=== PATIENT | female | born 1950 | race Caucasian/White ===

== ENCOUNTER 2020-09-13 07:52 | Outpatient (REF) | payer MEDICARE, SELFPAY | END 2020-09-13 07:53 | disposition home or self-care (01) | LOC: HO.LNP 07:52 | PROVIDERS: PCP Internal Medicine; Referring Provider Internal Medicine; Visit Provider Obstetrics & Gynecology | DX: N90.4 Leukoplakia of vulva (principal) | CPT/HCPCS: 56606; 88305; 88312 ==

== ENCOUNTER 2020-09-26 13:27 | Outpatient (REF) | payer MEDICARE, SELFPAY ==
--- NOTE | 2020-09-26 | US_ITS ---
EXAMINATION: NONINVASIVE ASSESSMENT OF THE ARTERIES OF BOTH LOWER EXTREMITIES WITH PVR EXAM AND BILATERAL LOWER EXTREMITY DUPLEX CLINICAL INFORMATION: Claudication bilateral lower leg pain TECHNIQUE: Ankle pulse volume recordings, ankle pressure measurements and ankle brachial indices were obtained of the lower extremity arterial system bilaterally in addition to duplex Doppler techniques with wave form analysis and measurement of velocities in the common femoral, profunda femoral, superficial femoral, popliteal and tibial arteries. The study was performed only at rest. COMPARISON: None FINDINGS: a) AT REST: RIGHT LE. The right ankle-brachial index is: 0.9 2. Right ankle pressure: normal. 3. Right ankle PVR waveform: Dampened. 4. Right direct duplex Doppler findings: There is diffuse atherosclerotic disease with vessel wall calcification. There is a large calcified plaque in the right common femoral artery. There is diffuse wall thickening and mild luminal narrowing of the mid and distal right SFA. * Common femoral artery: 245 cm/s, Diastolic flow reversal: No * Superficial femoral artery (proximal, mid, distal): 158, 114 and 127 cm/s, Diastolic flow reversal: No * Popliteal artery: 84 cm/s, Diastolic flow reversal: No * Posterior tibial artery: 73 cm/s, Diastolic flow reversal: No LEFT LE. The left ankle-brachial index is: 0.9 2. Left ankle pressure: normal. 3. Left ankle PVR waveform: normal. 4. Left direct duplex Doppler findings: There is diffuse atherosclerotic disease with vessel wall calcification. There is a calcified plaque seen in the left common femoral artery. There is a diffuse wall thickening and mild luminal narrowing of the mid and distal SFA and popliteal artery. * Common femoral artery: 227 cm/s, Diastolic flow reversal: No * Superficial femoral artery (proximal, mid, distal): 113, 141 and 92 cm/s, Diastolic flow reversal: Yes * Popliteal artery: 86 cm/s, Diastolic flow reversal: No * Posterior tibial artery: 54 cm/s, Diastolic flow reversal: No. Monophasic waveform. LUIS FERNANDO Reference: * >0.97-1.25 = normal - no significant arterial disease * 0.75-0.96 = mild peripheral arterial disease * 0.5-0.74 = moderate peripheral arterial disease * <0.50 = severe peripheral arterial disease US/US LUIS FERNANDO complete IMPRESSION: Right: The right LUIS FERNANDO is 0.9 suggestive of mild peripheral atherosclerotic disease. Significant calcified plaque and elevated peak velocity in the right common femoral artery. Diffuse wall thickening and luminal narrowing of the right mid and distal SFA. Biphasic waveforms throughout. Left: The left LUIS FERNANDO is 0.9 suggestive of mild peripheral atherosclerotic disease. Significant calcified plaque and elevated peak systolic velocity in the left common femoral artery. Is wall thickening and luminal narrowing of the right mid and distal SFA and popliteal arteries. Biphasic waveforms throughout with the exception monophasic waveform in the left posterior tibial artery.
== END 2020-09-26 13:28 | disposition home or self-care (01) ==
LOC: HO.US 13:27
PROVIDERS: PCP Internal Medicine; Visit Provider Internal Medicine
DX: M79.661 Pain in right lower leg (principal); M79.662 Pain in left lower leg; I73.9 Peripheral vascular disease, unspecified
CPT/HCPCS: 93923; 93925

== ENCOUNTER → 2020-09-27 12:08 | Outpatient (BNVA) | payer MEDICARE, SELFPAY | PROVIDERS: PCP Internal Medicine; Visit Provider Obstetrics & Gynecology | DX: N90.4 Leukoplakia of vulva (principal); Z98.890 Other specified postprocedural states | CPT/HCPCS: 99212; Q3014 ==

== ENCOUNTER 2020-10-18 09:01 | Outpatient (REF) | payer MEDICARE, SELFPAY | END 2020-10-18 09:02 | disposition home or self-care (01) | LOC: HO.LAB 09:01 | PROVIDERS: PCP Internal Medicine; Visit Provider Obstetrics & Gynecology | DX: N76.4 Abscess of vulva (principal) | CPT/HCPCS: 10060; 56405; 87071; 87147; 87205; 99212 ==

== ENCOUNTER 2020-10-23 22:56 | Emergency (ER) | payer MEDICARE, SELFPAY ==
[2020-10-23 23:02] VITALS: BP 167/80; BP 170/80; PULSE 80; RESP 18; TEMP 36.9; O2SAT 98; BMI 25.0
--- NOTE | 2020-10-23 23:04 | ECG_ITS ---
Test Reason : CHEST PAIN Blood Pressure : / mmHG Vent. Rate : 068 BPM Atrial Rate : 068 BPM P-R Int : 142 ms QRS Dur : 078 ms QT Int : 444 ms P-R-T Axes : 056 020 069 degrees QTc Int : 472 ms Normal sinus rhythm Nonspecific T wave abnormality Prolonged QT Abnormal ECG When compared with ECG of 14-APR-2020 10:53, Nonspecific T wave abnormality no longer evident in Inferior leads T wave inversion no longer evident in Anterolateral leads Referred By: Nayely Cox Electronically Signed By:STEPHEN LENNON MD
--- NOTE | 2020-10-23 23:04 | XR_ITS ---
EXAMINATION: XR CHEST CLINICAL INFORMATION: Chest pain COMPARISON: 04/15/2020, chest radiograph and chest CT TECHNIQUE: Frontal view of the chest was obtained. FINDINGS: Heart size normal. Again seen are coarse reticulonodular opacities in both lungs. Similar correlates were seen on the prior chest CT that showed reticular nodular markings with tree-in-bud opacities. No new areas of consolidation seen. No evidence of CHF. No lung masses. No pleural effusions. XR/XR chest 1V IMPRESSION: No acute intrathoracic disease
--- NOTE | 2020-10-23 23:06 | ED.CHESTPAIN ---
HPI - Chest Pain General Chief Complaint: Chest Pain Stated Complaint: CP X3 DAYS Time Seen by Provider: 10/23/20 23:05 Source: patient and EMS Mode of arrival: EMS Limitations: no limitations History of Present Illness HPI narrative: given nitro and ASA with EMS no significant relief also noted her BP was high 170s systolic, takes her lisinopril 20mg daily without any issue complaint: chest pain Onset (ago): hour(s) (3) Timing of current episode: constant Prior episodes: Yes Onset: during rest Pain location: left chest Pain radiation: left arm Severity: moderate Quality: tightness and aching Relieving factors: nothing Exacerbating factors: movement Treatment prior to arrival: aspirin and nitroglycerin Related Data Home Medications Medication Instructions Recorded Confirmed gabapentin 300 mg capsule 300 mg PO DAILY 09/13/20 09/27/20 lisinopril 20 mg tablet 20 mg PO BID 09/13/20 09/27/20 methenamine-sodium salicylate 162 tab PO 09/13/20 09/27/20 mg-162.5 mg tablet simvastatin 20 mg tablet 20 mg PO DAILY 09/13/20 09/27/20 Previous Rx's Medication Instructions Recorded sulfamethoxazole 800 1 tab PO BID 5 Days #2 tab 10/18/20 mg-trimethoprim 160 mg tablet cyclobenzaprine 10 mg PO TID PRN #14 tab 10/24/20 Allergies Allergy/AdvReac Type Severity Reaction Status Date / Time levofloxacin [LEVOFLOXACIN] Allergy Intermediate HIVES Verified 10/18/20 09:14 ceftriaxone [From ROCEPHIN] Allergy Mild SWELLING Verified 10/18/20 09:14 cephalexin [From KEFLEX] Allergy Mild ITCHING Verified 10/18/20 09:14 Review of Systems Review of Systems: Constitutional : No Weight loss, No Fever, No Chills ENT/Mouth : No sore throat, No Rhinorrhea Eyes: No Eye Pain, No Swelling Cardiovascular : pos Chest Pain, no SOB, no Dyspnea on Exertion, No Orthopnea, No Edema, No Palpitations Respiratory : No Cough, No Sputum Gastrointestinal : pos Nausea, No Vomiting, No Diarrhea, No abdominal Pain, No Hematochezia, No Melena Genitourinary : No Dysuria, No Urinary Frequency Musculoskeletal : pos joint pain, No Myalgias, No Joint Swelling Skin : No Skin Lesions, No rash Neuro : No Weakness, No Numbness, No Dizziness, No Headache Psych : No Anxiety/Panic, No Depression All other systems reviewed and are negative REPLACED BY [facility] Past Medical History Attestation statement: The following information was validated with the patient. Medical History Abscess of right genital labia HTN (hypertension) Hyperlipidemia Surgical History History of bilateral tubal ligation History of brain surgery History of carpal tunnel surgery Family History Family History Family/Other Breast cancer Social History Social History Alcohol intake: current Alcohol intake frequency: holidays/special occasions only Smoking Status: Current every day smoker Advance Directives: No Advance Directives Information Provided: No Sexual orientation: Straight/Heterosexual Gender identity: female Physical Exam Vital Signs: Vital Signs: Last Vital Signs Temp 98.4 F 10/23/20 23:20 Pulse 69 10/24/20 00:59 Resp 16 10/24/20 00:59 BP 113/65 10/24/20 00:59 Pulse Ox 98 10/24/20 00:59 Body Mass Index 25.0 Appearance: Alert. Oriented X3. No acute distress. Eyes: Pupils equal, round and reactive to light. ENT: Pharynx normal. Neck: Normal inspection. Neck supple. CVS: Normal heart rate and rhythm. Pulses normal. Chest: ttp along L chest that reproduces her pain Respiratory: No respiratory distress. Breath sounds normal. Abdomen: Soft and nontender. Skin: Skin warm and dry. Normal skin color. Normal skin turgor. Extremities: No lower extremity edema. No calf ttp Neuro: Oriented X 3. No motor deficit. No sensory deficit. Course Course Course Narrative: negative workup, has no pain, BP improved, stable for DC MDM - Chest Pain MDM Narrative Medical decision making narrative: 70 yo female wiht hx of HTN/HPL here with chest pain x 3 hours that is reproduceable in nature, already given nitro and ASA without relief, hurts if she lays on it, has no signs of DVT, not pleuritic, no hypoxia doubt PE, seems most likely MSK in nature but will obtain labs, treat pain, troponin x 1, CXR, dispo per results and findings. Lab Data Result diagrams: 10/23/20 23:04 10/23/20 23:25 Labs: Lab Results 10/23/20 10/23/20 10/23/20 Range/Units 23:04 23:25 23:25 WBC 8.7 (4.8-10.8) X10*3/uL RBC 4.17 L (4.20-5.50) X10*6/uL Hgb 10.8 L (12.0-16.0) g/dl Hct 33.7 L (37-47) % MCV 80.8 (80-98) fL MCH 25.9 L (27.0-33.0) pg MCHC 32.0 (31.0-35.0) g/dl RDW 16.9 H (11.0-16.0) % Plt Count 231 (160-400) X10*3/uL MPV 10.5 (9.4-12.3) fL Immature Gran % (Auto) 0.2 (0.0-0.4) % Neut % (Auto) 39.4 L (45-73) % Lymph % (Auto) 41.2 H (20-40) % [place] % (Auto) 10.3 (2-11) % Eos % (Auto) 7.3 H (0-4) % Baso % (Auto) 1.6 (0-2) % Lymph # (Auto) 3.6 (1.2-4.9) X10*3/uL [place] # (Auto) 0.9 (0.1-1.2) X10*3/uL Eos # (Auto) 0.6 H (0.0-0.4) X10*3/uL Baso # (Auto) 0.1 (0.0-0.2) X10*3/uL Abs Immat Gran (auto) 0.02 (0.00-0.03) X10*3/uL Absolute Neuts (auto) 3.4 (2.0-8.3) X10*3/uL Absolute Nucleated RBC 0.000 (0.0-0.012) X10*3/uL Nucleated RBC % (auto) 0.0 (0.0-0.2) /100WBC Hold Blue Top SEE NOTE Sodium 136 (135-145) mmol/L Potassium 4.5 (3.3-5.1) mmol/l Chloride 107 (96-108) mmol/L Carbon Dioxide 20 L (22-29) mmol/L Anion Gap 14 (12-20) BUN 9 (9-16) mg/dL Creatinine 0.90 (0.5-1.4) mg/dL Estim Creat Clear Calc 46.3 Estimated GFR > 60 Random Glucose 91 (60-115) mg/dL Calcium 9.0 (8.4-10.2) mg/dL Troponin I High Sens (<3.5-17.0) ng/L 10/23/20 Range/Units 23:25 WBC (4.8-10.8) X10*3/uL RBC (4.20-5.50) X10*6/uL Hgb (12.0-16.0) g/dl Hct (37-47) % MCV (80-98) fL MCH (27.0-33.0) pg MCHC (31.0-35.0) g/dl RDW (11.0-16.0) % Plt Count (160-400) X10*3/uL MPV (9.4-12.3) fL Immature Gran % (Auto) (0.0-0.4) % Neut % (Auto) (45-73) % Lymph % (Auto) (20-40) % [place] % (Auto) (2-11) % Eos % (Auto) (0-4) % Baso % (Auto) (0-2) % Lymph # (Auto) (1.2-4.9) X10*3/uL [place] # (Auto) (0.1-1.2) X10*3/uL Eos # (Auto) (0.0-0.4) X10*3/uL Baso # (Auto) (0.0-0.2) X10*3/uL Abs Immat Gran (auto) (0.00-0.03) X10*3/uL Absolute Neuts (auto) (2.0-8.3) X10*3/uL Absolute Nucleated RBC (0.0-0.012) X10*3/uL Nucleated RBC % (auto) (0.0-0.2) /100WBC Hold Blue Top Sodium (135-145) mmol/L Potassium (3.3-5.1) mmol/l Chloride (96-108) mmol/L Carbon Dioxide (22-29) mmol/L Anion Gap (12-20) BUN (9-16) mg/dL Creatinine (0.5-1.4) mg/dL Estim Creat Clear Calc Estimated GFR Random Glucose (60-115) mg/dL Calcium (8.4-10.2) mg/dL Troponin I High Sens < 3.5 (<3.5-17.0) ng/L ECG Data ECG #1: Attestation: I personally reviewed and interpreted this ECG as follows: ECG interpretation date: 10/24/20 ECG interpretation time: 00:52 Interpretation: Rate: 68 Rhythm: NSR [place]: normal Normal P waves. Normal MELISSA. Normal QRS complex. ST T wave : nonspecific, inverted aVL, V1 qTC: prolonged prior studies: no acute ischemia, unchanged march 2020 The study has been interpreted contemporaneously by me. . Discharge Plan Discharge Clinical Impression: HTN (hypertension), Chest pain Patient Disposition: Home, Self-Care Instructions: Chest Pain (ED), Hypertension (ED) Additional Instructions: return to ED for any worsening symptoms or concerns Prescriptions: New cyclobenzaprine 10 mg tablet 10 mg PO TID PRN (Reason: muscle spasm) Qty: 14 RF: 0 No Action lisinopril 20 mg tablet 20 mg PO BID RF: 0 gabapentin 300 mg capsule 300 mg PO DAILY RF: 0 simvastatin 20 mg tablet 20 mg PO DAILY RF: 0 methenamine-sodium salicylate 162-162.5 mg tablet PO RF: 0 sulfamethoxazole-trimethoprim [Bactrim DS] 800-160 mg tablet 1 tab PO BID 5 Days Qty: 2 RF: 0 Referrals: Physician,Unknown [Primary Care Provider] - 2 days (if not better, talk to your primary care doctor about stress test)
[2020-10-23 23:09] VITALS: BP 145/69; PULSE 72; RESP 18; O2SAT 97
[2020-10-23 23:20] VITALS: BP 155/73; PULSE 71; RESP 19; TEMP 36.9; O2SAT 98
[2020-10-23 23:47] LABS: Basophils Absolute Auto 0.1 X10*3/uL (0.0-0.2); Basophils Percent Auto 1.6 % (0-2); Eosinophils Absolute Auto 0.6 X10*3/uL (0.0-0.4); Eosinophils Percent Auto 7.3 % (0-4); Hematocrit 33.7 % (37-47); Hemoglobin 10.8 g/dl (12.0-16.0); Imm Gran Abs Auto 0.02 X10*3/uL (0.00-0.03); Imm Gran Pct Auto 0.2 % (0.0-0.4); Lymphocytes Absolute Auto 3.6 X10*3/uL (1.2-4.9); Lymphocytes Percent Auto 41.2 % (20-40); MANUAL DIFF FLAG NO; Mean Corpuscular Hemoglobin 25.9 pg (27.0-33.0); Mean Corpuscular Volume 80.8 fL (80-98); Mean Platelet Volume 10.5 fL (9.4-12.3); Monocytes Absolute Auto 0.9 X10*3/uL (0.1-1.2); Monocytes Percent Auto 10.3 % (2-11); Neutrophils Absolute Auto 3.4 X10*3/uL (2.0-8.3); Neutrophils Percent Auto 39.4 % (45-73); Platelet Count 231 X10*3/uL (160-400); Red Blood Count 4.17 X10*6/uL (4.20-5.50); Red Cell Distribution Width 16.9 % (11.0-16.0); White Blood Count 8.7 X10*3/uL (4.8-10.8)
[2020-10-24 00:05] LABS: Anion Gap 14 (12-20); Blood Urea Nitrogen 9 mg/dL (9-16); Carbon Dioxide 20 mmol/L (22-29); Chloride 107 mmol/L (96-108); Creatinine Clr Calc Pharmacy 46.3; Estimated Glomerular Filt Rate > 60; Glucose Random 91 mg/dL (60-115); Potassium 4.5 mmol/l (3.3-5.1); Sodium 136 mmol/L (135-145)
[2020-10-24] MEDS: Cyclobenzaprine HCl 10 MG TABLET PO (00:20)
--- NOTE | 2020-10-24 00:21 | PC.NURSE ---
pt was only given one of the two medications due to pyxis is down in the ed.
[2020-10-24] MEDS: HYDROcodone Bit/Acetam 5/325 TABLET 1 TAB PO (00:57)
[2020-10-24 00:59] VITALS: BP 113/65; PULSE 69; RESP 16; O2SAT 98
[2020-10-24 01:24] LABS: Troponin-I High Sensitivity < 3.5 ng/L (<3.5-17.0)
[2020-10-24 02:00] VITALS: BP 125/63; PULSE 61; RESP 14; O2SAT 96
== END 2020-10-24 02:29 | disposition home or self-care (01) ==
PROVIDERS: Emergency Provider Emergency Medicine
DX: R07.9 Chest pain, unspecified (principal); M79.602 Pain in left arm; I10 Essential (primary) hypertension; F17.200 Nicotine dependence, unspecified, uncomplicated; Z71.6 Tobacco abuse counseling; Z79.899 Other long term (current) drug therapy
CPT/HCPCS: 36415; 71045; 80048; 84484; 85025; 93005; 99284

== ENCOUNTER 2020-10-29 09:22 | Outpatient (REF) | payer MEDICARE, SELFPAY ==
[2020-10-29 10:19] LABS: Anion Gap 12 (12-20); Blood Urea Nitrogen 8 mg/dL (9-16); Calcium 9.2 mg/dL (8.4-10.2); Carbon Dioxide 25 mmol/L (22-29); Chloride 105 mmol/L (96-108); Estimated Glomerular Filt Rate > 60; Glucose Random 83 mg/dL (60-115); Potassium 4.1 mmol/l (3.3-5.1); Sodium 138 mmol/L (135-145)
--- NOTE | 2020-10-29 11:16 | MR_ITS ---
EXAMINATION: MR BRAIN WITHOUT AND WITH CONTRAST CLINICAL INFORMATION: History of brain tumor. Symptoms consistent with TIA. COMPARISON: Brain MRI 03/15/2020. TECHNIQUE: Multiplanar, multisequence imaging of the brain was performed before and after the intravenous administration of 5.5 mL of Gadavist. FINDINGS: There is redemonstration of postoperative findings related to left frontal craniotomy. A mild amount of dural thickening and pachymeningeal enhancement is seen subjacent to the craniotomy which appears similar compared with prior. Evaluation of the sellar region redemonstrates the 9 mm focus of peripheral enhancement centered in the suprasellar region abutting the pituitary stalk without change from 03/15/2020. No gross abnormal soft tissue is seen within the sellar region. There is no acute infarction, hemorrhage, mass, or extra-axial fluid collection. The ventricles are normal in size and configuration without evidence of hydrocephalus. Encephalomalacic and gliotic changes are again demonstrated within the left temporal lobe no abnormal parenchymal enhancement is seen. Degenerative spondylotic changes are noted including at C4-C5 and C5-C6 without significant narrowing of the spinal canal. The major arterial flow voids appear preserved. There is left-sided mastoid fluid. Bilateral lens replacements are noted. MR/MR head/brain wo/w con IMPRESSION: Stable exam compared with 03/15/2020. No acute infarction or new intracranial finding. Stable focus of peripheral enhancement within the suprasellar region measuring 9 mm. Continued pituitary protocol MRI surveillance is recommended.
== END 2020-10-29 09:23 | disposition home or self-care (01) ==
LOC: HO.MRI 09:22
PROVIDERS: Visit Provider Nurse Practitioner Primary Care
DX: R20.0 Anesthesia of skin (principal); Z87.898 Personal history of other specified conditions
CPT/HCPCS: 70553; 80048; A9585

== ENCOUNTER → 2020-11-14 09:33 | Outpatient (BNVA) | payer MEDICARE, SELFPAY | PROVIDERS: Visit Provider Obstetrics & Gynecology | DX: Z76.89 Persons encountering health services in other specified circumstances (principal) ==

== ENCOUNTER 2020-11-18 19:12 | Emergency (ER) | payer MEDICARE, SELFPAY ==
--- NOTE | 2020-11-18 | ECG_ITS ---
Test Reason : [id number] Blood Pressure : / mmHG Vent. Rate : 070 BPM Atrial Rate : 070 BPM P-R Int : 116 ms QRS Dur : 082 ms QT Int : 434 ms P-R-T Axes : 051 023 067 degrees QTc Int : 468 ms Normal sinus rhythm Normal ECG When compared with ECG of 23-OCT-2020 23:17, No significant change was found Referred By: Yudelka Gonzalez Electronically Signed By:BI INFANTE MD
[2020-11-18 19:15] VITALS: BP 174/76; PULSE 70; RESP 20; TEMP 36.7; O2SAT 97; O2SAT 98; BMI 25.0
--- NOTE | 2020-11-18 19:32 | XR_ITS ---
EXAMINATION: PORTABLE CHEST 1 VIEW CLINICAL INFORMATION: cough . COMPARISON: 10/23/2020. TECHNIQUE: Portable frontal view of the chest was obtained. FINDINGS: The lungs are well expanded. There are chronic appearing coarsened reticular markings again seen bilaterally with a distribution similar to the prior study. No superimposed focal infiltrate, effusion, edema, or pneumothorax. Cardiac and mediastinal silhouettes are within normal limits for technique. No acute bony abnormality seen. XR/XR chest 1V IMPRESSION: Chronic appearing changes but no superimposed acute process when compared to the 10/23/2020 study
[2020-11-18 19:38] VITALS: BP 144/79; PULSE 72; RESP 15; TEMP 37.1; O2SAT 97
[2020-11-18] MEDS: 0.9 % Sodium Chloride 1,000 ML 999 ML IVCONT ×2 (19:42→21:33)
--- NOTE | 2020-11-18 19:51 | ED.GENADULT ---
HPI - General Adult General Chief complaint: Dyspnea Stated complaint: Left Chest pain ? Pneumonia Time Seen by Provider: 11/18/20 19:16 Source: patient and EMS Mode of arrival: EMS Limitations: no limitations History of Present Illness HPI narrative: Patient comes emergency room complaining of cough for 1 week. Patient states on Thursday she went to see her primary care physician, she was given prednisone and a mucolytic, however patient was only able to afford the prednisone. Patient states her cough has gradually been getting worse and this morning she woke up with hoarseness. Patient denies throat pain, no dyspnea. Patient states she has been spitting up copious amounts of mucus. Patient denies fever or chills. Patient states at home she has been giving herself multiple nebulization treatments with no relief. MD complaint: Cough Related Data Home Medications Medication Instructions Recorded Confirmed gabapentin 300 mg capsule 300 mg PO DAILY 09/13/20 09/27/20 lisinopril 20 mg tablet 20 mg PO BID 09/13/20 09/27/20 methenamine-sodium salicylate 162 tab PO 09/13/20 09/27/20 mg-162.5 mg tablet simvastatin 20 mg tablet 20 mg PO DAILY 09/13/20 09/27/20 Previous Rx's Medication Instructions Recorded sulfamethoxazole 800 1 tab PO BID 5 Days #2 tab 10/18/20 mg-trimethoprim 160 mg tablet cyclobenzaprine 10 mg PO TID PRN #14 tab 10/24/20 albuterol sulfate 5 mg INHALATION Q4H #30 ea 11/18/20 azithromycin 250 mg PO DAILY 5 Days #4 tab 11/18/20 prednisone 50 mg PO DAILY #4 tab 11/18/20 Allergies Allergy/AdvReac Type Severity Reaction Status Date / Time levofloxacin [LEVOFLOXACIN] Allergy Intermediate HIVES Verified 10/18/20 09:14 ceftriaxone [From ROCEPHIN] Allergy Mild SWELLING Verified 10/18/20 09:14 cephalexin [From KEFLEX] Allergy Mild ITCHING Verified 10/18/20 09:14 Review of Systems Review of Systems: Constitutional : No Weight loss, No Fever, No Chills, No Night Sweats, No Fatigue, No Malaise ENT/Mouth : No Hearing loss, No Ear Pain, No Nasal Congestion, No Sinus Pain, No Hoarseness, No sore throat, No Rhinorrhea, No Swallowing Difficulty Eyes: No Eye Pain, No Swelling, No Redness, No Foreign Body, No Discharge, No Vision Changes Cardiovascular : Chest pain only while coughing, No SOB, No Dyspnea on Exertion, No Orthopnea, No Edema, No Palpitations Respiratory : Complaining of cough with increased sputum, No Wheezing, No Smoke Exposure, No Dyspnea Gastrointestinal : No Nausea, No Vomiting, No Diarrhea, No Constipation, No abdominal Pain, No Hematochezia, No Melena Genitourinary : no irregular bleeding, No Dysuria, No Urinary Frequency, No Hematuria, No Urinary Incontinence, No Urgency, No Flank Pain, No Urinary Flow Changes, No Hesitancy Musculoskeletal : No joint pain, No Myalgias, No Joint Swelling Skin : No Skin Lesions, No rash Neuro : No Weakness, No Numbness, No Paresthesias, No Loss of Consciousness, No Dizziness, No Headache Psych : No Anxiety/Panic, No Depression, No SI/HI/AH/VH, No Social Issues, Heme/Lymph: No Bruising, No Bleeding,No Lymphadenopathy Endocrine : No Polyuria, No Polydipsia, No Temperature Intolerance [facility] Past Medical History Medical History (Updated 11/18/20 @ 21:21 by Yudelka Gonzalez MD) Abscess of right genital labia COPD (chronic obstructive pulmonary disease) HTN (hypertension) Hyperlipidemia Surgical History History of bilateral tubal ligation History of brain surgery History of carpal tunnel surgery Family History Family History Family/Other Breast cancer Social History Social History Alcohol intake: current Alcohol intake frequency: a few times a month Alcohol type: beer Smoking Status: Current some day smoker Use of substances other than those prescribed or required for medical reasons: No Advance Directives: No Advance Directives Information Provided: No Sexual orientation: Straight/Heterosexual Gender identity: female Physical Exam Vital Signs: Vital Signs: Last Vital Signs Temp 98.8 F 11/18/20 19:38 Pulse 72 11/18/20 19:38 Resp 15 11/18/20 19:38 BP 144/79 H 11/18/20 19:38 Pulse Ox 97 11/18/20 19:38 Body Mass Index 25.0 Appearance: Alert. Oriented X3. No acute distress. Eyes: Pupils equal, round and reactive to light. ENT: Pharynx erythematous, no exudates, hoarseness Neck: Normal inspection. Neck supple. No lymph nodes noted. No crepitus CVS: Normal heart rate and rhythm. Pulses normal. Normal S1 and S2 Respiratory: No respiratory distress. Breath sounds normal. No Wheezing. No rales, actively coughing Abdomen: Soft and nontender. No rigidity. No distention. good BS x4 Skin: Skin warm and dry. Normal skin color. Normal skin turgor. Extremities: No lower extremity edema. No lower extremity edema. No Lacerations. No Rash Neuro: Oriented X 3. No motor deficit. No sensory deficit. Moving all extermities. No slurred speech. Course Course Course Narrative: At this time, bronchitis versus COPD exacerbation is suspected, labs pending. Patient will be empirically be treated with antibiotics, however patient states that she has anaphylactic reaction to cephalosporins, unknown if she is allergic to penicillin but believes she is allergic, known to be allergic to fluoroquinolones as well. Patient's white blood cell count is elevated likely due to several days of prednisone use. Patient does not have a fever, not tachycardic, lactic acid within normal limits, at this time sepsis is not suspected. Patient initially stated that she was positive for COVID, then she states that she is completely sure that she tested negative. At this time, we are going to go ahead and test her again. Patient received 1 dose of azithromycin IV. On physical exam prior to discharge, patient is stable, oxygen saturation 97% on room air, good bilateral breath sounds, no wheezing, good air movement Medical Decision Making Lab Data Result diagrams: 11/18/20 19:50 11/18/20 19:49 Labs: Lab Results 11/18/20 11/18/20 11/18/20 Range/Units 19:49 19:49 19:50 WBC 21.0 H (4.8-10.8) X10*3/uL RBC 4.16 L (4.20-5.50) X10*6/uL Hgb 10.7 L (12.0-16.0) g/dl Hct 33.5 L (37-47) % MCV 80.5 (80-98) fL MCH 25.7 L (27.0-33.0) pg MCHC 31.9 (31.0-35.0) g/dl RDW 15.8 (11.0-16.0) % Plt Count 353 D (160-400) X10*3/uL MPV 9.9 (9.4-12.3) fL Immature Gran % (Auto) Cancelled Neut % (Auto) Cancelled Lymph % (Auto) Cancelled [place] % (Auto) Cancelled Eos % (Auto) Cancelled Baso % (Auto) Cancelled Lymph # (Auto) Cancelled [place] # (Auto) Cancelled Eos # (Auto) Cancelled Baso # (Auto) Cancelled Abs Immat Gran (auto) Cancelled Absolute Neuts (auto) Cancelled Absolute Nucleated RBC 0.000 (0.0-0.012) X10*3/uL Nucleated RBC % (auto) 0.0 (0.0-0.2) /100WBC Neutrophils % (Manual) 48 (45-73) % Band Neutrophils % 2 L (3-5) % Lymphocytes % (Manual) 31 (20-40) % Atypical Lymphs % (Man) 9 H (0-6) % Monocytes % (Manual) 6 (2-11) % Eosinophils % (Manual) 3 (0-4) % Basophils % (Manual) 1 (0-1) % Abs Neuts (Manual) 10.5 H (2.2-7.9) X10*3/uL Lymphocytes # (Manual) 6.5 H (0.6-4.8) X10*3/uL Atyp Lymphs # (Manual) 1.9 x10*3/uL Monocytes # (Manual) 1.3 H (0.0-1.2) X10*3/uL Eosinophils # (Manual) 0.6 (0.0-0.8) X10*3/UL Basophils # (Manual) 0.2 (0.0-0.3) X10*3/uL Platelet Estimate NORMAL (NORMAL) Plt Morphology Comment NORMAL RBC Morphology NOTED Target Cells 1+ Rouleaux PRESENT Sodium 139 (135-145) mmol/L Potassium 3.8 (3.3-5.1) mmol/l Chloride 103 (96-108) mmol/L Carbon Dioxide 28 (22-29) mmol/L Anion Gap 12 (12-20) BUN 15 D (9-16) mg/dL Creatinine 0.81 (0.5-1.4) mg/dL Estim Creat Clear Calc 51.5 Estimated GFR > 60 Random Glucose 87 (60-115) mg/dL Lactic Acid 1.0 (0.5-2.0) mmol/L Calcium 8.5 D (8.4-10.2) mg/dL Total Bilirubin 0.3 (0.0-1.0) mg/dL Direct Bilirubin < 0.2 (0.0-0.5) mg/dL AST 25 (5-31) U/L ALT 23 (0-31) U/L Alkaline Phosphatase 100 (39-117) U/L Total Protein 7.1 (6.5-8.0) g/dL Albumin 3.9 (3.5-5.0) g/dL Imaging Data Chest x-ray: Radiologist's impression: The lungs are well expanded. There are chronic appearing coarsened reticular markings again seen bilaterally with a distribution similar to the prior study. No superimposed focal infiltrate, effusion, edema, or pneumothorax. Cardiac and mediastinal silhouettes are within normal limits for technique. No acute bony abnormality seen. XR/XR chest 1V IMPRESSION: Chronic appearing changes but no superimposed acute process when compared to the 10/23/2020 study ECG Data Attestation: I personally reviewed and interpreted this ECG as follows: (Sinus rhythm, heart rate 70, no ST segment depressions or elevations, no T-wave inversions) Discharge Plan Discharge Clinical Impression: COPD (chronic obstructive pulmonary disease) with acute bronchitis Patient Disposition: Home, Self-Care Instructions: Acute Bronchitis (ED), COPD (Chronic Obstructive Pulmonary Disease) (ED) Additional Instructions: Please follow-up with your primary care physician tomorrow. If you have any worsening or new symptoms, please return to the emergency room or call 911 Prescriptions: New azithromycin 250 mg tablet 250 mg PO DAILY 5 Days Qty: 4 RF: 0 prednisone 50 mg tablet 50 mg PO DAILY Qty: 4 RF: 0 albuterol sulfate 2.5 mg/0.5 mL solution for nebulization 5 mg inhalation Q4H Qty: 30 RF: 0 No Action cyclobenzaprine 10 mg tablet 10 mg PO TID PRN (Reason: muscle spasm) Qty: 14 RF: 0 lisinopril 20 mg tablet 20 mg PO BID RF: 0 gabapentin 300 mg capsule 300 mg PO DAILY RF: 0 simvastatin 20 mg tablet 20 mg PO DAILY RF: 0 methenamine-sodium salicylate 162-162.5 mg tablet PO RF: 0 sulfamethoxazole-trimethoprim [Bactrim DS] 800-160 mg tablet 1 tab PO BID 5 Days Qty: 2 RF: 0
[2020-11-18 20:00] LABS: Hematocrit 33.5 % (37-47); Hemoglobin 10.7 g/dl (12.0-16.0); Mean Corpuscular HGB Conc 31.9 g/dl (31.0-35.0); Mean Corpuscular Hemoglobin 25.7 pg (27.0-33.0); Mean Corpuscular Volume 80.5 fL (80-98); Mean Platelet Volume 9.9 fL (9.4-12.3); Platelet Count 353 X10*3/uL (160-400); Red Blood Count 4.16 X10*6/uL (4.20-5.50); Red Cell Distribution Width 15.8 % (11.0-16.0)
[2020-11-18 20:21] LABS: Alanine Aminotransferase 23 U/L (0-31); Albumin Level 3.9 g/dL (3.5-5.0); Alkaline Phosphatase 100 U/L (39-117); Anion Gap 12 (12-20); Aspartate Amino Transferase 25 U/L (5-31); Bilirubin Direct < 0.2 mg/dL (0.0-0.5); Bilirubin Total 0.3 mg/dL (0.0-1.0); Blood Urea Nitrogen 15 mg/dL (9-16); Calcium 8.5 mg/dL (8.4-10.2); Carbon Dioxide 28 mmol/L (22-29); Chloride 103 mmol/L (96-108); Creatinine Clr Calc Pharmacy 51.5; Estimated Glomerular Filt Rate > 60; Glucose Random 87 mg/dL (60-115); Potassium 3.8 mmol/l (3.3-5.1); Sodium 139 mmol/L (135-145); Total Protein 7.1 g/dL (6.5-8.0)
[2020-11-18 20:28] LABS: Atypical Lymph Absolute Manual 1.9 x10*3/uL; Atypical Lymphs Percent Manual 9 % (0-6); Band Neutrophils Percent 2 % (3-5); Basophils Abs Manual 0.2 X10*3/uL (0.0-0.3); Basophils Percent Manual 1 % (0-1); Eosinophils Absolute Manual 0.6 X10*3/UL (0.0-0.8); Eosinophils Percent Manual 3 % (0-4); Lymphocytes Absolute Manual 6.5 X10*3/uL (0.6-4.8); Lymphocytes Percent Manual 31 % (20-40); Monocytes Absolute Manual 1.3 X10*3/uL (0.0-1.2); Monocytes Percent Manual 6 % (2-11); Neutrophils Absolute Manual 10.5 X10*3/uL (2.2-7.9); Neutrophils Percent Manual 48 % (45-73)
[2020-11-18 20:29] LABS: RBC Morphology NOTED
[2020-11-18 20:30] LABS: Target Cells 1+
[2020-11-18 20:31] LABS: Rouleau PRESENT
[2020-11-18 20:32] LABS: Platelet Estimate NORMAL (NORMAL); Platelet Morphology Comment NORMAL
[2020-11-18] MEDS: methylPREDNISolone Sod Succ/PF 125 MG/2 ML VIAL IVPUSH (20:42)
[2020-11-18] MEDS: Azithromycin 500 MG in 0.9 % Sodium Chloride 250 ML 125 MG IV (20:43)
[2020-11-18] MEDS: Albuterol/Iprat 2.5/0.5MG 3 ML AMPUL.NEB INHALE (22:05)
[2020-11-18 22:13] VITALS: BP 169/87; PULSE 67; RESP 16; O2SAT 97
== END 2020-11-18 23:40 | disposition home or self-care (01) ==
PROVIDERS: Emergency Provider Emergency Medicine
DX: J44.0 Chronic obstructive pulmonary disease with (acute) lower respiratory infection (principal); Z20.828 Contact with and (suspected) exposure to other viral communicable diseases; Z79.899 Other long term (current) drug therapy; I10 Essential (primary) hypertension; F17.200 Nicotine dependence, unspecified, uncomplicated
CPT/HCPCS: 36415; 71045; 80048; 80076; 83605; 85007; 85025; 85027; 87040; 93005; 96361; 96365; 96375; 99284; J0456; J2930; U0003

== ENCOUNTER 2020-12-05 08:43 | Outpatient (REF) | payer MEDICARE, SELFPAY ==
--- NOTE | 2020-12-05 | US_ITS ---
EXAMINATION: US EXTRACRANIAL CAROTID DUPLEX, BILATERAL CLINICAL INFORMATION: Hypertension, PVD. COMPARISON: None. TECHNIQUE: Real-time ultrasound and Doppler techniques (integrating B-mode 2-D vascular images, Doppler spectral analysis and color-flow Doppler imaging) were utilized to interrogate the extracranial carotid arteries, the vertebral arteries and proximal subclavian arteries bilaterally. The degree of stenosis is determined by criteria similar to NASCET. FINDINGS: Right Side: 1. There is hard atherosclerotic plaque seen in the bifurcation/proximal ICA region. 2. The common carotid artery PSV proximally is 112 cm/s and distally 217 cm/s. 3. The proximal internal carotid artery velocities are 175 cm/s systolic and 39 cm/s diastolic. 4. The proximal external carotid artery PSV is 133 cm/s. 5. The vertebral artery shows 96 flow. 6. The subclavian artery waveforms are normal. Left Side: 1. There is hard atherosclerotic plaque seen in the bifurcation/proximal ICA region. 2. The common carotid artery PSV proximally is 87 cm/s and distally 97 cm/s. 3. The proximal internal carotid artery velocities are 113 cm/s systolic and 28 cm/s diastolic. 4. The proximal external carotid artery PSV is 76 cm/s. 5. The vertebral artery shows 63 flow. 6. The subclavian artery waveforms are 211. US/US carotid duplex BI IMPRESSION: 1. RIGHT: 50-79% range stenosis. 2. LEFT: 0-49% range stenosis. 3. There is normal antegrade flow seen in the vertebral arteries.
== END 2020-12-05 08:44 | disposition home or self-care (01) ==
LOC: HO.US 08:43
PROVIDERS: Visit Provider Nurse Practitioner Primary Care
DX: I10 Essential (primary) hypertension (principal); I73.9 Peripheral vascular disease, unspecified; R20.0 Anesthesia of skin
CPT/HCPCS: 93880

== ENCOUNTER → 2020-12-25 09:27 | Outpatient (BNVA) | payer MEDICARE, SELFPAY | PROVIDERS: Visit Provider Surgery Vascular Surgery | DX: I73.9 Peripheral vascular disease, unspecified (principal); I65.23 Occlusion and stenosis of bilateral carotid arteries | CPT/HCPCS: 99202 ==

== ENCOUNTER 2021-01-02 05:59 | Day surgery (SDC) | payer MEDICARE, MEDICAID, SELFPAY ==
[2021-01-02] VITALS (10 sets, daily range): BP systolic 126–145; BP diastolic 63–80; PULSE 68–92; RESP 16–20; TEMP 36.3–36.7; O2SAT 96–100; BMI 26.4
[2021-01-02 06:42] LABS: Basophils Absolute Auto 0.1 X10*3/uL (0.0-0.2); Basophils Percent Auto 1.4 % (0-2); Eosinophils Absolute Auto 0.5 X10*3/uL (0.0-0.4); Eosinophils Percent Auto 5.6 % (0-4); Hematocrit 34.5 % (37-47); Hemoglobin 10.7 g/dl (12.0-16.0); Imm Gran Abs Auto 0.02 X10*3/uL (0.00-0.03); Imm Gran Pct Auto 0.2 % (0.0-0.4); Lymphocytes Absolute Auto 4.2 X10*3/uL (1.2-4.9); Lymphocytes Percent Auto 47.8 % (20-40); MANUAL DIFF FLAG SCAN; Mean Corpuscular Hemoglobin 24.7 pg (27.0-33.0); Mean Corpuscular Volume 79.5 fL (80-98); Mean Platelet Volume 10.7 fL (9.4-12.3); Monocytes Absolute Auto 0.9 X10*3/uL (0.1-1.2); Monocytes Percent Auto 10.8 % (2-11); Neutrophils Percent Auto 34.2 % (45-73); Platelet Count 280 X10*3/uL (160-400); Red Blood Count 4.34 X10*6/uL (4.20-5.50); Red Cell Distribution Width 15.2 % (11.0-16.0); SCAN SMEAR FLAG 1; White Blood Count 8.7 X10*3/uL (4.8-10.8)
[2021-01-02 06:48] LABS: INTERNATIONAL NORM RATIO 1.1 (0.9-1.1); Prothrombin Time 12.5 SEC (10.8-13.0)
[2021-01-02 06:50] LABS: Partial Thromboplastin Time 45.3 SEC (24.1-38.0)
[2021-01-02 07:05] LABS: Anion Gap 12 (12-20); Blood Urea Nitrogen 6 mg/dL (9-16); Calcium 9.5 mg/dL (8.4-10.2); Carbon Dioxide 25 mmol/L (22-29); Chloride 106 mmol/L (96-108); Creatinine Clr Calc Pharmacy 55.5; Estimated Glomerular Filt Rate > 60; Glucose Random 106 mg/dL (60-115); Potassium 3.9 mmol/L (3.3-5.1); Sodium 139 mmol/L (135-145)
--- NOTE | 2021-01-02 08:56 | P.OP_ITS ---
Operative Note Operative Note Date of Service: 01/02/21 Narrative: Angiogram report from [facility] Preoperative diagnosis: Peripheral arterial disease of left lower extremity Postoperative diagnosis: Same Procedure: 1. Ultrasound-guided right common femoral access 2. Aortogram with bilateral lower extremity runoff Surgeon:Joshua Chavez M.D. Flight Operations Coordinator:None Anesthesia: Local with moderate conscious sedation for a total of 26 minutes, performed by wi Specimens:none Drains:none Estimated blood loss:minimal Indications: 70-year-old female with history of lower extremity pain. She had noninvasive testing which demonstrated common femoral in SFA disease. She now presents for endovascular intervention. Risks benefits complications were discussed in detail with the patient. Patient understood and consented. Procedure in detail: Patient was brought to the angiography suite prior to which a time-out was called for patient identification and site verification. Bilateral groins were prepped and draped in the standard surgical fashion. Under ultrasound guidance right common femoral was punctured with micro puncture needle and wire. Subsequently a precision 4 [place] sheath was then placed. [employer] wire was advanced to the level of the aorta. 4 [place] Flush catheter was brought up and parked at the level of the renal arteries. Aortogram was then undertaken. Catheter was brought down to the level of the iliac bifurcation. Iliacs were subsequently imaged. Catheter was then brought in up and over to the left side SFA. Runoff study was then undertaken. No intervention was indicated. Catheter was removed and through the 4f sheath right lower extremity study was undertaken. Sheath with this then removed and 10 minutes of direct pressure was held Interpretation of films: 1. Ultrasound demonstrates appropriate femoral puncture. Image of which was saved. 2. Aortogram demonstrates appropriate caliber aorta. Minimal disease. Appropriate take-off of the renals. 3. Iliac images demonstrate small caliber vessels but no inflow disease. 4. Left lower extremity study demonstrated no significant disease in the common femoral profundus fem rest or proximal SFA. SFA although smaller in caliber no significant disease noted all the way throughout. Below-knee 1 vessel runoff which appears to be peroneal as the dominant. There was multiple small collaterals. 5. Right lower extremity study demonstrates no significant disease in the common femoral or profundus femoral speech. Good flow all the way down through the rest of the SFA. There is some mild disease at Andry's canal. Below knee there was 2 vessel runoff switch appears to be peroneal and posterior tibial going down to the ankle. Conclusion: 1. Successful diagnostic angiogram. No intervention indicated. Findings were discussed in detail with the patient. This note is constructed using voice recognition software. While every effort has been made to ensure accuracy, compliance vice president errors may have been included. Thank you for allowing me to participate in the care of your patient. Yours sincerely, Joshua Chavez MD, FACS, R.P.V.I.
[2021-01-02 09:27] LABS: SLIDE REVIEW VERIFIED
[2021-01-02] MEDS: iohexoL 300 MG/ML 100 ML INFUS..BTL IV (11:25)
[2021-01-02] MEDS: Lidocaine HCl 1 % MPF 5 ML VIAL 10 ML SUBCUT (11:26)
== END 2021-01-02 12:45 | disposition home or self-care (01) ==
PROVIDERS: Visit Provider Surgery Vascular Surgery
DX: I73.9 Peripheral vascular disease, unspecified (principal); J44.9 Chronic obstructive pulmonary disease, unspecified; I10 Essential (primary) hypertension; E78.5 Hyperlipidemia, unspecified
CPT/HCPCS: 36247; 36415; 75630; 76937; 76942; 80048; 85025; 85610; 85730; 99152; 99153; J2250; J3010; Q9967

== ENCOUNTER → 2021-01-17 09:47 | Outpatient (BNVA) | payer MEDICARE, MEDICAID, SELFPAY | PROVIDERS: PCP Internal Medicine; Visit Provider Surgery Vascular Surgery | DX: I73.9 Peripheral vascular disease, unspecified (principal) | CPT/HCPCS: 99212 ==

== ENCOUNTER 2021-02-27 13:28 | Outpatient (REF) | payer MEDICARE, MEDICAID, SELFPAY | END 2021-02-27 13:29 | disposition home or self-care (01) | LOC: HO.LAB 13:28 | PROVIDERS: PCP Internal Medicine Geriatric Medicine; Visit Provider Obstetrics & Gynecology | DX: K62.6 Ulcer of anus and rectum (principal); L90.0 Lichen sclerosus et atrophicus | CPT/HCPCS: 56605; 88305; 88312; 99212 ==

== ENCOUNTER → 2021-03-07 11:03 | Outpatient (BNVA) | payer MEDICARE, SELFPAY | PROVIDERS: PCP Internal Medicine; Visit Provider Internal Medicine Pulmonary Disease | DX: N90.4 Leukoplakia of vulva (principal); J44.9 Chronic obstructive pulmonary disease, unspecified; J34.2 Deviated nasal septum; R91.8 Other nonspecific abnormal finding of lung field | CPT/HCPCS: 99202; Q3014 ==

== ENCOUNTER 2021-03-17 18:23 | Emergency (ER) | payer MEDICARE, SELFPAY ==
--- NOTE | 2021-03-17 | ECG_ITS ---
Test Reason : CP Blood Pressure : / mmHG Vent. Rate : 075 BPM Atrial Rate : 075 BPM P-R Int : 138 ms QRS Dur : 076 ms QT Int : 418 ms P-R-T Axes : 055 011 072 degrees QTc Int : 466 ms Normal sinus rhythm Nonspecific T wave changes Abnormal ECG When compared with ECG of 18-NOV-2020 19:33, Nonspecific T wave abnormality, worse in Anterolateral leads Referred By: Generic ED Physician Electronically Signed By:Irwin Rosales
--- NOTE | ~2021-03-17 | CT_ITS ---
EXAMINATION: CTA CHEST CT ABDOMEN AND PELVIS WITH CONTRAST CLINICAL INFORMATION: Chest pain. Shortness of breath. Abdominal pain. COMPARISON: CT of chest abdomen and pelvis 04/15/2020. CT can TECHNIQUE: A noncontrast localizer was performed, followed by the administration of 85 mL Omnipaque [address] of the chest was then performed. Coronal and sagittal reformatted and 3-D technique MIP images of the chest were completed at the CT scanner and reviewed on the PACS workstation. No adverse effects were reported. Images were then performed through the abdomen and pelvis. Coronal and sagittal reformatted images performed at CT scanner by technologist. [This CT examination was performed using dose optimization techniques as appropriate, variously including the following: *Automated exposure control *Adjustment of mA and/or kV according to patient size (this includes techniques or standardized protocols for targeted exams where dose is matched to indication/reason for exam; i.e. extremities or head) *Use of iterative reconstruction technique] DLP: 187 mGy-cm. FINDINGS: CTA CHEST Lungs:: Diffuse scattered reticular nodular and tree-in-bud opacities similar prior CT study of 04/15/2020. These predominate in the upper lobes. No focal dense consolidation. The central bronchial airways are open. No bronchiectasis. Mediastinum: No mediastinal mass. No significant lymphadenopathy. There is no pericardial effusion. VASCULAR: No evidence of central pulmonary emboli. No aneurysm or dissection of aorta. Heart size is normal. No pericardial effusion. No evidence of septal bowing, no evidence of elevated right heart pressure. Fluid: There is no pericardial effusion. There is no pleural effusion. Axilla: No significant lymphadenopathy. CT SCAN ABDOMEN/PELVIS: Liver, Gallbladder and Biliary Tree: Mild hepatomegaly. Right lobe of liver measures 22 cm superior-inferior. Mild low-attenuation of liver parenchyma due to fatty change. No focal liver lesion or intrahepatic bile duct dilatation. The gallbladder is unremarkable with no evidence of radiopaque gallstones, gallbladder wall thickening, or obvious pericholecystic inflammatory changes. Pancreas: Unremarkable. Spleen: Unremarkable. Adrenal Glands: No change in the left adrenal nodule measuring 2 cm. This is stable since CAT scan 02/11/2017. This was defined as an adrenal adenoma on the prior CAT scan of 2017 which was performed without contrast. Density measurement -18 Hounsfield units. No further follow-up imaging recommended. The left adrenal gland is normal. Kidneys and Ureters: The kidneys are normal in size, shape, and attenuation. No hydronephrosis, hydroureter, or calculi seen. No perinephric stranding. Bladder: Unremarkable. Gastrointestinal Tract: No acute abnormality of bowel. There is no bowel wall thickening /edema. There is no bowel obstruction. There is a moderate volume of stool in the colon. The appendix is nonvisualized . The small bowel loops are unremarkable. The stomach is normal. There is no hiatal hernia. Abdominal Wall: No significant hernia is appreciated. Lymph Nodes: Normal. Vascular: There is a calcifications of aorta and iliac arteries without aneurysm. Pelvic Viscera: Unremarkable. Osseous Structures: Mild degenerative spondylosis of the spine. No acute osseous abnormality. CT/CT angio chest PE protocol IMPRESSION: CT chest: 1. Small tree-in-bud opacities and reticular nodular opacities mostly affecting the upper lobes of both lungs. This is unchanged since CAT scan of 04/15/2020. No new or suspicious lung nodules. 2. No evidence of pulmonary embolism. CT abdomen pelvis: No acute abnormality. Mild hepatomegaly mild diffuse fatty change of liver. Stable right adrenal adenoma. No further follow-up needed for the lipid rich adrenal adenoma.
--- NOTE | ~2021-03-17 | XR_ITS ---
EXAMINATION: XR CHEST CLINICAL INFORMATION: Left-sided chest pain. COMPARISON: Most recent chest radiograph dated 11/18/2020. TECHNIQUE: 2 views of the chest were obtained. FINDINGS: The lungs are clear. Stable chronic interstitial prominence. The cardiomediastinal silhouette is normal in size. There is no pleural effusion or pneumothorax. No acute osseous abnormality. XR/XR chest 2V IMPRESSION: No acute cardiopulmonary findings.
[2021-03-17 18:30] VITALS: BP 137/66; PULSE 80; RESP 16; TEMP 36.6; O2SAT 99; BMI 25.9
[2021-03-17 19:31] LABS: MANUAL DIFF FLAG NO
[2021-03-17 19:38] LABS: Basophils Absolute Auto 0.1 X10*3/uL (0.0-0.2); Basophils Percent Auto 1.2 % (0-2); Eosinophils Absolute Auto 0.5 X10*3/uL (0.0-0.4); Eosinophils Percent Auto 5.4 % (0-4); Hematocrit 32.8 % (37-47); Hemoglobin 9.9 g/dl (12.0-16.0); Imm Gran Abs Auto 0.03 X10*3/uL (0.00-0.03); Imm Gran Pct Auto 0.3 % (0.0-0.4); Lymphocytes Percent Auto 42.5 % (20-40); Mean Corpuscular HGB Conc 30.2 g/dl (31.0-35.0); Mean Corpuscular Hemoglobin 22.9 pg (27.0-33.0); Mean Corpuscular Volume 75.8 fL (80-98); Mean Platelet Volume 10.5 fL (9.4-12.3); Monocytes Absolute Auto 0.7 X10*3/uL (0.1-1.2); Monocytes Percent Auto 7.4 % (2-11); Neutrophils Percent Auto 43.2 % (45-73); Platelet Count 283 X10*3/uL (160-400); Red Blood Count 4.33 X10*6/uL (4.20-5.50); Red Cell Distribution Width 15.7 % (11.0-16.0); White Blood Count 9.3 X10*3/uL (4.8-10.8)
[2021-03-17 19:42] LABS: Glucose Urine UA NEG (NEG); Leukocyte Esterase Urine TRACE (NEG); Nitrite Urine NEG (NEG); PH 5.5 (5.0-8.0); Specific Gravity - Urine 1.025 (1.005-1.025); UACC Culture Trigger YES; Urine Blood 1+ (NEG); Urine Ketones NEG (NEG); Urine Protein TRACE MG/DL (NEG-TRACE)
[2021-03-17 19:44] LABS: Appearance Urine CLEAR; Color Urine YELLOW
[2021-03-17 19:51] LABS: Squamous Epithelial Cell Urine 2+ /LPF
[2021-03-17 20:00] LABS: Anion Gap 14 (12-20); Blood Urea Nitrogen 8 mg/dL (9-16); Calcium 9.4 mg/dL (8.4-10.2); Carbon Dioxide 25 mmol/L (22-29); Chloride 104 mmol/L (96-108); Creatinine Clr Calc Pharmacy 53.1; Estimated Glomerular Filt Rate > 60; Glucose Random 99 mg/dL (60-115); Potassium 4.4 mmol/L (3.3-5.1); Sodium 139 mmol/L (135-145)
[2021-03-17 20:05] LABS: Troponin-I High Sensitivity < 3.5 ng/L (<3.5-17.0)
--- NOTE | 2021-03-17 22:13 | ED.CHESTPAIN ---
HPI - Chest Pain General Chief Complaint: Chest Pain Stated Complaint: CHEST PALPITATIONS Time Seen by Provider: 03/18/21 01:08 Source: patient Mode of arrival: ambulatory Limitations: no limitations History of Present Illness HPI narrative: 70-year-old female with past medical history of COPD, hypertension, hyperlipidemia, history of brain surgery for tumor resection, pulmonary nodules, history of vulvar leukoplakia, lichen sclerosus, history perirectal ulcers, presents with multiple complaints. States that she has had chest pain with congestion, left-sided sharp stabbing chest pain worse on inspiration, inability to lay flat because of the chest pain, also reports abdominal and pelvic pain with large amounts of malodorous vaginal discharge, labia pain, and rectal pain. She denies fevers, chills, abdominal distention, edema, dizziness, weakness, lightheadedness, nausea, vomiting, diarrhea, constipation, assault, trauma, or sexual activity. MD complaint: chest pain and chest heaviness Onset (ago): week(s) Timing of current episode: constant and still present Prior episodes: Yes Pain location: left chest Severity: moderate Relieving factors: nothing Exacerbating factors: exertion, inspiration, palpation and movement Risk Factors Coronary artery disease risk factors: hyperlipidemia and hypertension Thoracic aortic dissection risk factors: none Related Data On Oral Contraceptives: No Home Medications Medication Instructions Recorded Confirmed gabapentin 300 mg capsule 300 mg PO DAILY 09/13/20 03/07/21 lisinopril 20 mg tablet 20 mg PO BID 09/13/20 03/07/21 methenamine-sodium salicylate 162 tab PO 09/13/20 03/07/21 mg-162.5 mg tablet simvastatin 20 mg tablet 20 mg PO DAILY 09/13/20 03/07/21 Previous Rx's Medication Instructions Recorded sulfamethoxazole 800 1 tab PO BID 5 Days #2 tab 10/18/20 mg-trimethoprim 160 mg tablet cyclobenzaprine 10 mg PO TID PRN #14 tab 10/24/20 albuterol sulfate 5 mg INHALATION Q4H #30 ea 11/18/20 azithromycin 250 mg PO DAILY 5 Days #4 tab 11/18/20 prednisone 50 mg PO DAILY #4 tab 11/18/20 betamethasone dipropionate 0.05 % 1 appl TOPICAL BID 5 Days #45 g 03/07/21 topical cream umeclidinium 62.5 mcg-vilanterol 1 inh INHALATION DAILY 30 Days #1 03/07/21 25 mcg/actuation powdr for ea inhalation Allergies Allergy/AdvReac Type Severity Reaction Status Date / Time levofloxacin [LEVOFLOXACIN] Allergy Intermediate HIVES Verified 03/07/21 13:22 ceftriaxone [From ROCEPHIN] Allergy Mild SWELLING Verified 03/07/21 13:22 cephalexin [From KEFLEX] Allergy Mild ITCHING Verified 03/07/21 13:22 Review of Systems Review of Systems: Constitutional: No Weight loss, No Fever, No Chills, No Night Sweats, No Fatigue, No Malaise ENT/Mouth: No Hearing loss, No Ear Pain, No Nasal Congestion, No Sinus Pain, No Hoarseness, No sore throat, No Rhinorrhea, No Swallowing Difficulty Eyes: No Eye Pain, No Swelling, No Redness, No Foreign Body, No Discharge, No Vision Changes Cardiovascular: Positive Chest Pain, positive SOB, positive Dyspnea on Exertion, No Orthopnea, No Edema, No Palpitations Respiratory: No Cough, No Sputum, No Wheezing, No Smoke Exposure, No Dyspnea Gastrointestinal: Positive Nausea, No Vomiting, No Diarrhea, positive abdominal Pain, No Hematochezia, No Melena Genitourinary: Positive labia pain, positive vaginal discharge, positive rectal pain, No irregular bleeding, No Dysuria, No Urinary Frequency, No Hematuria, No Urinary Incontinence, No Urgency, No Flank Pain, No Urinary Flow Changes, No Hesitancy Musculoskeletal: No joint pain, No Myalgias, No Joint Swelling Skin: No Skin Lesions, No rash Neuro: No Weakness, No Numbness, No Paresthesias, No Loss of Consciousness, No Dizziness, No Headache Psych: No Anxiety/Panic, No Depression, No SI/HI/AH/VH Heme/Lymph: No Bruising, No Bleeding,No Lymphadenopathy Endocrine: No Polyuria, No Polydipsia, No Temperature Intolerance Yes all other systems are reviewed and are negative [facility] Past Medical History Attestation statement: The following information was validated with the patient. Source: old records reviewed Medical History Abscess of right genital labia COPD (chronic obstructive pulmonary disease) HTN (hypertension) Hyperlipidemia Surgical History History of bilateral tubal ligation History of brain surgery History of carpal tunnel surgery Family History Family History Family/Other Breast cancer Social History Social History Alcohol intake: current Alcohol intake frequency: a few times a month Alcohol type: beer Smoking Status: Current some day smoker Advance Directives: No Advance Directives Information Provided: No Sexual orientation: Straight/Heterosexual Gender identity: female Physical Exam Vital Signs: Vital Signs: Last Vital Signs Temp 98.5 F 03/17/21 22:21 Pulse 73 03/17/21 22:21 Resp 12 03/18/21 01:47 BP 120/57 L 03/17/21 22:21 Pulse Ox 99 03/17/21 22:21 Body Mass Index 25.9 Appearance: Alert. Oriented X3. No acute distress. Head: Normal external exam. Normocephalic. Atraumatic. No Lawson signs noted. No raccoon eyes noted Eyes: PERRLA. EOMI. Conjunctiva and sclera normal. Eyelids normal. ENT: TM's Normal. Pharynx normal. Uvula midline. Moist mucous membranes. No trismus noted. No drooling noted. No muffled voice noted. Neck: Normal inspection. Neck supple. No adenopathy. Thyroid Normal. No meningeal signs. No neck mass noted. CVS: Normal heart rate and rhythm. Heart sound normal. No murmurs noted. Pulses equal to all extremities. Respiratory: No respiratory distress. Painless inspiration. Breath sounds normal. No wheezes/rales/rhonchi noted. Chest nontender. No accessory muscle usage noted or decreased air movement noted. Abdomen: Soft and nontender. Bowel sounds normal in all 4 quadrants. No distention noted. No organomegaly noted. No visible injury noted. Back: No CVA tenderness. Full range of motion noted. Skin: Skin warm and dry. Normal skin color. Normal skin turgor. No rashes/lesions/lacerations noted. Extremities: No lower extremity edema. Extremities exhibit normal range of motion. Extremities nontender. Neuro: cranial nerves 2-12 intact, no focal neural deficits, strength 5/5 to all extremities, No motor deficit. No sensory deficit. Reflexes normal. GI: Rectal Exam - Female: normal sphincter tone, External hemorrhoid(s) present, Internal hemorrhoid(s) present and Lesions present (GI) (Multiple lesions noted around anal verge and on buttocks) : General: Yes Bimanual renal exam normal bilaterally External Female Exam: normal appearance of the urethra and lesion Speculum Exam - Vagina: normal palpation, abnormal vaginal discharge malodorous and vance and lesion (Leukoplakia) Speculum Exam - Cervix: Cervical os closed, Abnormal cervical discharge present white and malodorous and Cervical tenderness present Bimanual exam- vagina & uterus: normal palpation and Cervical tenderness present Bimanual Exam- Adnexa, other: normal adnexae and no masses Course Course Course Narrative: 70-year-old female presents with multiple complaints. Will rule out PE, ACS, acute abdomen, will perform pelvic exam. Pelvic exam and stool guaiac completed with female ED precision optics technician as roof foreman. Patient tolerated procedure well. Will order CT a of chest and CT of pelvis and abdomen. CTs are negative for acute findings requiring emergent intervention. Based on patient's physical exam we will treat for pelvic inflammatory disease, patient is moderately allergic to ceftriaxone will give azithromycin in place of ceftriaxone for pelvic inflammatory disease and cervicitis and UTI. Is recommended patient follow-up with federal district clerk, was referred to Dr Cruz for follow-up. Patient verbalized understanding of and agrees to plan of care discharge home. MDM - Chest Pain Differential Diagnosis Differential diagnosis: Likely fracture of rib, pneumothorax, unstable angina pectoris, atypical chest pain, st elevation myocardial infarction, costochondritis and chest pain Differential diagnosis: pe, acute abdomen, pelvic inflammatory disease, UTI, cystitis Medical Records Data Attestation: I reviewed the patient's medical records. Lab Data Attestation: I reviewed the patient's lab results. Result diagrams: 03/17/21 19:17 03/17/21 19:17 Labs: Lab Results 03/17/21 03/17/21 03/17/21 Range/Units 19:17 19:17 19:17 WBC 9.3 (4.8-10.8) X10*3/uL RBC 4.33 (4.20-5.50) X10*6/uL Hgb 9.9 L (12.0-16.0) g/dl Hct 32.8 L (37-47) % MCV 75.8 L (80-98) fL MCH 22.9 L (27.0-33.0) pg MCHC 30.2 L (31.0-35.0) g/dl RDW 15.7 (11.0-16.0) % Plt Count 283 (160-400) X10*3/uL MPV 10.5 (9.4-12.3) fL Immature Gran % (Auto) 0.3 (0.0-0.4) % Neut % (Auto) 43.2 L (45-73) % Lymph % (Auto) 42.5 H (20-40) % [place] % (Auto) 7.4 (2-11) % Eos % (Auto) 5.4 H (0-4) % Baso % (Auto) 1.2 (0-2) % Lymph # (Auto) 4.0 (1.2-4.9) X10*3/uL [place] # (Auto) 0.7 (0.1-1.2) X10*3/uL Eos # (Auto) 0.5 H (0.0-0.4) X10*3/uL Baso # (Auto) 0.1 (0.0-0.2) X10*3/uL Abs Immat Gran (auto) 0.03 (0.00-0.03) X10*3/uL Absolute Neuts (auto) 4.0 (2.0-8.3) X10*3/uL Absolute Nucleated RBC 0.000 (0.0-0.012) X10*3/uL Nucleated RBC % (auto) 0.0 (0.0-0.2) /100WBC PT 12.3 (10.8-13.0) SEC INR 1.0 (0.9-1.1) Hold Blue Top SEE NOTE Sodium 139 (135-145) mmol/L Potassium 4.4 (3.3-5.1) mmol/L Chloride 104 (96-108) mmol/L Carbon Dioxide 25 (22-29) mmol/L Anion Gap 14 (12-20) BUN 8 L (9-16) mg/dL Creatinine 0.80 (0.5-1.4) mg/dL Estim Creat Clear Calc 53.1 Estimated GFR > 60 Random Glucose 99 (60-115) mg/dL Lactic Acid (0.5-2.0) mmol/L Calcium 9.4 (8.4-10.2) mg/dL Troponin I High Sens (<3.5-17.0) ng/L Urine Color Urine Appearance Urine pH (5.0-8.0) Ur Specific [place] (1.005-1.025) Urine Protein (NEG-TRACE) MG/DL Urine Glucose (UA) (NEG) MG/DL Urine Ketones (NEG) MG/DL Urine Blood (NEG) Urine Nitrite (NEG) Ur Leukocyte Esterase (NEG) Urine RBC (0) /HPF Urine WBC (0-4) /HPF Ur Squamous Epith Cells /LPF Urine Bacteria /LPF Stool Occult Blood (NEGATIVE) 03/17/21 03/17/21 03/17/21 Range/Units 19:17 19:26 22:48 WBC (4.8-10.8) X10*3/uL RBC (4.20-5.50) X10*6/uL Hgb (12.0-16.0) g/dl Hct (37-47) % MCV (80-98) fL MCH (27.0-33.0) pg MCHC (31.0-35.0) g/dl RDW (11.0-16.0) % Plt Count (160-400) X10*3/uL MPV (9.4-12.3) fL Immature Gran % (Auto) (0.0-0.4) % Neut % (Auto) (45-73) % Lymph % (Auto) (20-40) % [place] % (Auto) (2-11) % Eos % (Auto) (0-4) % Baso % (Auto) (0-2) % Lymph # (Auto) (1.2-4.9) X10*3/uL [place] # (Auto) (0.1-1.2) X10*3/uL Eos # (Auto) (0.0-0.4) X10*3/uL Baso # (Auto) (0.0-0.2) X10*3/uL Abs Immat Gran (auto) (0.00-0.03) X10*3/uL Absolute Neuts (auto) (2.0-8.3) X10*3/uL Absolute Nucleated RBC (0.0-0.012) X10*3/uL Nucleated RBC % (auto) (0.0-0.2) /100WBC PT (10.8-13.0) SEC INR (0.9-1.1) Hold Blue Top Sodium (135-145) mmol/L Potassium (3.3-5.1) mmol/L Chloride (96-108) mmol/L Carbon Dioxide (22-29) mmol/L Anion Gap (12-20) BUN (9-16) mg/dL Creatinine (0.5-1.4) mg/dL Estim Creat Clear Calc Estimated GFR Random Glucose (60-115) mg/dL Lactic Acid (0.5-2.0) mmol/L Calcium (8.4-10.2) mg/dL Troponin I High Sens < 3.5 (<3.5-17.0) ng/L Urine Color YELLOW Urine Appearance CLEAR Urine pH 5.5 (5.0-8.0) Ur Specific [place] 1.025 (1.005-1.025) Urine Protein TRACE (NEG-TRACE) MG/DL Urine Glucose (UA) NEG (NEG) MG/DL Urine Ketones NEG (NEG) MG/DL Urine Blood 1+ H (NEG) Urine Nitrite NEG (NEG) Ur Leukocyte Esterase TRACE H (NEG) Urine RBC 1-4 (0) /HPF Urine WBC 1-4 (0-4) /HPF Ur Squamous Epith Cells 2+ /LPF Urine Bacteria NONE /LPF Stool Occult Blood NEGATIVE (NEGATIVE) 03/18/21 Range/Units 01:47 WBC (4.8-10.8) X10*3/uL RBC (4.20-5.50) X10*6/uL Hgb (12.0-16.0) g/dl Hct (37-47) % MCV (80-98) fL MCH (27.0-33.0) pg MCHC (31.0-35.0) g/dl RDW (11.0-16.0) % Plt Count (160-400) X10*3/uL MPV (9.4-12.3) fL Immature Gran % (Auto) (0.0-0.4) % Neut % (Auto) (45-73) % Lymph % (Auto) (20-40) % [place] % (Auto) (2-11) % Eos % (Auto) (0-4) % Baso % (Auto) (0-2) % Lymph # (Auto) (1.2-4.9) X10*3/uL [place] # (Auto) (0.1-1.2) X10*3/uL Eos # (Auto) (0.0-0.4) X10*3/uL Baso # (Auto) (0.0-0.2) X10*3/uL Abs Immat Gran (auto) (0.00-0.03) X10*3/uL Absolute Neuts (auto) (2.0-8.3) X10*3/uL Absolute Nucleated RBC (0.0-0.012) X10*3/uL Nucleated RBC % (auto) (0.0-0.2) /100WBC PT (10.8-13.0) SEC INR (0.9-1.1) Hold Blue Top Sodium (135-145) mmol/L Potassium (3.3-5.1) mmol/L Chloride (96-108) mmol/L Carbon Dioxide (22-29) mmol/L Anion Gap (12-20) BUN (9-16) mg/dL Creatinine (0.5-1.4) mg/dL Estim Creat Clear Calc Estimated GFR Random Glucose (60-115) mg/dL Lactic Acid 0.9 (0.5-2.0) mmol/L Calcium (8.4-10.2) mg/dL Troponin I High Sens (<3.5-17.0) ng/L Urine Color Urine Appearance Urine pH (5.0-8.0) Ur Specific [place] (1.005-1.025) Urine Protein (NEG-TRACE) MG/DL Urine Glucose (UA) (NEG) MG/DL Urine Ketones (NEG) MG/DL Urine Blood (NEG) Urine Nitrite (NEG) Ur Leukocyte Esterase (NEG) Urine RBC (0) /HPF Urine WBC (0-4) /HPF Ur Squamous Epith Cells /LPF Urine Bacteria /LPF Stool Occult Blood (NEGATIVE) Imaging Data CTA PE, CT abdomen pelvis: Attestation: I personally reviewed and interpreted this imaging study as follows: Radiologist's impression: CTA CHEST Lungs:: Diffuse scattered reticular nodular and tree-in-bud opacities similar prior CT study of 04/15/2020. These predominate in the upper lobes. No focal dense consolidation. The central bronchial airways are open. No bronchiectasis. Mediastinum: No mediastinal mass. No significant lymphadenopathy. There is no pericardial effusion. VASCULAR: No evidence of central pulmonary emboli. No aneurysm or dissection of aorta. Heart size is normal. No pericardial effusion. No evidence of septal bowing, no evidence of elevated right heart pressure. Fluid: There is no pericardial effusion. There is no pleural effusion. Axilla: No significant lymphadenopathy. CT SCAN ABDOMEN/PELVIS: Liver, Gallbladder and Biliary Tree: Mild hepatomegaly. Right lobe of liver measures 22 cm superior-inferior. Mild low-attenuation of liver parenchyma due to fatty change. No focal liver lesion or intrahepatic bile duct dilatation. The gallbladder is unremarkable with no evidence of radiopaque gallstones, gallbladder wall thickening, or obvious pericholecystic inflammatory changes. Pancreas: Unremarkable. Spleen: Unremarkable. Adrenal Glands: No change in the left adrenal nodule measuring 2 cm. This is stable since CAT scan 02/11/2017. This was defined as an adrenal adenoma on the prior CAT scan of 2017 which was performed without contrast. Density measurement -18 Hounsfield units. No further follow-up imaging recommended. The left adrenal gland is normal. Kidneys and Ureters: The kidneys are normal in size, shape, and attenuation. No hydronephrosis, hydroureter, or calculi seen. No perinephric stranding. Bladder: Unremarkable. Gastrointestinal Tract: No acute abnormality of bowel. There is no bowel wall thickening /edema. There is no bowel obstruction. There is a moderate volume of stool in the colon. The appendix is nonvisualized . The small bowel loops are unremarkable. The stomach is normal. There is no hiatal hernia. Abdominal Wall: No significant hernia is appreciated. Lymph Nodes: Normal. Vascular: There is a calcifications of aorta and iliac arteries without aneurysm. Pelvic Viscera: Unremarkable. Osseous Structures: Mild degenerative spondylosis of the spine. No acute osseous abnormality. CT/CT angio chest PE protocol IMPRESSION: CT chest: 1. Small tree-in-bud opacities and reticular nodular opacities mostly affecting the upper lobes of both lungs. This is unchanged since CAT scan of 04/15/2020. No new or suspicious lung nodules. 2. No evidence of pulmonary embolism. CT abdomen pelvis: No acute abnormality. Mild hepatomegaly mild diffuse fatty change of liver. Stable right adrenal adenoma. No further follow-up needed for the lipid rich adrenal adenoma. Chest x-ray: Attestation: I personally reviewed and interpreted this imaging study as follows: Radiologist's impression: EXAMINATION: XR CHEST CLINICAL INFORMATION: Left-sided chest pain. COMPARISON: Most recent chest radiograph dated 11/18/2020. TECHNIQUE: 2 views of the chest were obtained. FINDINGS: The lungs are clear. Stable chronic interstitial prominence. The cardiomediastinal silhouette is normal in size. There is no pleural effusion or pneumothorax. No acute osseous abnormality. XR/XR chest 2V IMPRESSION: No acute cardiopulmonary findings. ECG Data ECG #1: Attestation: I personally reviewed and interpreted this ECG as follows: ECG interpretation date: 03/17/21 ECG interpretation time: 18:37 Interpretation: Ventricular rate 75 beats per minute, [place] 138, QRS 76, QT 418, QTC 466, normal sinus rhythm prior EKG is unavailable secondary to system 130 error Discharge Plan Discharge Clinical Impression: Vulvar leukoplakia, Lichen sclerosus, Atypical chest pain, Acute pelvic inflammatory disease Patient Disposition: Home, Self-Care Instructions: Pelvic Pain in Women (ED), Noncardiac Chest Pain (ED), Pelvic Pain (ED) Additional Instructions: You were evaluated for chest pain and abdominal pain. Your pelvic exam showed large amounts of vaginal discharge, and cervical motion tenderness. We are treating you for pelvic inflammatory disease with doxycycline and Flagyl. Please take these medications as directed. If pain persists or you have any other concerning symptoms including but not limited to fever, chills, weakness, chest pain or pressure, palpitations, please return to the emergency department immediately. You must follow-up with primary care physician and or OBGYN in the next week for repeat evaluation. Thank you for choosing this emergency department for evaluation. Please follow-up with primary care physician as needed. Return to the emergency department for any new, concerning, or worsening symptoms. Prescriptions: No Action cyclobenzaprine 10 mg tablet 10 mg PO TID PRN (Reason: muscle spasm) Qty: 14 RF: 0 azithromycin 250 mg tablet 250 mg PO DAILY 5 Days Qty: 4 RF: 0 prednisone 50 mg tablet 50 mg PO DAILY Qty: 4 RF: 0 albuterol sulfate 2.5 mg/0.5 mL solution for nebulization 5 mg inhalation Q4H Qty: 30 RF: 0 Anoro Ellipta 62.5-25 mcg/actuation blister with device 1 inh inhalation DAILY 30 Days Qty: 1 RF: 6 lisinopril 20 mg tablet 20 mg PO BID RF: 0 gabapentin 300 mg capsule 300 mg PO DAILY RF: 0 simvastatin 20 mg tablet 20 mg PO DAILY RF: 0 methenamine-sodium salicylate 162-162.5 mg tablet PO RF: 0 sulfamethoxazole-trimethoprim [Bactrim DS] 800-160 mg tablet 1 tab PO BID 5 Days Qty: 2 RF: 0 betamethasone dipropionate 0.05 % cream 1 appl topical BID 5 Days Qty: 45 RF: 0 Referrals: Rodolfo Cruz MD [Physician] - 2 days (Suspected pelvic inflammatory disease without sexually transmitted infection)
[2021-03-17 22:21] VITALS: BP 120/57; PULSE 73; RESP 16; TEMP 36.9; O2SAT 99
--- NOTE | 2021-03-17 22:36 | PC.NURSE ---
DECAL CUTTER and fork lift technician at bedside for pelvic exam.
[2021-03-17 22:55] LABS: OBS Int Ctl Valid YES; OBS1 NEGATIVE (NEGATIVE)
[2021-03-17 22:58] LABS: Prothrombin Time 12.3 SEC (10.8-13.0)
[2021-03-17] MEDS: ondansetron HCL 4 MG/2 ML VIAL IVPUSH (23:11)
[2021-03-17] MEDS: 0.9 % Sodium Chloride 1,000 ML 999 ML IVCONT (23:12)
[2021-03-17] MEDS: Morphine Sulfate 2 MG/ML CARTRIDGE IVPUSH (23:12)
[2021-03-17] MEDS: iohexoL 350 MG/ML 100 ML INFUS..BTL 85 ML IV (23:31)
--- NOTE | 2021-03-18 01:45 | PC.NURSE ---
Addendum entered by Gertrudis Cook 03/18/21 01:53: At bedside, pt reports whole body swelling with Rocephin administration. This RN discussing with RECEPTIONIST CLERK, plan to hold the Rocephin due to allergy. Original Note: Per RECEPTIONIST CLERK, to medicate with Rocephin despite allergy.
[2021-03-18 01:47] VITALS: RESP 12
[2021-03-18] MEDS: metroNIDAZOLE 500 MG TABLET PO (01:55)
[2021-03-18 02:08] LABS: Lactic Acid 0.9 mmol/L (0.5-2.0)
[2021-03-18 03:23] VITALS: BP 130/83; PULSE 72; RESP 14; O2SAT 99
[2021-03-18] MEDS: Azithromycin 500 MG TABLET 1000 MG PO (03:25)
[2021-03-18 06:28] LABS: CT PCR NOT DETECTED (Not Detect.); NG PCR NOT DETECTED (Not Detect.)
[2021-03-18 08:33] LABS: BV Int Neg Control Negative (Negative); BV Int Pos Control Positive (Positive)
== END 2021-03-18 03:38 | disposition home or self-care (01) ==
PROVIDERS: Nurse Practitioner Family; Emergency Provider Emergency Medicine
DX: N90.4 Leukoplakia of vulva (principal); N73.0 Acute parametritis and pelvic cellulitis; R07.89 Other chest pain; R00.2 Palpitations; I10 Essential (primary) hypertension; F17.200 Nicotine dependence, unspecified, uncomplicated; Z79.899 Other long term (current) drug therapy; Z71.6 Tobacco abuse counseling
CPT/HCPCS: 36415; 71046; 71275; 74177; 80048; 81001; 81003; 82272; 83605; 84484; 85025; 85610; 87040; 87086; 87480; 87491; 87510; 87591; 87660; 93005; 96360; 96361; 96365; 96375; 99284; J2270; J2405; Q9967

== ENCOUNTER → 2021-03-20 10:29 | Outpatient (BNVA) | payer MEDICARE, SELFPAY | PROVIDERS: Visit Provider Obstetrics & Gynecology | DX: N90.4 Leukoplakia of vulva (principal); L98.9 Disorder of the skin and subcutaneous tissue, unspecified | CPT/HCPCS: 99212 ==

== ENCOUNTER 2021-03-27 09:26 | Outpatient (REF) | payer MEDICARE, SELFPAY ==
--- NOTE | ~2021-03-27 | CT_ITS ---
EXAMINATION: CT CHEST WITHOUT CONTRAST CLINICAL INFORMATION: Follow up tree-in-bud/reticular nodular opacities in the lungs. COMPARISON: Previous chest CTA February 2021. TECHNIQUE: Multidetector volumetric CT imaging of the chest was done. Axial MIP volume rendering provided. Sagittal and coronal reformatted images were obtained. This CT examination was performed using dose optimization techniques as appropriate, variously including the following: *Automated exposure control. *Adjustment of mA and/or kV according to patient size (this includes techniques or standardized protocols for targeted exams where dose is matched to indication/reason for exam; i.e. extremities or head). *Use of iterative reconstruction technique. DLP: 125 mGy-cm FINDINGS: LUNGS: There are small bilateral pulmonary nodules that are stable. The largest measures 3 mm in the left upper lobe, axial image 125, superior segment left lower lobe, axial image 139, and right lower lobe, axial image 250, 348 and 403 series 7, that are stable. There are several small calcified pulmonary nodules that are stable. There are scattered areas of increased peribronchial attenuation and mild bronchial wall thickening. There is heterogeneous attenuation to the lungs or mosaic attenuation questionable for hypoventilatory changes related to air-trapping. No endobronchial or endotracheal lesion is seen. There is mild biapical pleural and parenchymal scarring. MEDIASTINUM: There is stable shotty mediastinal lymphadenopathy. No enlarged lymph nodes are seen. The heart does not appear enlarged. There is mild coronary artery calcification. There is no pericardial effusion. PLEURA: There is no pleural effusion. No pleural mass or thickening. AXILLA: No lymphadenopathy. UPPER ABDOMEN: Unremarkable. OSSEOUS STRUCTURES: There are degenerative changes of the spine. CT/CT chest wo con IMPRESSION: Stable small pulmonary nodules. Persistent areas of mild bronchial wall thickening and increased peribronchial attenuation and heterogeneous attenuation suggestive of airways disease. Mild coronary artery and aortic valve calcification.
== END 2021-03-27 09:27 | disposition home or self-care (01) ==
LOC: HO.CT 09:26
PROVIDERS: Visit Provider Internal Medicine Pulmonary Disease
DX: R91.8 Other nonspecific abnormal finding of lung field (principal)
CPT/HCPCS: 71250

== ENCOUNTER 2021-04-01 08:28 | Outpatient (REF) | payer MEDICARE, SELFPAY ==
--- NOTE | ~2021-04-01 | US_ITS ---
EXAMINATION: NONINVASIVE ASSESSMENT OF THE ARTERIES OF BOTH LOWER EXTREMITIES INCLUDING PVR EXAM AND BILATERAL LOWER EXTREMITY DUPLEX CLINICAL INFORMATION: Peripheral vascular disease. COMPARISON: None TECHNIQUE: Ankle pulse volume recordings, ankle pressure measurements and ankle brachial indices were obtained of the lower extremity arterial system bilaterally in addition to duplex Doppler techniques with wave form analysis and measurement of velocities in the common femoral, profunda femoral, superficial femoral, popliteal, tibial and peroneal arteries. The study was performed only at rest. FINDINGS: RIGHT LEG 1. Right Ankle-Brachial Index: 1.01 >0.97-1.25 = normal - no significant arterial disease 0.75-0.96 = mild peripheral arterial disease 0.5-0.74 = moderate peripheral arterial disease <0.50 = severe peripheral arterial disease <0.30 = critical arterial disease 2. Segmental Pressures (mmHg): Ankle: PT 162, DP 155 3. PVR Waveforms: Ankle: Loss of dicrotic notch. 4. Direct Duplex: Common femoral artery: 178 cm/s, Multiphasic Profunda femoris artery: 219 cm/s, Multiphasic Superficial femoral artery (proximal): 149 cm/s, Multiphasic Superficial femoral artery (mid): 163 cm/s, Multiphasic Superficial femoral artery (distal): 127 cm/s, Multiphasic Proximal Popliteal artery: 108 cm/s, Multiphasic Distal popliteal artery: 79.7 cm/s, Multiphasic Mid posterior tibial artery: 159 cm/s, Multiphasic Peroneal artery: 91.5 cm/s, Multiphasic LEFT LE. Left Ankle-Brachial Index: 0.99 >0.97-1.25 = normal - no significant arterial disease 0.75-0.96 = mild peripheral arterial disease 0.5-0.74 = moderate peripheral arterial disease <0.50 = severe peripheral arterial disease <0.30 = critical arterial disease 2. Segmental Pressures: Ankle: PT 158, DP 154 3. PVR Waveforms: Ankle: Loss of dicrotic notch. 4. Direct Duplex: Common femoral artery: 182 cm/s, Multiphasic Profunda femoris artery: 121 cm/s, Multiphasic Superficial femoral artery (proximal): 139 cm/s, Multiphasic Superficial femoral artery (mid): 123 cm/s, Multiphasic Superficial femoral artery (distal): 148 cm/s, Multiphasic Proximal Popliteal artery: 86 cm/s, Multiphasic Distal popliteal artery: 87 cm/s, Multiphasic Mid posterior tibial artery: 45 cm/s, Monophasic Distal posterior tibial artery: 33 cm/s, Multiphasic Peroneal artery: 66.8 cm/s, Multiphasic US/US LUIS FERNANDO complete IMPRESSION: Right ankle-brachial index 1.01, left ankle-brachial index 0.99. On PVRs, there is loss of dicrotic notch implying at least some degree of inflow disease. There are elevated velocities throughout the femoral vessels bilaterally implying a mild degree of arterial disease.
== END 2021-04-01 08:29 | disposition home or self-care (01) ==
LOC: HO.US 08:28
PROVIDERS: Visit Provider Surgery Vascular Surgery
DX: I70.213 Atherosclerosis of native arteries of extremities with intermittent claudication, bilateral legs (principal)
CPT/HCPCS: 93923; 93925

== ENCOUNTER 2021-04-04 08:31 | Outpatient (REF) | payer MEDICARE, SELFPAY ==
--- NOTE | 2021-04-04 16:58 | PFT_ITS ---
INDICATION: COPD. SPIROMETRY: The FEV1 to FVC 81% with an FEV1 of 1.33 L, which is 71% predicted, and FVC of 1.65 L which is 66% predicted. No significant response to bronchodilators noted. Maximum voluntary ventilation 50% predicted. LUNG VOLUMES: Total lung capacity 67% predicted with expiratory reserve volume of 66% predicted. DIFFUSION CAPACITY: DLCO 60% predicted. COMPARISONS: None available. INTERPRETATION: No obstructive ventilatory defect. No significant response to bronchodilators. However, there is a moderate decrease in maximum voluntary ventilation secondary to likely deconditioning, although neuromuscular conditions cannot be ruled out. The patient appears to have a moderate restrictive ventilatory defect consistent with restrictive lung disease of an unclear etiology. Interstitial lung conditions should be considered in addition to neuromuscular condition. The patient also has mild to moderate diffusion impairment. Clinical correlation warranted. MD MARY ALICE Dozier/MODL / [id number]
== END 2021-04-04 08:32 | disposition home or self-care (01) ==
LOC: HO.RESP 08:31
PROVIDERS: PCP Internal Medicine; Visit Provider Internal Medicine Pulmonary Disease
DX: J44.9 Chronic obstructive pulmonary disease, unspecified (principal)
CPT/HCPCS: 94060; 94727; 94729; 99212

== ENCOUNTER → 2021-04-16 10:00 | Outpatient (BNVA) | payer MEDICARE, SELFPAY | PROVIDERS: PCP Internal Medicine; Visit Provider Surgery Vascular Surgery | DX: I73.9 Peripheral vascular disease, unspecified (principal) | CPT/HCPCS: 99212 ==

== ENCOUNTER 2021-04-16 10:14 | Emergency (ER) | payer MEDICARE, SELFPAY ==
[2021-04-16 10:58] VITALS: BP 102/55; PULSE 83; RESP 16; TEMP 36.9; O2SAT 98; BMI 25.0
--- NOTE | 2021-04-16 11:35 | ED.URI ---
HPI - URI/Sore Throat General Chief Complaint: Upper Respiratory Symptoms <JIMMIE Alvarez Last Filed: 04/16/21 12:15> Stated Complaint: SORE THROAT SWOLLEN <JIMMIE Alvarez Last Filed: 04/16/21 12:15> Time Seen by Provider: 04/16/21 11:30 <JIMMIE Alvarez Last Filed: 04/16/21 12:15> Source: patient <JIMMIE Alvarez Last Filed: 04/16/21 12:15> Mode of arrival: ambulatory <JIMMIE Alvarez Last Filed: 04/16/21 12:15> History of Present Illness HPI Narrative: 70-year-old female with a past medical history of COPD, HTN, hyperlipidemia, presenting to the ED complaining of slight chronic cough, myalgias, sore throat, right-sided throat swelling, headache, right-sided ear pain since yesterday. Admits was seen at clinic yesterday, tested negative for COVID-19 and negative rapid strep, states they did not give me anything for pain so she came in today. Denies fever, hearing loss/drainage, inability to swallow, change/worsening in her chronic cough, chest pain, shortness of breath, abdominal pain, recent travel, sick contacts <JIMMIE Alvarez Last Filed: 04/16/21 12:15> MD elicited complaint: cough and sore throat <JIMMIE Alvarez Last Filed: 04/16/21 12:15> Related Data Home Medications: Home Medications Medication Instructions Recorded Confirmed gabapentin 300 mg capsule 300 mg PO DAILY 09/13/20 03/07/21 lisinopril 20 mg tablet 20 mg PO BID 09/13/20 03/07/21 methenamine-sodium salicylate 162 tab PO 09/13/20 03/07/21 mg-162.5 mg tablet simvastatin 20 mg tablet 20 mg PO DAILY 09/13/20 03/07/21 aspirin 81 mg tablet,delayed 81 mg PO DAILY 03/20/21 release cholecalciferol (vitamin D3) 125 125 mcg PO DAILY 03/20/21 mcg (5,000 unit) capsule rosuvastatin 20 mg tablet 20 mg PO DAILY 03/20/21 Previous Rx's Medication Instructions Recorded sulfamethoxazole 800 1 tab PO BID 5 Days #2 tab 10/18/20 mg-trimethoprim 160 mg tablet cyclobenzaprine 10 mg PO TID PRN #14 tab 10/24/20 albuterol sulfate 5 mg INHALATION Q4H #30 ea 11/18/20 azithromycin 250 mg PO DAILY 5 Days #4 tab 11/18/20 prednisone 50 mg PO DAILY #4 tab 11/18/20 betamethasone dipropionate 0.05 % 1 appl TOPICAL BID 5 Days #45 g 03/07/21 topical cream umeclidinium 62.5 mcg-vilanterol 1 inh INHALATION DAILY 30 Days #1 03/07/21 25 mcg/actuation powdr for ea inhalation acetaminophen [Tylenol Extra 500 mg PO Q6H PRN #20 tab 04/16/21 Strength] azithromycin See Rx Instructions .ROUTE 04/16/21 .COMPLEX #6 tab prednisone 40 mg PO DAILY 5 Days #10 tab 05/09/21 <JIMMIE Alvarez - Last Filed: 04/16/21 12:15> Allergies/Adverse Reactions: Allergies Allergy/AdvReac Type Severity Reaction Status Date / Time levofloxacin [LEVOFLOXACIN] Allergy Intermediate HIVES Verified 04/04/21 09:51 ceftriaxone [From ROCEPHIN] Allergy Mild SWELLING Verified 04/04/21 09:51 cephalexin [From KEFLEX] Allergy Mild ITCHING Verified 04/04/21 09:51 <JIMMIE Alvarez - Last Filed: 04/16/21 12:15> Review of Systems Review of Systems: Constitutional: No Fever, + Chills, No Night Sweats, No Fatigue, No Malaise ENT/Mouth: No Hearing loss, + Ear Pain, + Nasal Congestion, No Sinus Pain, No Hoarseness, + sore throat, No Rhinorrhea, No Swallowing Difficulty Eyes: No Eye Pain, No Swelling, No Redness, No Discharge, No Vision Changes Cardiovascular: No Chest Pain, No SOB Respiratory: +Chronic Cough, No Sputum, No Wheezing Gastrointestinal: No Nausea, No Vomiting, No Diarrhea, No Constipation, No Abdominal pain Musculoskeletal: No joint pain, + Myalgias, No Joint Swelling Skin: No Skin Lesions, No rash Neuro: No Weakness, No Numbness, + Headache <JIMMIE Alvarez Last Filed: 04/16/21 12:15> Yes all other systems are reviewed and are negative <JIMMIE Alvarez - Last Filed: 04/16/21 12:15> [facility] Past Medical History Attestation statement: The following information was validated with the patient. <JIMMIE Alvarez - Last Filed: 04/16/21 12:15> Medical History: Medical History Abscess of right genital labia COPD (chronic obstructive pulmonary disease) HTN (hypertension) Hyperlipidemia <JIMMIE Alvarez - Last Filed: 04/16/21 12:15> Surgical History: Surgical History History of bilateral tubal ligation History of brain surgery History of carpal tunnel surgery <JIMMIE Alvarez - Last Filed: 04/16/21 12:15> Family History Family History: Family History Family/Other Breast cancer <JIMMIE Alvarez - Last Filed: 04/16/21 12:15> Social History Social History: Social History Alcohol intake: never Patient Tobacco Use Status: Current everyday Tobacco user Smoked in Last 30 Days: Yes Use of substances other than those prescribed or required for medical reasons: No Advance Directives: No Advance Directives Information Provided: No Sexual orientation: Straight/Heterosexual Gender identity: female <JIMMIE Alvarez - Last Filed: 04/16/21 12:15> Physical Exam Vital Signs: Vital Signs: Last Vital Signs Temp 98.5 F 04/16/21 10:58 Pulse 83 04/16/21 10:58 Resp 16 04/16/21 10:58 BP 102/55 L 04/16/21 10:58 Pulse Ox 98 04/16/21 10:58 Body Mass Index 25.0 <JIMMIE Alvarez - Last Filed: 04/16/21 12:15> Vital Signs: Last Vital Signs Temp 98.5 F 04/16/21 10:58 Pulse 83 04/16/21 10:58 Resp 16 04/16/21 10:58 BP 102/55 L 04/16/21 10:58 Pulse Ox 98 04/16/21 10:58 Body Mass Index 25.0 <Hardy Walker MD - Last Filed: 05/10/21 15:42> Const: General: cooperative, healthy appearing, comfortable, no acute distress, well developed, alert, awake and Physically active <JIMMIE Alvarez - Last Filed: 04/16/21 12:15> Orientation/consciousness: patient oriented x3 <JIMMIE Alvarez - Last Filed: 04/16/21 12:15> Limitations: no limitations <JIMMIE Alvarez - Last Filed: 04/16/21 12:15> HENMT: Other: 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 <JIMMIE Alvarez - Last Filed: 04/16/21 12:15> Head: Yes normal to inspection and Yes atraumatic <JIMMIE Alvarez - Last Filed: 04/16/21 12:15> Ears: hearing grossly normal bilaterally, external ears normal and TM's normal bilaterally <JIMMIE Alvarez - Last Filed: 04/16/21 12:15> General nose exam: Normal external nose present and Normal nares present <JIMMIE Alvarez - Last Filed: 04/16/21 12:15> Face and sinus: Yes normal facial exam <JIMMIE Alvarez - Last Filed: 04/16/21 12:15> Mouth: Normal oral and palatal mucosa present <JIMMIE Alvarez - Last Filed: 04/16/21 12:15> Throat: Yes posterior oropharynx normal, Yes tonsils normal, Yes uvula midline, No abnormal tonsil, No peritonsillar mass and No uvula laterally displaced <JIMMIE Alvarez - Last Filed: 04/16/21 12:15> Eyes: General: appearance normal, both eyes and all related structures <JIMMIE Alvarez - Last Filed: 04/16/21 12:15> EOM: EOMs intact bilaterally <JIMMIE Alvarez - Last Filed: 04/16/21 12:15> Neck: Other: Inflamed right-sided submandibular and anterior cervical lymph nodes with ttp <JIMMIE Alvarez - Last Filed: 04/16/21 12:15> Neck: Yes normal visual inspection, Yes no meningeal signs, Yes trachea midline, Yes supple and Yes lymphadenopathy <JIMMIE Alvarez - Last Filed: 04/16/21 12:15> Chest: Chest palpation & inspection: normal inspection of the chest <JIMMIE Alvarez - Last Filed: 04/16/21 12:15> Resp: Effort & Inspection: normal respiratory effort <JIMMIE Alvarez - Last Filed: 04/16/21 12:15> Auscultation: clear to auscultation bilaterally, no crackles, no rales, no rhonchi and no wheezes <JIMMIE Alvaerz - Last Filed: 04/16/21 12:15> Cardio: Rate: regular rate <JIMMIE Alvarez - Last Filed: 04/16/21 12:15> Heart sounds: S1 normal heart sound present and S2 normal heart sound present <JIMMIE Alvarez - Last Filed: 04/16/21 12:15> GI: Inspection: Yes normal to inspection <JIMMIE Alavrez - Last Filed: 04/16/21 12:15> Skin: Rashes: no rashes <JIMMIE Alvarez - Last Filed: 04/16/21 12:15> Wounds: no wounds <JIMMIE Alvarez - Last Filed: 04/16/21 12:15> Neuro: General: patient oriented x3 and no meningeal signs <JIMMIE Alvarez - Last Filed: 04/16/21 12:15> Gait exam (Neuro): Normal gait present <JIMMIE Alvarez - Last Filed: 04/16/21 12:15> Extrem: General: Yes normal to inspection <JIMMIE Alvarez - Last Filed: 04/16/21 12:15> Course Course Course Narrative: -1215--received call from pharmacy patient is also allergic to penicillins which is not listed in our system, Augmentin was switched to Z-Santiago <JIMMIE Alvarez - Last Filed: 04/16/21 12:15> I have reviewed the chart <Hardy Walker MD - Last Filed: 05/10/21 15:42> MDM - URI/Sore Throat MDM Narrative Medical decision making narrative: 70-year-old female with a past medical history of COPD, HTN, hyperlipidemia, presenting to the ED complaining of slight chronic cough, myalgias, sore throat, right-sided throat swelling, headache, right-sided ear pain since yesterday. On exam VSS, NAD/well-appearing, no evidence of active infection however unilateral lymphadenopathy noted. Will give patient antibiotic, worrisome signs and symptoms and strict return precautions discussed, she verbalized understanding feel safe discharge No need to retest for strep pharyngitis or COVID-19 at this time as was negative yesterday <JIMMIE Alvarez Last Filed: 04/16/21 12:15> Discharge Plan Discharge Clinical Impression: Lymphadenopathy <JIMMIE Alvarez Last Filed: 04/16/21 12:15> Patient Disposition: Home, Self-Care <JIMMIE Alvarez Last Filed: 04/16/21 12:15> Instructions: Lymphadenopathy (ED) <JIMMIE Alvarez Last Filed: 04/16/21 12:15> Additional Instructions: You have inflamed lymph nodes on the right side, azithromycin is an antibiotic, take as prescribed Tylenol will help with pain He should follow-up with her primary care doctor If her symptoms persist or worsen, you are unable to eat or drink, have fevers, persistent nausea/vomiting, pain/swelling worsens please return to the ED immediately <JIMMIE Alvarez Last Filed: 04/16/21 12:15> Prescriptions: New acetaminophen [Tylenol Extra Strength] 500 mg tablet 500 mg PO Q6H PRN (Reason: pain or fever) Qty: 20 RF: 0 azithromycin 250 mg tablet See Rx Instructions .ROUTE .COMPLEX Qty: 6 RF: 0 No Action cyclobenzaprine 10 mg tablet 10 mg PO TID PRN (Reason: muscle spasm) Qty: 14 RF: 0 azithromycin 250 mg tablet 250 mg PO DAILY 5 Days Qty: 4 RF: 0 prednisone 50 mg tablet 50 mg PO DAILY Qty: 4 RF: 0 albuterol sulfate 2.5 mg/0.5 mL solution for nebulization 5 mg inhalation Q4H Qty: 30 RF: 0 prednisone 20 mg tablet 40 mg PO DAILY 5 Days Qty: 10 RF: 0 Anoro Ellipta 62.5-25 mcg/actuation blister with device 1 inh inhalation DAILY 30 Days Qty: 1 RF: 6 rosuvastatin 20 mg tablet 20 mg PO DAILY RF: 0 aspirin 81 mg tablet,delayed release (DR/EC) 81 mg PO DAILY RF: 0 cholecalciferol (vitamin D3) 125 mcg (5,000 unit) capsule 125 mcg PO DAILY RF: 0 lisinopril 20 mg tablet 20 mg PO BID RF: 0 gabapentin 300 mg capsule 300 mg PO DAILY RF: 0 simvastatin 20 mg tablet 20 mg PO DAILY RF: 0 methenamine-sodium salicylate 162-162.5 mg tablet PO RF: 0 sulfamethoxazole-trimethoprim [Bactrim DS] 800-160 mg tablet 1 tab PO BID 5 Days Qty: 2 RF: 0 betamethasone dipropionate 0.05 % cream 1 appl topical BID 5 Days Qty: 45 RF: 0 <JIMMIE Alvarez - Last Filed: 04/16/21 12:15> Referrals: Danni Mccarthy MD [Primary Care Provider] - 2 days <JIMMIE Alvarez - Last Filed: 04/16/21 12:15> Interventions: ED Discharge Assessment Last Done: 04/16/21 11:52 <JIMMIE Alvarez - Last Filed: 04/16/21 12:15> Discharge Date/Time: 04/16/21 11:52 <JIMMIE Alvarez - Last Filed: 04/16/21 12:15>
== END 2021-04-16 11:52 | disposition home or self-care (01) ==
PROVIDERS: Emergency Provider Emergency Medicine; PCP Internal Medicine
DX: R59.0 Localized enlarged lymph nodes (principal); J02.9 Acute pharyngitis, unspecified; R51.9 Headache, unspecified; J44.9 Chronic obstructive pulmonary disease, unspecified; I10 Essential (primary) hypertension; E78.5 Hyperlipidemia, unspecified; Z79.82 Long term (current) use of aspirin; Z79.899 Other long term (current) drug therapy; F17.200 Nicotine dependence, unspecified, uncomplicated
CPT/HCPCS: 99283

== ENCOUNTER 2021-05-06 15:42 | Outpatient (REF) | payer MEDICARE, SELFPAY ==
--- NOTE | ~2021-05-06 | MM_ITS ---
EXAMINATION: MM SCREENING DIGITAL BREAST TOMOSYNTHESIS, BILATERAL CLINICAL INFORMATION: Screening. Asymptomatic. Prior mammography performed out of state in [place] at unknown facility, approximately 3-5 years ago. Patient age 70. No known family history breast cancer. The lifetime risk of breast cancer based on the Tyrer-Cuzick Model is 3%. COMPARISON: None. TECHNIQUE: Digital breast tomosynthesis is performed in both the craniocaudal and mediolateral oblique views along with computer-aided detection (CAD). Synthesized 2D images are generated from the tomosynthesis. FINDINGS: There are scattered areas of fibroglandular density (ACR BI-RADS breast composition Category b). There are no significant masses, abnormal calcifications, or other abnormalities. The skin contours are smooth. MM/MM tomosynthesis screening BI IMPRESSION: No mammographic evidence of malignancy. ASSESSMENT: BI-RADS 1: Negative RECOMMENDATION: Routine annual mammography screening. This patient's information was entered into a reminder system with a target due date for their next mammogram.
== END 2021-05-06 15:43 | disposition home or self-care (01) ==
LOC: HO.MAMMO 15:42
PROVIDERS: PCP Internal Medicine; Visit Provider Advanced Practice Midwife
DX: Z12.31 Encounter for screening mammogram for malignant neoplasm of breast (principal)
CPT/HCPCS: 77063; 77067

== ENCOUNTER 2021-05-09 08:44 | Emergency (ER) | payer MEDICARE, SELFPAY ==
--- NOTE | ~2021-05-09 | CT_ITS ---
EXAMINATION: CT HEAD WITHOUT CONTRAST CLINICAL INFORMATION: Left-sided history. History of brain tumor. Rule out bleed or mass effect. COMPARISON: MRI of October 29, [address] of April 14, 2020 TECHNIQUE: Contiguous axial imaging was performed from the skull base to vertex without intravenous administration of contrast. This CT examination was performed using dose optimization techniques as appropriate, variously including the following: *Automated exposure control *Adjustment of mA and/or kV according to patient size (this includes techniques or standardized protocols for targeted exams where dose is matched to indication/reason for exam; i.e. extremities or head) *Use of iterative reconstruction technique DLP: 580 mGy-cm FINDINGS: Patient is status post previous left frontal occipital craniotomy with associated postsurgical change which is stable. There is no evidence of acute intracranial hemorrhage or territorial infarction. No abnormal mass effect or midline shift is seen. Godinez to white matter differentiation is well preserved. No extra-axial fluid collections are identified. Evaluation of the pituitary gland or sella region MRI would be suggested.. The ventricles, sulci, and cisterns are mildly prominent. There is no abnormal attenuation within the brain parenchyma. The osseous structures and soft tissues are normal. The mastoid air cells and visualized portions of the paranasal sinuses are well aerated. CT/CT head/brain wo con IMPRESSION: No acute intracranial pathology. Status post previous left frontoparietal craniotomy.
[2021-05-09 09:36] VITALS: BP 154/73; PULSE 73; RESP 16; TEMP 37.3; O2SAT 99; BMI 25.5
--- NOTE | 2021-05-09 09:40 | PC.NURSE ---
Last MRI February 2020
[2021-05-09 09:59] LABS: MANUAL DIFF FLAG NO
[2021-05-09 10:04] LABS: Basophils Absolute Auto 0.1 X10*3/uL (0.0-0.2); Basophils Percent Auto 1.3 % (0-2); Eosinophils Absolute Auto 0.4 X10*3/uL (0.0-0.4); Eosinophils Percent Auto 4.9 % (0-4); Hematocrit 34.6 % (37-47); Hemoglobin 10.5 g/dl (12.0-16.0); Imm Gran Abs Auto 0.01 X10*3/uL (0.00-0.03); Imm Gran Pct Auto 0.1 % (0.0-0.4); Lymphocytes Absolute Auto 3.6 X10*3/uL (1.2-4.9); Mean Corpuscular HGB Conc 30.3 g/dl (31.0-35.0); Mean Corpuscular Hemoglobin 22.8 pg (27.0-33.0); Mean Corpuscular Volume 75.1 fL (80-98); Monocytes Absolute Auto 0.9 X10*3/uL (0.1-1.2); Monocytes Percent Auto 11.2 % (2-11); Neutrophils Absolute Auto 3.2 X10*3/uL (2.0-8.3); Neutrophils Percent Auto 38.5 % (45-73); Platelet Count 281 X10*3/uL (160-400); Red Blood Count 4.61 X10*6/uL (4.20-5.50); Red Cell Distribution Width 19.6 % (11.0-16.0); White Blood Count 8.2 X10*3/uL (4.8-10.8)
[2021-05-09 10:25] VITALS: BP 155/75; PULSE 61; RESP 18; O2SAT 99
[2021-05-09 10:36] LABS: Alanine Aminotransferase 16 U/L (0-31); Albumin Level 4.1 g/dL (3.5-5.0); Alkaline Phosphatase 118 U/L (39-117); Anion Gap 10 (12-20); Aspartate Amino Transferase 32 U/L (5-31); Bilirubin Total 0.3 mg/dL (0.0-1.0); Blood Urea Nitrogen 7 mg/dL (9-16); Calcium 9.9 mg/dL (8.4-10.2); Carbon Dioxide 26 mmol/L (22-29); Chloride 106 mmol/L (96-108); Creatinine Clr Calc Pharmacy 55.5; Estimated Glomerular Filt Rate > 60; Glucose Random 84 mg/dL (60-115); Potassium 4.1 mmol/L (3.3-5.1); Sodium 138 mmol/L (135-145); Total Protein 7.2 g/dL (6.5-8.0)
--- NOTE | 2021-05-09 10:58 | ED_ITS ---
HPI - Headache General Chief Complaint: Headache Stated Complaint: multiple complaints Time Seen by Provider: 05/09/21 10:30 Source: patient Mode of arrival: ambulatory Limitations: no limitations History of Present Illness HPI Narrative: 70-year-old female who presents emergency department for evaluation of left-sided headache. The patient states that the headache started yesterday and came on gradually. She states the headache became progressively worse and is now 7/10 in intensity. She describes the pain as a constant, pressure-like sensation. She denied any change in her vision. She denied numbness or weakness in extremities. She states that she does have associated nausea. Patient states that she has been having difficulty breathing out of her nostrils and was started on a per trim in bromide nasal spray to each nostril. She has been using this and daily for the past 3 days. She states that she has noted increased redness in the back of her throat and when she clears her throat she states she gets small amount of blood of the back of her throat. She denies bleeding from her nares. She denied fever, chills, rhinorrhea, cough, chest pain or shortness of breath. 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 She states that they were not able to remove the entire tumor since the tumor was near her optic nerve and the surgeon was concerned about causing left eye blindness. She states that she gets MRIs yearly to follow this tumor in her last MRI was February 2020. Related Data Home Medications Medication Instructions Recorded Confirmed gabapentin 300 mg capsule 300 mg PO DAILY 09/13/20 03/07/21 lisinopril 20 mg tablet 20 mg PO BID 09/13/20 03/07/21 methenamine-sodium salicylate 162 tab PO 09/13/20 03/07/21 mg-162.5 mg tablet simvastatin 20 mg tablet 20 mg PO DAILY 09/13/20 03/07/21 aspirin 81 mg tablet,delayed 81 mg PO DAILY 03/20/21 release cholecalciferol (vitamin D3) 125 125 mcg PO DAILY 03/20/21 mcg (5,000 unit) capsule rosuvastatin 20 mg tablet 20 mg PO DAILY 03/20/21 Previous Rx's Medication Instructions Recorded sulfamethoxazole 800 1 tab PO BID 5 Days #2 tab 10/18/20 mg-trimethoprim 160 mg tablet cyclobenzaprine 10 mg PO TID PRN #14 tab 10/24/20 albuterol sulfate 5 mg INHALATION Q4H #30 ea 11/18/20 azithromycin 250 mg PO DAILY 5 Days #4 tab 11/18/20 prednisone 50 mg PO DAILY #4 tab 11/18/20 betamethasone dipropionate 0.05 % 1 appl TOPICAL BID 5 Days #45 g 03/07/21 topical cream umeclidinium 62.5 mcg-vilanterol 1 inh INHALATION DAILY 30 Days #1 03/07/21 25 mcg/actuation powdr for ea inhalation acetaminophen [Tylenol Extra 500 mg PO Q6H PRN #20 tab 04/16/21 Strength] azithromycin See Rx Instructions .ROUTE 04/16/21 .COMPLEX #6 tab prednisone 40 mg PO DAILY 5 Days #10 tab 05/09/21 Allergies Allergy/AdvReac Type Severity Reaction Status Date / Time levofloxacin [LEVOFLOXACIN] Allergy Intermediate HIVES Verified 04/04/21 09:51 ceftriaxone [From ROCEPHIN] Allergy Mild SWELLING Verified 04/04/21 09:51 cephalexin [From KEFLEX] Allergy Mild ITCHING Verified 04/04/21 09:51 Review of Systems Review of Systems: Yes all other systems are reviewed and are negative [facility] Past Medical History [facility] Narrative: Patient states she smokes half a pack of cigarettes per day times 52 years. She denies alcohol and drug use. Medical History Abscess of right genital labia COPD (chronic obstructive pulmonary disease) HTN (hypertension) Hyperlipidemia Surgical History History of bilateral tubal ligation History of brain surgery History of carpal tunnel surgery Family History Family History Family/Other Breast cancer Social History Social History Alcohol intake: never Patient Tobacco Use Status: Current everyday Tobacco user Smoked in Last 30 Days: Yes Use of substances other than those prescribed or required for medical reasons: No Advance Directives: No Advance Directives Information Provided: No Sexual orientation: Straight/Heterosexual Gender identity: female Physical Exam Vital Signs: Vital Signs: Last Vital Signs Temp 99.1 F 05/09/21 09:36 Pulse 77 05/09/21 11:20 Resp 16 05/09/21 11:20 BP 148/78 H 05/09/21 11:20 Pulse Ox 96 05/09/21 11:20 Body Mass Index 25.5 Const: General: cooperative and healthy appearing Orientation/consciousness : oriented to person and oriented to place Limitations: no limitations HENMT: Other: The patient had abnormal skull shape on the left side secondary to craniotomy for her brain surgery. She has tenderness with palpation of her frontal and maxillary sinuses bilaterally. Ears: external ears normal General nose exam: Normal external nose present, Normal nares present, No nasal polyps present and No nasal discharge present Face and sinus: Yes normal facial exam Mouth: Normal oral and palatal mucosa present Throat: Yes posterior oropharynx normal Eyes: Periorbital: periorbital findings normal Eyelids: Yes eyelids normal Conjunctivae: conjunctivae normal Sclerae: sclerae normal Corneas: corneas normal Pupils: Equal, round and reactive pupils present Direct Ophthalmoscopy: normal light reflex Neck: Neck: Yes full ROM, Yes no lymphadenopathy, Yes no meningeal signs, Yes trachea midline and Yes supple Chest: Chest palpation & inspection: normal inspection of the chest and normal palpation of entire chest wall Resp: Effort & Inspection: normal respiratory effort and able to speak in complete sentences Auscultation: clear to auscultation bilaterally Cardio: Rate: regular rate Rhythm: regular rhythm Heart sounds: S1 normal heart sound present, S2 normal heart sound present and no murmurs GI: Inspection: Yes normal to inspection Palpation (GI): Soft to palpation, nontender, no guarding, not rigid and No hepatosplenomegaly present : General: Yes no CVA tenderness Back/Spine/Pelvis: Back: no CVA tenderness Cervical Spine: normal cervical lordosis Thoracic/Lumbar Spine: thoracic and lumbar spine normal to inspection Skin: Lesions: no lesions Rashes: no rashes Wounds: no wounds Neuro: General: oriented to person, oriented to place and no meningeal signs Cranial nerves: Yes CN's II-XII intact bilaterally and Yes Equal, round and reactive pupils present Cognition (Neuro): normal cognition Motor exam (neuro): 5/5 motor strength present throughout Coordination: [id number] test normal and [id number] test normal Extrem: General: Yes normal to inspection and Yes full ROM Psych: Appearance: well kempt Mental Status: mental status grossly normal Speech and movement: Normal speech and movement present Affect: normal affect Attitude: cooperative Thought process: Normal thought process present Thought content: Normal thought content present Course Course Course Narrative: 70-year-old female who presents emergency department for evaluation of headache x1 day. Headache came on gradually yesterday and has been constant and is 7/10 at its worst. The patient's vital signs revealed an elevated blood pressure of 154/73 otherwise was unremarkable. The physical examination was unremarkable with a nonfocal neurologic exam and normal cerebellar exam. I ordered a CBC, CMP and CT scan of the brain without IV contrast. Patient was ordered to get Tylenol 975 mg orally. 1228: Patient feels better after receiving oral Tylenol. Laboratory evaluation revealed mild anemia with an H&H of 10.5 and 34.6 which is chronic. The CT scan of the brain is consistent with postsurgical changes with no acute findings which is reassuring. At this time, concerned that the patient's headache and throat irritation may be secondary to the if the a per ipiatromium bromide nasal spray therefore advised to stop this medication. Patient was given a prescription for prednisone 40 mg once a day for 5 days for possible inflammatory sinusitis. She is advised to continue taking Tylenol. She is to follow-up with her PCP and return if her symptoms get worse. MDM - Headache Lab Data Result diagrams: 05/09/21 09:53 05/09/21 09:53 Labs: Lab Results 05/09/21 05/09/21 Range/Units 09:53 09:53 WBC 8.2 (4.8-10.8) X10*3/uL RBC 4.61 (4.20-5.50) X10*6/uL Hgb 10.5 L (12.0-16.0) g/dl Hct 34.6 L (37-47) % MCV 75.1 L (80-98) fL MCH 22.8 L (27.0-33.0) pg MCHC 30.3 L (31.0-35.0) g/dl RDW 19.6 H (11.0-16.0) % Plt Count 281 (160-400) X10*3/uL MPV 10.0 (9.4-12.3) fL Immature Gran % (Auto) 0.1 (0.0-0.4) % Neut % (Auto) 38.5 L (45-73) % Lymph % (Auto) 44.0 H (20-40) % [place] % (Auto) 11.2 H (2-11) % Eos % (Auto) 4.9 H (0-4) % Baso % (Auto) 1.3 (0-2) % Lymph # (Auto) 3.6 (1.2-4.9) X10*3/uL [place] # (Auto) 0.9 (0.1-1.2) X10*3/uL Eos # (Auto) 0.4 (0.0-0.4) X10*3/uL Baso # (Auto) 0.1 (0.0-0.2) X10*3/uL Abs Immat Gran (auto) 0.01 (0.00-0.03) X10*3/uL Absolute Neuts (auto) 3.2 (2.0-8.3) X10*3/uL Absolute Nucleated RBC 0.000 (0.0-0.012) X10*3/uL Nucleated RBC % (auto) 0.0 (0.0-0.2) /100WBC Sodium 138 (135-145) mmol/L Potassium 4.1 (3.3-5.1) mmol/L Chloride 106 (96-108) mmol/L Carbon Dioxide 26 (22-29) mmol/L Anion Gap 10 L (12-20) BUN 7 L (9-16) mg/dL Creatinine 0.76 (0.5-1.4) mg/dL Estim Creat Clear Calc 55.5 Estimated GFR > 60 Random Glucose 84 (60-115) mg/dL Calcium 9.9 (8.4-10.2) mg/dL Total Bilirubin 0.3 (0.0-1.0) mg/dL AST 32 H (5-31) U/L ALT 16 (0-31) U/L Alkaline Phosphatase 118 H (39-117) U/L Total Protein 7.2 (6.5-8.0) g/dL Albumin 4.1 (3.5-5.0) g/dL Discharge Plan Discharge Clinical Impression: Sinusitis Qualifiers: Sinusitis location: other Chronicity: acute Recurrence: non-recurrent Qualified Code(s): J01.80 - Other acute sinusitis Headache Qualifiers: Headache type: unspecified Headache chronicity pattern: acute headache Intractability: not intractable Qualified Code(s): R51.9 - Headache, unspecified Patient Disposition: Home, Self-Care Instructions: Sinusitis (ED) Additional Instructions: Your blood work was unremarkable except for mild anemia which you had in the past. The CT scan of the brain revealed no findings to explain your headache. I suspect that your headache may be caused by the new nasal inhaler that you are using, please stop this medication. Your headache may also be caused by inflammation of your sinuses which I am going to treat with prednisone 40 mg once a day for 5 days. Take Tylenol (acetaminophen) 500 mg pills, 2 pills every 4 to 6 hours as needed for pain. Follow-up with your doctor in 2 days. Please return to the emergency department if your symptoms get worse or if you d evelop any symptoms that are concerning to you. Prescriptions: New prednisone 20 mg tablet 40 mg PO DAILY 5 Days Qty: 10 RF: 0 No Action cyclobenzaprine 10 mg tablet 10 mg PO TID PRN (Reason: muscle spasm) Qty: 14 RF: 0 azithromycin 250 mg tablet 250 mg PO DAILY 5 Days Qty: 4 RF: 0 prednisone 50 mg tablet 50 mg PO DAILY Qty: 4 RF: 0 albuterol sulfate 2.5 mg/0.5 mL solution for nebulization 5 mg inhalation Q4H Qty: 30 RF: 0 acetaminophen [Tylenol Extra Strength] 500 mg tablet 500 mg PO Q6H PRN (Reason: pain or fever) Qty: 20 RF: 0 azithromycin 250 mg tablet See Rx Instructions .ROUTE .COMPLEX Qty: 6 RF: 0 Anoro Ellipta 62.5-25 mcg/actuation blister with device 1 inh inhalation DAILY 30 Days Qty: 1 RF: 6 rosuvastatin 20 mg tablet 20 mg PO DAILY RF: 0 aspirin 81 mg tablet,delayed release (DR/EC) 81 mg PO DAILY RF: 0 cholecalciferol (vitamin D3) 125 mcg (5,000 unit) capsule 125 mcg PO DAILY RF: 0 lisinopril 20 mg tablet 20 mg PO BID RF: 0 gabapentin 300 mg capsule 300 mg PO DAILY RF: 0 simvastatin 20 mg tablet 20 mg PO DAILY RF: 0 methenamine-sodium salicylate 162-162.5 mg tablet PO RF: 0 sulfamethoxazole-trimethoprim [Bactrim DS] 800-160 mg tablet 1 tab PO BID 5 Days Qty: 2 RF: 0 betamethasone dipropionate 0.05 % cream 1 appl topical BID 5 Days Qty: 45 RF: 0
[2021-05-09] MEDS: Acetaminophen 325 MG TABLET 975 MG PO (11:19)
[2021-05-09 11:20] VITALS: BP 148/78; PULSE 77; RESP 16; O2SAT 96
== END 2021-05-09 12:45 | disposition home or self-care (01) ==
PROVIDERS: Emergency Provider Emergency Medicine Emergency Medical Services; PCP Internal Medicine
DX: J01.80 Other acute sinusitis (principal); D64.9 Anemia, unspecified; J44.9 Chronic obstructive pulmonary disease, unspecified; I10 Essential (primary) hypertension
CPT/HCPCS: 36415; 70450; 80053; 85025; 99284; 99285

== ENCOUNTER → 2021-05-20 12:31 | Outpatient (BNVA) | payer MEDICARE, SELFPAY | PROVIDERS: PCP Internal Medicine; Visit Provider Nurse Practitioner Family | DX: Z01.818 Encounter for other preprocedural examination (principal); K59.00 Constipation, unspecified; D64.9 Anemia, unspecified | CPT/HCPCS: 99202 ==

== ENCOUNTER 2021-06-11 08:30 | Day surgery (SDC) | payer MEDICARE, SELFPAY ==
--- NOTE | 2021-06-10 09:38 | HO.ANESPROP2 ---
Documented by User: Adamaris Jayne 06/10/21 09:42 HPI - Anesthesia Eval Consult details Narrative: 71yo F for Colonoscopy PMFSH Active Problems Active Problems: All Active Problems (Updated 05/10/21 @ 00:01 by Dheeraj June) Skin lesions (Acute) Vulval lesion (Acute) COPD (chronic obstructive pulmonary disease) (Acute) Deviated septum (Acute) Pulmonary nodules (Acute) Perirectal ulcer (Acute) Carotid stenosis, bilateral (Acute) PVD (peripheral vascular disease) (Acute) Abscess of right genital labia (Acute) Lichen sclerosus (Acute) Vulvar leukoplakia (Acute) Past Medical History Medical History Abscess of right genital labia Carotid stenosis, bilateral COPD (chronic obstructive pulmonary disease) HTN (hypertension) Hyperlipidemia PVD (peripheral vascular disease) Family History Family History Family/Other Breast cancer Surgical History Surgical History H/O colonoscopy History of bilateral tubal ligation History of brain surgery History of carpal tunnel surgery History of esophagogastroduodenoscopy (EGD) Social History Social History Alcohol intake: never Patient Tobacco Use Status: Current everyday Tobacco user Cigarettes Per Day: 10 Years Smoked: 52 Smoked in Last 30 Days: No Patient Interested in Nicotine Replacement: No Patient Given Instructions on How to Stop Smoking: No Use of substances other than those prescribed or required for medical reasons: No Are you DNR?: No Advance Directives: No Advance Directives Information Provided: Yes Sexual orientation: Straight/Heterosexual Gender identity: female Meds Allergies Allergy/AdvReac Type Severity Reaction Status Date / Time levofloxacin [LEVOFLOXACIN] Allergy Intermediate HIVES Verified 05/20/21 12:42 ceftriaxone [From ROCEPHIN] Allergy Mild SWELLING Verified 05/20/21 12:42 cephalexin [From KEFLEX] Allergy Mild ITCHING Verified 05/20/21 12:42 Home Medications Medication Instructions Recorded Confirmed Last Taken Type gabapentin 300 mg capsule 300 mg PO DAILY 09/13/20 03/07/21 06/11/21 07:30 History lisinopril 20 mg tablet 20 mg PO BID 09/13/20 03/07/21 Unknown History aspirin 81 mg tablet,delayed 81 mg PO DAILY 03/20/21 Unknown History release rosuvastatin 20 mg tablet 20 mg PO DAILY 03/20/21 Unknown History Exam Exam Date and Time: June 10, 2021 0938 Narrative Narrative: US carotid duplex BI 11/2020 IMPRESSION: 1. RIGHT: 50-79% range stenosis. 2. LEFT: 0-49% range stenosis. 3. There is normal antegrade flow seen in the vertebral arteries. EKG 02/2021 Vent. Rate : 075 BPM Atrial Rate : 075 BPM P-R Int : 138 ms QRS Dur : 076 ms QT Int : 418 ms P-R-T Axes : 055 011 072 degrees QTc Int : 466 ms Normal sinus rhythm Nonspecific T wave changes Abnormal ECG When compared with ECG of 18-NOV-2020 19:33, Nonspecific T wave abnormality, worse in Anterolateral leads CT head/brain wo con 04/2021 IMPRESSION: No acute intracranial pathology. Status post previous left frontoparietal craniotomy. Assessment and Plan Assessment Anesthesia Assessment: Chart Reviewed Documented by User: Roxie Landaverde 06/11/21 11:00 [facility] Past Medical History Medical History Abscess of right genital labia Carotid stenosis, bilateral COPD (chronic obstructive pulmonary disease) HTN (hypertension) Hyperlipidemia PVD (peripheral vascular disease) Family History Family History Family/Other Breast cancer Surgical History Surgical History H/O colonoscopy History of bilateral tubal ligation History of brain surgery History of carpal tunnel surgery History of esophagogastroduodenoscopy (EGD) Social History Social History Alcohol intake: never Patient Tobacco Use Status: Current everyday Tobacco user Cigarettes Per Day: 10 Years Smoked: 52 Smoked in Last 30 Days: No Patient Interested in Nicotine Replacement: No Patient Given Instructions on How to Stop Smoking: No Use of substances other than those prescribed or required for medical reasons: No Are you DNR?: No Advance Directives: No Advance Directives Information Provided: Yes Sexual orientation: Straight/Heterosexual Gender identity: female Meds Allergies Allergy/AdvReac Type Severity Reaction Status Date / Time levofloxacin [LEVOFLOXACIN] Allergy Intermediate HIVES Verified 05/20/21 12:42 ceftriaxone [From ROCEPHIN] Allergy Mild SWELLING Verified 05/20/21 12:42 cephalexin [From KEFLEX] Allergy Mild ITCHING Verified 05/20/21 12:42 Home Medications Medication Instructions Recorded Confirmed Last Taken Type gabapentin 300 mg capsule 300 mg PO DAILY 09/13/20 03/07/21 06/11/21 07:30 History lisinopril 20 mg tablet 20 mg PO BID 09/13/20 03/07/21 Unknown History aspirin 81 mg tablet,delayed 81 mg PO DAILY 03/20/21 Unknown History release rosuvastatin 20 mg tablet 20 mg PO DAILY 03/20/21 Unknown History Exam Airway Mallampati Class: II TM Dist: >3cm Neck ROM: Full Heart: RRR Lungs: CTA Assessment and Plan Assessment Anesthesia Assessment: Anesthesia Plan Discussed and Chart Reviewed Final Anesthetic Review NPO: Yes ASA Class: III Final Preanesthetic Review: Meds/Allgs Chart Reviewed, Consent Obtained/Reviewed and Anes Risks/Benef Reviewed Patient Risk: Intermediate Procedure Risk: Low Anesthetic Plan Anesthetic Plan: MAC: Disposition: Standard PACU
[2021-06-11 10:12] VITALS: BP 119/74; PULSE 70; RESP 16; TEMP 36.9; O2SAT 99; BMI 25.5
--- NOTE | 2021-06-11 10:15 | MHC.SHP ---
Pre-Procedural Eval Section A Date of Service: 06/11/21 The patient is an INPATIENT: No Changes since office visit: Yes Patient answered all questions; No Cold of Flu in the past 2 weeks, No New Medical Problems and No Changes in Medication The History & Physical has been completed within 30 days and I have reviewed it.: Yes Section B Chief Complaint: constipation Allergies: Allergies Allergy/AdvReac Type Severity Reaction Status Date / Time levofloxacin [LEVOFLOXACIN] Allergy Intermediate HIVES Verified 05/20/21 12:42 ceftriaxone [From ROCEPHIN] Allergy Mild SWELLING Verified 05/20/21 12:42 cephalexin [From KEFLEX] Allergy Mild ITCHING Verified 05/20/21 12:42 Exam Surgical H&P Exam: Normal: Heart, Normal: Lungs, Normal: Extremities and Normal: Abdomen Plan Diagnosis/Plan: Unchanged I have reviewed the history and physical and performed a pertinent physical examination on my patient. No changes have occurred unless specified.
--- NOTE | 2021-06-11 10:15 | PM.OP ---
Brief Operative Note Date of Service: 06/11/21 Pre-op diagnosis: Colon cancer screening, iron def anemia Post-op diagnosis: other (colon polyps, diverticulosis, hemorrhoids) Procedure: COLONOSCOPY TILL CECUM WITH BIOPSIES Consent: Indications for the procedure and potential complications of bleeding, perforation, reaction to medications and missed diagnosis were discussed with the patient and informed consent was obtained. Instrument: Olympus PCF H 190 L variable stiffness pediatric colonoscope Monitoring: Vital signs and clinical assessment, intermittent blood pressure monitoring, continuous EKG monitoring, Pulse oximetry and Carbon Dioxide monitoring were done throughout the procedure. Colon withdrawl time was 16 minutes. Procedure: The patient was placed in the left lateral decubitis position and pre-procedure medications were administered. After a digital rectal examination of the ano-rectum, the video colonoscope was inserted into the rectum and advanced through the colon to the cecum. The colonoscope was slowly withdrawn in a retrograde panoramic fashion and the colon mucosa was carefully examined including a retroflexed view of the rectum. Findings and interventions are described below. Procedure Difficulty: Without difficulty Findings: Terminal Ileum: Not evaluated Cecum: Normal Ascending Colon: Normal Transverse Colon: Normal Descending Colon: Moderate diverticulosis Sigmoid Colon: Moderate diverticulosis Rectum: A few 5-6 mm diminutive appearing polyps - two were biopsied. Ano-rectum: Moderate internal hemorrhoids Colon preparation: Good Impression and Post Procedure Diagnosis: Colonoscopy Findings: Two diminutive appearing polyps were biopsied Moderate diverticulosis seen in the left colon Moderate hemorrhoids on retroflexed exam. Plan: Await pathology results Patient has an appointment on 06/26/21 in the [facility] with Elizabeth Null FNP-BC. Repeat Colonoscopy interval based on path results - in 5 years if polyps are adenomatous and 10 years if polyps are hyperplastic. Above findings were reviewed with the patient and colon polyps and diverticulosis handouts were given in the discharge area Surgeon: Ella Christine MD Anesthesia: MAC (Dr Stovall & Dr Landaverde) Was an Drywall Stripper used for this Procedure?: Yes Drywall Stripper: Beltran Kelsey Estimated blood loss (mL): 0 Pathology: other (A- POLYPS RECTUM) Condition: stable Disposition: PACU
[2021-06-11] MEDS: Lactated Ringers 1,000 ML 100 ML IVCONT (11:03)
[2021-06-11 12:16] VITALS: BP 76/47; PULSE 69; RESP 16; TEMP 36.3; O2SAT 98
[2021-06-11 12:30] VITALS: BP 90/57; PULSE 65; RESP 16; O2SAT 98
[2021-06-11 12:44] VITALS: BP 106/70; PULSE 84; RESP 16; TEMP 36.3; O2SAT 98
[2021-06-11 13:08] VITALS: BP 114/62; PULSE 76; RESP 16; O2SAT 97
--- NOTE | 2021-06-11 17:35 | P.OP_ITS ---
Operative Note Operative Note Date of Service: 06/11/21 Narrative: Pre-op diagnosis: Colon cancer screening, iron def anemia Post-op diagnosis: other (colon polyps, diverticulosis, hemorrhoids) Procedure: COLONOSCOPY TILL CECUM WITH BIOPSIES Consent: Indications for the procedure and potential complications of bleeding, perforation, reaction to medications and missed diagnosis were discussed with the patient and informed consent was obtained. Instrument: Olympus PCF H 190 L variable stiffness pediatric colonoscope Monitoring: Vital signs and clinical assessment, intermittent blood pressure monitoring, continuous EKG monitoring, Pulse oximetry and Carbon Dioxide monitoring were done throughout the procedure. Colon withdrawl time was 16 minutes. Procedure: The patient was placed in the left lateral decubitis position and pre-procedure medications were administered. After a digital rectal examination of the ano-rectum, the video colonoscope was inserted into the rectum and advanced through the colon to the cecum. The colonoscope was slowly withdrawn in a retrograde panoramic fashion and the colon mucosa was carefully examined including a retroflexed view of the rectum. Findings and interventions are described below. Procedure Difficulty: Without difficulty Findings: Terminal Ileum: Not evaluated Cecum: Normal Ascending Colon: Normal Transverse Colon: Normal Descending Colon: Moderate diverticulosis Sigmoid Colon: Moderate diverticulosis Rectum: A few 5-6 mm diminutive appearing polyps - two were biopsied. Ano-rectum: Moderate internal hemorrhoids Colon preparation: Good Impression and Post Procedure Diagnosis: Colonoscopy Findings: Two diminutive appearing polyps were biopsied Moderate diverticulosis seen in the left colon Moderate hemorrhoids on retroflexed exam. Plan: Await pathology results Patient has an appointment on 06/26/21 in the GI Clinic with Elizabeth Null FNP- BC. Repeat Colonoscopy interval based on path results - in 5 years if polyps are adenomatous and 10 years if polyps are hyperplastic. Above findings were reviewed with the patient and colon polyps and diverticulosis handouts were given in the discharge area Surgeon: Ella Christine MD Anesthesia: MAC (Dr Stovall & Dr Landaverde) Was an Precision Lens Generator used for this Procedure?: Yes Precision Lens Generator: Beltran Kelsey Estimated blood loss (mL): 0 Pathology: other (A- POLYPS RECTUM) Condition: stable Disposition: PACU
== END 2021-06-11 13:40 | disposition home or self-care (01) ==
PROVIDERS: PCP Internal Medicine; Visit Provider Internal Medicine Gastroenterology
PROC: 0DJD8ZZ Inspection of Lower Intestinal Tract, Via Natural or Artificial Opening Endoscopic (ICD-10-PCS; CPT 45378; principal; 2021-06-11 10:50)
DX: Z12.11 Encounter for screening for malignant neoplasm of colon (principal); K62.1 Rectal polyp; K57.30 Diverticulosis of large intestine without perforation or abscess without bleeding; K64.8 Other hemorrhoids; D50.9 Iron deficiency anemia, unspecified; K59.00 Constipation, unspecified; R14.0 Abdominal distension (gaseous); J44.9 Chronic obstructive pulmonary disease, unspecified; I10 Essential (primary) hypertension; E78.5 Hyperlipidemia, unspecified; I73.9 Peripheral vascular disease, unspecified; Z79.899 Other long term (current) drug therapy; Z88.8 Allergy status to other drugs, medicaments and biological substances; F17.210 Nicotine dependence, cigarettes, uncomplicated
CPT/HCPCS: 45380; 88305

== ENCOUNTER 2021-06-26 09:27 | Outpatient (REF) | payer MEDICARE, SELFPAY ==
[2021-06-26 12:41] LABS: Hematocrit 38.2 % (37-47); Hemoglobin 11.6 g/dl (12.0-16.0); Mean Corpuscular HGB Conc 30.4 g/dl (31.0-35.0); Mean Corpuscular Hemoglobin 23.6 pg (27.0-33.0); Mean Corpuscular Volume 77.8 fL (80-98); Mean Platelet Volume 10.6 fL (9.4-12.3); Platelet Count 305 X10*3/uL (160-400); Red Blood Count 4.91 X10*6/uL (4.20-5.50); Red Cell Distribution Width 18.9 % (11.0-16.0); White Blood Count 8.1 X10*3/uL (4.8-10.8)
[2021-06-26 13:29] LABS: Ferritin 27 ng/mL (10-250)
[2021-06-26 13:43] LABS: Folate 7.4 ng/mL (> or = 4.0); Vitamin B12 890 pg/mL (200-900)
== END 2021-06-26 09:28 | disposition home or self-care (01) ==
LOC: HO.LAB 09:27
PROVIDERS: PCP Internal Medicine; Referring Provider Internal Medicine; Visit Provider Nurse Practitioner Family
DX: D64.9 Anemia, unspecified (principal); K57.90 Diverticulosis of intestine, part unspecified, without perforation or abscess without bleeding; K59.03 Drug induced constipation
CPT/HCPCS: 36415; 82607; 82728; 82746; 85027; 99212

== ENCOUNTER 2021-06-30 | Outpatient (REF) | payer MEDICARE, SELFPAY ==
[2021-07-01 14:44] LABS: OBS Int Ctl Valid YES; OBS1 POSITIVE (NEGATIVE); OBS2 NEGATIVE (NEGATIVE); OBS3 POSITIVE (NEGATIVE)
== END 2021-06-30 00:01 | disposition home or self-care (01) ==
LOC: HO.LNP
PROVIDERS: Visit Provider Nurse Practitioner Family
DX: D64.9 Anemia, unspecified (principal)
CPT/HCPCS: 82270

== ENCOUNTER 2021-07-23 15:23 | Emergency (ER) | payer MEDICARE, SELFPAY ==
[2021-07-23 15:30] VITALS: BP 130/62; PULSE 80; RESP 18; TEMP 36.9; O2SAT 98; BMI 25.2
[2021-07-23 15:57] LABS: COVID-19 Test Negative (Negative)
== END 2021-07-23 19:00 | disposition left against medical advice (07) ==
PROVIDERS: Emergency Provider Emergency Medicine; PCP Internal Medicine
DX: R06.02 Shortness of breath (principal)
CPT/HCPCS: 36415; 87635; 99282; 99283

== ENCOUNTER 2021-07-25 15:28 | Outpatient (REF) | payer MEDICARE, SELFPAY ==
--- NOTE | ~2021-07-25 | XR_ITS ---
EXAMINATION: XR CHEST CLINICAL INFORMATION: Cough COMPARISON: Previous chest x-ray and chest CT February 2021 TECHNIQUE: 2 views of the chest were obtained. FINDINGS: The cardiac silhouette does not appear enlarged. Mediastinal contours are unremarkable. There are increased central bronchovascular markings. When compared with previous chest CT, this is probably related to airways disease. Appearance is increased from February 2021 chest x-ray. The lungs are otherwise clear. There is no pleural effusion or pneumothorax. There are degenerative changes of the spine. XR/XR chest 2V IMPRESSION: Increased central bronchovascular markings probably related to airways disease. This appears increased from February 2021 chest x-ray.
== END 2021-07-25 15:29 | disposition home or self-care (01) ==
LOC: HO.XRAY 15:28
PROVIDERS: Absent Provider Internal Medicine; PCP Internal Medicine; Visit Provider Emergency Medicine
DX: R05 Cough (principal)
CPT/HCPCS: 71046

== ENCOUNTER 2021-08-10 18:35 | Emergency (ER) | payer MEDICARE, SELFPAY ==
--- NOTE | 2021-08-10 | ECG_ITS ---
Test Reason : CHEST PAIN Blood Pressure : / mmHG Vent. Rate : 068 BPM Atrial Rate : 068 BPM P-R Int : 148 ms QRS Dur : 082 ms QT Int : 428 ms P-R-T Axes : 052 016 069 degrees QTc Int : 455 ms Normal sinus rhythm Possible Anterior infarct , age undetermined Abnormal ECG When compared with ECG of 17-MAR-2021 18:37, Nonspecific T wave abnormality is no longer Present Referred By: Generic ED Physician Electronically Signed By:LÓPEZ RECIO
--- NOTE | ~2021-08-10 | XR_ITS ---
EXAMINATION: XR CHEST CLINICAL INFORMATION: Chest tightness COMPARISON: Chest radiograph 07/25/[address] 04/15/2020 TECHNIQUE: 2 views of the chest were obtained. FINDINGS: The heart appears normal. Again seen are increased central bronchovascular markings, minimally improved when compared to the prior study. No consolidations, lung masses, pneumothorax or pleural effusions are seen. XR/XR chest 2V IMPRESSION: Increased bronchovascular markings most likely related to airways disease. No acute finding. At the time of the patient's prior CT scan, increased reticular nodular markings were seen bilaterally.
[2021-08-10 20:01] VITALS: BP 149/73; PULSE 75; RESP 18; TEMP 36.7; O2SAT 100; BMI 26.3
--- NOTE | 2021-08-10 22:17 | ED_ITS ---
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 In addition, she states she has experience some chest tightness without fever, chills, GI or symptoms. Related Data Home Medications Medication Instructions Recorded Confirmed gabapentin 300 mg capsule 300 mg PO DAILY 09/13/20 03/07/21 lisinopril 20 mg tablet 20 mg PO BID 09/13/20 03/07/21 aspirin 81 mg tablet,delayed 81 mg PO DAILY 03/20/21 release rosuvastatin 20 mg tablet 20 mg PO DAILY 03/20/21 Previous Rx's Medication Instructions Recorded albuterol sulfate 2.5 mg/0.5 mL 5 mg INHALATION Q4H #30 ea 11/18/20 solution for nebulization betamethasone dipropionate 0.05 % 1 appl TOPICAL BID 5 Days #45 g 03/07/21 topical cream acetaminophen 500 mg tablet 500 mg PO Q6H PRN #20 tab 04/16/21 (Tylenol Extra Strength) docusate sodium 100 mg capsule 100 mg PO BEDTIME #30 cap 05/20/21 hydrocortisone 2.5 % topical cream 1 appl NH BID-QID PRN #30 g 07/01/21 with perineal applicator (Proctosol HC) methylcellulose (laxative) 500 mg 500 mg PO BID #30 tab 07/01/21 tablet (Citrucel) sennosides 8.6 mg tablet (Natural 17.2 mg PO BEDTIME PRN #60 tab 07/01/21 Senna Laxative) umeclidinium 62.5 mcg-vilanterol 1 inh INHALATION DAILY #60 ea 07/18/21 25 mcg/actuation powdr for inhalation (Anoro Ellipta) prednisone 20 mg tablet 40 mg PO DAILY 4 Days #8 tab 08/11/21 Allergies Allergy/AdvReac Type Severity Reaction Status Date / Time levofloxacin [LEVOFLOXACIN] Allergy Intermediate HIVES Verified 07/23/21 15:37 ceftriaxone [From ROCEPHIN] Allergy Mild SWELLING Verified 07/23/21 15:37 cephalexin [From KEFLEX] Allergy Mild ITCHING Verified 07/23/21 15:37 Review of Systems Review of Systems: Pertinent positives and negatives as stated in HPI and 10 point review of systems is otherwise negative. [facility] Past Medical History Source: nursing notes reviewed Medical History Abscess of right genital labia Carotid stenosis, bilateral COPD (chronic obstructive pulmonary disease) HTN (hypertension) Hyperlipidemia PVD (peripheral vascular disease) Surgical History H/O colonoscopy History of bilateral tubal ligation History of brain surgery History of carpal tunnel surgery History of esophagogastroduodenoscopy (EGD) Family History Family History Family/Other Breast cancer Social History Social History Alcohol intake: never Patient Tobacco Use Status: Current someday Tobacco user Cigarettes Per Day: 10 Years Smoked: 52 Advance Directives: No Advance Directives Information Provided: No Sexual orientation: Straight/Heterosexual Gender identity: Female Physical Exam Vital Signs: Vital Signs: Last Vital Signs Temp 98.5 F 08/10/21 22:29 Pulse 67 08/10/21 23:04 Resp 16 08/10/21 22:29 BP 160/67 H 08/10/21 22:29 Pulse Ox 100 08/10/21 22:29 Body Mass Index 26.3 VITAL SIGNS: Reviewed. GENERAL: Chronically ill, in no acute distress. HEAD: Normocephalic/atraumatic EYES: PERRLA, EOMI OROPHARYNX: no oral lesions noted, posterior pharynx clear and non-erythematous without noted tonsillar enlargement/erythema/exudates NECK: Supple, no adenopathy LUNGS: Mild expiratory wheeze noted otherwise good inspiratory effort, otherwise no noted rhonchi or tachypnea. SpO2<100> CARDIOVASCULAR: Regular rate and rhythm without noted murmurs, no JVD or lower extremity edema. ABDOMEN: Soft, non-tender, non-distended with bowel sounds. MUSCULOSKELETAL: No tenderness, deformities, or effusions noted on gross inspection. EXTREMITIES: No cyanosis, clubbing or edema. SKIN: Inspection of the skin reveals no rashes NEUROLOGIC: Alert and oriented x 4. Course Course Course Narrative: 71-year-old female with history and clinical presentation suggestive of possible COVID-19 infection or poorly controlled COPD symptoms, patient is not hypoxic nor tachypneic. Review of all investigations without acute findings and symptoms most consistent with bronchitis. Patient reports significant improvement in her symptoms after receiving albuterol and prednisone. She was discharged on a short course of steroids and instructed to follow-up with her primary care provider. MDM - SOB/Dyspnea Lab Data Result diagrams: 08/10/21 22:14 08/10/21 22:14 Labs: Lab Results 08/10/21 08/10/21 08/10/21 Range/Units 22:14 22:14 22:14 WBC 9.7 (4.8-10.8) X10*3/uL RBC 4.46 (4.20-5.50) X10*6/uL Hgb 10.8 L (12.0-16.0) g/dl Hct 33.3 L (37-47) % MCV 74.7 L (80-98) fL MCH 24.2 L (27.0-33.0) pg MCHC 32.4 (31.0-35.0) g/dl RDW 16.8 H (11.0-16.0) % Plt Count 261 (160-400) X10*3/uL MPV 10.6 (9.4-12.3) fL Immature Gran % (Auto) 0.2 (0.0-0.4) % Neut % (Auto) 47.5 (45-73) % Lymph % (Auto) 37.7 (20-40) % [place] % (Auto) 8.8 (2-11) % Eos % (Auto) 4.6 H (0-4) % Baso % (Auto) 1.2 (0-2) % Lymph # (Auto) 3.7 (1.2-4.9) X10*3/uL [place] # (Auto) 0.9 (0.1-1.2) X10*3/uL Eos # (Auto) 0.5 H (0.0-0.4) X10*3/uL Baso # (Auto) 0.1 (0.0-0.2) X10*3/uL Abs Immat Gran (auto) 0.02 (0.00-0.03) X10*3/uL Absolute Neuts (auto) 4.6 (2.0-8.3) X10*3/uL Absolute Nucleated RBC 0.000 (0.0-0.012) X10*3/uL Nucleated RBC % (auto) 0.0 (0.0-0.2) /100WBC VBG pH (7.32-7.43) VBG pCO2 mmHg VBG pO2 mmHg VBG HCO3 (22-26) mmol/L VBG O2 Saturation % VBG Base Excess mmol/L Sodium 133 L (135-145) mmol/L Potassium 4.1 (3.3-5.1) mmol/L Chloride 101 (96-108) mmol/L Carbon Dioxide 23 (22-29) mmol/L Anion Gap 13 (12-20) BUN 6 L (9-16) mg/dL Creatinine 0.74 (0.5-1.4) mg/dL Estim Creat Clear Calc 57.0 Estimated GFR > 60 Random Glucose 92 (60-115) mg/dL Lactic Acid 0.8 (0.5-2.0) mmol/L Calcium 9.7 (8.4-10.2) mg/dL Total Bilirubin 0.4 (0.0-1.0) mg/dL AST 55 H (5-31) U/L ALT 42 H (0-31) U/L Alkaline Phosphatase 121 H (39-117) U/L Total Protein 7.7 (6.5-8.0) g/dL Albumin 4.2 (3.5-5.0) g/dL COVID-19 (SOHA) (Negative) COVID-19 Clin Com 08/10/21 08/10/21 Range/Units 22:20 22:28 WBC (4.8-10.8) X10*3/uL RBC (4.20-5.50) X10*6/uL Hgb (12.0-16.0) g/dl Hct (37-47) % MCV (80-98) fL MCH (27.0-33.0) pg MCHC (31.0-35.0) g/dl RDW (11.0-16.0) % Plt Count (160-400) X10*3/uL MPV (9.4-12.3) fL Immature Gran % (Auto) (0.0-0.4) % Neut % (Auto) (45-73) % Lymph % (Auto) (20-40) % [place] % (Auto) (2-11) % Eos % (Auto) (0-4) % Baso % (Auto) (0-2) % Lymph # (Auto) (1.2-4.9) X10*3/uL [place] # (Auto) (0.1-1.2) X10*3/uL Eos # (Auto) (0.0-0.4) X10*3/uL Baso # (Auto) (0.0-0.2) X10*3/uL Abs Immat Gran (auto) (0.00-0.03) X10*3/uL Absolute Neuts (auto) (2.0-8.3) X10*3/uL Absolute Nucleated RBC (0.0-0.012) X10*3/uL Nucleated RBC % (auto) (0.0-0.2) /100WBC VBG pH 7.40 (7.32-7.43) VBG pCO2 37 mmHg VBG pO2 56 mmHg VBG HCO3 23 (22-26) mmol/L VBG O2 Saturation 82.0 % VBG Base Excess -0.8 mmol/L Sodium (135-145) mmol/L Potassium (3.3-5.1) mmol/L Chloride (96-108) mmol/L Carbon Dioxide (22-29) mmol/L Anion Gap (12-20) BUN (9-16) mg/dL Creatinine (0.5-1.4) mg/dL Estim Creat Clear Calc Estimated GFR Random Glucose (60-115) mg/dL Lactic Acid (0.5-2.0) mmol/L Calcium (8.4-10.2) mg/dL Total Bilirubin (0.0-1.0) mg/dL AST (5-31) U/L ALT (0-31) U/L Alkaline Phosphatase (39-117) U/L Total Protein (6.5-8.0) g/dL Albumin (3.5-5.0) g/dL COVID-19 (SOHA) Negative (Negative) COVID-19 Clin Com See Note Discharge Plan Discharge Clinical Impression: COPD (chronic obstructive pulmonary disease), Bronchitis Patient Disposition: Home, Self-Care Instructions: Acute Bronchitis (ED), COPD (Chronic Obstructive Pulmonary Disease) (ED) Additional Instructions: 1. Reanude todos los medicamentos caseros. 2. Aumento de la frecuencia de goldstein tratamiento nebulizado a cada 4-6 horas kevin los pr?ximos 2-3 d?as. 3. Binh un seguimiento con goldstein proveedor de atenci?n primaria en los pr?ximos 1 a 2 d?as para latonia reevaluaci?n adicional para el manejo ambulatorio. Regrese a la mony de emergencias por un empeoramiento esperanza de los s?ntomas. Prescriptions: New prednisone 20 mg tablet 40 mg PO DAILY 4 Days Qty: 8 RF: 0 No Action sennosides [Natural Senna Laxative] 8.6 mg tablet 17.2 mg PO BEDTIME PRN (Reason: constipation) Qty: 60 RF: 1 hydrocortisone [Proctosol HC] 2.5 % cream with perineal applicator 1 appl NH BID-QID PRN (Reason: hemorrhoids) Qty: 30 RF: 2 Citrucel 500 mg tablet 500 mg PO BID Qty: 30 RF: 2 Anoro Ellipta 62.5-25 mcg/actuation blister with device 1 inh inhalation DAILY Qty: 60 RF: 2 albuterol sulfate 2.5 mg/0.5 mL solution for nebulization 5 mg inhalation Q4H Qty: 30 RF: 0 acetaminophen [Tylenol Extra Strength] 500 mg tablet 500 mg PO Q6H PRN (Reason: pain or fever) Qty: 20 RF: 0 rosuvastatin 20 mg tablet 20 mg PO DAILY RF: 0 aspirin 81 mg tablet,delayed release (DR/EC) 81 mg PO DAILY RF: 0 docusate sodium 100 mg capsule 100 mg PO BEDTIME Qty: 30 RF: 3 lisinopril 20 mg tablet 20 mg PO BID RF: 0 gabapentin 300 mg capsule 300 mg PO DAILY RF: 0 betamethasone dipropionate 0.05 % cream 1 appl topical BID 5 Days Qty: 45 RF: 0 Referrals: Danni Mccarthy MD [Primary Care Provider] - 2 days Print Language: Slovenian
--- NOTE | 2021-08-10 22:18 | PC.NURSE ---
PT PLACED ON PSYCHOLOGY ASSOCIATE, NSR 60 BPM.
[2021-08-10 22:20] LABS: MANUAL DIFF FLAG NO
[2021-08-10 22:21] LABS: Basophils Absolute Auto 0.1 X10*3/uL (0.0-0.2); Basophils Percent Auto 1.2 % (0-2); Eosinophils Absolute Auto 0.5 X10*3/uL (0.0-0.4); Eosinophils Percent Auto 4.6 % (0-4); Hematocrit 33.3 % (37-47); Hemoglobin 10.8 g/dl (12.0-16.0); Imm Gran Abs Auto 0.02 X10*3/uL (0.00-0.03); Imm Gran Pct Auto 0.2 % (0.0-0.4); Lymphocytes Absolute Auto 3.7 X10*3/uL (1.2-4.9); Lymphocytes Percent Auto 37.7 % (20-40); Mean Corpuscular HGB Conc 32.4 g/dl (31.0-35.0); Mean Corpuscular Hemoglobin 24.2 pg (27.0-33.0); Mean Corpuscular Volume 74.7 fL (80-98); Mean Platelet Volume 10.6 fL (9.4-12.3); Monocytes Absolute Auto 0.9 X10*3/uL (0.1-1.2); Monocytes Percent Auto 8.8 % (2-11); Neutrophils Absolute Auto 4.6 X10*3/uL (2.0-8.3); Neutrophils Percent Auto 47.5 % (45-73); Platelet Count 261 X10*3/uL (160-400); Red Blood Count 4.46 X10*6/uL (4.20-5.50); Red Cell Distribution Width 16.8 % (11.0-16.0); White Blood Count 9.7 X10*3/uL (4.8-10.8)
[2021-08-10 22:24] LABS: Venous Blood Gas Refer to POC result
[2021-08-10 22:25] LABS: VBG Base Excess -0.8 mmol/L; VBG HCO3 23 mmol/L (22-26); VBG pCO2 37 mmHg; VBG pO2 56 mmHg
[2021-08-10 22:29] VITALS: BP 160/67; PULSE 58; RESP 16; TEMP 36.9; O2SAT 100
[2021-08-10 22:34] LABS: Lactic Acid 0.8 mmol/L (0.5-2.0)
[2021-08-10 22:39] LABS: Alanine Aminotransferase 42 U/L (0-31); Albumin Level 4.2 g/dL (3.5-5.0); Alkaline Phosphatase 121 U/L (39-117); Anion Gap 13 (12-20); Aspartate Amino Transferase 55 U/L (5-31); Bilirubin Total 0.4 mg/dL (0.0-1.0); Blood Urea Nitrogen 6 mg/dL (9-16); Calcium 9.7 mg/dL (8.4-10.2); Carbon Dioxide 23 mmol/L (22-29); Chloride 101 mmol/L (96-108); Estimated Glomerular Filt Rate > 60; Glucose Random 92 mg/dL (60-115); Potassium 4.1 mmol/L (3.3-5.1); Sodium 133 mmol/L (135-145); Total Protein 7.7 g/dL (6.5-8.0)
[2021-08-10 22:54] LABS: COVID-19 Test Negative (Negative); IDNOW Serial# 9DD0AD1C
[2021-08-10] MEDS: Albuterol Sulfate (0.083%) 2.5 MG/3 ML VIAL.NEB 5 MG INHALE (23:00)
[2021-08-10 23:04] VITALS: PULSE 67; O2SAT 95
[2021-08-11 00:20] LABS: Appearance Urine CLEAR; Color Urine STRAW; Glucose Urine UA NEG (NEG); Leukocyte Esterase Urine 3+ (NEG); Nitrite Urine NEG (NEG); Specific Gravity - Urine <= 1.005 (1.005-1.025); UACC Culture Trigger YES; Urine Blood 2+ (NEG); Urine Ketones NEG (NEG); Urine Protein NEG (NEG-TRACE)
[2021-08-11 00:38] VITALS: BP 130/70; PULSE 73; RESP 10; O2SAT 97
[2021-08-11 00:42] LABS: Bacteria Urine TRACE /LPF; Mucus Urine 1+ /LPF; Squamous Epithelial Cell Urine TRACE /LPF; WBC Clumps Urine NOTED
[2021-08-11] MEDS: predniSONE 20 MG TABLET 40 MG PO (00:49)
== END 2021-08-11 01:09 | disposition home or self-care (01) ==
PROVIDERS: Emergency Provider Student in an Organized Health Care Education/Training Program; PCP Internal Medicine
DX: J44.9 Chronic obstructive pulmonary disease, unspecified (principal); J40 Bronchitis, not specified as acute or chronic; Z20.822 Contact with and (suspected) exposure to COVID-19; R06.02 Shortness of breath; F17.210 Nicotine dependence, cigarettes, uncomplicated
CPT/HCPCS: 36415; 71046; 80053; 81001; 82803; 83605; 85025; 87040; 87086; 87088; 87186; 87635; 93005; 94640; 99284

== ENCOUNTER 2021-08-13 06:45 | Day surgery (SDC) | payer MEDICARE, SELFPAY ==
[2021-08-08 14:23] VITALS: BMI 18.2
--- NOTE | 2021-08-12 08:58 | HO.ANESPROP2 ---
Documented by User: Adamaris Godoy NP 08/12/21 09:02 HPI - Anesthesia Eval Consult details Narrative: 71yo F for ?Upper Endoscopy s/p colo with MAC 06/1908/10/21 ED visit with cough for 1 week. Covid negative. Bronchitis/COPD. Rx for prednisone. PMFSH Active Problems Active Problems: All Active Problems (Updated 08/12/21 @ 00:01 by Background Slade) Vulvar leukoplakia (Acute) Lichen sclerosus (Acute) Perirectal ulcer (Acute) Pulmonary nodules (Acute) Deviated septum (Acute) Vulval lesion (Acute) Skin lesions (Acute) COPD (chronic obstructive pulmonary disease) (Acute) Abscess of right genital labia (Acute) Past Medical History Medical History Abscess of right genital labia Carotid stenosis, bilateral COPD (chronic obstructive pulmonary disease) HTN (hypertension) Hyperlipidemia PVD (peripheral vascular disease) Family History Family History Family/Other Breast cancer Surgical History Surgical History H/O colonoscopy History of bilateral tubal ligation History of brain surgery History of carpal tunnel surgery History of esophagogastroduodenoscopy (EGD) Social History Social History Alcohol intake: never Patient Tobacco Use Status: Current someday Tobacco user Cigarettes Per Day: 10 Years Smoked: 52 Use of substances other than those prescribed or required for medical reasons: No Advance Directives Information Provided: No Sexual orientation: Straight/Heterosexual Gender identity: Female Meds Allergies Allergy/AdvReac Type Severity Reaction Status Date / Time levofloxacin [LEVOFLOXACIN] Allergy Intermediate HIVES Verified 07/23/21 15:37 ceftriaxone [From ROCEPHIN] Allergy Mild SWELLING Verified 07/23/21 15:37 cephalexin [From KEFLEX] Allergy Mild ITCHING Verified 07/23/21 15:37 Home Medications Medication Instructions Recorded Confirmed Last Taken Type gabapentin 300 mg capsule 300 mg PO DAILY 09/13/20 03/07/21 06/11/21 07:30 History lisinopril 20 mg tablet 20 mg PO BID 09/13/20 03/07/21 Unknown History aspirin 81 mg tablet,delayed 81 mg PO DAILY 03/20/21 Unknown History release rosuvastatin 20 mg tablet 20 mg PO DAILY 03/20/21 Unknown History Exam Exam Date and Time: August 12, 2021 0858 Height,Weight and Vital Signs: Height 5 ft 11 in Weight 59.421 kg Pertinent Lab Results Pertinent Lab Results: Laboratory Tests 08/10/21 08/10/21 22:14 22:14 WBC 9.7 Hgb 10.8 L Hct 33.3 L Plt Count 261 Sodium 133 L Potassium 4.1 Chloride 101 Carbon Dioxide 23 BUN 6 L Creatinine 0.74 Narrative Narrative: US carotid duplex BI 11/2020 IMPRESSION: 1. RIGHT: 50-79% range stenosis. ? 2. LEFT: 0-49% range stenosis. ? 3. There is normal antegrade flow seen in the vertebral arteries. EKG 02/2021 Vent. Rate : 075 BPM ? ? Atrial Rate : 075 BPM ?? P-R Int : 138 ms? QRS Dur : 076 ms ? ? QT Int : 418 ms ? ? ? P-R-T Axes : 055 011 072 degrees ?? QTc Int : 466 ms ? Normal sinus rhythm Nonspecific T wave changes Abnormal ECG When compared with ECG of 18-NOV-2020 19:33, Nonspecific T wave abnormality, worse in Anterolateral leads CT head/brain wo con 04/2021 IMPRESSION: No acute intracranial pathology. ? Status post previous left frontoparietal craniotomy. Assessment and Plan Assessment Anesthesia Assessment: Chart Reviewed Documented by User: Roxie Landaverde MD 08/13/21 08:32 [facility] Past Medical History Medical History Abscess of right genital labia Carotid stenosis, bilateral COPD (chronic obstructive pulmonary disease) HTN (hypertension) Hyperlipidemia PVD (peripheral vascular disease) Family History Family History Family/Other Breast cancer Surgical History Surgical History H/O colonoscopy History of bilateral tubal ligation History of brain surgery History of carpal tunnel surgery History of esophagogastroduodenoscopy (EGD) History of Problems with Anesthesia: No Social History Social History Alcohol intake: never Patient Tobacco Use Status: Current someday Tobacco user Cigarettes Per Day: 10 Years Smoked: 52 Use of substances other than those prescribed or required for medical reasons: No Advance Directives Information Provided: No Sexual orientation: Straight/Heterosexual Gender identity: Female Meds Allergies Allergy/AdvReac Type Severity Reaction Status Date / Time levofloxacin [LEVOFLOXACIN] Allergy Intermediate HIVES Verified 07/23/21 15:37 ceftriaxone [From ROCEPHIN] Allergy Mild SWELLING Verified 07/23/21 15:37 cephalexin [From KEFLEX] Allergy Mild ITCHING Verified 07/23/21 15:37 Home Medications Medication Instructions Recorded Confirmed Last Taken Type gabapentin 300 mg capsule 300 mg PO DAILY 09/13/20 03/07/21 06/11/21 07:30 History lisinopril 20 mg tablet 20 mg PO BID 09/13/20 03/07/21 Unknown History aspirin 81 mg tablet,delayed 81 mg PO DAILY 03/20/21 Unknown History release rosuvastatin 20 mg tablet 20 mg PO DAILY 03/20/21 Unknown History Exam Airway Mallampati Class: II (Edentulous) TM Dist: >3cm Neck ROM: Full Loose/Missing/Broken Teeth: Yes, Upper and Lower Heart: RRR Lungs: CTA Assessment and Plan Assessment Anesthesia Assessment: Anesthesia Plan Discussed Final Anesthetic Review History of Problems with Anesthesia: No NPO: Yes ASA Class: III Final Preanesthetic Review: Meds/Allgs Chart Reviewed, Consent Obtained/Reviewed and Anes Risks/Benef Reviewed Patient Risk: Intermediate Procedure Risk: Intermediate Anesthetic Plan Anesthetic Plan: MAC: Disposition: Standard PACU
[2021-08-13 07:18] VITALS: BMI 25.4
[2021-08-13 07:36] VITALS: BP 150/71; PULSE 64; RESP 18; TEMP 36.5; O2SAT 100
--- NOTE | 2021-08-13 07:40 | P.HPSUR_ITS ---
Pre-Procedural Eval Section A Date of Service: 08/13/21 The patient is an INPATIENT: No The History & Physical has been completed within 30 days and I have reviewed it.: No Section B Chief Complaint: anemia Details of Present Illness: Iron deficiency anemia Relevant Family History (Specify if Yes): No Present Medications: see Short Stay Collaborative assessment Medical History: Significant History (Abscess of right genital labia Carotid stenosis, bilateral COPD (chronic obstructive pulmonary disease) HTN (hypertension) Hyperlipidemia PVD (peripheral vascular disease)) History of Previous Operations: Relevant previous surgery/procedure and date(s) (H/O colonoscopy History of bilateral tubal ligation History of brain surgery History of carpal tunnel surgery History of esophagogastroduodenoscopy (EGD)) Allergies: Allergies Allergy/AdvReac Type Severity Reaction Status Date / Time levofloxacin [LEVOFLOXACIN] Allergy Intermediate HIVES Verified 07/23/21 15:37 ceftriaxone [From ROCEPHIN] Allergy Mild SWELLING Verified 07/23/21 15:37 cephalexin [From KEFLEX] Allergy Mild ITCHING Verified 07/23/21 15:37 Review of Systems Sugical H&P ROS: Negative: Constitution, Cardiovascular, Respiratory and Gastro intestinal Exam Surgical H&P Exam: Normal: Heart, Normal: Lungs, Normal: Extremities and Normal: Abdomen Plan Diagnosis/Plan: Change (EGD for evaluation of iron deficiency anemia) I have reviewed the history and physical and performed a pertinent physical examination on my patient. No changes have occurred unless specified.
[2021-08-13] MEDS: Lactated Ringers 1,000 ML 100 ML IVCONT (07:55)
--- NOTE | 2021-08-13 08:15 | PM.OP ---
Brief Operative Note Date of Service: 08/13/21 Pre-op diagnosis: Iron deficiency anemia Post-op diagnosis: other (Hiatal hernia, gastritis) Procedure: FLEXIBLE TRANSORAL UPPER GASTROINTESTINAL ENDOSCOPY WITH BIOPSIES Consent: Indications for the procedure and potential complications of bleeding, perforation, reaction to medications and missed diagnosis were discussed with the patient and informed consent was obtained. Instrument: Olympus GIF H 190 mid size upper endoscope Monitoring: Vital signs and clinical assessment, continuous EKG monitoring, Pulse oximetry, Carbon Dioxide monitoring and blood pressure monitoring were done throughout the procedure. Procedure: The patient was placed in the left lateral decubitis position and pre-procedure medications were administered and a bite block was placed. The endoscope was inserted into the mouth and advanced under direct vision to the third part of duodenum. A careful inspection was made as the upper endoscope was withdrawn including a retroflexed examination of the proximal stomach; Findings and interventions are described below. Findings: Larynx: Normal Esophagus: GE junction at 34 cms, small hiatal hernia 34 to 36 cms.. No esophagitis or Cotton Stomach: Mild gastric erythema. Biopsies were obtained from the antrum and body of the stomach. Decreased fundal folds and grade 3 flap valve on retroflexed examination of the cardia. Duodenum: Normal bulb and descending duodenum. Biopsies were obtained from 3rd part of the duodenum to check for celiac sprue Intervention: Biopsies as noted above Impression and Post Procedure Diagnosis: Endoscopy Findings: ESOPHAGUS: Small hiatal hernia STOMACH: Decreased fundal folds suggestive of atrophic gastritis DUODENUM: Normal - biopsied to check for celiac sprue No clear source found for anemia Plan: Await pathology results Patient has an appointment on 08/26/21 in the GI Clinic with Minna Null NP. Consider further evaluation of anemia with a Caspule Endoscopy Above findings were reviewed with the patient and Hiatal Hernia and Gastritis handouts were given in the discharge area Surgeon: Ella Christine MD Anesthesia: MAC (Dr Landaverde) Was an S3B Multi Sensor Operator used for this Procedure?: Yes S3B Multi Sensor Operator: Lilia Nelson Estimated blood loss (mL): 0 Pathology: other (A. small bowel, R/O Celiac B. gastric antrum, R/O H. pylori C. gastric body, R/O gastritis) Condition: stable Disposition: PACU
--- NOTE | 2021-08-13 08:17 | P.OP_ITS ---
Operative Note Operative Note Date of Service: 08/13/21 Narrative: Pre-op diagnosis:?Iron deficiency anemia Post-op diagnosis:?other (Hiatal hernia, gastritis) Procedure:? FLEXIBLE TRANSORAL UPPER GASTROINTESTINAL ENDOSCOPY WITH BIOPSIES Consent:?Indications for the procedure and potential complications of bleeding, perforation, reaction to medications and missed diagnosis were discussed with the patient and informed consent was obtained. Instrument:?Olympus GIF H 190 mid size upper endoscope Monitoring: Vital signs and clinical assessment, continuous EKG monitoring, Pulse oximetry, Carbon Dioxide monitoring and blood pressure monitoring were done throughout the procedure. Procedure:?The patient was placed in the left lateral decubitis position and pre-procedure medications were administered and a bite block was placed. The endoscope was inserted into the mouth and advanced under direct vision to the third part of duodenum. A careful inspection was made as the upper endoscope was withdrawn including a retroflexed examination of the proximal stomach; Findings and interventions are described below. Findings: Larynx:? Normal Esophagus:?GE junction at 34 cms, small hiatal hernia 34 to 36 cms.. No esophagitis or Cotton Stomach:?Mild gastric erythema. Biopsies were obtained from the antrum and body of the stomach. ? Decreased fundal folds and grade 3 flap valve on retroflexed examination of the cardia. Duodenum:?Normal bulb and descending duodenum.? Biopsies were obtained from 3rd part of the duodenum to check for celiac sprue Intervention:?Biopsies as noted above Impression and Post Procedure Diagnosis: Endoscopy Findings: ESOPHAGUS: Small hiatal hernia STOMACH: Decreased fundal folds suggestive of atrophic gastritis DUODENUM: Normal - biopsied to check for celiac sprue No clear source found for anemia Plan: Await pathology results Patient has an appointment on 08/26/21 in the [facility] with Minna Null NP. Consider further evaluation of anemia with a Caspule Endoscopy Above findings were reviewed with the patient and Hiatal Hernia and Gastritis handouts were given in the discharge area Surgeon:?Ella Christine MD Anesthesia:?MAC (Dr Landaverde) Was an Highway Maintenance Crew Worker used for this Procedure?:?Yes Highway Maintenance Crew Worker:?Lilia Nelson Estimated blood loss (mL):?0 Pathology:?other (A. small bowel, R/O Celiac? B. gastric antrum, R/O H. pylori? C. gastric body, R/O gastritis) Condition:?stable Disposition:?PACU
[2021-08-13 08:39] VITALS: BP 98/57; PULSE 62; RESP 18; TEMP 36.3; O2SAT 100
[2021-08-13 08:54] VITALS: BP 127/64; PULSE 67; RESP 18; O2SAT 97
== END 2021-08-13 09:46 | disposition home or self-care (01) ==
PROVIDERS: PCP Internal Medicine; Visit Provider Internal Medicine Gastroenterology
PROC: 0DJ08ZZ Inspection of Upper Intestinal Tract, Via Natural or Artificial Opening Endoscopic (ICD-10-PCS; CPT 43235; principal; 2021-08-13 08:30)
DX: D50.9 Iron deficiency anemia, unspecified (principal); K29.70 Gastritis, unspecified, without bleeding; K44.9 Diaphragmatic hernia without obstruction or gangrene; I10 Essential (primary) hypertension; J44.9 Chronic obstructive pulmonary disease, unspecified; Z79.899 Other long term (current) drug therapy
CPT/HCPCS: 43239; 88305; 88342

== ENCOUNTER → 2021-08-26 08:27 | Outpatient (BNVA) | payer MEDICARE, SELFPAY | PROVIDERS: PCP Internal Medicine; Referring Provider Internal Medicine; Visit Provider Nurse Practitioner Family | DX: D64.9 Anemia, unspecified (principal); K29.50 Unspecified chronic gastritis without bleeding; K59.00 Constipation, unspecified | CPT/HCPCS: 99212 ==

== ENCOUNTER 2021-09-01 08:08 | Emergency (ER) | payer MEDICARE, SELFPAY ==
[2021-09-01 08:15] VITALS: PULSE 82
[2021-09-01 08:26] VITALS: BP 108/49; PULSE 87; RESP 16; TEMP 37.3; O2SAT 98; BMI 28.4
[2021-09-01] MEDS: diphenhydrAMINE HCL 50 MG/ML VIAL IM (08:33)
[2021-09-01] MEDS: dexAMETHasone 2 MG TABLET 10 MG PO (09:20)
[2021-09-01] MEDS: Famotidine 20 MG TABLET PO (09:20)
[2021-09-01 10:00] VITALS: BP 129/65; PULSE 84; RESP 16; TEMP 37.1; O2SAT 100
--- NOTE | 2021-09-01 12:04 | ED_ITS ---
HPI - Allergic Reaction General Chief complaint: Allergic Reaction Stated complaint: allergic reaction, rash/itchy Time Seen by Provider: 09/01/21 08:12 Source: patient Mode of arrival: EMS Limitations: no limitations History of Present Illness HPI narrative: Patient with no history of allergic reactions in the past been having hives for last 3 days seen at urgent care center who prescribed prednisone still patient having hives patient says that with Benadryl she gets allergic reaction also so she has not been taking any Benadryl. No tongue swelling no speech problem no shortness of breath. Patient does not know what caused the allergic reaction no known new agent or medication Related Data Home Medications Medication Instructions Recorded Confirmed gabapentin 300 mg capsule 300 mg PO DAILY 09/13/20 03/07/21 lisinopril 20 mg tablet 20 mg PO BID 09/13/20 03/07/21 aspirin 81 mg tablet,delayed 81 mg PO DAILY 03/20/21 release rosuvastatin 20 mg tablet 20 mg PO DAILY 03/20/21 Previous Rx's Medication Instructions Recorded albuterol sulfate 2.5 mg/0.5 mL 5 mg INHALATION Q4H #30 ea 11/18/20 solution for nebulization betamethasone dipropionate 0.05 % 1 appl TOPICAL BID 5 Days #45 g 03/07/21 topical cream acetaminophen 500 mg tablet 500 mg PO Q6H PRN #20 tab 04/16/21 (Tylenol Extra Strength) hydrocortisone 2.5 % topical cream 1 appl [place] BID-QID PRN #30 g 07/01/21 with perineal applicator (Proctosol HC) umeclidinium 62.5 mcg-vilanterol 1 inh INHALATION DAILY #60 ea 07/18/21 25 mcg/actuation powdr for inhalation (Anoro Ellipta) prednisone 20 mg tablet 40 mg PO DAILY 4 Days #8 tab 08/11/21 nitrofurantoin 100 mg PO BID 7 Days #14 cap 08/16/21 monohydrate/macrocrystals 100 mg capsule (Macrobid) bisacodyl 5 mg tablet,delayed 10 mg PO ONCE 1 Days #2 tab 08/26/21 release (Dulcolax (bisacodyl)) famotidine 20 mg tablet (Pepcid) 20 mg PO BID #60 tab 08/26/21 polyethylene glycol 3350 17 238 g PO ONCE 1 Days #238 g 08/26/21 gram/dose oral powder (Miralax) diphenhydramine HCl 25 mg capsule 50 mg PO Q6H PRN #30 cap 09/01/21 (Benadryl) Allergies Allergy/AdvReac Type Severity Reaction Status Date / Time levofloxacin [LEVOFLOXACIN] Allergy Intermediate HIVES Verified 08/26/21 08:43 ceftriaxone [From ROCEPHIN] Allergy Mild SWELLING Verified 08/26/21 08:43 cephalexin [From KEFLEX] Allergy Mild ITCHING Verified 08/26/21 08:43 Review of Systems 2 Review of Systems: Yes all other systems are reviewed and are negative [facility] Past Medical History Medical History Abscess of right genital labia Carotid stenosis, bilateral COPD (chronic obstructive pulmonary disease) HTN (hypertension) Hyperlipidemia PVD (peripheral vascular disease) Surgical History H/O colonoscopy History of bilateral tubal ligation History of brain surgery History of carpal tunnel surgery History of esophagogastroduodenoscopy (EGD) Family History Family History Family/Other Breast cancer Social History Social History Alcohol intake: never Patient Tobacco Use Status: Current someday Tobacco user Cigarettes Per Day: 10 Years Smoked: 52 Advance Directives: No Advance Directives Information Provided: No Sexual orientation: Straight/Heterosexual Gender identity: Female Physical Exam Vital Signs: Vital Signs: Last Vital Signs Temp 98.8 F 09/01/21 10:00 Pulse 84 09/01/21 10:00 Resp 16 09/01/21 10:00 BP 129/65 09/01/21 10:00 Pulse Ox 100 09/01/21 10:00 Body Mass Index 28.4 Appearance: Alert. Oriented X3. No acute distress. ENT: Pharynx normal. Oral Mucosa moist tongue is normal lips normal Neck: Normal inspection. Neck supple. CVS: Normal heart rate and rhythm. Pulses normal. Respiratory: No respiratory distress. Equal air entry bilateral, no wheezing/rales/rhonchi Abdomen: Soft and nontender. Bowel sounds are present, Skin: Skin warm and dry. Hives over the neck upper extremities and lower extremities Extremities: No lower extremity edema. No calf tenderness Neuro: Oriented X 3. Course Course Course Narrative: Patient with allergic reaction from unknown agent responded to Decadron p.o. and Benadryl IM feeling much better now will discharge patient home advised to continue prednisone and take Benadryl Discharge Plan Discharge Clinical Impression: Urticaria Patient Disposition: Home, Self-Care Instructions: Urticaria (ED) Additional Instructions: Continue prednisone as prescribed Benadryl 25-50 mg every 6 hours as needed Follow-up with PCP for allergy test to find out the cause for allergic reaction Prescriptions: New diphenhydramine HCl [Benadryl] 25 mg capsule 50 mg PO Q6H PRN (Reason: allergic reaction) Qty: 30 RF: 0 No Action hydrocortisone [Proctosol HC] 2.5 % cream with perineal applicator 1 appl IL BID-QID PRN (Reason: hemorrhoids) Qty: 30 RF: 2 Anoro Ellipta 62.5-25 mcg/actuation blister with device 1 inh inhalation DAILY Qty: 60 RF: 2 bisacodyl [Dulcolax (bisacodyl)] 5 mg tablet,delayed release (DR/EC) 10 mg PO ONCE 1 Days Qty: 2 RF: 0 polyethylene glycol 3350 [Miralax] 17 gram/dose powder 238 g PO ONCE 1 Days Qty: 238 RF: 0 prednisone 20 mg tablet 40 mg PO DAILY 4 Days Qty: 8 RF: 0 nitrofurantoin monohyd/m-cryst [Macrobid] 100 mg capsule 100 mg PO BID 7 Days Qty: 14 RF: 0 albuterol sulfate 2.5 mg/0.5 mL solution for nebulization 5 mg inhalation Q4H Qty: 30 RF: 0 acetaminophen [Tylenol Extra Strength] 500 mg tablet 500 mg PO Q6H PRN (Reason: pain or fever) Qty: 20 RF: 0 rosuvastatin 20 mg tablet 20 mg PO DAILY RF: 0 aspirin 81 mg tablet,delayed release (DR/EC) 81 mg PO DAILY RF: 0 famotidine [Pepcid] 20 mg tablet 20 mg PO BID Qty: 60 RF: 3 lisinopril 20 mg tablet 20 mg PO BID RF: 0 gabapentin 300 mg capsule 300 mg PO DAILY RF: 0 betamethasone dipropionate 0.05 % cream 1 appl topical BID 5 Days Qty: 45 RF: 0 Interventions: ED Discharge Assessment Last Done: 09/01/21 10:42 Discharge Date/Time: 09/01/21 10:45
== END 2021-09-01 10:45 | disposition home or self-care (01) ==
PROVIDERS: Emergency Provider Internal Medicine; PCP Internal Medicine
DX: L50.0 Allergic urticaria (principal); Z79.899 Other long term (current) drug therapy
CPT/HCPCS: 96372; 99284; J1200; J8540

== ENCOUNTER → 2021-09-05 07:45 | Outpatient (BNVA) | payer MEDICARE, SELFPAY | PROVIDERS: PCP Internal Medicine; Referring Provider Internal Medicine; Visit Provider Internal Medicine Gastroenterology ==

== ENCOUNTER 2021-10-04 10:09 | Outpatient (REF) | payer MEDICARE, SELFPAY | END 2021-10-04 10:10 | disposition home or self-care (01) | LOC: HO.MRI 10:09 | PROVIDERS: Visit Provider Internal Medicine | DX: Z13.89 Encounter for screening for other disorder (principal) ==

== ENCOUNTER 2021-10-04 13:26 | Emergency (ER) | payer MEDICARE, MEDICAID, SELFPAY ==
--- NOTE | 2021-10-04 | ECG_ITS ---
Test Reason : CHEST PAIN Blood Pressure : / mmHG Vent. Rate : 083 BPM Atrial Rate : 083 BPM P-R Int : 138 ms QRS Dur : 074 ms QT Int : 374 ms P-R-T Axes : 059 009 076 degrees QTc Int : 439 ms Normal sinus rhythm Low voltage QRS Nonspecific T wave abnormality Abnormal ECG T wave inversion more evident in Anterolateral leads Referred By: Generic ED Physician Electronically Signed By:STEPHEN LENNON MD
--- NOTE | ~2021-10-04 | XR_ITS ---
EXAMINATION: XR CHEST CLINICAL INFORMATION: Chest pain COMPARISON: 12/10/2020 TECHNIQUE: Frontal view of the chest was obtained. FINDINGS: Cardiac leads overlie the chest. The lungs are well expanded. There is no focal consolidation, edema, or effusion. No pneumothorax. The cardiomediastinal silhouette is within normal limits. No acute osseous abnormality. XR/XR chest 1V IMPRESSION: No acute pulmonary finding.
--- NOTE | 2021-10-04 13:33 | PC.NURSE ---
1332: called x 2 in waiting room for triage.
[2021-10-04 13:37] VITALS: BMI 19.5
[2021-10-04 13:38] VITALS: BP 99/56; PULSE 88; RESP 18; TEMP 37; O2SAT 100; BMI 19.5
[2021-10-04 14:44] LABS: MANUAL DIFF FLAG NO
[2021-10-04 14:45] LABS: Basophils Absolute Auto 0.1 X10*3/uL (0.0-0.2); Basophils Percent Auto 1.1 % (0-2); Eosinophils Absolute Auto 0.4 X10*3/uL (0.0-0.4); Eosinophils Percent Auto 3.7 % (0-4); Hematocrit 34.4 % (37.0-47.0); Hemoglobin 10.6 g/dl (12.0-16.0); Imm Gran Pct Auto 0.9 % (0.0-0.4); Lymphocytes Absolute Auto 3.3 X10*3/uL (1.2-4.9); Mean Corpuscular HGB Conc 30.8 g/dl (31.0-35.0); Mean Corpuscular Volume 77.8 fL (80.0-98.0); Mean Platelet Volume 10.3 fL (9.4-12.3); Monocytes Percent Auto 9.2 % (2-11); Neutrophils Absolute Auto 6.2 x10*3/uL (2.0-8.3); Neutrophils Percent Auto 55.1 % (45-73); Platelet Count 261 X10*3/uL (160-400); Red Blood Count 4.42 X10*6/uL (4.20-5.50); Red Cell Distribution Width 19.9 % (11.0-16.0); White Blood Count 11.1 X10*3/uL (4.8-10.8)
[2021-10-04 15:01] LABS: Alanine Aminotransferase 37 U/L (0-31); Albumin Level 4.2 g/dL (3.5-5.0); Alkaline Phosphatase 106 U/L (39-117); Anion Gap 12 (12-20); Aspartate Amino Transferase 39 U/L (5-31); Bilirubin Total 0.5 mg/dL (0.0-1.0); Blood Urea Nitrogen 5 mg/dL (9-16); Carbon Dioxide 23 mmol/L (22-29); Chloride 107 mmol/L (96-108); Creatinine Clr Calc Pharmacy 41.5; Estimated Glomerular Filt Rate > 60; Glucose Random 128 mg/dL (60-115); Lipase 51 U/L (8-78); Sodium 138 mmol/L (135-145); Total Protein 7.3 g/dL (6.5-8.0)
[2021-10-04 15:06] LABS: B Type Natriuretic Peptide 21 pg/mL (<100); Troponin-I High Sensitivity < 3.5 ng/L (<3.5-17.0)
[2021-10-04 15:40] VITALS: BP 106/58; PULSE 84; RESP 20; TEMP 37.2; O2SAT 100
--- NOTE | 2021-10-04 15:47 | ED.CHESTPAIN ---
HPI - Chest Pain General Chief Complaint: Chest Pain Stated Complaint: chest pain Time Seen by Provider: 10/04/21 15:37 Source: patient Mode of arrival: ambulatory History of Present Illness HPI narrative: 71-year-old female with a past medical history of carotid stenosis, COPD, HTN, HLD, PVD, presenting to the ED complaining of left-sided chest pain radiating down LUE x2 days with associated left arm tingling. Reports pain worse with movement and deep breathing. Admits to associated SOB. Denies fever, chills, cough, nausea, vomiting, abdominal pain, LE edema, recent travel MD complaint: chest pain Related Data Home Medications Medication Instructions Recorded Confirmed gabapentin 300 mg capsule 300 mg PO DAILY 09/13/20 03/07/21 lisinopril 20 mg tablet 20 mg PO BID 09/13/20 03/07/21 aspirin 81 mg tablet,delayed 81 mg PO DAILY 03/20/21 release rosuvastatin 20 mg tablet 20 mg PO DAILY 03/20/21 Previous Rx's Medication Instructions Recorded albuterol sulfate 2.5 mg/0.5 mL 5 mg INHALATION Q4H #30 ea 11/18/20 solution for nebulization betamethasone dipropionate 0.05 % 1 appl TOPICAL BID 5 Days #45 g 03/07/21 topical cream acetaminophen 500 mg tablet 500 mg PO Q6H PRN #20 tab 04/16/21 (Tylenol Extra Strength) hydrocortisone 2.5 % topical cream [address] BID-QID PRN #30 g 07/01/21 with perineal applicator (Proctosol HC) umeclidinium 62.5 mcg-vilanterol 1 inh INHALATION DAILY #60 ea 07/18/21 25 mcg/actuation powdr for inhalation (Anoro Ellipta) prednisone 20 mg tablet 40 mg PO DAILY 4 Days #8 tab 08/11/21 nitrofurantoin 100 mg PO BID 7 Days #14 cap 08/16/21 monohydrate/macrocrystals 100 mg capsule (Macrobid) bisacodyl 5 mg tablet,delayed 10 mg PO ONCE 1 Days #2 tab 08/26/21 release (Dulcolax (bisacodyl)) famotidine 20 mg tablet (Pepcid) 20 mg PO BID #60 tab 08/26/21 polyethylene glycol 3350 17 238 g PO ONCE 1 Days #238 g 08/26/21 gram/dose oral powder (Miralax) diphenhydramine HCl 25 mg capsule 50 mg PO Q6H PRN #30 cap 09/01/21 (Benadryl) Allergies Allergy/AdvReac Type Severity Reaction Status Date / Time levofloxacin [LEVOFLOXACIN] Allergy Intermediate HIVES Verified 08/26/21 08:43 ceftriaxone [From ROCEPHIN] Allergy Mild SWELLING Verified 08/26/21 08:43 cephalexin [From KEFLEX] Allergy Mild ITCHING Verified 08/26/21 08:43 Review of Systems Review of Systems: Constitutional: No Fever, No Chills, No Fatigue, No Malaise ENT/Mouth: No Ear Pain, No Nasal Congestion, No sore throat, No Rhinorrhea Eyes: No Eye Pain, No Swelling, No Redness, No Foreign Body, No Discharge Cardiovascular: + Chest Pain, + SOB, No Orthopnea, No Edema, No Palpitations Respiratory: No Cough, No Dyspnea Gastrointestinal: No Nausea, No Vomiting, No Diarrhea, No Abdominal pain Genitourinary: No Dysuria, No Urinary Frequency, No Hematuria,No Flank Pain Musculoskeletal: No joint pain, No Myalgias, No Joint Swelling Skin: No Skin Lesions, No rash Neuro: No Weakness, No Numbness, + Paresthesias, No Dizziness, No Headache Yes all other systems are reviewed and are negative [facility] Past Medical History Attestation statement: The following information was validated with the patient. Medical History Abscess of right genital labia Carotid stenosis, bilateral COPD (chronic obstructive pulmonary disease) HTN (hypertension) Hyperlipidemia PVD (peripheral vascular disease) Surgical History H/O colonoscopy History of bilateral tubal ligation History of brain surgery History of carpal tunnel surgery History of esophagogastroduodenoscopy (EGD) Family History Family History Family/Other Breast cancer Social History Social History Alcohol intake: never Patient Tobacco Use Status: Current someday Tobacco user Cigarettes Per Day: 10 Years Smoked: 52 Use of substances other than those prescribed or required for medical reasons: No Advance Directives: No Sexual orientation: Straight/Heterosexual Gender identity: Female Physical Exam Vital Signs: Vital Signs: Last Vital Signs Temp 98.9 F 10/04/21 15:40 Pulse 80 10/04/21 16:06 Resp 18 10/04/21 16:06 BP 96/51 L 10/04/21 16:06 Pulse Ox 99 10/04/21 16:06 Body Mass Index 19.5 Const: General: cooperative, healthy appearing and no acute distress Orientation/consciousness: patient oriented x3 Limitations: no limitations HENMT: Head: Yes normal to inspection Ears: hearing grossly normal bilaterally General nose exam: Normal external nose present Face and sinus: Yes normal facial exam Eyes: General: appearance normal, both eyes and all related structures EOM: EOMs intact bilaterally Neck: Neck: Yes normal visual inspection and Yes no meningeal signs Chest: Other: + left-sided anterior chest wall/substernal tenderness reproducing patient's subjective complaint Chest palpation & inspection: no crepitus and tenderness Resp: Effort & Inspection: normal respiratory effort Auscultation: clear to auscultation bilaterally, no rales, no rhonchi and no wheezes Cardio: Rate: regular rate Heart sounds: S1 normal heart sound present and S2 normal heart sound present GI: Inspection: Yes normal to inspection Palpation (GI): Soft to palpation, nontender, no guarding and not rigid Skin: Rashes: no rashes Wounds: no wounds Neuro: General: patient oriented x3 and no meningeal signs Gait exam (Neuro): Normal gait present Extrem: General: Yes normal to inspection, Yes no pedal edema and Yes no calf tenderness Course Course Course Narrative: -WBC count 11.1. H&H at patient's baseline. AST/ALT chronically elevated. Troponin negative. -1702--D-dimer 263 > upper limit of normal 278 (age adjusted cutoff is 355, PE unlikely). Labs otherwise unremarkable XR chest 1V IMPRESSION: No acute pulmonary finding >> results discussed with patient including worrisome signs and symptoms and strict return precautions and need to follow-up with PCP, patient verbalized understanding feel safe for discharge home at this time MDM - Chest Pain MDM Narrative Medical decision making narrative: 71-year-old female with a past medical history of carotid stenosis, COPD, HTN, HLD, PVD, presenting to the ED complaining of left-sided chest pain radiating down LUE x2 days with associated left arm tingling. On exam vital signs stable, NAD, nontoxic, chest pain reproducible on exam, lungs CTA, no pedal edema/calf tenderness. Rule out ACS vs PE with pleuritic chest pain vs PNA Plan: EKG, labs, CXR Medical Records Data Attestation: I reviewed the patient's medical records. Lab Data Attestation: I reviewed the patient's lab results. Result diagrams: 10/04/21 14:39 10/04/21 14:39 Labs: Lab Results 10/04/21 10/04/21 10/04/21 Range/Units 14:39 14:39 14:39 WBC 11.1 H (4.8-10.8) X10*3/uL RBC 4.42 (4.20-5.50) X10*6/uL Hgb 10.6 L (12.0-16.0) g/dl Hct 34.4 L (37.0-47.0) % MCV 77.8 L (80.0-98.0) fL MCH 24.0 L (27.0-33.0) pg MCHC 30.8 L (31.0-35.0) g/dl RDW 19.9 H (11.0-16.0) % Plt Count 261 (160-400) X10*3/uL MPV 10.3 (9.4-12.3) fL Immature Gran % (Auto) 0.9 H (0.0-0.4) % Neut % (Auto) 55.1 (45-73) % Lymph % (Auto) 30.0 (20-40) % [place] % (Auto) 9.2 (2-11) % Eos % (Auto) 3.7 (0-4) % Baso % (Auto) 1.1 (0-2) % Lymph # (Auto) 3.3 (1.2-4.9) X10*3/uL [place] # (Auto) 1.0 (0.1-1.2) X10*3/uL Eos # (Auto) 0.4 (0.0-0.4) X10*3/uL Baso # (Auto) 0.1 (0.0-0.2) X10*3/uL Abs Immat Gran (auto) 0.10 H (0.00-0.03) X10*3/uL Absolute Neuts (auto) 6.2 (2.0-8.3) x10*3/uL Absolute Nucleated RBC 0.000 (0.0-0.012) X10*3/uL Nucleated RBC % (auto) 0.0 (0.0-0.2) /100WBC D-Dimer NG/ML Sodium 138 (135-145) mmol/L Potassium 4.0 (3.3-5.1) mmol/L Chloride 107 (96-108) mmol/L Carbon Dioxide 23 (22-29) mmol/L Anion Gap 12 (12-20) BUN 5 L (9-16) mg/dL Creatinine 0.89 (0.5-1.4) mg/dL Estim Creat Clear Calc 41.5 Estimated GFR > 60 Random Glucose 128 H (60-115) mg/dL Calcium 9.0 D (8.4-10.2) mg/dL Magnesium 2.1 (1.6-2.6) mg/dL Total Bilirubin 0.5 (0.0-1.0) mg/dL AST 39 H (5-31) U/L ALT 37 H (0-31) U/L Alkaline Phosphatase 106 (39-117) U/L Troponin I High Sens < 3.5 (<3.5-17.0) ng/L B-Natriuretic Peptide 21 (<100) pg/mL Total Protein 7.3 (6.5-8.0) g/dL Albumin 4.2 (3.5-5.0) g/dL Lipase 51 (8-78) U/L 10/04/21 Range/Units 16:12 WBC (4.8-10.8) X10*3/uL RBC (4.20-5.50) X10*6/uL Hgb (12.0-16.0) g/dl Hct (37.0-47.0) % MCV (80.0-98.0) fL MCH (27.0-33.0) pg MCHC (31.0-35.0) g/dl RDW (11.0-16.0) % Plt Count (160-400) X10*3/uL MPV (9.4-12.3) fL Immature Gran % (Auto) (0.0-0.4) % Neut % (Auto) (45-73) % Lymph % (Auto) (20-40) % [place] % (Auto) (2-11) % Eos % (Auto) (0-4) % Baso % (Auto) (0-2) % Lymph # (Auto) (1.2-4.9) X10*3/uL [place] # (Auto) (0.1-1.2) X10*3/uL Eos # (Auto) (0.0-0.4) X10*3/uL Baso # (Auto) (0.0-0.2) X10*3/uL Abs Immat Gran (auto) (0.00-0.03) X10*3/uL Absolute Neuts (auto) (2.0-8.3) x10*3/uL Absolute Nucleated RBC (0.0-0.012) X10*3/uL Nucleated RBC % (auto) (0.0-0.2) /100WBC D-Dimer 263 NG/ML Sodium (135-145) mmol/L Potassium (3.3-5.1) mmol/L Chloride (96-108) mmol/L Carbon Dioxide (22-29) mmol/L Anion Gap (12-20) BUN (9-16) mg/dL Creatinine (0.5-1.4) mg/dL Estim Creat Clear Calc Estimated GFR Random Glucose (60-115) mg/dL Calcium (8.4-10.2) mg/dL Magnesium (1.6-2.6) mg/dL Total Bilirubin (0.0-1.0) mg/dL AST (5-31) U/L ALT (0-31) U/L Alkaline Phosphatase (39-117) U/L Troponin I High Sens (<3.5-17.0) ng/L B-Natriuretic Peptide (<100) pg/mL Total Protein (6.5-8.0) g/dL Albumin (3.5-5.0) g/dL Lipase (8-78) U/L Discharge Plan Discharge Clinical Impression: Chest pain Qualifiers: Chest pain type: unspecified Qualified Code(s): R07.9 - Chest pain, unspecified Patient Disposition: Home, Self-Care Additional Instructions: Your blood work and chest x-ray were reassuring today in the ED please follow-up with your primary care doctor and Cardiology as needed If your symptoms persist or worsen, pain becomes unbearable, you develop shortness of breath, fever, chills, swelling in your legs please return to the ED Prescriptions: No Action hydrocortisone [Proctosol HC] 2.5 % cream with perineal applicator [address] BID-QID PRN (Reason: hemorrhoids) Qty: 30 RF: 2 Anoro Ellipta 62.5-25 mcg/actuation blister with device 1 inh inhalation DAILY Qty: 60 RF: 2 bisacodyl [Dulcolax (bisacodyl)] 5 mg tablet,delayed release (DR/EC) 10 mg PO ONCE 1 Days Qty: 2 RF: 0 polyethylene glycol 3350 [Miralax] 17 gram/dose powder 238 g PO ONCE 1 Days Qty: 238 RF: 0 prednisone 20 mg tablet 40 mg PO DAILY 4 Days Qty: 8 RF: 0 nitrofurantoin monohyd/m-cryst [Macrobid] 100 mg capsule 100 mg PO BID 7 Days Qty: 14 RF: 0 albuterol sulfate 2.5 mg/0.5 mL solution for nebulization 5 mg inhalation Q4H Qty: 30 RF: 0 acetaminophen [Tylenol Extra Strength] 500 mg tablet 500 mg PO Q6H PRN (Reason: pain or fever) Qty: 20 RF: 0 diphenhydramine HCl [Benadryl] 25 mg capsule 50 mg PO Q6H PRN (Reason: allergic reaction) Qty: 30 RF: 0 rosuvastatin 20 mg tablet 20 mg PO DAILY RF: 0 aspirin 81 mg tablet,delayed release (DR/EC) 81 mg PO DAILY RF: 0 famotidine [Pepcid] 20 mg tablet 20 mg PO BID Qty: 60 RF: 3 lisinopril 20 mg tablet 20 mg PO BID RF: 0 gabapentin 300 mg capsule 300 mg PO DAILY RF: 0 betamethasone dipropionate 0.05 % cream 1 appl topical BID 5 Days Qty: 45 RF: 0 Referrals: [facility] [Primary Care Provider] - 2 days Heshma Erickson MD [Physician] - 5 days
[2021-10-04 16:02] LABS: Magnesium 2.1 mg/dL (1.6-2.6)
[2021-10-04 16:06] VITALS: BP 96/51; PULSE 80; RESP 18; O2SAT 99
--- NOTE | 2021-10-04 16:12 | PC.NURSE ---
unlabord resp. skid pwd. nsr on monitor. spking full sentences. ls cta. no resp sx. states pain is left of chest radiating to shoulder and left arm.
[2021-10-04] MEDS: Ibuprofen 400 MG TABLET PO (16:24)
[2021-10-04] MEDS: Acetaminophen 325 MG TABLET 650 MG PO (16:36)
[2021-10-04 16:37] LABS: D Dimer 263 NG/ML
== END 2021-10-04 17:29 | disposition home or self-care (01) ==
PROVIDERS: Physician Assistant; Emergency Provider Internal Medicine
DX: R07.9 Chest pain, unspecified (principal); R06.02 Shortness of breath; I10 Essential (primary) hypertension; E78.5 Hyperlipidemia, unspecified; Z79.82 Long term (current) use of aspirin; Z79.899 Other long term (current) drug therapy; Z79.02 Long term (current) use of antithrombotics/antiplatelets
CPT/HCPCS: 36415; 71045; 80053; 83690; 83735; 83880; 84484; 85025; 85379; 93005; 99283; 99284

== ENCOUNTER 2021-10-07 10:02 | Outpatient (REF) | payer MEDICARE, MEDICAID, SELFPAY ==
--- NOTE | ~2021-10-07 | MR_ITS ---
EXAMINATION: MR BRAIN WITHOUT AND WITH CONTRAST CLINICAL INFORMATION: Craniopharyngioma surveillance. COMPARISON: CT head from 05/09/2021. Brain MRI from 10/29/2020. TECHNIQUE: MRI of the brain was obtained using pituitary protocol without and following the administration of 3 mL of Gadavist intravenous contrast. FINDINGS: Changes of left frontal craniotomy for resection of a suprasellar mass. Stable mild to moderate dural enhancement subjacent to the craniotomy flap. Similar prior exam, there is a region of thin-walled peripheral enhancement in the anterior aspect of the suprasellar cistern, measuring 0.8 x 0.7 x 0.6 cm. No new abnormal enhancement. No new mass effect. No new abnormalities of the pituitary parenchyma. The pituitary infundibulum remains midline and slightly thickened at its space. No demonstrated significant abnormalities of the optic chiasm. No focal restricted diffusion is demonstrated to suggest acute or subacute cerebral ischemia. Regions of chronic encephalomalacia of the anterior left temporal lobe and inferior left frontal lobe. Scattered periventricular and deep white matter T2 FLAIR hyperintensities consistent with mild underlying microangiopathy. Proportional prominence of the ventricles and sulcal spaces without evidence of obstructive hydrocephalus. No abnormal mass effect. No midline shift. Normal positioning of the cerebellar tonsils. Normal arterial and venous vascular flow voids are present. No abnormal contrast enhancement. Normal, homogeneous marrow signal. Moderate degenerative spondyloarthropathy of the visualized upper cervical spine. Mild mucosal thickening of the paranasal sinuses. No signal abnormalities within the mastoids. Bilateral lens extractions. MR/MR head/brain wo/w con IMPRESSION: 1. 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 A region of thin-walled peripheral enhancement in the anterior aspect of the suprasellar cistern remains unchanged. No evidence of overt disease recurrence/progression. 2. No acute intracranial abnormalities. No new abnormal intracranial enhancement. 3. Mild underlying microangiopathy. Chronic regions of encephalomalacia within the anterior left temporal and inferior left frontal lobes.
== END 2021-10-07 10:03 | disposition home or self-care (01) ==
LOC: HO.MRI 10:02
PROVIDERS: Visit Provider Internal Medicine
DX: D44.4 Neoplasm of uncertain behavior of craniopharyngeal duct (principal)
CPT/HCPCS: 70553; A9585

== ENCOUNTER 2021-12-15 16:03 | Emergency (ER) | payer MEDICARE, MEDICAID, SELFPAY ==
--- NOTE | 2021-12-15 16:08 | ED.ALLEREA ---
HPI - Allergic Reaction General Chief complaint: Allergic Reaction <JIMMIE Suarez - Last Filed: 12/15/21 18:52> Stated complaint: ALLERGIC REACTION <JIMMIE Suarez - Last Filed: 12/15/21 18:52> Time Seen by Provider: 12/15/21 16:07 <JIMMIE Suarez - Last Filed: 12/15/21 18:52> Source: patient and EMS <JIMMIE Suarez Last Filed: 12/15/21 18:52> Mode of arrival: ambulatory <JIMMIE Suarez Last Filed: 12/15/21 18:52> Limitations: no limitations <JIMMIE Suarez Last Filed: 12/15/21 18:52> History of Present Illness HPI narrative: This is a 71-year-old female who presents to the emergency department via ambulance with complaints of an itchy body, trouble swallowing, shortness of breath. Patient tells me that she had old male, rice, beans in me, just prior to her arrival, and she suddenly started experiencing these symptoms. She tells me she has never had an allergic reaction before. She tells me she felt sort of itchy yesterday. She also reports hives scattered throughout her body. On ambulance she received 50 of Benadryl. Patient is able to speak in full sentences, controlling secretions well, no acute respiratory distress. She has no known food allergies. She is allergic to levofloxacin, ceftriaxone and cephalexin. To note patient just finished a course of macrobid last night for UTI <JIMMIE Suarez Last Filed: 12/15/21 18:52> MD complaint: allergic reaction and hives <JIMMIE Suarez Last Filed: 12/15/21 18:52> Onset (ago): minute(s) (30) <JIMMIE Suarez Last Filed: 12/15/21 18:52> Exposure: unknown <JIMMIE Suarez Last Filed: 12/15/21 18:52> Symptoms: rash, difficulty swallowing, difficulty breathing and hoarseness <JIMMIE Suarez Last Filed: 12/15/21 18:52> Severity: moderate <JIMMIE Suarez - Last Filed: 12/15/21 18:52> Treatment prior to arrival: benadryl (50) <JIMMIE Suarez - Last Filed: 12/15/21 18:52> Previous Allergic Reaction History: prior ED visit(s) (09/01/2021, similar presentation) <JIMMIE Suarez - Last Filed: 12/15/21 18:52> Related Data Home medications: Home Medications Medication Instructions Recorded Confirmed gabapentin 300 mg capsule 300 mg PO DAILY 09/13/20 03/07/21 lisinopril 20 mg tablet 20 mg PO BID 09/13/20 03/07/21 aspirin 81 mg tablet,delayed 81 mg PO DAILY 03/20/21 release rosuvastatin 20 mg tablet 20 mg PO DAILY 03/20/21 Previous Rx's Medication Instructions Recorded albuterol sulfate 2.5 mg/0.5 mL 5 mg INHALATION Q4H #30 ea 11/18/20 solution for nebulization betamethasone dipropionate 0.05 % 1 appl TOPICAL BID 5 Days #45 g 03/07/21 topical cream acetaminophen 500 mg tablet 500 mg PO Q6H PRN #20 tab 04/16/21 (Tylenol Extra Strength) hydrocortisone 2.5 % topical cream 1 appl ID BID-QID PRN #30 g 07/01/21 with perineal applicator (Proctosol HC) prednisone 20 mg tablet 40 mg PO DAILY 4 Days #8 tab 08/11/21 nitrofurantoin 100 mg PO BID 7 Days #14 cap 08/16/21 monohydrate/macrocrystals 100 mg capsule (Macrobid) bisacodyl 5 mg tablet,delayed 10 mg PO ONCE 1 Days #2 tab 08/26/21 release (Dulcolax (bisacodyl)) famotidine 20 mg tablet (Pepcid) 20 mg PO BID #60 tab 08/26/21 polyethylene glycol 3350 17 238 g PO ONCE 1 Days #238 g 08/26/21 gram/dose oral powder (Miralax) diphenhydramine HCl 25 mg capsule 50 mg PO Q6H PRN #30 cap 09/01/21 (Benadryl) acetaminophen 500 mg tablet 500 mg PO Q6H PRN #20 tab 10/04/21 (Tylenol Extra Strength) lidocaine 5 % topical patch 1 patch TOPICAL DAILY PRN #30 ea 10/04/21 (Lidoderm) MDD remove after 12 hours umeclidinium 62.5 mcg-vilanterol 1 ea INHALATION DAILY #60 cap 10/21/21 25 mcg/actuation powdr for inhalation (Anoro Ellipta) diphenhydramine HCl 25 mg capsule 50 mg PO Q6H PRN #30 cap 12/15/21 prednisone 20 mg tablet 40 mg PO DAILY 5 Days #10 tab 12/15/21 <JIMMIE Suarez Last Filed: 12/15/21 18:52> Allergies/adverse reactions: Allergies Allergy/AdvReac Type Severity Reaction Status Date / Time levofloxacin [LEVOFLOXACIN] Allergy Intermediate HIVES Verified 08/26/21 08:43 ceftriaxone [From ROCEPHIN] Allergy Mild SWELLING Verified 08/26/21 08:43 cephalexin [From KEFLEX] Allergy Mild ITCHING Verified 08/26/21 08:43 <JIMMIE Suarez Last Filed: 12/15/21 18:52> Review of Systems Review of Systems: Constitutional : No Weight loss, No Fever, No Chills, No Fatigue, No Malaise ENT/Mouth : No sore throat, No Rhinorrhea Eyes: No Eye Pain, No Swelling, No Redness Cardiovascular : No Chest Pain, + SOB, No Dyspnea on Exertion, No Orthopnea, No Edema, No Palpitations Respiratory : No Cough, No Sputum, No Wheezing Gastrointestinal : No Nausea, No Vomiting, No Diarrhea, No Constipation, No abdominal Pain, No Hematochezia, No Melena Genitourinary : No Dysuria, No Urinary Frequency, No Hematuria, Musculoskeletal : No joint pain, No Myalgias, No Joint Swelling Skin : No Skin Lesions, + rash Neuro : No Weakness, No Numbness, No Dizziness, No Headache All other systems reviewed and are negative <JIMMIE Suarez Last Filed: 12/15/21 18:52> Yes all other systems are reviewed and are negative <JIMMIE Suarez Last Filed: 12/15/21 18:52> [facility] Past Medical History Attestation statement: The following information was validated with the patient. <JIMMIE Suarez - Last Filed: 12/15/21 18:52> Source: old records reviewed and nursing notes reviewed <JIMMIE Suarez - Last Filed: 12/15/21 18:52> Medical History: Medical History Abscess of right genital labia Carotid stenosis, bilateral COPD (chronic obstructive pulmonary disease) HTN (hypertension) Hyperlipidemia PVD (peripheral vascular disease) <JIMMIE Suarez - Last Filed: 12/15/21 18:52> Surgical History: Surgical History H/O colonoscopy History of bilateral tubal ligation History of brain surgery History of carpal tunnel surgery History of esophagogastroduodenoscopy (EGD) <JIMMIE Suarez - Last Filed: 12/15/21 18:52> Family History Family History: Family History Family/Other Breast cancer <JIMMIE Suarez - Last Filed: 12/15/21 18:52> Social History Social History: Social History Alcohol intake: never Patient Tobacco Use Status: Current someday Tobacco user Cigarettes Per Day: 10 Years Smoked: 52 Advance Directives: No Advance Directives Information Provided: Yes Sexual orientation: Straight/Heterosexual Gender identity: Female <JIMMIE Suarez - Last Filed: 12/15/21 18:52> Physical Exam Vital Signs: Vital Signs: Last Vital Signs Temp 97.8 F 12/15/21 16:27 Pulse 77 12/15/21 19:13 Resp 16 12/15/21 19:13 BP 140/63 H 12/15/21 19:13 Pulse Ox 98 12/15/21 19:13 BMI result Body Mass Index 0.2 VSS <JIMMIE Suarez - Last Filed: 12/15/21 18:52> Vital Signs: Last Vital Signs Temp 97.8 F 12/15/21 16:27 Pulse 77 12/15/21 19:13 Resp 16 12/15/21 19:13 BP 140/63 H 12/15/21 19:13 Pulse Ox 98 12/15/21 19:13 BMI result Body Mass Index 0.2 <JIMMIE Mayorga - Last Filed: 12/15/21 20:34> Appearance: Alert.? Oriented X3.? No acute distress.? Head: Normocephalic, atraumatic, no step-offs or deformities Eyes: Pupils equal, round and reactive to light.? ENT: Pharynx normal.? Neck: Normal inspection.? Neck supple.? CVS: Normal heart rate and rhythm.? Pulses normal.? Respiratory: No respiratory distress.? Breath sounds normal.? Abdomen: Soft and nontender.? Skin: Skin warm and dry.? Normal skin color.? Normal skin turgor.?+ scattered urticaria throughout the body Extremities: No lower extremity edema.? No calf ttp. 5/5 strength to bilateral upper and lower extremities Back: No midline tenderness, no C-spine tenderness, full range of motion, no CVA tenderness bilaterally Neuro: Oriented X 3.? No motor deficit.? No sensory deficit. <JIMMIE Suarez - Last Filed: 12/15/21 18:52> Course Reevaluation(s) Reevaluation #1: At Rx given. Patient is still complaining of itchiness. Hives improved however have not resolved. Still on her buttocks and thighs. Sign as been given to Lilia WHALEN. Pending improvement. Disposition pending patient's improvement. At time of sign-out patient was not complaining of shortness of breath. She does complain of an itchy throat however patent airway, no erythema or edema to the pharynx. Controlling secretions well. <JIMMIE Suarez - Last Filed: 12/15/21 18:52> Time: 18:52 <JIMMIE Suarez - Last Filed: 12/15/21 18:52> Reevaluation #2: Patient feeling much better. Rash improved. At this time patient is stable for discharge home with plan to continue oral steroids and Benadryl for allergic reaction. Advised to add Macrobid to her allergy list. Stable for DC home. <JIMMIE Mayorga - Last Filed: 12/15/21 20:34> Time: 20:34 <JIMMIE Mayorga - Last Filed: 12/15/21 20:34> MDM - Allergic Reaction MDM Narrative Medical decision making narrative: 1612 71 yo female presents to ED via EMS w/ alergic reaction to unknown substace. Itching began last night. SOB started prior to ER arival. Recieved 50 mg of Benadryl on the ambulance. PE urticaria scattered throughout body Plan- decadron. monitor, reapeat benadryl if needed. or give epi if sx worsen <JIMMIE Suarez - Last Filed: 12/15/21 18:52> Differential Diagnosis Differential diagnosis: Likely allergic reaction <JIMMIE Suarez - Last Filed: 12/15/21 18:52> Medical Records Attestation: I reviewed the patient's medical records. <JIMMIE Suarez - Last Filed: 12/15/21 18:52> Lab Data Attestation: I reviewed the patient's lab results. <JIMMIE Suarez - Last Filed: 12/15/21 18:52> Labs: Lab Results 12/15/21 Range/Units 16:56 COVID-19 ([facility]) Negative (Negative) COVID-19 Clin Com See Note <JIMMIE Suarez - Last Filed: 12/15/21 18:52> Lab Results 12/15/21 Range/Units 16:56 COVID-19 ([facility]) Negative (Negative) COVID-19 Clin Com See Note <JIMMIE Mayorga - Last Filed: 12/15/21 20:34> Critical Care Time Critical Care Time Critical Care Time: No <JIMMIE Suarez - Last Filed: 12/15/21 18:52> Discharge Plan Discharge Clinical Impression: Urticaria Allergic reaction Qualifiers: Encounter type: initial encounter Qualified Code(s): T78.40XA - Allergy, unspecified, initial encounter <JIMMIE Suarez Last Filed: 12/15/21 18:52> Patient Disposition: Home, Self-Care <JIMMIE Suarez - Last Filed: 12/15/21 18:52> Instructions: Urticaria (ED), General Allergic Reaction (ED), Allergy Testing (ED) <JIMMIE Suarez - Last Filed: 12/15/21 18:52> Additional Instructions: Take your medications as prescribed. If you were prescribed antibiotics today, it is important that you take your medication to their entirety, do not skip any doses, do not finish them early. Follow-up with your primary care provider this week. Return to the emergency department with new or worsening symptoms. In case of emergency call 911 Start taking prednisone tomorrow Take benadryl as neede for hives/ allergic reaction <JIMMIE Suarez - Last Filed: 12/15/21 18:52> Prescriptions: New diphenhydramine HCl 25 mg capsule 50 mg PO Q6H PRN (Reason: allergic reaction) Qty: 30 RF: 0 prednisone 20 mg tablet 40 mg PO DAILY 5 Days Qty: 10 RF: 0 No Action hydrocortisone [Proctosol HC] 2.5 % cream with perineal applicator 1 appl ID BID-QID PRN (Reason: hemorrhoids) Qty: 30 RF: 2 bisacodyl [Dulcolax (bisacodyl)] 5 mg tablet,delayed release (DR/EC) 10 mg PO ONCE 1 Days Qty: 2 RF: 0 polyethylene glycol 3350 [Miralax] 17 gram/dose powder 238 g PO ONCE 1 Days Qty: 238 RF: 0 Anoro Ellipta 62.5-25 mcg/actuation blister with device 1 ea inhalation DAILY Qty: 60 RF: 2 prednisone 20 mg tablet 40 mg PO DAILY 4 Days Qty: 8 RF: 0 nitrofurantoin monohyd/m-cryst [Macrobid] 100 mg capsule 100 mg PO BID 7 Days Qty: 14 RF: 0 albuterol sulfate 2.5 mg/0.5 mL solution for nebulization 5 mg inhalation Q4H Qty: 30 RF: 0 acetaminophen [Tylenol Extra Strength] 500 mg tablet 500 mg PO Q6H PRN (Reason: pain or fever) Qty: 20 RF: 0 acetaminophen [Tylenol Extra Strength] 500 mg tablet 500 mg PO Q6H PRN (Reason: pain or fever) Qty: 20 RF: 0 lidocaine [Lidoderm] 5 % adhesive patch,medicated 1 patch topical DAILY MDD remove after 12 hours PRN (Reason: pain) Qty: 30 RF: 0 diphenhydramine HCl [Benadryl] 25 mg capsule 50 mg PO Q6H PRN (Reason: allergic reaction) Qty: 30 RF: 0 rosuvastatin 20 mg tablet 20 mg PO DAILY RF: 0 aspirin 81 mg tablet,delayed release (DR/EC) 81 mg PO DAILY RF: 0 famotidine [Pepcid] 20 mg tablet 20 mg PO BID Qty: 60 RF: 3 lisinopril 20 mg tablet 20 mg PO BID RF: 0 gabapentin 300 mg capsule 300 mg PO DAILY RF: 0 betamethasone dipropionate 0.05 % cream 1 appl topical BID 5 Days Qty: 45 RF: 0 <JIMMIE Suarez - Last Filed: 12/15/21 18:52> Referrals: Physician,Unknown J [Primary Care Provider] - 2 days <JIMMIE Suarez - Last Filed: 12/15/21 18:52>
[2021-12-15 16:27] VITALS: BP 119/70; BP 141/67; PULSE 88; PULSE 89; RESP 16; TEMP 36.6; O2SAT 100
[2021-12-15] MEDS: dexAMETHasone 2 MG TABLET 10 MG PO (16:38)
[2021-12-15] MEDS: Famotidine 20 MG TABLET PO (16:38)
[2021-12-15 17:19] LABS: COVID-19 Test Negative (Negative)
[2021-12-15 19:13] VITALS: BP 140/63; PULSE 77; RESP 16; O2SAT 98
[2021-12-15] MEDS: hydrOXYzine HCL 50 MG TABLET 25 MG PO (19:14)
== END 2021-12-15 21:06 | disposition home or self-care (01) ==
LOC: HO.ED 16:56
PROVIDERS: Physician Assistant; Emergency Provider Emergency Medicine
DX: L50.0 Allergic urticaria (principal); F17.210 Nicotine dependence, cigarettes, uncomplicated; Z20.822 Contact with and (suspected) exposure to COVID-19; Z71.6 Tobacco abuse counseling
CPT/HCPCS: 87635; 96374; 99284; J8540

== ENCOUNTER 2022-01-14 11:34 | Outpatient (REF) | payer MEDICARE, MEDICAID, SELFPAY | END 2022-01-14 11:35 | disposition home or self-care (01) | LOC: HO.MDS 11:34 | PROVIDERS: Visit Provider Internal Medicine Medical Oncology | DX: D50.9 Iron deficiency anemia, unspecified (principal) | CPT/HCPCS: 96365; J2916 ==

== ENCOUNTER 2022-01-23 10:26 | Outpatient (REF) | payer MEDICARE, MEDICAID, SELFPAY | END 2022-01-23 10:27 | disposition home or self-care (01) | LOC: HO.MDS 10:26 | PROVIDERS: Visit Provider Internal Medicine Medical Oncology | DX: D50.9 Iron deficiency anemia, unspecified (principal) | CPT/HCPCS: 96365; J2916 ==

== ENCOUNTER 2022-01-29 12:31 | Outpatient (REF) | payer MEDICARE, MEDICAID, SELFPAY | END 2022-01-29 12:32 | disposition home or self-care (01) | LOC: HO.MDS 12:31 | PROVIDERS: Visit Provider Internal Medicine Medical Oncology | DX: D50.9 Iron deficiency anemia, unspecified (principal) | CPT/HCPCS: 96365; J2916 ==

== ENCOUNTER 2022-02-05 13:27 | Outpatient (REF) | payer MEDICARE, MEDICAID, SELFPAY | END 2022-02-05 13:28 | disposition home or self-care (01) | LOC: HO.MDS 13:27 | PROVIDERS: Visit Provider Internal Medicine Medical Oncology | DX: D50.9 Iron deficiency anemia, unspecified (principal) | CPT/HCPCS: 96365; J2916 ==

== ENCOUNTER → 2022-02-06 11:24 | Outpatient (BNVA) | payer MEDICARE, MEDICAID, SELFPAY | PROVIDERS: PCP Internal Medicine; Visit Provider Nurse Practitioner Family | DX: D64.9 Anemia, unspecified (principal); K29.50 Unspecified chronic gastritis without bleeding; K59.03 Drug induced constipation; T50.905A Adverse effect of unspecified drugs, medicaments and biological substances, initial encounter | CPT/HCPCS: 99212 ==

== ENCOUNTER 2022-02-13 09:26 | Outpatient (REF) | payer MEDICARE, MEDICAID, SELFPAY ==
[2022-02-13 09:52] LABS: MANUAL DIFF FLAG NO
[2022-02-13 09:55] LABS: Basophils Absolute Auto 0.1 X10*3/uL (0.0-0.2); Basophils Percent Auto 1.2 % (0-2); Eosinophils Absolute Auto 0.6 X10*3/uL (0.0-0.4); Eosinophils Percent Auto 8.1 % (0-4); Hemoglobin 10.7 g/dl (12.0-16.0); Imm Gran Abs Auto 0.03 X10*3/uL (0.00-0.03); Imm Gran Pct Auto 0.4 % (0.0-0.4); Lymphocytes Percent Auto 40.3 % (20-40); Mean Corpuscular HGB Conc 29.7 g/dl (31.0-35.0); Mean Corpuscular Hemoglobin 23.3 pg (27.0-33.0); Mean Corpuscular Volume 78.4 fL (80.0-98.0); Mean Platelet Volume 10.2 fL (9.4-12.3); Monocytes Percent Auto 13.2 % (2-11); Neutrophils Absolute Auto 2.8 x10*3/uL (2.0-8.3); Neutrophils Percent Auto 36.8 % (45-73); Platelet Count 283 X10*3/uL (160-400); Red Blood Count 4.59 X10*6/uL (4.20-5.50); White Blood Count 7.5 X10*3/uL (4.8-10.8)
== END 2022-02-13 09:27 | disposition home or self-care (01) ==
LOC: HO.MDS 09:26
PROVIDERS: Visit Provider Internal Medicine Medical Oncology
DX: D50.9 Iron deficiency anemia, unspecified (principal)
CPT/HCPCS: 36415; 85025; 96365; J2916

== ENCOUNTER 2022-02-20 10:29 | Outpatient (REF) | payer MEDICARE, MEDICAID, SELFPAY | END 2022-02-20 10:30 | disposition home or self-care (01) | LOC: HO.MDS 10:29 | PROVIDERS: Visit Provider Internal Medicine Medical Oncology | DX: D50.9 Iron deficiency anemia, unspecified (principal) | CPT/HCPCS: 96365; J2916 ==

== ENCOUNTER 2022-02-27 08:26 | Outpatient (REF) | payer MEDICARE, MEDICAID, SELFPAY | END 2022-02-27 08:27 | disposition home or self-care (01) | LOC: HO.MDS 08:26 | PROVIDERS: Visit Provider Internal Medicine Medical Oncology | DX: D50.9 Iron deficiency anemia, unspecified (principal) | CPT/HCPCS: 96365; J2916 ==

== ENCOUNTER 2022-03-06 10:26 | Outpatient (REF) | payer MEDICARE, MEDICAID, SELFPAY | END 2022-03-06 10:27 | disposition home or self-care (01) | LOC: HO.MDS 10:26 | PROVIDERS: Visit Provider Internal Medicine Medical Oncology | DX: D50.9 Iron deficiency anemia, unspecified (principal) | CPT/HCPCS: 96372; J2916 ==

== ENCOUNTER 2022-04-04 11:27 | Outpatient (REF) | payer OTHER, MEDICAID, SELFPAY ==
[2022-04-04 14:56] LABS: TSH reflex Free T4 0.91 uIU/mL (0.32-4.0)
[2022-04-04 15:14] LABS: Folate 4.6 ng/mL (> or = 4.0); Vitamin B12 813 pg/mL (200-900)
[2022-04-06 11:12] LABS: H Pylori Breath Test Negative (Negative)
[2022-04-10 12:36] LABS: Vitamin D 25-OH, D2 <4 ng/mL; Vitamin D 25-OH, D3 25 ng/mL; Vitamin D 25-OH, Total 25 ng/mL (30-100)
== END 2022-04-04 11:28 | disposition home or self-care (01) ==
LOC: HO.LAB 11:27
PROVIDERS: PCP Internal Medicine; Referring Provider Internal Medicine; Visit Provider Nurse Practitioner Family
DX: K21.9 Gastro-esophageal reflux disease without esophagitis (principal); K58.2 Mixed irritable bowel syndrome; R14.0 Abdominal distension (gaseous); R19.7 Diarrhea, unspecified; E55.9 Vitamin D deficiency, unspecified
CPT/HCPCS: 36415; 82306; 82607; 82746; 83013; 84443; 99212

== ENCOUNTER 2022-04-08 14:14 | Outpatient (REF) | payer OTHER, SELFPAY ==
[2022-04-16 17:15] LABS: Pancreatic Elastase-1 >500 mcg/g
== END 2022-04-08 14:15 | disposition home or self-care (01) ==
LOC: HO.LNP 14:14
PROVIDERS: Visit Provider Nurse Practitioner Family
DX: R10.9 Unspecified abdominal pain (principal)
CPT/HCPCS: 82656

== ENCOUNTER 2022-04-18 10:24 | Outpatient (REF) | payer OTHER, SELFPAY ==
--- NOTE | ~2022-04-18 | XR_ITS ---
EXAMINATION: XR ABDOMEN KUB CLINICAL INDICATION: Nausea COMPARISON: None TECHNIQUE: AP view of the abdomen. FINDINGS: The bowel gas pattern is normal with no evidence of ileus or obstruction. No unusual soft tissue calcifications are noted. The bones are unremarkable. XR/XR KUB IMPRESSION: Unremarkable examination.
== END 2022-04-18 10:25 | disposition home or self-care (01) ==
LOC: HO.XRAY 10:24
PROVIDERS: PCP Internal Medicine; Visit Provider Internal Medicine Gastroenterology
DX: R14.0 Abdominal distension (gaseous) (principal); R11.0 Nausea
CPT/HCPCS: 74018

== ENCOUNTER 2022-04-22 12:21 | Emergency (ER) | payer OTHER, SELFPAY ==
--- NOTE | ~2022-04-22 | XR_ITS ---
EXAMINATION: XR CHEST CLINICAL INFORMATION: Cough COMPARISON: Chest radiographs 10/04/2021, 08/10/2021 TECHNIQUE: 2 views of the chest were obtained. FINDINGS: There is mild coarsening of the bronchiolar and interstitial markings similar to prior studies. No interval hyperinflation, airspace consolidation, groundglass opacity, or effusion. Vascularity is normal. Heart size normal. Costophrenic sulci are clear. The hilar and mediastinal contours and bony structures are stable. XR/XR chest 2V IMPRESSION: -Coarsening bronchiolar and interstitial markings similar to prior exams. -No acute intrathoracic disease.
[2022-04-22 13:35] VITALS: BP 144/78; PULSE 73; RESP 18; TEMP 36.9; O2SAT 100; BMI 26.4
[2022-04-22 14:11] LABS: COVID-19 Test Negative (Negative); IDNOW Serial# 16C4AD1C
[2022-04-22 14:12] LABS: Influenza A Negative (Negative); Influenza B2 Negative (Negative)
== END 2022-04-22 17:31 | disposition left against medical advice (07) ==
PROVIDERS: Emergency Provider Emergency Medicine; PCP Internal Medicine
DX: J02.9 Acute pharyngitis, unspecified (principal); R04.2 Hemoptysis; Z20.822 Contact with and (suspected) exposure to COVID-19
CPT/HCPCS: 71046; 87502; 87635; 99283

== ENCOUNTER 2022-04-23 09:24 | Emergency (ER) | payer OTHER, SELFPAY ==
[2022-04-23 10:07] VITALS: BP 129/76; PULSE 74; RESP 16; TEMP 35.9; O2SAT 100
[2022-04-23 10:41] LABS: Strep A Nucleic Acid Negative (Negative)
--- NOTE | 2022-04-23 11:51 | ED.URI ---
HPI - URI/Sore Throat General Chief Complaint: General Medical Stated Complaint: neck swelling Time Seen by Provider: 04/23/22 11:43 Source: patient Mode of arrival: ambulatory Limitations: language barrier (Faroese-speaking) History of Present Illness HPI Narrative: 71-year-old female with a past medical history of hypertension, hyperlipidemia, COPD, pulmonary nodules, iron deficiency anemia presenting to the ED with complaints a sore throat worse on the right side and at nighttime when she was laying down she felt like she had to spit up and when she spit she had streaks of blood on the spit up. She denies any hemoptysis. She denies any headaches, lightheadedness, near syncope, dizziness, fevers, change in vision, jaw pain, nausea/vomiting, chest pain or shortness of breath, dyspnea on exertion, orthopnea, palpitations, paresthesias, cough, sputum production, lower extremity edema or calf tenderness, abdominal pain, black or bloody stools, black or bloody emesis or any other symptoms complaints or concerns at this time. She denies recent travel or sick contacts. MD elicited complaint: sore throat Onset (ago): day(s) (2) Consistency: constant and progressively worsening Severity: mild Able to tolerate fluids by mouth: Yes Exacerbating factors: swallowing Relieving factors: nothing Associated symptoms: denies other symptoms Treatments prior to arrival: none Related Data Home Medications Medication Instructions Recorded Confirmed gabapentin 300 mg capsule 300 mg PO DAILY 09/13/20 03/13/22 lisinopril 20 mg tablet 20 mg PO BID 09/13/20 03/13/22 rosuvastatin 20 mg tablet 20 mg PO DAILY 03/20/21 03/13/22 methenamine hippurate 1 gram tablet 1 tab PO DAILY 12/27/21 03/13/22 valacyclovir 1 gram tablet 1 tab PO DAILY 12/27/21 03/13/22 docusate sodium 100 mg capsule 100 mg PO BEDTIME 03/13/22 03/13/22 (Colace) Previous Rx's Medication Instructions Recorded albuterol sulfate 2.5 mg/0.5 mL 5 mg INHALATION Q4H #30 ea 11/18/20 solution for nebulization betamethasone dipropionate 0.05 % 1 appl TOPICAL BID 5 Days #45 g 03/07/21 topical cream hydrocortisone 2.5 % topical cream 1 appl OR BID-QID PRN #30 g 07/01/21 with perineal applicator (Proctosol HC) acetaminophen 500 mg tablet 500 mg PO Q6H PRN #20 tab 10/04/21 (Tylenol Extra Strength) umeclidinium 62.5 mcg-vilanterol 1 ea INHALATION DAILY #60 cap 10/21/21 25 mcg/actuation powdr for inhalation (Anoro Ellipta) famotidine 40 mg tablet 40 mg PO BEDTIME #30 tab 04/04/22 methylcellulose (laxative) 500 mg 500 mg PO DAILY #30 tab 04/04/22 tablet (Citrucel) pantoprazole 40 mg tablet,delayed 40 mg PO DAILY #30 tab 04/04/22 release ondansetron 4 mg disintegrating 4 mg PO Q8H PRN 20 Days #30 tab 04/17/22 tablet clindamycin HCl 300 mg capsule 300 mg PO Q8H 10 Days #30 cap 04/23/22 Allergies Allergy/AdvReac Type Severity Reaction Status Date / Time levofloxacin [LEVOFLOXACIN] Allergy Intermediate HIVES Verified 04/22/22 13:35 ceftriaxone [From ROCEPHIN] Allergy Mild SWELLING Verified 04/22/22 13:35 cephalexin [From KEFLEX] Allergy Mild ITCHING Verified 04/22/22 13:35 cyanocobalamin (vitamin B12) Allergy Mild Rash Verified 04/22/22 13:35 doxycycline Allergy Mild Rash Verified 04/22/22 13:35 ferrous sulfate Allergy Mild Stomach Verified 04/22/22 13:35 Upset almond Allergy itchy Verified 04/22/22 13:35 throat Review of Systems Review of Systems: Constitutional : No Weight loss, No Fever, No Chills, No Night Sweats, No Fatigue, No Malaise ENT/Mouth : + sore throat, No Hearing loss, No Ear Pain, No Nasal Congestion, No Sinus Pain, No Hoarseness, No Rhinorrhea, No Swallowing Difficulty Eyes: No Eye Pain, No Swelling, No Redness, No Foreign Body, No Discharge, No Vision Changes Cardiovascular : No Chest Pain, No SOB, No Dyspnea on Exertion, No Orthopnea, No Edema, No Palpitations Respiratory : No Cough, No Sputum, No Wheezing, No Smoke Exposure, No Dyspnea Gastrointestinal : No Nausea, No Vomiting, No Diarrhea, No Constipation, No abdominal Pain, No Hematochezia, No Melena Genitourinary : no irregular bleeding, No Dysuria, No Urinary Frequency, No Hematuria, No Urinary Incontinence, No Urgency, No Flank Pain, No Urinary Flow Changes, No Hesitancy Musculoskeletal : No joint pain, No Myalgias, No Joint Swelling Skin : No Skin Lesions, No rash Neuro : No Weakness, No Numbness, No Paresthesias, No Loss of Consciousness, No Dizziness, No Headache Psych : No Anxiety/Panic, No Depression, No SI/HI/AH/VH, No Social Issues, Heme/Lymph: No Bruising, No Bleeding,No Lymphadenopathy Endocrine : No Polyuria, No Polydipsia, No Temperature Intolerance Yes all other systems are reviewed and are negative [facility] Past Medical History Attestation statement: The following information was validated with the patient. Medical History Abscess of right genital labia Carotid stenosis, bilateral COPD (chronic obstructive pulmonary disease) HTN (hypertension) Hyperlipidemia PVD (peripheral vascular disease) Surgical History H/O colonoscopy History of bilateral tubal ligation History of brain surgery History of carpal tunnel surgery History of esophagogastroduodenoscopy (EGD) Family History Family History Family/Other Breast cancer Mother HTN (hypertension) Asthma Brother CVA (cerebral vascular accident) Asthma Father Asthma Social History Social History Household Members: None Housing: Apartment Are you a primary school child care attendant to a significant other at home: No Do you presently have visiting nurse or other home services: No Alcohol intake: never Patient Tobacco Use Status: Current everyday Tobacco user Years Smoked: 52 Advance Directives: No Advance Directives Information Provided: Yes service: No Current occupational status: unemployed Sexual orientation: Straight/Heterosexual Gender identity: Female Physical Exam Vital Signs: Vital Signs: Last Vital Signs Temp 96.7 F L 04/23/22 10:07 Pulse 74 04/23/22 10:07 Resp 16 04/23/22 10:07 BP 129/76 04/23/22 10:07 Pulse Ox 100 04/23/22 10:07 BMI result Body Mass Index 0.0 vital signs have been reviewed as normal and appeared to be correct. Blood pressure normal. Heart rate normal. Respiration rate normal. Temperature normal. Oxygen saturation normal. Appearance: Alert. Oriented X3. No acute distress. Head: Normal external exam. Normocephalic. Atraumatic. Eyes: PERRLA. EOMI. Conjunctiva and sclera normal. Eyelids normal. ENT: EAC normal. TM's Normal. Posterior pharynx/tonsils mildly erythematous some exudate the rest of the pharynx is within normal limits. Soft and hard palate are within normal limits. No masses or abnormal lesions noted. Uvula midline. Moist mucous membranes. No lesions/ulcerations or masses noted on the tongue. Normal voice. No trismus noted. No drooling noted. No muffled voice noted. Neck: Normal inspection. Neck supple. FROM. + right sided cervical adenopathy. Thyroid Normal. No tracheal deviation noted. No crepitus is noted. No meningeal signs. No neck mass noted. No signs of trauma noted. CVS: Normal heart rate and rhythm. Heart sound normal. Pulses normal throughout. No murmurs/rales/gallops. Respiratory: No respiratory distress. Painless inspiration. Breath sounds normal. No wheezes/rales/rhonchi noted. Chest nontender. No crepitus is noted. No signs of trauma noted. No accessory muscle usage noted or decreased air movement noted. No signs of trauma. Back: Full range of motion noted. Skin: Skin warm and dry. Normal skin color. Normal skin turgor. No rashes/lesions/lacerations noted. Extremities: Extremities exhibit normal range of motion and nontender. Neuro: Oriented X 3. No motor deficit. No sensory deficit. Reflexes normal. Normal steady gait. No focal neuro deficits noted. CN's II-XII intact bilaterally? Vascular: + radial pulses/+ 2 distal pedal pulses/+2 dorsalis pedis b/l. Normal cap refill. No cyanosis noted to upper extremity nails and lower extremity toes nails. Course Course Course Narrative: Strep throat negative. Although patient most likely bacterial pharyngitis. Will DC home with antibiotics and symptomatic treatment. I explained to the patient if her symptoms do not get better after the antibiotics to return for further evaluation treatment. Otherwise patient is tolerating her secretions well. No abnormalities are noted. No neck masses are noted. He does have erythema and exudate to her tonsils with some adenopathy. No trismus/drooling/stridor. Lungs clear to auscultation. Patient understands agrees with this plan. MDM - URI/Sore Throat Medical Records Attestation: I reviewed the patient's medical records. Lab Data Attestation: I reviewed the patient's lab results. Labs: Lab Results 04/23/22 Range/Units 10:12 S. pyogenes GrpA ERASMO Negative (Negative) Discharge Plan Discharge Clinical Impression: Pharyngitis Patient Disposition: Home, Self-Care Instructions: Pharyngitis (ED) Prescriptions: New clindamycin HCl 300 mg capsule 300 mg PO Q8H 10 Days Qty: 30 0RF No Action hydrocortisone [Proctosol HC] 2.5 % cream with perineal applicator 1 appl OR BID-QID PRN (Reason: hemorrhoids) Qty: 30 2RF Anoro Ellipta 62.5-25 mcg/actuation blister with device 1 ea inhalation DAILY Qty: 60 2RF ondansetron 4 mg tablet,disintegrating 4 mg PO Q8H PRN (Reason: nausea and vomiting) 20 Days Qty: 30 0RF albuterol sulfate 2.5 mg/0.5 mL solution for nebulization 5 mg inhalation Q4H Qty: 30 0RF acetaminophen [Tylenol Extra Strength] 500 mg tablet 500 mg PO Q6H PRN (Reason: pain or fever) Qty: 20 0RF valacyclovir 1 gram tablet 1 tab PO DAILY 0RF methenamine hippurate 1 gram tablet 1 tab PO DAILY 0RF docusate sodium [Colace] 100 mg capsule 100 mg PO BEDTIME 0RF rosuvastatin 20 mg tablet 20 mg PO DAILY 0RF lisinopril 20 mg tablet 20 mg PO BID 0RF gabapentin 300 mg capsule 300 mg PO DAILY 0RF betamethasone dipropionate 0.05 % cream 1 appl topical BID 5 Days Qty: 45 0RF Rx Instructions: And then maintenance therapy for twice a week as needed Citrucel 500 mg tablet 500 mg PO DAILY Qty: 30 2RF Rx Instructions: take it with full glass of water pantoprazole 40 mg tablet,delayed release (DR/EC) 40 mg PO DAILY Qty: 30 2RF Rx Instructions: take one tablet half an hour before breakfast famotidine 40 mg tablet 40 mg PO BEDTIME Qty: 30 3RF Referrals: Danni Mccarthy MD [Primary Care Provider] - 2 days Print Language: Faroese
== END 2022-04-23 12:06 | disposition home or self-care (01) ==
PROVIDERS: Emergency Provider Emergency Medicine Emergency Medical Services; PCP Internal Medicine
DX: J02.9 Acute pharyngitis, unspecified (principal); R22.1 Localized swelling, mass and lump, neck; I10 Essential (primary) hypertension; F17.210 Nicotine dependence, cigarettes, uncomplicated; Z71.6 Tobacco abuse counseling
CPT/HCPCS: 36415; 87651; 99283

== ENCOUNTER 2022-04-29 09:26 | Outpatient (REF) | payer OTHER, SELFPAY ==
--- NOTE | ~2022-04-29 | US_ITS ---
EXAMINATION: NONINVASIVE ASSESSMENT OF THE ARTERIES OF BOTH LOWER EXTREMITIES WITH PVR EXAM AND BILATERAL LOWER EXTREMITY DUPLEX CLINICAL INFORMATION: Peripheral vascular disease. TECHNIQUE: Ankle pulse volume recordings, ankle pressure measurements and ankle brachial indices were obtained of the lower extremity arterial system bilaterally. Additionally, duplex Doppler techniques were used with wave form analysis and measurement of velocities in the common femoral, profunda femoral, superficial femoral, popliteal and tibial arteries. The study was performed only at rest. COMPARISON: April 01, 2021. FINDINGS: ANKLE-BRACHIAL INDEX: Right: 1.0 Left: 1.06. PVR WAVEFORM: Right: Loss of dicrotic notch Left: Loss of dicrotic notch DIRECT DUPLEX DOPPLER FINDINGS: RIGHT LEG: Common femoral artery: 216 cm/s, diastolic flow reversal: Yes. Profunda femoris artery: 103 cm/s, diastolic flow reversal: Yes. Superficial femoral artery (proximal): 95.1 cm/s, diastolic flow reversal: Yes. Superficial femoral artery (mid): 130 cm/s, diastolic flow reversal: Yes. Superficial femoral artery (distal): 77.4 cm/s, diastolic flow reversal: Yes. Popliteal artery: 93.8 cm/s, diastolic flow reversal: Yes. Posterior tibial artery: 81.5cm/s, diastolic flow reversal: Yes. Peroneal artery: 14.5cm/s, diastolic flow reversal: No. LEFT LEG: Common femoral artery: 158 cm/s, diastolic flow reversal: Yes. Profunda femoris artery: 66 cm/s, diastolic flow reversal: Yes. Superficial femoral artery (proximal): 78 cm/s, diastolic flow reversal: Yes. Superficial femoral artery (mid): 152 cm/s, diastolic flow reversal: Yes. Superficial femoral artery (distal): 92 cm/s, diastolic flow reversal: Yes. Popliteal artery: 54.2 cm/s, diastolic flow reversal: Yes. Posterior tibial artery: 52.6cm/s, diastolic flow reversal: No. Peroneal artery: 20.7cm/s, diastolic flow reversal: No. US/US LUIS FERNANDO complete IMPRESSION: Right leg: LUIS FERNANDO 1.0. There is plaque seen within the right common femoral artery as well as focally increased velocity consistent with a moderate stenosis. Left leg: LUIS FERNANDO 1.06. Focally increased velocity within the mid SFA consistent with a moderate, hemodynamically significant stenosis. LUIS FERNANDO Reference: - >0.97-1.25 = normal - no significant arterial disease. - 0.75-0.96 = mild peripheral arterial disease. - 0.5-0.74 = moderate peripheral arterial disease. - <0.50 = severe peripheral arterial disease.
== END 2022-04-29 09:27 | disposition home or self-care (01) ==
LOC: HO.US 09:26
PROVIDERS: Visit Provider Surgery Vascular Surgery
DX: I73.9 Peripheral vascular disease, unspecified (principal); I25.10 Atherosclerotic heart disease of native coronary artery without angina pectoris
CPT/HCPCS: 93923; 93925

== ENCOUNTER 2022-04-30 08:45 | Emergency (ER) | payer OTHER, SELFPAY ==
--- NOTE | ~2022-04-30 | CT_ITS ---
EXAMINATION: CT SOFT TISSUE NECK WITH CONTRAST CLINICAL INFORMATION: Dysphagia. COMPARISON: CT chest from 03/17/2021. TECHNIQUE: Multidetector helical imaging was performed in the axial plane without intravenous contrast. Multiple axial reformats and coronal/sagittal reconstructions were created the technologist workstation for review. This CT examination was performed using dose optimization techniques as appropriate, variously including the following: *Automated exposure control. *Adjustment of mA and/or kV according to patient size (this includes techniques or standardized protocols for targeted exams where dose is matched to indication/reason for exam; i.e. extremities or head). *Use of iterative reconstruction technique. DLP: 452 mGy-cm FINDINGS: No significant cutaneous thickening or subcutaneous inflammation. No discrete fluid collection within the deep tissues of the neck. The premaxillary, retromaxillary, pterygopalatine fossa, orbital apical, parapharyngeal, and prelaryngeal adipose tissue is maintained. Normal appearance of the parotid, submandibular, and thyroid glands. Scattered subcentimeter lymph nodes bilaterally, none of which are pathologically enlarged. Normal mucosal contours of the pharynx and larynx. Normal appearance of the hyoid bone, thyroid cartilage, or cartilaginous trachea. The airways remains widely patent. No radiopaque foreign bodies. The atlantooccipital and atlantoaxial articulations remain well aligned. Straightening of the normal cervical lordosis. No evidence of acute fracture or subluxation of the cervical spine. Advanced degenerative disease at C4-C5, C5-C6, and C7-T1, and T1-T2. Associated disc-osteophyte complex formation. Facet and uncovertebral joint arthropathy leads to osseous encroachment on the neural foramina from C2-T2. There is no prevertebral soft tissue swelling. Changes of prior left frontal craniotomy. The visualized portion of the skull base is without significant abnormalities. Bilateral lens extractions. The visualized paranasal sinuses are clear. The mastoid air cells and middle ear cavities are clear. Moderate left-sided and mild right-sided arthropathy of the temporomandibular joints. The patient is edentulous. CT Upper Chest: Moderate peribronchial wall thickening throughout the visualized upper lungs. Scattered groundglass and tree-in-bud opacities throughout the visualized upper lungs. Nonspecific moderately prominent lymphadenopathy throughout the mediastinum, measuring up to [address] axis[address]/CT soft tissue neck wo con IMPRESSION: 1. No demonstrated focal lesion, collection, or pathologically enlarged cervical lymphadenopathy. 2. 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 3. Moderate peribronchial wall thickening and scattered groundglass/tree-in-bud opacities in the visualized upper lungs suggestive of an active infectious/inflammatory process. Nonspecific moderately prominent mediastinal lymphadenopathy.
[2022-04-30 08:54] VITALS: BP 128/60; PULSE 71; RESP 16; TEMP 37.1; O2SAT 98; BMI 26.9
[2022-04-30 09:22] LABS: MANUAL DIFF FLAG NO
[2022-04-30 09:24] LABS: Appearance Urine CLOUDY; Color Urine YELLOW; Glucose Urine UA NEG (NEG); Leukocyte Esterase Urine 2+ (NEG); Nitrite Urine NEG (NEG); PH 5.5 (5.0-8.0); Specific Gravity - Urine >= 1.030 (1.005-1.025); UACC Culture Trigger YES; Urine Blood 3+ (NEG); Urine Ketones NEG (NEG); Urine Protein NEG (NEG-TRACE)
[2022-04-30 09:32] LABS: Basophils Absolute Auto 0.1 X10*3/uL (0.0-0.2); Basophils Percent Auto 1.4 % (0-2); Eosinophils Absolute Auto 0.4 X10*3/uL (0.0-0.4); Hematocrit 39.1 % (37.0-47.0); Hemoglobin 12.6 g/dl (12.0-16.0); Imm Gran Abs Auto 0.02 X10*3/uL (0.00-0.03); Imm Gran Pct Auto 0.3 % (0.0-0.4); Lymphocytes Absolute Auto 2.9 X10*3/uL (1.2-4.9); Lymphocytes Percent Auto 37.5 % (20-40); Mean Corpuscular HGB Conc 32.2 g/dl (31.0-35.0); Mean Corpuscular Hemoglobin 26.3 pg (27.0-33.0); Mean Corpuscular Volume 81.5 fL (80.0-98.0); Mean Platelet Volume 9.7 fL (9.4-12.3); Monocytes Absolute Auto 0.9 X10*3/uL (0.1-1.2); Neutrophils Absolute Auto 3.4 x10*3/uL (2.0-8.3); Neutrophils Percent Auto 43.8 % (45-73); Platelet Count 270 X10*3/uL (160-400); Red Cell Distribution Width 16.7 % (11.0-16.0); White Blood Count 7.7 X10*3/uL (4.8-10.8)
[2022-04-30 09:37] LABS: Bacteria Urine TRACE /LPF; Mucus Urine 2+ /LPF; Squamous Epithelial Cell Urine 1+ /LPF
[2022-04-30 09:38] LABS: Anion Gap 11 (12-20); Blood Urea Nitrogen 7 mg/dL (9-16); Calcium 10.2 mg/dL (8.4-10.2); Carbon Dioxide 26 mmol/L (22-29); Chloride 98 mmol/L (96-108); Creatinine Clr Calc Pharmacy 50.2; Estimated Glomerular Filt Rate > 60; Glucose Random 79 mg/dL (60-115); Potassium 3.8 mmol/L (3.3-5.1); Sodium 131 mmol/L (135-145)
[2022-04-30 15:52] VITALS: BP 129/61; PULSE 71; RESP 18; TEMP 36.9; O2SAT 98
--- NOTE | 2022-04-30 15:56 | ED_ITS ---
HPI - Nausea/Vomiting/Diarrhea General Chief complaint: Nausea/Vomiting/Diarrhea <JIMMIE Mayorga Last Filed: 04/30/22 17:56> Stated complaint: unable to eat <JIMMIE Mayorga Last Filed: 04/30/22 17:56> Time Seen by Provider: 04/30/22 15:49 <JIMMIE Mayorga Last Filed: 04/30/22 17:56> Source: patient <JIMMIE Mayorga Last Filed: 04/30/22 17:56> Mode of arrival: ambulatory <JIMMIE Mayorga Last Filed: 04/30/22 17:56> Limitations: no limitations <JIMMIE Mayorga Last Filed: 04/30/22 17:56> History of Present Illness HPI Narrative: 71 y/o female with history of COPD, iron deficiency anemia, GERD, HTN, PVD, HLD who presents to the ER with 3 weeks of ongoing nausea and difficultly eating. She states whenever she puts food into her mouth and starts to swallow she gets immediate nausea and is unable to eat. She has seen her GI doctor for this in March and was eating pureed food by the teaspoon because of the nausea. She denies pain with swallowing but reports when the food gets to a certain area in her throats her nausea is worse. She reports stomach pains when the food reaches her stomach. She denies pain with swallowing. The solids and liquids can physically pass but just cause extreme nausea and loss of appetite. No vomiting or diarrhea. She thinks she is losing weight because of her lack of PO intake. <JIMMIE Mayorga Last Filed: 04/30/22 17:56> MD elicited complaint: nausea and abdominal pain <JIMMIE Mayorga Last Filed: 04/30/22 17:56> Onset (ago): week(s) (3) <JIMMIE Mayorga Last Filed: 04/30/22 17:56> Associated nausea: Yes <JIMMIE Mayorga Last Filed: 04/30/22 17:56> Associated abdominal pain: Yes <JIMMIE Mayorga Last Filed: 04/30/22 17:56> Location of pain: epigastric and LUQ <JIMMIE Mayorga Last Filed: 04/30/22 17:56> Pain consistency: intermittent <JIMMIE Mayorga Last Filed: 04/30/22 17:56> Severity: moderate <JIMMIE Mayorga Last Filed: 04/30/22 17:56> Quality: aching <JIMMIE Mayorga Last Filed: 04/30/22 17:56> Exacerbating factors: eating <JIMMIE Mayorga Last Filed: 04/30/22 17:56> Relieving factors: none <JIMMIE Mayorga Last Filed: 04/30/22 17:56> Associated symptoms: loss of appetite, malaise, nausea/vomiting and bloating <JIMMIE Mayorga Last Filed: 04/30/22 17:56> Related Data Home medications: Home Medications Medication Instructions Recorded Confirmed gabapentin 300 mg capsule 300 mg PO DAILY 09/13/20 03/13/22 lisinopril 20 mg tablet 20 mg PO BID 09/13/20 03/13/22 rosuvastatin 20 mg tablet 20 mg PO DAILY 03/20/21 03/13/22 methenamine hippurate 1 gram tablet 1 tab PO DAILY 12/27/21 03/13/22 valacyclovir 1 gram tablet 1 tab PO DAILY 12/27/21 03/13/22 docusate sodium 100 mg capsule 100 mg PO BEDTIME 03/13/22 03/13/22 (Colace) Previous Rx's Medication Instructions Recorded albuterol sulfate 2.5 mg/0.5 mL 5 mg INHALATION Q4H #30 ea 11/18/20 solution for nebulization betamethasone dipropionate 0.05 % 1 appl TOPICAL BID 5 Days #45 g 03/07/21 topical cream hydrocortisone 2.5 % topical cream 1 appl [place] BID-QID PRN #30 g 07/01/21 with perineal applicator (Proctosol HC) acetaminophen 500 mg tablet 500 mg PO Q6H PRN #20 tab 10/04/21 (Tylenol Extra Strength) umeclidinium 62.5 mcg-vilanterol 1 ea INHALATION DAILY #60 cap 10/21/21 25 mcg/actuation powdr for inhalation (Anoro Ellipta) famotidine 40 mg tablet 40 mg PO BEDTIME #30 tab 04/04/22 methylcellulose (laxative) 500 mg 500 mg PO DAILY #30 tab 04/04/22 tablet (Citrucel) pantoprazole 40 mg tablet,delayed 40 mg PO DAILY #30 tab 04/04/22 release clindamycin HCl 300 mg capsule 300 mg PO Q8H 10 Days #30 cap 04/23/22 ondansetron 4 mg disintegrating 4 mg PO Q8-12H PRN #10 tab 04/30/22 tablet sulfamethoxazole 800 1 tab PO BID #10 tab 04/30/22 mg-trimethoprim 160 mg tablet (Bactrim DS) <JIMMIE Mayorga Last Filed: 04/30/22 17:56> Allergies/Adverse reactions: Allergies Allergy/AdvReac Type Severity Reaction Status Date / Time levofloxacin [LEVOFLOXACIN] Allergy Intermediate HIVES Verified 04/22/22 13:35 ceftriaxone [From ROCEPHIN] Allergy Mild SWELLING Verified 04/22/22 13:35 cephalexin [From KEFLEX] Allergy Mild ITCHING Verified 04/22/22 13:35 cyanocobalamin (vitamin B12) Allergy Mild Rash Verified 04/22/22 13:35 doxycycline Allergy Mild Rash Verified 04/22/22 13:35 ferrous sulfate Allergy Mild Stomach Verified 04/22/22 13:35 Upset almond Allergy itchy Verified 04/22/22 13:35 throat <JIMMIE Mayorga Last Filed: 04/30/22 17:56> Review of Systems Review of Systems: Constitutional: No Fever, No Chills ENT/Mouth: + sore throat, No Rhinorrhea, No Swallowing Difficulty Eyes: No Eye Pain, No Swelling, No Redness Cardiovascular: No Chest Pain, No SOB, No Orthopnea, No Edema Respiratory: No Cough, No Sputum, No Wheezing, No dyspnea Gastrointestinal: + Nausea, No Vomiting, No Diarrhea, + abdominal Pain Genitourinary: No Dysuria, No Urinary Frequency, No Hematuria Musculoskeletal: No joint pain, No Myalgias Skin: No Skin Lesions, No rash Neuro: No Weakness, No Numbness, No Dizziness, No Headache Psych: + Anxiety/Panic, No Depression Heme/Lymph: No Bruising, No Lymphadenopathy Endocrine: No Polyuria, No Polydipsia <JIMMIE Mayorga Last Filed: 04/30/22 17:56> Gastrointestinal: Gastrointestinal: Reports nausea <JIMMIE Mayorga - Last Filed: 04/30/22 17:56> [facility] Past Medical History Medical History: Medical History Abscess of right genital labia Carotid stenosis, bilateral COPD (chronic obstructive pulmonary disease) HTN (hypertension) Hyperlipidemia PVD (peripheral vascular disease) <JIMMIE Mayorga - Last Filed: 04/30/22 17:56> Surgical History: Surgical History H/O colonoscopy History of bilateral tubal ligation History of brain surgery History of carpal tunnel surgery History of esophagogastroduodenoscopy (EGD) <JIMMIE Mayorga - Last Filed: 04/30/22 17:56> Family History Family History: Family History Family/Other Breast cancer Mother HTN (hypertension) Asthma Brother CVA (cerebral vascular accident) Asthma Father Asthma <JIMMIE Mayorga - Last Filed: 04/30/22 17:56> Social History Social History: Social History Household Members: None Housing: Apartment Are you a primary home visit field care manager to a significant other at home: No Do you presently have visiting nurse or other home services: No Alcohol intake: never Patient Tobacco Use Status: Current everyday Tobacco user Years Smoked: 52 Advance Directives: No Advance Directives Information Provided: No service: No Current occupational status: unemployed Sexual orientation: Straight/Heterosexual Gender identity: Female <JIMMIE Mayorga - Last Filed: 04/30/22 17:56> Physical Exam Vital Signs: Vital Signs: Last Vital Signs Temp 98.4 F 04/30/22 20:43 Pulse 78 04/30/22 20:01 Resp 18 04/30/22 20:01 BP 138/72 04/30/22 20:01 Pulse Ox 97 04/30/22 20:01 BMI result Body Mass Index 26.9 <JIMMIE Mayorga - Last Filed: 04/30/22 17:56> Vital Signs: Last Vital Signs Temp 98.4 F 04/30/22 20:43 Pulse 78 04/30/22 20:01 Resp 18 04/30/22 20:01 BP 138/72 04/30/22 20:01 Pulse Ox 97 04/30/22 20:01 BMI result Body Mass Index 26.9 <JIMMIE Suarez - Last Filed: 04/30/22 20:53> Appearance: Alert. Oriented X3. No acute distress. Eyes: Pupils equal, round and reactive to light. ENT: Pharynx normal. Neck: Normal inspection. Neck supple. No palpable neck masses. Normal voice. CVS: Normal heart rate and rhythm. Pulses normal. Respiratory: No respiratory distress. Breath sounds normal. Abdomen: Soft and nontender. +BS x4 Skin: Skin warm and dry. Normal skin color. Normal skin turgor. No rashes. Extremities: No lower extremity edema. Neuro: Oriented X 3. No motor deficit. No sensory deficit. <JIMMIE Mayorga - Last Filed: 04/30/22 17:56> Course Course Course Narrative: 71-year-old female presents to the ER with nausea and difficulty eating for the last 3 weeks. She was recently treated for pharyngitis with oral antibiotics and had a hard time taking the because of extreme nausea. She is able to physically eat and drink but just reports extreme nausea when she tries to. Her labs show a mild hyponatremia sodium 131, probably mildly hypovolemic. Getting 1 L of IV fluids. Her urinalysis is positive for infection, will treat with oral Bactrim given her multiple antibiotic allergies. She was given applesauce and crackers at the bedside she is tolerating them fine. Given Zofran with some improvement in the nausea. No vomiting here. Given her ongoing symptoms will get CT soft tissue neck to rule out organic pathology, although less likely given she is able to eat and drink. <JIMMIE Mayorga - Last Filed: 04/30/22 17:56> Reevaluation(s) Reevaluation #1: Patient's sodium remains stable, likely secondary to hypovolemia/dehydration. Patient tolerating p.o. fluids. CT of soft tissue neck with no demonstrated focal lesion, collection or pathologically enlarged cervical lymphadenopathy. Degenerative spondyloarthropathy of the cervical spine is noted. There is moderate peribronchial wall thickening and scattered ground-glass/tree-in-bud opacities and upper lungs which could suggest an active infectious/inflammatory process. Patient does not have any upper respiratory complaints denies shortness of breath/chest pain. Tells me she would like a medication that would make her hungry, I advised her to follow-up with gastroenterology.At this time patient feels well, she would like to go home, she is tolerating p.o. fluids and solids. Appears to be in good spirits, ambulating around the room, stable vital signs. Comfortable discharge home with PCP follow-up. <JIMMIE Suarez - Last Filed: 04/30/22 20:53> Time: 20:45 <JIMMIE Suarez - Last Filed: 04/30/22 20:53> MDM - Nausea/Vomiting/Diarrhea Lab Data Result diagrams: : 04/30/22 09:18 04/30/22 20:01 <JIMMIE Mayorga - Last Filed: 04/30/22 17:56> Labs: Lab Results 04/30/22 04/30/22 04/30/22 Range/Units 09:18 09:18 09:18 WBC 7.7 (4.8-10.8) X10*3/uL RBC 4.80 (4.20-5.50) X10*6/uL Hgb 12.6 (12.0-16.0) g/dl Hct 39.1 (37.0-47.0) % MCV 81.5 (80.0-98.0) fL MCH 26.3 L (27.0-33.0) pg MCHC 32.2 (31.0-35.0) g/dl RDW 16.7 H (11.0-16.0) % Plt Count 270 (160-400) X10*3/uL MPV 9.7 (9.4-12.3) fL Immature Gran % (Auto) 0.3 (0.0-0.4) % Neut % (Auto) 43.8 L (45-73) % Lymph % (Auto) 37.5 (20-40) % Callahan % (Auto) 12.0 H (2-11) % Eos % (Auto) 5.0 H (0-4) % Baso % (Auto) 1.4 (0-2) % Lymph # (Auto) 2.9 (1.2-4.9) X10*3/uL [place]ahan # (Auto) 0.9 (0.1-1.2) X10*3/uL Eos # (Auto) 0.4 (0.0-0.4) X10*3/uL Baso # (Auto) 0.1 (0.0-0.2) X10*3/uL Abs Immat Gran (auto) 0.02 (0.00-0.03) X10*3/uL Absolute Neuts (auto) 3.4 (2.0-8.3) x10*3/uL Absolute Nucleated RBC 0.000 (0.0-0.012) X10*3/uL Nucleated RBC % (auto) 0.0 (0.0-0.2) /100WBC Sodium 131 L (135-145) mmol/L Potassium 3.8 (3.3-5.1) mmol/L Chloride 98 (96-108) mmol/L Carbon Dioxide 26 (22-29) mmol/L Anion Gap 11 L (12-20) BUN 7 L (9-16) mg/dL Creatinine 0.85 (0.5-1.4) mg/dL Estim Creat Clear Calc 50.2 Estimated GFR > 60 Random Glucose 79 (60-115) mg/dL Calcium 10.2 (8.4-10.2) mg/dL Urine Color YELLOW Urine Appearance CLOUDY Urine pH 5.5 (5.0-8.0) Ur Specific [place] >= 1.030 H (1.005-1.025) Urine Protein NEG (NEG-TRACE) MG/DL Urine Glucose (UA) NEG (NEG) MG/DL Urine Ketones NEG (NEG) MG/DL Urine Blood 3+ H (NEG) Urine Nitrite NEG (NEG) Ur Leukocyte Esterase 2+ H (NEG) Urine RBC 1-4 (0) /HPF Urine WBC 76-150 H (0-4) /HPF Ur Squamous Epith Cells 1+ /LPF Urine Bacteria TRACE /LPF Urine Mucus 2+ /LPF 04/30/22 Range/Units 20:01 WBC (4.8-10.8) X10*3/uL RBC (4.20-5.50) X10*6/uL Hgb (12.0-16.0) g/dl Hct (37.0-47.0) % MCV (80.0-98.0) fL MCH (27.0-33.0) pg MCHC (31.0-35.0) g/dl RDW (11.0-16.0) % Plt Count (160-400) X10*3/uL MPV (9.4-12.3) fL Immature Gran % (Auto) (0.0-0.4) % Neut % (Auto) (45-73) % Lymph % (Auto) (20-40) % Callahan % (Auto) (2-11) % Eos % (Auto) (0-4) % Baso % (Auto) (0-2) % Lymph # (Auto) (1.2-4.9) X10*3/uL [place]ahan # (Auto) (0.1-1.2) X10*3/uL Eos # (Auto) (0.0-0.4) X10*3/uL Baso # (Auto) (0.0-0.2) X10*3/uL Abs Immat Gran (auto) (0.00-0.03) X10*3/uL Absolute Neuts (auto) (2.0-8.3) x10*3/uL Absolute Nucleated RBC (0.0-0.012) X10*3/uL Nucleated RBC % (auto) (0.0-0.2) /100WBC Sodium 131 L (135-145) mmol/L Potassium 3.9 (3.3-5.1) mmol/L Chloride 101 (96-108) mmol/L Carbon Dioxide 24 (22-29) mmol/L Anion Gap 10 L (12-20) BUN 5 L (9-16) mg/dL Creatinine 0.74 (0.5-1.4) mg/dL Estim Creat Clear Calc 57.5 Estimated GFR > 60 Random Glucose 107 (60-115) mg/dL Calcium 9.6 (8.4-10.2) mg/dL Urine Color Urine Appearance Urine pH (5.0-8.0) Ur Specific [place] (1.005-1.025) Urine Protein (NEG-TRACE) MG/DL Urine Glucose (UA) (NEG) MG/DL Urine Ketones (NEG) MG/DL Urine Blood (NEG) Urine Nitrite (NEG) Ur Leukocyte Esterase (NEG) Urine RBC (0) /HPF Urine WBC (0-4) /HPF Ur Squamous Epith Cells /LPF Urine Bacteria /LPF Urine Mucus /LPF <JIMMIE Mayorga - Last Filed: 04/30/22 17:56> Lab Results 04/30/22 04/30/22 04/30/22 Range/Units 09:18 09:18 09:18 WBC 7.7 (4.8-10.8) X10*3/uL RBC 4.80 (4.20-5.50) X10*6/uL Hgb 12.6 (12.0-16.0) g/dl Hct 39.1 (37.0-47.0) % MCV 81.5 (80.0-98.0) fL MCH 26.3 L (27.0-33.0) pg MCHC 32.2 (31.0-35.0) g/dl RDW 16.7 H (11.0-16.0) % Plt Count 270 (160-400) X10*3/uL MPV 9.7 (9.4-12.3) fL Immature Gran % (Auto) 0.3 (0.0-0.4) % Neut % (Auto) 43.8 L (45-73) % Lymph % (Auto) 37.5 (20-40) % Callahan % (Auto) 12.0 H (2-11) % Eos % (Auto) 5.0 H (0-4) % Baso % (Auto) 1.4 (0-2) % Lymph # (Auto) 2.9 (1.2-4.9) X10*3/uL [place]ahan # (Auto) 0.9 (0.1-1.2) X10*3/uL Eos # (Auto) 0.4 (0.0-0.4) X10*3/uL Baso # (Auto) 0.1 (0.0-0.2) X10*3/uL Abs Immat Gran (auto) 0.02 (0.00-0.03) X10*3/uL Absolute Neuts (auto) 3.4 (2.0-8.3) x10*3/uL Absolute Nucleated RBC 0.000 (0.0-0.012) X10*3/uL Nucleated RBC % (auto) 0.0 (0.0-0.2) /100WBC Sodium 131 L (135-145) mmol/L Potassium 3.8 (3.3-5.1) mmol/L Chloride 98 (96-108) mmol/L Carbon Dioxide 26 (22-29) mmol/L Anion Gap 11 L (12-20) BUN 7 L (9-16) mg/dL Creatinine 0.85 (0.5-1.4) mg/dL Estim Creat Clear Calc 50.2 Estimated GFR > 60 Random Glucose 79 (60-115) mg/dL Calcium 10.2 (8.4-10.2) mg/dL Urine Color YELLOW Urine Appearance CLOUDY Urine pH 5.5 (5.0-8.0) Ur Specific [place] >= 1.030 H (1.005-1.025) Urine Protein NEG (NEG-TRACE) MG/DL Urine Glucose (UA) NEG (NEG) MG/DL Urine Ketones NEG (NEG) MG/DL Urine Blood 3+ H (NEG) Urine Nitrite NEG (NEG) Ur Leukocyte Esterase 2+ H (NEG) Urine RBC 1-4 (0) /HPF Urine WBC 76-150 H (0-4) /HPF Ur Squamous Epith Cells 1+ /LPF Urine Bacteria TRACE /LPF Urine Mucus 2+ /LPF 04/30/22 Range/Units 20:01 WBC (4.8-10.8) X10*3/uL RBC (4.20-5.50) X10*6/uL Hgb (12.0-16.0) g/dl Hct (37.0-47.0) % MCV (80.0-98.0) fL MCH (27.0-33.0) pg MCHC (31.0-35.0) g/dl RDW (11.0-16.0) % Plt Count (160-400) X10*3/uL MPV (9.4-12.3) fL Immature Gran % (Auto) (0.0-0.4) % Neut % (Auto) (45-73) % Lymph % (Auto) (20-40) % Callahan % (Auto) (2-11) % Eos % (Auto) (0-4) % Baso % (Auto) (0-2) % Lymph # (Auto) (1.2-4.9) X10*3/uL [place] # (Auto) (0.1-1.2) X10*3/uL Eos # (Auto) (0.0-0.4) X10*3/uL Baso # (Auto) (0.0-0.2) X10*3/uL Abs Immat Gran (auto) (0.00-0.03) X10*3/uL Absolute Neuts (auto) (2.0-8.3) x10*3/uL Absolute Nucleated RBC (0.0-0.012) X10*3/uL Nucleated RBC % (auto) (0.0-0.2) /100WBC Sodium 131 L (135-145) mmol/L Potassium 3.9 (3.3-5.1) mmol/L Chloride 101 (96-108) mmol/L Carbon Dioxide 24 (22-29) mmol/L Anion Gap 10 L (12-20) BUN 5 L (9-16) mg/dL Creatinine 0.74 (0.5-1.4) mg/dL Estim Creat Clear Calc 57.5 Estimated GFR > 60 Random Glucose 107 (60-115) mg/dL Calcium 9.6 (8.4-10.2) mg/dL Urine Color Urine Appearance Urine pH (5.0-8.0) Ur Specific [place] (1.005-1.025) Urine Protein (NEG-TRACE) MG/DL Urine Glucose (UA) (NEG) MG/DL Urine Ketones (NEG) MG/DL Urine Blood (NEG) Urine Nitrite (NEG) Ur Leukocyte Esterase (NEG) Urine RBC (0) /HPF Urine WBC (0-4) /HPF Ur Squamous Epith Cells /LPF Urine Bacteria /LPF Urine Mucus /LPF <JIMMIE Suarez - Last Filed: 04/30/22 20:53> Critical Care Time Critical Care Time Critical Care Time: No <JIMMIE Mayorga - Last Filed: 04/30/22 17:56> Discharge Plan Discharge Clinical Impression: Acute UTI, Nausea <JIMMIE Mayorga - Last Filed: 04/30/22 17:56> Patient Disposition: Home, Self-Care <JIMMIE Mayorga - Last Filed: 04/30/22 17:56> Instructions: Viral Syndrome (ED), Urinary Tract Infection in Older Adults (ED) <JIMMIE Mayorga - Last Filed: 04/30/22 17:56> Additional Instructions: Your testing today showed you have a urinary tract infection. Take the prescribed antibiotic as directed. Recommend taking small amount of food prior to taking the antibiotic. If you continue to have stomach issues, it is important that you follow-up with Gastroenterology. Numbers below Take medication for nausea as prescribed, do not take more than the recommended amount. Recommend following back up with your primary care doctor as well as your osha inspector for further evaluation and workup. If you develop new or worsening symptoms call 911 or come back to the ER for further evaluation. CT/CT soft tissue neck wo con IMPRESSION: 1. No demonstrated focal lesion, collection, or pathologically enlarged cervical lymphadenopathy. ? 2. 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 ? 3. Moderate peribronchial wall thickening and scattered groundglass/tree-in-bud opacities in the visualized upper lungs suggestive of an active infectious/inflammatory process. Nonspecific moderately prominent mediastinal lymphadenopathy. <JIMMIE Mayorga - Last Filed: 04/30/22 17:56> Prescriptions: New sulfamethoxazole-trimethoprim [Bactrim DS] 800-160 mg tablet 1 tab PO BID Qty: 10 0RF ondansetron 4 mg tablet,disintegrating 4 mg PO Q8-12H PRN (Reason: nausea and vomiting) Qty: 10 0RF Discontinued ondansetron 4 mg tablet,disintegrating 4 mg PO Q8H PRN (Reason: nausea and vomiting) 20 Days Qty: 30 0RF No Action hydrocortisone [Proctosol HC] 2.5 % cream with perineal applicator 1 appl [place] BID-QID PRN (Reason: hemorrhoids) Qty: 30 2RF Anoro Ellipta 62.5-25 mcg/actuation blister with device 1 ea inhalation DAILY Qty: 60 2RF albuterol sulfate 2.5 mg/0.5 mL solution for nebulization 5 mg inhalation Q4H Qty: 30 0RF acetaminophen [Tylenol Extra Strength] 500 mg tablet 500 mg PO Q6H PRN (Reason: pain or fever) Qty: 20 0RF valacyclovir 1 gram tablet 1 tab PO DAILY 0RF methenamine hippurate 1 gram tablet 1 tab PO DAILY 0RF docusate sodium [Colace] 100 mg capsule 100 mg PO BEDTIME 0RF clindamycin HCl 300 mg capsule 300 mg PO Q8H 10 Days Qty: 30 0RF rosuvastatin 20 mg tablet 20 mg PO DAILY 0RF lisinopril 20 mg tablet 20 mg PO BID 0RF gabapentin 300 mg capsule 300 mg PO DAILY 0RF betamethasone dipropionate 0.05 % cream 1 appl topical BID 5 Days Qty: 45 0RF Rx Instructions: And then maintenance therapy for twice a week as needed Citrucel 500 mg tablet 500 mg PO DAILY Qty: 30 2RF Rx Instructions: take it with full glass of water pantoprazole 40 mg tablet,delayed release (DR/EC) 40 mg PO DAILY Qty: 30 2RF Rx Instructions: take one tablet half an hour before breakfast famotidine 40 mg tablet 40 mg PO BEDTIME Qty: 30 3RF <JIMMIE Mayorga - Last Filed: 04/30/22 17:56> Referrals: Danni Mccarthy MD [Primary Care Provider] - Addison Santiago [Physician] - 2 days <JIMMIE Mayorga - Last Filed: 04/30/22 17:56> Interventions: ED Discharge Assessment Last Done: 04/30/22 20:56 <JIMMIE Mayorga - Last Filed: 04/30/22 17:56> Discharge Date/Time: 04/30/22 20:57 <JIMMIE Mayorga - Last Filed: 04/30/22 17:56>
[2022-04-30] MEDS: Ondansetron ODT 4 MG TAB.RAPDIS TRANSLINGU (16:53)
[2022-04-30] MEDS: Sulfamethox/Trimeth 800/160 TABLET 1 TAB PO (17:16)
[2022-04-30] MEDS: 0.9 % Sodium Chloride 1,000 ML 999 ML IVCONT (17:19)
[2022-04-30 17:22] VITALS: BP 131/59; PULSE 66; RESP 18; O2SAT 99
[2022-04-30 20:01] VITALS: BP 138/72; PULSE 78; RESP 18; O2SAT 97
[2022-04-30 20:23] LABS: Anion Gap 10 (12-20); Blood Urea Nitrogen 5 mg/dL (9-16); Calcium 9.6 mg/dL (8.4-10.2); Carbon Dioxide 24 mmol/L (22-29); Chloride 101 mmol/L (96-108); Creatinine Clr Calc Pharmacy 57.5; Estimated Glomerular Filt Rate > 60; Glucose Random 107 mg/dL (60-115); Potassium 3.9 mmol/L (3.3-5.1); Sodium 131 mmol/L (135-145)
[2022-04-30 20:43] VITALS: TEMP 36.9
== END 2022-04-30 20:57 | disposition home or self-care (01) ==
PROVIDERS: Physician Assistant; Emergency Provider Emergency Medicine; PCP Internal Medicine
DX: N39.0 Urinary tract infection, site not specified (principal); B96.20 Unspecified Escherichia coli [E. coli] as the cause of diseases classified elsewhere; Z16.29 Resistance to other single specified antibiotic; R11.0 Nausea; E87.1 Hypo-osmolality and hyponatremia; R13.10 Dysphagia, unspecified; M47.812 Spondylosis without myelopathy or radiculopathy, cervical region; I10 Essential (primary) hypertension; J44.9 Chronic obstructive pulmonary disease, unspecified
CPT/HCPCS: 36415; 70490; 80048; 81001; 85025; 87086; 87088; 87186; 96360; 99284

== ENCOUNTER 2022-05-12 13:33 | Outpatient (REF) | payer OTHER, SELFPAY ==
[2022-05-12 14:48] LABS: Amylase 76 U/L (28-100); Lipase 32 U/L (8-78)
== END 2022-05-12 13:34 | disposition home or self-care (01) ==
LOC: HO.LAB 13:33
PROVIDERS: PCP Internal Medicine; Visit Provider Nurse Practitioner Family
DX: R13.10 Dysphagia, unspecified (principal); R10.9 Unspecified abdominal pain; R11.0 Nausea; K21.9 Gastro-esophageal reflux disease without esophagitis
CPT/HCPCS: 36415; 82150; 83690; 99212

== ENCOUNTER 2022-05-22 01:26 | Emergency (ER) | payer OTHER, SELFPAY ==
[2022-05-22] VITALS (9 sets, daily range): BP systolic 138–163; BP diastolic 74–101; PULSE 67–102; RESP 17–20; TEMP 36.8–37; O2SAT 97–99; BMI 25.4; BMI 28.1
--- NOTE | ~2022-05-22 | XR_ITS ---
EXAMINATION: XR CHEST CLINICAL INFORMATION: Chest pain. COMPARISON: Chest radiograph 04/22/2022 TECHNIQUE: Frontal view of the chest was obtained. FINDINGS: Normal appearance of the cardiomediastinal structures. No effusions or pneumothoraces. No focal pulmonary consolidation. Diffuse pulmonary vascular indistinctness and fine pulmonary reticular opacities. XR/XR chest 1V IMPRESSION: *Findings suspicious for mild pulmonary vascular congestion. No focal pulmonary consolidation or pleural effusions.
--- NOTE | 2022-05-22 01:32 | ECG_ITS ---
Test Reason : CHEST PAIN Blood Pressure : / mmHG Vent. Rate : 072 BPM Atrial Rate : 072 BPM P-R Int : 136 ms QRS Dur : 074 ms QT Int : 424 ms P-R-T Axes : 060 030 265 degrees QTc Int : 464 ms Normal sinus rhythm Cannot rule out Anterior infarct , age undetermined T wave abnormality, consider lateral ischemia Abnormal ECG When compared to the previous EKG of T wave inversion more evident in Anterolateral leads Referred By: Levon Best Electronically Signed By:BI INFANTE MD
--- NOTE | 2022-05-22 02:13 | ED_ITS ---
HPI - Chest Pain General Chief Complaint: Chest Pain Stated Complaint: CP Time Seen by Provider: 05/22/22 02:13 Source: patient Mode of arrival: EMS Limitations: no limitations History of Present Illness HPI narrative: 71-year-old female who presents emergency department for evaluation of chest pain, neck pain in jaw pain. The patient states that she was asleep and woke up around midnight with pain. She states that the pain was 20/10. This is her 1st episode of this type of pain. She denied lightheadedness, dizziness, diaphoresis, nausea or vomiting. She did not have any pain radiating to her back. The patient does have a history of COPD and she states she did feel short of breath and had some dyspnea on exertion over the past week but she thought it was due to her COPD. Patient was transported by EMS and received aspirin 324 mg orally. On arrival she states that she was continuing to have pain in her chest, neck and left arm was improved and was 7/10. MD complaint: chest heaviness Pertinent past history: other ( COPD) Onset (ago): hour(s) (1) Timing of current episode: constant Prior episodes: No Onset: during rest ( woke her up from sleep) Pain location: substernal Pain radiation: left arm, neck and jaw/teeth Severity: severe Pain scale (0-10): 20 Quality: heaviness Relieving factors: nothing Exacerbating factors: nothing Associated symptoms: dyspnea Treatment prior to arrival: aspirin ( 324 given by paramedics) Related Data Home Medications Medication Instructions Recorded Confirmed gabapentin 300 mg capsule 300 mg PO DAILY 09/13/20 03/13/22 lisinopril 20 mg tablet 20 mg PO BID 09/13/20 03/13/22 rosuvastatin 20 mg tablet 20 mg PO DAILY 03/20/21 03/13/22 methenamine hippurate 1 gram tablet 1 tab PO DAILY 12/27/21 03/13/22 valacyclovir 1 gram tablet 1 tab PO DAILY 12/27/21 03/13/22 docusate sodium 100 mg capsule 100 mg PO BEDTIME 03/13/22 03/13/22 (Colace) fluticasone propionate 50 1 - 2 spray intranasal DAILY PRN 05/12/22 mcg/actuation nasal spray,suspension furosemide 20 mg tablet 20 mg PO QAM 05/12/22 Previous Rx's Medication Instructions Recorded albuterol sulfate 2.5 mg/0.5 mL 5 mg inhalation Q4H #30 ea 11/18/20 solution for nebulization betamethasone dipropionate 0.05 % 1 appl topical BID skin irritation 03/07/21 topical cream 5 days #45 grams hydrocortisone 2.5 % topical cream 1 appl OK BID-QID PRN hemorrhoids 07/01/21 with perineal applicator #30 grams (Proctosol HC) acetaminophen 500 mg tablet 500 mg PO Q6H PRN pain or fever 10/04/21 (Tylenol Extra Strength) #20 tabs umeclidinium 62.5 mcg-vilanterol 1 ea inhalation DAILY #60 caps 10/21/21 25 mcg/actuation powdr for inhalation (Anoro Ellipta) famotidine 40 mg tablet 40 mg PO BEDTIME #30 tabs 04/04/22 methylcellulose (laxative) 500 mg 500 mg PO DAILY #30 tabs 04/04/22 tablet (Citrucel) pantoprazole 40 mg tablet,delayed 40 mg PO DAILY #30 tabs 04/04/22 release ondansetron 4 mg disintegrating 4 mg PO Q8-12H PRN nausea and 04/30/22 tablet vomiting #10 tabs sulfamethoxazole 800 1 tab PO BID #10 tabs 04/30/22 mg-trimethoprim 160 mg tablet (Bactrim DS) nitrofurantoin 100 mg PO Q12H 5 days #10 caps 05/04/22 monohydrate/macrocrystals 100 mg capsule (Macrobid) cholecalciferol (vitamin D3) 50 50 mcg PO DAILY #90 caps 05/12/22 mcg (2,000 unit) capsule lactobacillus combination no.4 3 3,000 mmu cells PO DAILY #30 caps 05/12/22 billion cell capsule (Probiotic) Allergies Allergy/AdvReac Type Severity Reaction Status Date / Time levofloxacin [LEVOFLOXACIN] Allergy Intermediate HIVES Verified 05/12/22 12:50 ceftriaxone [From ROCEPHIN] Allergy Mild SWELLING Verified 05/12/22 12:50 cephalexin [From KEFLEX] Allergy Mild ITCHING Verified 05/12/22 12:50 cyanocobalamin (vitamin B12) Allergy Mild Rash Verified 05/12/22 12:50 doxycycline Allergy Mild Rash Verified 05/12/22 12:50 ferrous sulfate Allergy Mild Stomach Verified 05/12/22 12:50 Upset almond Allergy itchy Verified 05/12/22 12:50 throat Review of Systems Review of Systems: Yes all other systems are reviewed and are negative [facility] Past Medical History [facility] Narrative: past medical history: Reviewed below, COPD. Past surgical history: Patient states she had a brain tumor in 2000 and this was operated on in [place]. Social history: The patient smokes 1/2 pack of cigarettes per day times 52 years. She occasionally drinks alcohol. She denies drug use. Medical History Carotid stenosis, bilateral HTN (hypertension) Hyperlipidemia PVD (peripheral vascular disease) Surgical History H/O colonoscopy History of bilateral tubal ligation History of brain surgery History of carpal tunnel surgery History of esophagogastroduodenoscopy (EGD) Family History Family History Family/Other Breast cancer Mother HTN (hypertension) Asthma Brother CVA (cerebral vascular accident) Asthma Father Asthma Social History Social History Household Members: None Housing: Apartment Are you a primary child day care teacher to a significant other at home: No Do you presently have visiting nurse or other home services: No Alcohol intake: never Patient Tobacco Use Status: Current everyday Tobacco user Years Smoked: 52 Smoked in Last 30 Days: No Use of substances other than those prescribed or required for medical reasons: No Advance Directives: No Advance Directives Information Provided: Yes service: No Current occupational status: unemployed Sexual orientation: Straight/Heterosexual Gender identity: Female Physical Exam Vital Signs: Vital Signs: Last Vital Signs Temp 98.5 F 05/22/22 04:37 Pulse 98 05/22/22 04:37 Resp 18 05/22/22 04:37 BP 153/101 H 05/22/22 04:37 Pulse Ox 98 05/22/22 04:37 O2 Del Method 05/22/22 04:37 BMI result Body Mass Index 28.1 Const: General: cooperative and no acute distress Orientation/consciousness: oriented to person and oriented to place Limitations: no limitations HEENT: Head: Yes normal to inspection, Yes normocephalic and Yes atraumatic Ears: external ears normal General nose exam: Normal external nose present Face and sinus: Yes normal facial exam Mouth: Normal oral and palatal mucosa present Throat: Yes posterior oropharynx normal Eyes: General: appearance normal, both eyes and all related structures Pupils: Equal, round and reactive pupils present Neck: Neck: Yes normal visual inspection, Yes no lymphadenopathy, Yes trachea midline and Yes supple Chest: Chest palpation & inspection: normal inspection of the chest and normal palpation of entire chest wall Resp: Effort & Inspection: normal respiratory effort and able to speak in complete sentences Auscultation: clear to auscultation bilaterally Cardio: Rate: regular rate Rhythm: regular rhythm Heart sounds: S1 normal heart sound present, S2 normal heart sound present and no murmurs GI: Inspection: Yes normal to inspection Palpation (GI): Soft to palpation, nontender and no guarding Auscultation: normal bowel sounds : General: Yes no CVA tenderness Back/Spine/Pelvis: Back: no CVA tenderness Skin: General skin exam: no rashes or lesions noted Neuro: General: oriented to person and oriented to place Cranial nerves: Yes CN's II-XII intact bilaterally and Yes Equal, round and reactive pupils present Cognition (Neuro): normal cognition Motor exam (neuro): 5/5 motor strength present throughout Extrem: General: Yes normal to inspection Psych: Appearance: grossly normal Speech and movement: Normal speech and movement present Affect: normal affect Attitude: cooperative Thought process: Normal thought process present Thought content: Normal thought content present Course Course Course Narrative: 71-year-old female with a history hypertension, hyperlipidemia,COPD who was awoken from sleep at around midnight with anterior chest heaviness radiating to her neck, jaw and down her left arm. Pain was initially greater than 10/10, she was given 324 mg of aspirin EN route and on presentation her pain was 7/10. Her examination was unremarkable. Twelve EKG she was concerning for ischemic T- waves in leads 3, AVF, V1 through V6 which were new compared to EKG dated 10/04/2021. Patient also had poor R-wave progression. The patient was treated with nitroglycerin sublingually x3 with some improvement of her pain. She was started on a nitroglycerin drip. She was given heparin bolus and started on heparin drip. She also received atorvastatin 80 mg orally and Brilinta 180 mg orally. I did discuss the patient's presentation with the web retailer at [facility], Dr. Tyler Moser. He felt that the patient's presentation was more consistent with an NSTEMI and that the patient did not need an emergent cardiac catheterization at this time. He recommended however that the patient be transferred to the cardiac care unit at [facility] for further management. I did discuss this with the patient and she agrees with transfer. I will discuss the patient's presentation with the cardiac care unit attending paraplanner. 0259: Laboratory evaluation: WBC elevated 14,300, H&H was normal, platelet count was normal. BMP was normal. High sensitivity troponin I was elevated at 26.8 ( normal is less than 3.5-17 ng/L). MDM - Chest Pain Lab Data Result diagrams: 05/22/22 02:18 05/22/22 01:56 Labs: Lab Results 05/22/22 05/22/22 05/22/22 Range/Units 01:56 01:56 02:18 WBC 14.3 H (4.8-10.8) X10*3/uL RBC 4.82 (4.20-5.50) X10*6/uL Hgb 12.9 (12.0-16.0) g/dl Hct 39.5 (37.0-47.0) % MCV 82.0 (80.0-98.0) fL MCH 26.8 L (27.0-33.0) pg MCHC 32.7 (31.0-35.0) g/dl RDW 15.1 (11.0-16.0) % Plt Count 333 (160-400) X10*3/uL MPV 9.8 (9.4-12.3) fL Immature Gran % (Auto) 1.0 H (0.0-0.4) % Neut % (Auto) 59.8 (45-73) % Lymph % (Auto) 29.2 (20-40) % Rankin % (Auto) 8.5 (2-11) % Eos % (Auto) 1.2 (0-4) % Baso % (Auto) 0.3 (0-2) % Lymph # (Auto) 4.2 (1.2-4.9) X10*3/uL Rankin # (Auto) 1.2 (0.1-1.2) X10*3/uL Eos # (Auto) 0.2 (0.0-0.4) X10*3/uL Baso # (Auto) 0.0 (0.0-0.2) X10*3/uL Abs Immat Gran (auto) 0.14 H (0.00-0.03) X10*3/uL Absolute Neuts (auto) 8.6 H (2.0-8.3) x10*3/uL Absolute Nucleated RBC 0.000 (0.0-0.012) X10*3/uL Nucleated RBC % (auto) 0.0 (0.0-0.2) /100WBC PT (9.9-13.0) SEC INR (0.9-1.1) APTT (24.1-38.0) SEC Sodium 139 (135-145) mmol/L Potassium 4.2 (3.3-5.1) mmol/L Chloride 105 (96-108) mmol/L Carbon Dioxide 25 (22-29) mmol/L Anion Gap 13 (12-20) BUN 11 D (9-16) mg/dL Creatinine 0.88 (0.5-1.4) mg/dL Estim Creat Clear Calc 47.2 Estimated GFR > 60 Random Glucose 107 (60-115) mg/dL Calcium 9.7 (8.4-10.2) mg/dL Magnesium (1.6-2.6) mg/dL Troponin I High Sens 26.8 H (<3.5-17.0) ng/L COVID-19 (SOHA) (Negative) COVID-19 Clin Com 05/22/22 05/22/22 05/22/22 Range/Units 02:47 03:17 04:23 WBC (4.8-10.8) X10*3/uL RBC (4.20-5.50) X10*6/uL Hgb (12.0-16.0) g/dl Hct (37.0-47.0) % MCV (80.0-98.0) fL MCH (27.0-33.0) pg MCHC (31.0-35.0) g/dl RDW (11.0-16.0) % Plt Count (160-400) X10*3/uL MPV (9.4-12.3) fL Immature Gran % (Auto) (0.0-0.4) % Neut % (Auto) (45-73) % Lymph % (Auto) (20-40) % Rankin % (Auto) (2-11) % Eos % (Auto) (0-4) % Baso % (Auto) (0-2) % Lymph # (Auto) (1.2-4.9) X10*3/uL Rankin # (Auto) (0.1-1.2) X10*3/uL Eos # (Auto) (0.0-0.4) X10*3/uL Baso # (Auto) (0.0-0.2) X10*3/uL Abs Immat Gran (auto) (0.00-0.03) X10*3/uL Absolute Neuts (auto) (2.0-8.3) x10*3/uL Absolute Nucleated RBC (0.0-0.012) X10*3/uL Nucleated RBC % (auto) (0.0-0.2) /100WBC PT 12.4 (9.9-13.0) SEC INR 1.1 (0.9-1.1) APTT > 200.0 H* (24.1-38.0) SEC Sodium (135-145) mmol/L Potassium (3.3-5.1) mmol/L Chloride (96-108) mmol/L Carbon Dioxide (22-29) mmol/L Anion Gap (12-20) BUN (9-16) mg/dL Creatinine (0.5-1.4) mg/dL Estim Creat Clear Calc Estimated GFR Random Glucose (60-115) mg/dL Calcium (8.4-10.2) mg/dL Magnesium (1.6-2.6) mg/dL Troponin I High Sens 60.9 H* D (<3.5-17.0) ng/L COVID-19 (SOHA) Negative (Negative) COVID-19 Clin Com See Note 05/22/22 Range/Units 04:23 WBC (4.8-10.8) X10*3/uL RBC (4.20-5.50) X10*6/uL Hgb (12.0-16.0) g/dl Hct (37.0-47.0) % MCV (80.0-98.0) fL MCH (27.0-33.0) pg MCHC (31.0-35.0) g/dl RDW (11.0-16.0) % Plt Count (160-400) X10*3/uL MPV (9.4-12.3) fL Immature Gran % (Auto) (0.0-0.4) % Neut % (Auto) (45-73) % Lymph % (Auto) (20-40) % Rankin % (Auto) (2-11) % Eos % (Auto) (0-4) % Baso % (Auto) (0-2) % Lymph # (Auto) (1.2-4.9) X10*3/uL Rankin # (Auto) (0.1-1.2) X10*3/uL Eos # (Auto) (0.0-0.4) X10*3/uL Baso # (Auto) (0.0-0.2) X10*3/uL Abs Immat Gran (auto) (0.00-0.03) X10*3/uL Absolute Neuts (auto) (2.0-8.3) x10*3/uL Absolute Nucleated RBC (0.0-0.012) X10*3/uL Nucleated RBC % (auto) (0.0-0.2) /100WBC PT (9.9-13.0) SEC INR (0.9-1.1) APTT (24.1-38.0) SEC Sodium (135-145) mmol/L Potassium (3.3-5.1) mmol/L Chloride (96-108) mmol/L Carbon Dioxide (22-29) mmol/L Anion Gap (12-20) BUN (9-16) mg/dL Creatinine (0.5-1.4) mg/dL Estim Creat Clear Calc Estimated GFR Random Glucose (60-115) mg/dL Calcium (8.4-10.2) mg/dL Magnesium 2.0 (1.6-2.6) mg/dL Troponin I High Sens (<3.5-17.0) ng/L COVID-19 (SOHA) (Negative) COVID-19 Clin Com ECG Data ECG #1: Interpretation: EKG 1. 0126: Normal sinus rhythm with a rate of 72, normal OK, QRS duration and QTC interval, inverted T-waves in lead 3, AVF, V1 through V6, Q-wave in lead 3, poor R-wave progression V1 through V 3, compared to an old EKG dated 10/04/2021, the Q-wave in 3 is old, the inverted T-waves in lead 3 and AVF are new. Inverted T-waves V1 through V6 are new. EKG 2. 0221: Normal sinus rhythm rate of 68, normal OK interval QRS duration QTC interval, inverted T-wave in V1, V2 and V3. Compared to EKG 1., the in verted T-waves in 3 and F are now upright and inverted T-waves in V4 through V6 are now upright. Critical Care Time Critical Care Time Critical Care Time: Yes Total Critical Care Time: 60 Attestation: Critical Care: The patient was critically ill with a high probability of imminent or life threatening deterioration. I spent greater than 30 minutes of discontinuous time evaluating the patient,delivering critical care at the bedside, discussing and evaluating pertinent data with consultants. Critical care time does not include time spent performing separately billable procedures or teaching. Total time spent performing critical care was 60 minutes. Discharge Plan Discharge Clinical Impression: Acute non-ST elevation myocardial infarction (NSTEMI) Patient Disposition: Xfer [facility] Transfer Details: NSTEMI-[facility] Prescriptions: No Action hydrocortisone [Proctosol HC] 2.5 % cream with perineal applicator 1 appl OK BID-QID PRN (Reason: hemorrhoids) Qty: 30 2RF Anoro Ellipta 62.5-25 mcg/actuation blister with device 1 ea inhalation DAILY Qty: 60 2RF albuterol sulfate 2.5 mg/0.5 mL solution for nebulization 5 mg inhalation Q4H Qty: 30 0RF acetaminophen [Tylenol Extra Strength] 500 mg tablet 500 mg PO Q6H PRN (Reason: pain or fever) Qty: 20 0RF sulfamethoxazole-trimethoprim [Bactrim DS] 800-160 mg tablet 1 tab PO BID Qty: 10 0RF ondansetron 4 mg tablet,disintegrating 4 mg PO Q8-12H PRN (Reason: nausea and vomiting) Qty: 10 0RF nitrofurantoin monohyd/m-cryst [Macrobid] 100 mg capsule 100 mg PO Q12H 5 Days Qty: 10 0RF Rx Instructions: must administer with a meal/food valacyclovir 1 gram tablet 1 tab PO DAILY methenamine hippurate 1 gram tablet 1 tab PO DAILY docusate sodium [Colace] 100 mg capsule 100 mg PO BEDTIME rosuvastatin 20 mg tablet 20 mg PO DAILY lisinopril 20 mg tablet 20 mg PO BID gabapentin 300 mg capsule 300 mg PO DAILY betamethasone dipropionate 0.05 % cream 1 appl topical BID 5 Days Qty: 45 0RF Rx Instructions: And then maintenance therapy for twice a week as needed Citrucel 500 mg tablet 500 mg PO DAILY Qty: 30 2RF Rx Instructions: take it with full glass of water pantoprazole 40 mg tablet,delayed release (DR/EC) 40 mg PO DAILY Qty: 30 2RF Rx Instructions: take one tablet half an hour before breakfast famotidine 40 mg tablet 40 mg PO BEDTIME Qty: 30 3RF fluticasone propionate 50 mcg/actuation spray,suspension 1 - 2 spray intranasal DAILY PRN furosemide 20 mg tablet 20 mg PO QAM cholecalciferol (vitamin D3) 50 mcg (2,000 unit) capsule 50 mcg PO DAILY Qty: 90 3RF Probiotic 3 billion cell capsule 3,000 mmu cells PO DAILY Qty: 30 5RF Rx Instructions: administer with a meal Interventions: Acute Care Transfer Worksheet (ED) Last Done: 05/22/22 04:56 Discharge Date/Time: 05/22/22 05:04
[2022-05-22 02:22] LABS: MANUAL DIFF FLAG NO
--- NOTE | 2022-05-22 02:22 | ECG_ITS ---
Test Reason : REPEAT Blood Pressure : / mmHG Vent. Rate : 068 BPM Atrial Rate : 068 BPM P-R Int : 126 ms QRS Dur : 076 ms QT Int : 416 ms P-R-T Axes : 059 017 095 degrees QTc Int : 442 ms Normal sinus rhythm Cannot rule out Anterior infarct , age undetermined Abnormal ECG When compared to the previous EKG of T wave inversion less evident in Anterolateral leads Referred By: Levon Best Electronically Signed By:BI INFANTE MD
[2022-05-22 02:25] LABS: Basophils Percent Auto 0.3 % (0-2); Eosinophils Absolute Auto 0.2 X10*3/uL (0.0-0.4); Eosinophils Percent Auto 1.2 % (0-4); Hematocrit 39.5 % (37.0-47.0); Hemoglobin 12.9 g/dl (12.0-16.0); Imm Gran Abs Auto 0.14 X10*3/uL (0.00-0.03); Lymphocytes Absolute Auto 4.2 X10*3/uL (1.2-4.9); Lymphocytes Percent Auto 29.2 % (20-40); Mean Corpuscular HGB Conc 32.7 g/dl (31.0-35.0); Mean Corpuscular Hemoglobin 26.8 pg (27.0-33.0); Mean Platelet Volume 9.8 fL (9.4-12.3); Monocytes Absolute Auto 1.2 X10*3/uL (0.1-1.2); Monocytes Percent Auto 8.5 % (2-11); Neutrophils Absolute Auto 8.6 x10*3/uL (2.0-8.3); Neutrophils Percent Auto 59.8 % (45-73); Platelet Count 333 X10*3/uL (160-400); Red Blood Count 4.82 X10*6/uL (4.20-5.50); Red Cell Distribution Width 15.1 % (11.0-16.0); White Blood Count 14.3 X10*3/uL (4.8-10.8)
[2022-05-22] MEDS: 0.9 % Sodium Chloride 1,000 ML 999 ML IV (02:28)
[2022-05-22] MEDS: Nitroglycerin 0.4 MG TAB.SUBL SUBLINGUAL ×3 (02:31→02:43)
[2022-05-22 02:35] LABS: Anion Gap 13 (12-20); Blood Urea Nitrogen 11 mg/dL (9-16); Calcium 9.7 mg/dL (8.4-10.2); Carbon Dioxide 25 mmol/L (22-29); Chloride 105 mmol/L (96-108); Creatinine Clr Calc Pharmacy 47.2; Estimated Glomerular Filt Rate > 60; Glucose Random 107 mg/dL (60-115); Potassium 4.2 mmol/L (3.3-5.1); Sodium 139 mmol/L (135-145)
[2022-05-22 02:36] LABS: Troponin-I High Sensitivity 26.8 ng/L (<3.5-17.0)
[2022-05-22] MEDS: Ticagrelor 90 MG TABLET 180 MG PO (02:44)
[2022-05-22] MEDS: Atorvastatin Calcium 80 MG TABLET PO (02:44)
[2022-05-22] MEDS: Heparin Sodium,Porcine 5,000 UNIT/ML VIAL 3600 UNIT IVPUSH (02:46)
[2022-05-22] MEDS: Nitroglycerin/D5W 100 MG/250 ML INFUS..BTL IVCONT (02:57)
[2022-05-22 03:15] LABS: COVID-19 Test Negative (Negative)
[2022-05-22] MEDS: Heparin Sodium,Porcine/1/2NS 25,000 UNIT/250 ML IV.SOLN 7.11 UNIT IVCONT (03:19)
[2022-05-22 03:26] LABS: INTERNATIONAL NORM RATIO 1.1 (0.9-1.1); Prothrombin Time 12.4 SEC (9.9-13.0)
--- NOTE | 2022-05-22 03:41 | PC.NURSE ---
attempted to add aptt, per lab, unable to add on, due to lack blood. foam charger aware
[2022-05-22 04:23] LABS: Partial Thromboplastin Time > 200.0 SEC (24.1-38.0)
[2022-05-22 04:52] LABS: Troponin-I High Sensitivity 60.9 ng/L (<3.5-17.0)
== END 2022-05-22 05:04 | disposition short-term general hospital (02) ==
PROVIDERS: Emergency Provider Emergency Medicine Emergency Medical Services
DX: I21.4 Non-ST elevation (NSTEMI) myocardial infarction (principal); I10 Essential (primary) hypertension; J44.9 Chronic obstructive pulmonary disease, unspecified; Z20.822 Contact with and (suspected) exposure to COVID-19
CPT/HCPCS: 36415; 71045; 80048; 83735; 84484; 85025; 85610; 85730; 87635; 93005; 96361; 96365; 96375; 99285

== ENCOUNTER 2022-05-29 12:38 | Inpatient (IN) | payer OTHER, SELFPAY ==
[2022-05-29] VITALS (11 sets, daily range): BP systolic 89–112; BP diastolic 33–62; PULSE 52–70; RESP 14–20; TEMP 36.6–38.1; O2SAT 95–100; BMI 25.9
--- NOTE | ~2022-05-29 | XR_ITS ---
EXAMINATION: XR CHEST CLINICAL INFORMATION: Weakness. COMPARISON: 05/22/[address] scan dated 03/19/2021. TECHNIQUE: Frontal view of the chest was obtained. FINDINGS: Mild diffuse coarsened interstitial markings and mild bronchial wall thickening bilaterally. No focal consolidation. The heart and mediastinal structures are unremarkable. XR/XR chest 1V IMPRESSION: Coarsened interstitial markings and mild bronchial wall thickening bilaterally related to the previous studies and suggest chronic changes/small airways disease. No focal consolidation.
--- NOTE | ~2022-05-29 | CT_ITS ---
EXAMINATION: CT ABDOMEN AND PELVIS WITHOUT CONTRAST CLINICAL INFORMATION: 71-year-old female with abdominal pain, diarrhea and elevated white blood cell COMPARISON: 03/17/2021 TECHNIQUE: Multidetector volumetric imaging was performed from the superior aspect of the liver through the pubic symphysis. Sagittal and coronal reformatted images were obtained on the technologist's workstation. This CT examination was performed using dose optimization techniques as appropriate, variously including the following: *Automated exposure control *Adjustment of mA and/or kV according to patient size (this includes techniques or standardized protocols for targeted exams where dose is matched to indication/reason for exam; i.e. extremities or head) *Use of iterative reconstruction technique DLP: 372 mGy-cm FINDINGS: LUNG BASES: The visualized lung bases are unremarkable. LIVER, GALLBLADDER, AND BILIARY TREE: Liver is homogeneous, enlarged with the right lobe of the liver in the pelvis, measured approximately 20 cm. The gallbladder is unremarkable with no evidence of radiopaque gallstones, gallbladder wall thickening, or obvious pericholecystic inflammatory changes. PANCREAS: Unremarkable. SPLEEN: Unremarkable. ADRENAL GLANDS: There is right adrenal gland adenoma with attenuation of minus 3HU, measured 1.4 x 1.0 cm. There is mild hypertrophy of the left adrenal gland. KIDNEYS AND URETERS: The kidneys are normal in size, shape, and attenuation. No hydronephrosis, hydroureter, or calculi seen. No perinephric stranding. BLADDER: Unremarkable. GASTROINTESTINAL TRACT: The small and large bowel are unremarkable. The appendix is not seen ABDOMINAL WALL: No significant hernia is appreciated. LYMPH NODES: Normal. VASCULAR: Unremarkable. PELVIC VISCERA: Unremarkable. OSSEOUS STRUCTURES: Unremarkable. CT/CT abdomen pelvis wo con IMPRESSION: Hepatomegaly. Right adrenal gland adenoma Fleischner guidelines were followed.
--- NOTE | ~2022-05-29 | CT_ITS ---
EXAMINATION: CT SOFT TISSUE NECK WITHOUT CONTRAST CLINICAL INFORMATION: Throat pain, palpable left-sided pain. COMPARISON: CT scan of the neck 04/30/2022. TECHNIQUE: Helical imaging was performed in the axial plane with generation of coronal and sagittal reformatted images. A BB marker was placed of the region of interest in the left neck. This CT examination was performed using dose optimization techniques as appropriate, variously including the following: *Automated exposure control *Adjustment of mA and/or kV according to patient size (this includes techniques or standardized protocols for targeted exams where dose is matched to indication/reason for exam; i.e. extremities or head) *Use of iterative reconstruction technique DLP: 472 mGy-cm FINDINGS: There is no cervical lymphadenopathy; there are small lymph nodes at multiple levels in the neck bilaterally. The parotid glands are homogeneous in attenuation. The submandibular glands are normal. No contour abnormality or pathologic enhancement is seen within the oral cavity or pharyngeal mucosal space. No masses or lymphadenopathy are noted subjacent to the BB marker. The laryngeal structures are normal. The parapharyngeal fat is preserved. There are atheromatous calcifications of the carotid bifurcations bilaterally and at the origins of the great vessels of the neck. No extra mucosal soft tissue mass or fluid collection is seen. No retropharyngeal fluid collection is seen. The thyroid gland is normal. The study redemonstrates moderately prominent lymph nodes in the mediastinum. Evaluation of the lung roblero is degraded by severe patient motion artifact; the study redemonstrates multiple scattered opacities in the lungs bilaterally. The mastoid air cells and visualized portions of the paranasal sinuses are well-aerated. The temporomandibular joints are normal. The patient is edentulous in the mandible and the maxilla. There are severe spondylitic changes in the mid and lower cervical spine without evidence of an acute fracture or subluxation; these findings are unchanged. There are sequelae of a prior left temporofrontal craniotomy, unchanged. There are no acute intracranial findings. The ventricles and sulci are commensurately prominent consistent with diffuse volume loss. CT/CT soft tissue neck wo con IMPRESSION: 1. There is no cervical lymphadenopathy. No masses are demonstrated. The study demonstrates moderately prominent lymph nodes in the mediastinum. 2. The study redemonstrates multiple scattered opacities in the lung roblero bilaterally; evaluation is degraded by patient motion artifact. 3. There are severe spondylitic changes in the cervical spine.
--- NOTE | 2022-05-29 13:16 | ED_ITS ---
HPI - Abdominal Pain General Chief Complaint: Weakness Stated Complaint: Pain Diarrhea Time Seen by Provider: 05/29/22 13:15 Source: patient Mode of arrival: EMS Limitations: no limitations History of Present Illness HPI narrative: 71 yo female with hx of gastritis, anemia, COPD, seen here on 05/22 for NSTEMI s/p PCI with stent at [facility] in the past week comes in today reporting increased black stools she has had 6 today with some nasuea and weakness. She is on PPI and sucralfate. She notes BP from rehab were low around 60s but EMS got low 100s. Patient notes she had black stools at [facility] but was sent out without scope. Patient from the med list at rehab there is no ASA/plavix/brilinta/DOAC on the med list from what I can see. Patient is unsure but thought she was on aspirin. Last EGD and colonosocpy 2020 no active source of bleeding at that time. MD elicited complaint: other (melena weakness) Pertinent past history: gastritis Onset (ago): day(s) (5) Location: none Severity: moderate Radiation: none Exacerbating factors: bowel movement Relieving factors: nothing Context: recent surgery/procedure (s/p heparin at [facility] for NSTEMI with stent) Associated symptoms: nausea, diarrhea, melena and other (weakness, low BP) Related Data Home Medications Medication Instructions Recorded Confirmed gabapentin 300 mg capsule 300 mg PO BEDTIME 09/13/20 05/29/22 lisinopril 20 mg tablet 20 mg PO BEDTIME 09/13/20 05/29/22 methenamine hippurate 1 gram tablet 1 tab PO BID 12/27/21 05/29/22 valacyclovir 1 gram tablet 1 tab PO DAILY 12/27/21 05/29/22 docusate sodium 100 mg capsule 100 mg PO BEDTIME 03/13/22 05/29/22 (Colace) furosemide 20 mg tablet 20 mg PO DAILY 05/12/22 05/29/22 acetaminophen 500 mg tablet 1,000 mg PO Q6H PRN pain or fever 05/29/22 05/29/22 (Tylenol Extra Strength) albuterol sulfate 2.5 mg/0.5 mL 2.5 mg inhalation QID PRN 05/29/22 05/29/22 solution for nebulization Shortness Of Breath ascorbic acid (vitamin C) 500 mg 500 mg PO DAILY 05/29/22 05/29/22 tablet aspirin 81 mg tablet,delayed 81 mg PO DAILY 05/29/22 05/29/22 release carvedilol 6.25 mg tablet 6.25 mg PO BID 05/29/22 05/29/22 cetirizine 10 mg tablet 1 tab PO DAILY 05/29/22 05/29/22 cholecalciferol (vitamin D3) 50 1 cap PO DAILY 05/29/22 05/29/22 mcg (2,000 unit) capsule clobetasol 0.05 % topical ointment 1 ea topical BID 05/29/22 05/29/22 ezetimibe 10 mg tablet 10 mg PO DAILY 05/29/22 05/29/22 famotidine 40 mg tablet 1 tab PO BEDTIME 05/29/22 05/29/22 hydroxyzine HCl 25 mg tablet 25 mg PO QID PRN Itching 05/29/22 05/29/22 methylcellulose (laxative) 500 mg 1 tab PO DAILY 05/29/22 05/29/22 tablet (Fiber Laxative (methylcellulose)) pantoprazole 40 mg tablet,delayed 40 mg PO DAILY@0630 05/29/22 05/29/22 release rosuvastatin 40 mg tablet 40 mg PO BEDTIME 05/29/22 05/29/22 sucralfate 100 mg/mL oral 10 ml PO BIDAC 05/29/22 05/29/22 suspension ticagrelor 90 mg tablet (Brilinta) 90 mg PO BID 05/29/22 05/29/22 Previous Rx's Medication Instructions Recorded umeclidinium 62.5 mcg-vilanterol 1 ea inhalation DAILY #60 caps 10/21/21 25 mcg/actuation powdr for inhalation (Anoro Ellipta) Allergies Allergy/AdvReac Type Severity Reaction Status Date / Time levofloxacin [LEVOFLOXACIN] Allergy Intermediate HIVES Verified 05/12/22 12:50 ceftriaxone [From ROCEPHIN] Allergy Mild SWELLING Verified 05/12/22 12:50 cephalexin [From KEFLEX] Allergy Mild ITCHING Verified 05/12/22 12:50 cyanocobalamin (vitamin B12) Allergy Mild Rash Verified 05/12/22 12:50 doxycycline Allergy Mild Rash Verified 05/12/22 12:50 ferrous sulfate Allergy Mild Stomach Verified 05/12/22 12:50 Upset almond Allergy itchy Verified 05/12/22 12:50 throat Review of Systems Review of Systems Constitutional : No Weight loss, No Fever, No Chills ENT/Mouth : No sore throat, No Rhinorrhea Eyes: No Swelling, No Redness Cardiovascular : No Chest Pain, No SOB, NoEdema Respiratory : No Cough, No Sputum, No Wheezing Gastrointestinal : Positive Nausea, no Vomiting, pos Diarrhea, positive abdominal Pain, No Hematochezia, pos Melena Genitourinary : No Dysuria, No Urinary Frequency, No Hematuria, No Urgency Musculoskeletal : No joint pain, No Myalgias, No Joint Swelling Skin : No Skin Lesions, No rash Neuro : pos Weakness, No Numbness, pos Dizziness, No Headache Psych : No Anxiety/Panic, No Depression Heme/Lymph: No Bruising, No Lymphadenopathy Endocrine : No Polyuria, No Polydipsia All other systems reviewed and are negative. [facility] Past Medical History Attestation statement: The following information was validated with the patient. Medical History (Updated 05/29/22 @ 15:35 by Nayely Cox DO) Abscess of right genital labia Carotid stenosis, bilateral COPD (chronic obstructive pulmonary disease) Gastritis HTN (hypertension) Hyperlipidemia NSTEMI (non-ST elevated myocardial infarction) PVD (peripheral vascular disease) Surgical History H/O colonoscopy History of bilateral tubal ligation History of brain surgery History of carpal tunnel surgery History of esophagogastroduodenoscopy (EGD) Family History Family History Family/Other Breast cancer Mother HTN (hypertension) Asthma Brother CVA (cerebral vascular accident) Asthma Father Asthma Social History Social History Household Members: None Housing: Apartment Are you a primary director of career services to a significant other at home: No Do you presently have visiting nurse or other home services: No Alcohol intake: never Patient Tobacco Use Status: Current everyday Tobacco user Years Smoked: 52 Advance Directives: No Advance Directives Information Provided: Yes service: No Current occupational status: unemployed Sexual orientation: Straight/Heterosexual Gender identity: Female Physical Exam ED Vital Signs: Vital Signs - 24 hr 05/29/22 13:08 05/29/22 13:33 05/29/22 14:12 Temperature 99.5 F Pulse Rate 60 65 Respiratory Rate 14 20 Blood Pressure 97/33 L 92/40 L Pulse Oximetry 95 100 Oxygen Delivery Method Room Air Room Air 05/29/22 15:15 Temperature 97.8 F Pulse Rate 68 Respiratory Rate 20 Blood Pressure 96/40 L Pulse Oximetry 98 Oxygen Delivery Method Room Air BMI result Body Mass Index 25.9 Appearance: Alert. Oriented X3. No acute distress. Eyes: Pupils equal, round and reactive to light. Pale sclera ENT: Pharynx normal. Neck: Normal inspection. Neck supple. CVS: Normal heart rate and rhythm. Pulses normal. Respiratory: No respiratory distress. Breath sounds normal. Abdomen: Soft and nontender. Rectal: black stools Skin: Skin warm and dry. pale skin color. Normal skin turgor. Extremities: No lower extremity edema. No calf ttp Neuro: Oriented X 3. No motor deficit. No sensory deficit. Course Course Course Narrative: H/H stable at this time possible UTI - infection suspected 333pm. cultures ordered. given prior UTI E. Coli S to ceftriaxone and levofloxacin but has allergies she will need ertapenem given allergies and S. signed out to Dr. Gonzalez pending CBC, CT scan, likely admit MDM - Abdominal Pain MDM Narrative Medical decision making narrative: 71 yo female with hx of gastritis, anemia, COPD, seen here on 05/22 for NSTEMI s/p PCI with stent at [facility] - she reports having black stool while at [facility] and at the rehab she is at. She is taking PPI 40mg BID along with sucralfate. Each day she has more and more black stools and notes that today she had 6 blacks stools. She does not take NSAIDs and I do not see ASA or any anti platelet agent on her med list. Patient feels weak and dizzy. Labs, IVF< type and screen IV protonix ordered. EGD 08/20 mild gastritis Lab Data Result diagrams: 05/29/22 14:24 05/29/22 14:24 Labs: Lab Results 05/29/22 05/29/22 05/29/22 Range/Units 14:02 14:05 14:05 WBC (4.8-10.8) X10*3/uL RBC (4.20-5.50) X10*6/uL Hgb (12.0-16.0) g/dl Hct (37.0-47.0) % MCV (80.0-98.0) fL MCH (27.0-33.0) pg MCHC (31.0-35.0) g/dl RDW (11.0-16.0) % Plt Count (160-400) X10*3/uL MPV (9.4-12.3) fL Immature Gran % (Auto) (0.0-0.4) % Neut % (Auto) (45-73) % Lymph % (Auto) (20-40) % [facility] % (Auto) (2-11) % Eos % (Auto) (0-4) % Baso % (Auto) (0-2) % Lymph # (Auto) (1.2-4.9) X10*3/uL [facility] # (Auto) (0.1-1.2) X10*3/uL Eos # (Auto) (0.0-0.4) X10*3/uL Baso # (Auto) (0.0-0.2) X10*3/uL Abs Immat Gran (auto) (0.00-0.03) X10*3/uL Absolute Neuts (auto) (2.0-8.3) x10*3/uL Absolute Nucleated RBC (0.0-0.012) X10*3/uL Nucleated RBC % (auto) (0.0-0.2) /100WBC Smear Tech's Comments PT (10.0-13.1) SEC INR (0.9-1.1) APTT (24.1-38.0) SEC Sodium (135-145) mmol/L Potassium (3.3-5.1) mmol/L Chloride (96-108) mmol/L Carbon Dioxide (22-29) mmol/L Anion Gap (12-20) BUN (9-16) mg/dL Creatinine (0.5-1.4) mg/dL Estim Creat Clear Calc Estimated GFR Random Glucose (60-115) mg/dL Lactic Acid (0.5-2.0) mmol/L Calcium (8.4-10.2) mg/dL Magnesium (1.6-2.6) mg/dL Total Bilirubin (0.0-1.0) mg/dL Direct Bilirubin (0.0-0.5) mg/dL AST (5-31) U/L ALT (0-31) U/L Alkaline Phosphatase (39-117) U/L Troponin I High Sens (<3.5-17.0) ng/L Total Protein (6.5-8.0) g/dL Albumin (3.5-5.0) g/dL Lipase (8-78) U/L Urine Color Urine Appearance Urine pH (5.0-8.0) Ur Specific [place] (1.005-1.025) Urine Protein (NEG-TRACE) MG/DL Urine Glucose (UA) (NEG) MG/DL Urine Ketones (NEG) MG/DL Urine Blood (NEG) Urine Nitrite (NEG) Ur Leukocyte Esterase (NEG) Urine RBC (0) /HPF Urine WBC (0-4) /HPF Ur Squamous Epith Cells /LPF Urine Bacteria /LPF Stool Occult Blood POSITIVE (NEGATIVE) COVID-19 (SOHA) Negative (Negative) COVID-19 Clin Com See Note Blood Type O Negative Antibody Screen NEGATIVE 05/29/22 05/29/22 05/29/22 Range/Units 14:24 14:24 14:24 WBC 19.1 H (4.8-10.8) X10*3/uL RBC 3.76 L D (4.20-5.50) X10*6/uL Hgb 10.1 L D (12.0-16.0) g/dl Hct 31.4 L D (37.0-47.0) % MCV 83.5 (80.0-98.0) fL MCH 26.9 L (27.0-33.0) pg MCHC 32.2 (31.0-35.0) g/dl RDW 15.1 (11.0-16.0) % Plt Count 298 (160-400) X10*3/uL MPV 10.0 (9.4-12.3) fL Immature Gran % (Auto) 3.3 H (0.0-0.4) % Neut % (Auto) 65.6 (45-73) % Lymph % (Auto) 17.6 L (20-40) % [facility] % (Auto) 10.3 (2-11) % Eos % (Auto) 2.8 (0-4) % Baso % (Auto) 0.4 (0-2) % Lymph # (Auto) 3.4 (1.2-4.9) X10*3/uL [facility] # (Auto) 2.0 H (0.1-1.2) X10*3/uL Eos # (Auto) 0.5 H (0.0-0.4) X10*3/uL Baso # (Auto) 0.1 (0.0-0.2) X10*3/uL Abs Immat Gran (auto) 0.63 H (0.00-0.03) X10*3/uL Absolute Neuts (auto) 12.6 H (2.0-8.3) x10*3/uL Absolute Nucleated RBC 0.000 (0.0-0.012) X10*3/uL Nucleated RBC % (auto) 0.0 (0.0-0.2) /100WBC Smear Tech's Comments VERIFIED PT (10.0-13.1) SEC INR (0.9-1.1) APTT (24.1-38.0) SEC Sodium 134 L (135-145) mmol/L Potassium 3.9 (3.3-5.1) mmol/L Chloride 107 (96-108) mmol/L Carbon Dioxide 20 L (22-29) mmol/L Anion Gap 11 L (12-20) BUN 17 H D (9-16) mg/dL Creatinine 1.28 (0.5-1.4) mg/dL Estim Creat Clear Calc 32.6 Estimated GFR 41 Random Glucose 84 (60-115) mg/dL Lactic Acid 1.3 (0.5-2.0) mmol/L Calcium 7.3 L D (8.4-10.2) mg/dL Magnesium 2.0 (1.6-2.6) mg/dL Total Bilirubin 1.0 (0.0-1.0) mg/dL Direct Bilirubin 0.4 (0.0-0.5) mg/dL AST 25 (5-31) U/L ALT 29 (0-31) U/L Alkaline Phosphatase 76 D (39-117) U/L Troponin I High Sens (<3.5-17.0) ng/L Total Protein 5.7 L D (6.5-8.0) g/dL Albumin 3.2 L (3.5-5.0) g/dL Lipase 44 (8-78) U/L Urine Color Urine Appearance Urine pH (5.0-8.0) Ur Specific [place] (1.005-1.025) Urine Protein (NEG-TRACE) MG/DL Urine Glucose (UA) (NEG) MG/DL Urine Ketones (NEG) MG/DL Urine Blood (NEG) Urine Nitrite (NEG) Ur Leukocyte Esterase (NEG) Urine RBC (0) /HPF Urine WBC (0-4) /HPF Ur Squamous Epith Cells /LPF Urine Bacteria /LPF Stool Occult Blood (NEGATIVE) COVID-19 (SOHA) (Negative) COVID-19 Clin Com Blood Type Antibody Screen 05/29/22 05/29/22 05/29/22 Range/Units 14:24 14:24 15:14 WBC (4.8-10.8) X10*3/uL RBC (4.20-5.50) X10*6/uL Hgb (12.0-16.0) g/dl Hct (37.0-47.0) % MCV (80.0-98.0) fL MCH (27.0-33.0) pg MCHC (31.0-35.0) g/dl RDW (11.0-16.0) % Plt Count (160-400) X10*3/uL MPV (9.4-12.3) fL Immature Gran % (Auto) (0.0-0.4) % Neut % (Auto) (45-73) % Lymph % (Auto) (20-40) % [facility] % (Auto) (2-11) % Eos % (Auto) (0-4) % Baso % (Auto) (0-2) % Lymph # (Auto) (1.2-4.9) X10*3/uL [facility] # (Auto) (0.1-1.2) X10*3/uL Eos # (Auto) (0.0-0.4) X10*3/uL Baso # (Auto) (0.0-0.2) X10*3/uL Abs Immat Gran (auto) (0.00-0.03) X10*3/uL Absolute Neuts (auto) (2.0-8.3) x10*3/uL Absolute Nucleated RBC (0.0-0.012) X10*3/uL Nucleated RBC % (auto) (0.0-0.2) /100WBC Smear Tech's Comments PT 13.8 H (10.0-13.1) SEC INR 1.2 H (0.9-1.1) APTT 33.9 D (24.1-38.0) SEC Sodium (135-145) mmol/L Potassium (3.3-5.1) mmol/L Chloride (96-108) mmol/L Carbon Dioxide (22-29) mmol/L Anion Gap (12-20) BUN (9-16) mg/dL Creatinine (0.5-1.4) mg/dL Estim Creat Clear Calc Estimated GFR Random Glucose (60-115) mg/dL Lactic Acid (0.5-2.0) mmol/L Calcium (8.4-10.2) mg/dL Magnesium (1.6-2.6) mg/dL Total Bilirubin (0.0-1.0) mg/dL Direct Bilirubin (0.0-0.5) mg/dL AST (5-31) U/L ALT (0-31) U/L Alkaline Phosphatase (39-117) U/L Troponin I High Sens 10.1 D (<3.5-17.0) ng/L Total Protein (6.5-8.0) g/dL Albumin (3.5-5.0) g/dL Lipase (8-78) U/L Urine Color YELLOW Urine Appearance CLOUDY Urine pH 5.5 (5.0-8.0) Ur Specific [place] 1.025 (1.005-1.025) Urine Protein 2+ H (NEG-TRACE) MG/DL Urine Glucose (UA) NEG (NEG) MG/DL Urine Ketones NEG (NEG) MG/DL Urine Blood 2+ H (NEG) Urine Nitrite NEG (NEG) Ur Leukocyte Esterase 2+ H (NEG) Urine RBC 15-29 H (0) /HPF Urine WBC 50-75 H (0-4) /HPF Ur Squamous Epith Cells 2+ /LPF Urine Bacteria 2+ /LPF Stool Occult Blood (NEGATIVE) COVID-19 (SOHA) (Negative) COVID-19 Clin Com Blood Type Antibody Screen ECG Data Attestation: I personally reviewed and interpreted this ECG as follows: ECG interpretation date: 05/29/22 ECG interpretation time: 14:11 Interpretation: Rate: 66 Rhythm: NSR Shaw: normal Normal P waves. Normal MELISSA. Normal QRS complex. ST T wave : no NOLVIA, inverted t waves I and aVL, V3-V6 along with inf leads qTC: normal prior studies: present May 22 2022 The study has been interpreted contemporaneously by me. . Discharge Plan Discharge Clinical Impression: Melena, Weakness, Acute UTI Patient Disposition: Admitted As Inpatient
--- NOTE | 2022-05-29 13:18 | ECG_ITS ---
Test Reason : weakness Blood Pressure : / mmHG Vent. Rate : 066 BPM Atrial Rate : 066 BPM P-R Int : 128 ms QRS Dur : 074 ms QT Int : 460 ms P-R-T Axes : 053 028 118 degrees QTc Int : 482 ms Normal sinus rhythm Low voltage QRS Cannot rule out Anterior infarct (cited on or before 22-MAY-2022) T wave abnormality, consider lateral ischemia Abnormal ECG When compared with ECG of 22-MAY-2022 02:21, changes noted Referred By: Nayely Cox Electronically Signed By:ARACELI SHEEHAN
[2022-05-29] MEDS: 0.9 % Sodium Chloride 1,000 ML 999 ML IVCONT (13:28)
[2022-05-29] MEDS: Pantoprazole Sodium 40 MG/10 ML VIAL IVPUSH (13:34)
[2022-05-29 14:16] LABS: OBS Int Ctl Valid YES; OBS1 POSITIVE (NEGATIVE)
[2022-05-29 14:32] LABS: COVID-19 Test Negative (Negative); IDNOW Serial# 16C4AD1C
--- NOTE | 2022-05-29 14:33 | PC.NURSE ---
Dr. Cox aware of patients low BP instructed to start another liter of NS.
[2022-05-29 14:37] LABS: INTERNATIONAL NORM RATIO 1.2 (0.9-1.1); Prothrombin Time 13.8 SEC (10.0-13.1)
[2022-05-29 14:39] LABS: Partial Thromboplastin Time 33.9 SEC (24.1-38.0)
[2022-05-29 14:40] LABS: Basophils Absolute Auto 0.1 X10*3/uL (0.0-0.2); Basophils Percent Auto 0.4 % (0-2); Eosinophils Absolute Auto 0.5 X10*3/uL (0.0-0.4); Eosinophils Percent Auto 2.8 % (0-4); Hematocrit 31.4 % (37.0-47.0); Hemoglobin 10.1 g/dl (12.0-16.0); Imm Gran Abs Auto 0.63 X10*3/uL (0.00-0.03); Imm Gran Pct Auto 3.3 % (0.0-0.4); Lymphocytes Absolute Auto 3.4 X10*3/uL (1.2-4.9); Lymphocytes Percent Auto 17.6 % (20-40); MANUAL DIFF FLAG SCAN; Mean Corpuscular HGB Conc 32.2 g/dl (31.0-35.0); Mean Corpuscular Hemoglobin 26.9 pg (27.0-33.0); Mean Corpuscular Volume 83.5 fL (80.0-98.0); Monocytes Percent Auto 10.3 % (2-11); Neutrophils Absolute Auto 12.6 x10*3/uL (2.0-8.3); Neutrophils Percent Auto 65.6 % (45-73); Platelet Count 298 X10*3/uL (160-400); Red Blood Count 3.76 X10*6/uL (4.20-5.50); Red Cell Distribution Width 15.1 % (11.0-16.0); SCAN SMEAR FLAG 1; White Blood Count 19.1 X10*3/uL (4.8-10.8)
[2022-05-29 14:41] LABS: Lactic Acid 1.3 mmol/L (0.5-2.0)
[2022-05-29 14:49] LABS: Troponin-I High Sensitivity 10.1 ng/L (<3.5-17.0)
[2022-05-29 14:52] LABS: Alanine Aminotransferase 29 U/L (0-31); Albumin Level 3.2 g/dL (3.5-5.0); Alkaline Phosphatase 76 U/L (39-117); Anion Gap 11 (12-20); Aspartate Amino Transferase 25 U/L (5-31); Bilirubin Direct 0.4 mg/dL (0.0-0.5); Blood Urea Nitrogen 17 mg/dL (9-16); Calcium 7.3 mg/dL (8.4-10.2); Carbon Dioxide 20 mmol/L (22-29); Chloride 107 mmol/L (96-108); Creatinine Clr Calc Pharmacy 32.6; Estimated Glomerular Filt Rate 41; Glucose Random 84 mg/dL (60-115); Lipase 44 U/L (8-78); Potassium 3.9 mmol/L (3.3-5.1); Sodium 134 mmol/L (135-145); Total Protein 5.7 g/dL (6.5-8.0)
[2022-05-29 15:16] LABS: SLIDE REVIEW VERIFIED
[2022-05-29 15:21] LABS: Appearance Urine CLOUDY; Color Urine YELLOW; Glucose Urine UA NEG (NEG); Leukocyte Esterase Urine 2+ (NEG); Nitrite Urine NEG (NEG); PH 5.5 (5.0-8.0); Specific Gravity - Urine 1.025 (1.005-1.025); UACC Culture Trigger YES; Urine Blood 2+ (NEG); Urine Ketones NEG (NEG); Urine Protein 2+ MG/DL (NEG-TRACE)
[2022-05-29 15:26] LABS: WBC Urine 50-75 /HPF (0-4)
[2022-05-29 15:27] LABS: Bacteria Urine 2+ /LPF; Squamous Epithelial Cell Urine 2+ /LPF
--- NOTE | 2022-05-29 16:02 | PHA.MEDREC ---
Pharmacy Consult ? Medication Reconciliation Pharmacy has completed the medication reconciliation. Patient had list from her PCP and [facility] pharmacy was also called. Pt recently discharged from [facility] and Carvedilol, ASA, Brilinta zetia, rosuvastatin were filled there.
--- NOTE | 2022-05-29 16:03 | PC.NURSE ---
Addendum entered by Fadi Grijalva 05/29/22 17:03: Antibiotic started following drawing of blood cultures. Spoke to pharmacy who said this antibiotic was approved based on her past allergies. Original Note: Antibitoic started late due to waiting for cultures to be drawn
[2022-05-29] MEDS: 0.9 % Sodium Chloride 500 ML IV (16:39)
[2022-05-29 16:40] LABS: Hematocrit 28.8 % (37.0-47.0); Hemoglobin 9.4 g/dl (12.0-16.0); Mean Corpuscular HGB Conc 32.6 g/dl (31.0-35.0); Mean Corpuscular Hemoglobin 27.2 pg (27.0-33.0); Mean Corpuscular Volume 83.5 fL (80.0-98.0); Mean Platelet Volume 10.5 fL (9.4-12.3); Platelet Count 274 X10*3/uL (160-400); Red Blood Count 3.45 X10*6/uL (4.20-5.50); White Blood Count 18.4 X10*3/uL (4.8-10.8)
[2022-05-29] MEDS: Ertapenem Sodium 1 GM in 0.9 % Sodium Chloride 50 ML IV (17:00)
--- NOTE | 2022-05-29 17:51 | PC.NURSE ---
Addendum entered by Fadi Grijalva 05/29/22 18:04: JIMMIE alberts ordered to give PRN tylenol for fever Original Note: Hospitalist Sri made aware of patients increase in temperature
--- NOTE | 2022-05-29 17:57 | P.HPHOSP_ITS ---
History of Present Illness Date of Service: 05/29/22 Attending physician on admission: Francois King Chief Complaint: black stools This is a 71-year-old female with recent NSTEMI status post YARELY x1 on May 22. She was discharged from [facility] on May 23. She was started on aspirin and Brilinta. She began having black stools and 2 days later she went to the emergency department at [facility] for evaluation. She was admitted overnight for observation due to concern over GI bleeding. Notes obtained from [facility] indicate that although she had heme- positive stool GI was not concerned that she had active GI bleeding and recommended to continue her aspirin and Brilinta as prescribed. She was discharged from the hospital on May 26. She has continued to have black stools since that time. She has had no bright red blood. She denies any abdominal pain, nausea, vomiting. According to records from [facility] patient's H/H was 12.3/37.5 on May 26. On arrival to the emergency department today her H/H was 10.1/31.4. She had repeat CBC drawn 2 hours later which showed further drop to 9.4/28.8. She was also noted to have leukocytosis with a white count of 19.1. Her blood pressure was initially low in the 90s systolic. She denies any dizziness, shortness of breath, chest pain at this time. She received 1500 cc of normal saline. Urinalysis was consistent with UTI and she received dose of ertapenem. Following fluid administration blood pressure has improved to 1 0 7/59, however patient is now noted to have low-grade fever of 100.6. COVID-19 vaccination status-Moderna x2 Review of Systems Review of Systems: Yes all other systems are reviewed and are negative Constitutional: Constitutional: Denies chills Cardiovascular: Cardiovascular: Denies chest pain and Denies palpitations Gastrointestinal: Gastrointestinal: Denies abdominal pain, Denies hematochezia, Reports change in stool character, Denies constipation and Reports diarrhea Endocrine: Endocrine: Denies palpitations [facility] Medical History (Updated 05/29/22 @ 18:05 by JIMMIE Levin) Abscess of right genital labia Carotid stenosis, bilateral COPD (chronic obstructive pulmonary disease) Gastritis HTN (hypertension) Hyperlipidemia Iron (Fe) deficiency anemia Lichen sclerosus NSTEMI (non-ST elevated myocardial infarction) Perirectal ulcer Pulmonary nodules PVD (peripheral vascular disease) Vulvar leukoplakia Functional capacity: independent ambulation Family History Family/Other Breast cancer Mother HTN (hypertension) Asthma Brother CVA (cerebral vascular accident) Asthma Father Asthma Surgical History H/O colonoscopy History of bilateral tubal ligation History of brain surgery History of carpal tunnel surgery History of esophagogastroduodenoscopy (EGD) Social History Household Members: None Housing: Apartment Are you a primary director of career resources to a significant other at home: No Do you presently have visiting nurse or other home services: No Alcohol intake: never Patient Tobacco Use Status: Current everyday Tobacco user Years Smoked: 52 Advance Directives: No Advance Directives Information Provided: Yes service: No Current occupational status: unemployed Sexual orientation: Straight/Heterosexual Gender identity: Female Meds Allergies Allergy/AdvReac Type Severity Reaction Status Date / Time levofloxacin [LEVOFLOXACIN] Allergy Intermediate HIVES Verified 05/12/22 12:50 ceftriaxone [From ROCEPHIN] Allergy Mild SWELLING Verified 05/12/22 12:50 cephalexin [From KEFLEX] Allergy Mild ITCHING Verified 05/12/22 12:50 cyanocobalamin (vitamin B12) Allergy Mild Rash Verified 05/12/22 12:50 doxycycline Allergy Mild Rash Verified 05/12/22 12:50 ferrous sulfate Allergy Mild Stomach Verified 05/12/22 12:50 Upset almond Allergy itchy Verified 05/12/22 12:50 throat Active Medications: Current Medications Acetaminophen (Acetaminophen 325 Mg Tablet) 650 mg PO Q6H PRN PRN Reason: Pain, Mild (Pain Scale 1-3) Albuterol Sulfate (Albuterol Sulfate (0.083%) 2.5 Mg/3 Ml Vial.Neb) 2.5 mg INHALE QID PRN PRN Reason: Shortness Of Breath Ascorbic Acid (Ascorbic Acid 500 Mg Tablet) 500 mg PO DAILY JUN Ezetimibe (Ezetimibe 10 Mg Tablet) 10 mg PO DAILY JUN Gabapentin (Gabapentin 300 Mg Capsule) 300 mg PO BEDTIME JUN Hydroxyzine HCl (Hydroxyzine Hcl 25 Mg Tablet) 25 mg PO QID PRN PRN Reason: Itching Nicotine (Nicotine 14 Mg Patch.Td24) 14 mg TRANSDERMA DAILY JUN Nicotine Polacrilex (Nicotine Polacrilex 2 Mg Gum) 2 mg BUCCAL Q2H PRN PRN Reason: Nicotine Cravings Non-Formulary Medication (Rosuvastatin) 40 mg PO BEDTIME [facility] Non-Formulary Medication (Umeclidinium-Vilanterol [Anoro Ellipta]) 1 each INHALE DAILY [facility] Pantoprazole Sodium (Pantoprazole Sodium 40 Mg/10 Ml Vial) 40 mg IVPUSH BID@0630,1630 [facility] Pharmacy Consult (Consult Rx Perform Med Rec) 1 each MISCELLANE ONCE PRN PRN Reason: Consult order Sodium Chloride (0.9 % Sodium Chloride Flush 3 Ml Syringe) 3 ml IVFLUSH QSHIFT JUN Sucralfate (Sucralfate Oral Suspension 1 Gm/10 Ml Oral.Susp) gm PO BIDAC [facility] Ticagrelor (Ticagrelor 90 Mg Tablet) 90 mg PO BID JUN Valacyclovir HCl (Valacyclovir Hcl 1,000 Mg Tablet) mg PO DAILY [facility] Home Medications Medication Instructions Recorded Confirmed Last Taken Type gabapentin 300 mg capsule 300 mg PO BEDTIME 09/13/20 05/29/22 06/11/21 07:30 History lisinopril 20 mg tablet 20 mg PO BEDTIME 09/13/20 05/29/22 Unknown History methenamine hippurate 1 gram tablet 1 tab PO BID 12/27/21 05/29/22 Unknown History valacyclovir 1 gram tablet 1 tab PO DAILY 12/27/21 05/29/22 Unknown History docusate sodium 100 mg capsule 100 mg PO BEDTIME 03/13/22 05/29/22 Unknown History (Colace) furosemide 20 mg tablet 20 mg PO DAILY 05/12/22 05/29/22 Unknown History acetaminophen 500 mg tablet 1,000 mg PO Q6H PRN pain or fever 05/29/22 05/29/22 Unknown History (Tylenol Extra Strength) albuterol sulfate 2.5 mg/0.5 mL 2.5 mg inhalation QID PRN 05/29/22 05/29/22 Unknown History solution for nebulization Shortness Of Breath ascorbic acid (vitamin C) 500 mg 500 mg PO DAILY 05/29/22 05/29/22 Unknown History tablet aspirin 81 mg tablet,delayed 81 mg PO DAILY 05/29/22 05/29/22 Unknown History release carvedilol 6.25 mg tablet 6.25 mg PO BID 05/29/22 05/29/22 Unknown History cetirizine 10 mg tablet 1 tab PO DAILY 05/29/22 05/29/22 Unknown History cholecalciferol (vitamin D3) 50 1 cap PO DAILY 05/29/22 05/29/22 Unknown History mcg (2,000 unit) capsule clobetasol 0.05 % topical ointment 1 ea topical BID 05/29/22 05/29/22 Unknown History ezetimibe 10 mg tablet 10 mg PO DAILY 05/29/22 05/29/22 Unknown History famotidine 40 mg tablet 1 tab PO BEDTIME 05/29/22 05/29/22 Unknown History hydroxyzine HCl 25 mg tablet 25 mg PO QID PRN Itching 05/29/22 05/29/22 Unknown History methylcellulose (laxative) 500 mg 1 tab PO DAILY 05/29/22 05/29/22 Unknown History tablet (Fiber Laxative (methylcellulose)) pantoprazole 40 mg tablet,delayed 40 mg PO DAILY@0630 05/29/22 05/29/22 Unknown History release rosuvastatin 40 mg tablet 40 mg PO BEDTIME 05/29/22 05/29/22 Unknown History sucralfate 100 mg/mL oral 10 ml PO BIDAC 05/29/22 05/29/22 Unknown History suspension ticagrelor 90 mg tablet (Brilinta) 90 mg PO BID 05/29/22 05/29/22 Unknown History Physical Exam Vital Signs and Narrative: Vital Signs: Last Vital Signs Temp 100.6 F H 05/29/22 17:39 Pulse 70 05/29/22 17:39 Resp 20 05/29/22 17:39 BP 107/59 L 05/29/22 17:39 Pulse Ox 100 05/29/22 17:39 O2 Del Method 05/29/22 17:39 BMI result Body Mass Index 25.9 Const: General: cooperative, comfortable, alert and awake Nutritional Appearance: average body habitus Resp: Other: Coarse breath sound spinal Effort & Inspection: normal respiratory effort and able to speak in complete sentences Cardio: Rate: regular rate Heart sounds: S1 normal heart sound present and S2 normal heart sound present GI: Inspection: No distended Palpation (GI): Soft to palpation and nontender Extrem: Other: Able to move all 4 extremities spontaneously General: Yes no pedal edema Results Labs CBC and Chem 7: 05/29/22 16:33 05/29/22 14:24 Labs: Laboratory Results - last 24 hr 05/29/22 05/29/22 05/29/22 14:02 14:05 14:05 MCV MCH MCHC RDW Plt Count MPV Immature Gran % (Auto) Neut % (Auto) Lymph % (Auto) Lane % (Auto) Eos % (Auto) Baso % (Auto) Lymph # (Auto) Lane # (Auto) Eos # (Auto) Baso # (Auto) Abs Immat Gran (auto) Absolute Neuts (auto) Absolute Nucleated RBC Nucleated RBC % (auto) Smear Tech's Comments PT INR APTT Anion Gap Estim Creat Clear Calc Estimated GFR Random Glucose Lactic Acid Calcium Magnesium Total Bilirubin Direct Bilirubin AST ALT Alkaline Phosphatase Troponin I High Sens Total Protein Albumin Lipase Urine Color Urine Appearance Urine pH Ur Specific [place] Urine Protein Urine Glucose (UA) Urine Ketones Urine Blood Urine Nitrite Ur Leukocyte Esterase Urine RBC Urine WBC Ur Squamous Epith Cells Urine Bacteria Stool Occult Blood POSITIVE COVID-19 ([facility]) Negative COVID-19 Clin Com See Note Blood Type O Negative Antibody Screen NEGATIVE 05/29/22 05/29/22 05/29/22 14:24 14:24 14:24 MCV 83.5 MCH 26.9 L MCHC 32.2 RDW 15.1 Plt Count 298 MPV 10.0 Immature Gran % (Auto) 3.3 H Neut % (Auto) 65.6 Lymph % (Auto) 17.[address] % (Auto) 10.3 Eos % (Auto) 2.8 Baso % (Auto) 0.4 Lymph # (Auto) 3.4 Lane # (Auto) 2.0 H Eos # (Auto) 0.5 H Baso # (Auto) 0.1 Abs Immat Gran (auto) 0.63 H Absolute Neuts (auto) 12.6 H Absolute Nucleated RBC 0.000 Nucleated RBC % (auto) 0.0 Smear Tech's Comments VERIFIED PT INR APTT Anion Gap 11 L Estim Creat Clear Calc 32.6 Estimated GFR 41 Random Glucose 84 Lactic Acid 1.3 Calcium 7.3 L D Magnesium 2.0 Total Bilirubin 1.0 Direct Bilirubin 0.4 AST 25 ALT 29 Alkaline Phosphatase 76 D Troponin I High Sens Total Protein 5.7 L D Albumin 3.2 L Lipase 44 Urine Color Urine Appearance Urine pH Ur Specific [place] Urine Protein Urine Glucose (UA) Urine Ketones Urine Blood Urine Nitrite Ur Leukocyte Esterase Urine RBC Urine WBC Ur Squamous Epith Cells Urine Bacteria Stool Occult Blood COVID-19 ([facility]) COVID-19 [facility] Blood Type Antibody Screen 05/29/22 05/29/22 05/29/22 14:24 14:24 15:14 MCV MCH MCHC RDW Plt Count MPV Immature Gran % (Auto) Neut % (Auto) Lymph % (Auto) Lane % (Auto) Eos % (Auto) Baso % (Auto) Lymph # (Auto) Lane # (Auto) Eos # (Auto) Baso # (Auto) Abs Immat Gran (auto) Absolute Neuts (auto) Absolute Nucleated RBC Nucleated RBC % (auto) Smear Tech's Comments PT 13.8 H INR 1.2 H APTT 33.9 D Anion Gap Estim Creat Clear Calc Estimated GFR Random Glucose Lactic Acid Calcium Magnesium Total Bilirubin Direct Bilirubin AST ALT Alkaline Phosphatase Troponin I High Sens 10.1 D Total Protein Albumin Lipase Urine Color YELLOW Urine Appearance CLOUDY Urine pH 5.5 Ur Specific [place] 1.025 Urine Protein 2+ H Urine Glucose (UA) NEG Urine Ketones NEG Urine Blood 2+ H Urine Nitrite NEG Ur Leukocyte Esterase 2+ H Urine RBC 15-29 H Urine WBC 50-75 H Ur Squamous Epith Cells 2+ Urine Bacteria 2+ Stool Occult Blood COVID-19 ([facility]) COVID-19 [facility] Blood Type Antibody Screen 05/29/22 16:33 MCV 83.5 MCH 27.2 MCHC 32.6 RDW 15.0 Plt Count 274 MPV 10.5 Immature Gran % (Auto) Neut % (Auto) Lymph % (Auto) Lane % (Auto) Eos % (Auto) Baso % (Auto) Lymph # (Auto) Lane # (Auto) Eos # (Auto) Baso # (Auto) Abs Immat Gran (auto) Absolute Neuts (auto) Absolute Nucleated RBC 0.000 Nucleated RBC % (auto) 0.0 Smear Tech's Comments PT INR APTT Anion Gap Estim Creat Clear Calc Estimated GFR Random Glucose Lactic Acid Calcium Magnesium Total Bilirubin Direct Bilirubin AST ALT Alkaline Phosphatase Troponin I High Sens Total Protein Albumin Lipase Urine Color Urine Appearance Urine pH Ur Specific [place] Urine Protein Urine Glucose (UA) Urine Ketones Urine Blood Urine Nitrite Ur Leukocyte Esterase Urine RBC Urine WBC Ur Squamous Epith Cells Urine Bacteria Stool Occult Blood COVID-19 ([facility]) COVID-19 Clin Com Blood Type Antibody Screen Imaging Radiologist's Impressions: Impressions Chest X-Ray 05/29/22 14:46 IMPRESSION: Coarsened interstitial markings and mild bronchial wall thickening bilaterally related to the previous studies and suggest chronic changes/small airways disease. No focal consolidation. Abdomen/Pelvis CT 05/29/22 15:47 IMPRESSION: Hepatomegaly. Right adrenal gland adenoma Fleischner guidelines were followed. Assessment and Plan (1) Melena: Status: Acute (2) Acute UTI: Status: Acute Plan This is a 71-year-old female with past medical history of recent NSTEMI status post YARELY x1 at [facility] 1 week ago, COPD, hypertension, hyperlipidemia, gastritis, recurrent UTI who presents the emergency department with black stools found to have GI bleeding GI bleed Presumed upper GI source Recently started on aspirin and Brilinta due to stent placement Heme-positive stools H/H dropping, but no indication for transfusion at this time -NPO -IV PPI -check CBC q.6 hours -GI consult -will hold aspirin, continue Brilinta in light of recent drug-eluting stent placement. Will consult Cardiology for their input UTI Received his dose of ertapenem in the ED Previous micro indicates E coli sensitive to ceftriaxone however patient has a penicillin allergy Follow urine culture Hypertension Blood pressure in 90s on arrival Likely secondary to GI bleed No sepsis Will hold carvedilol, lisinopril, Lasix Monitor blood pressure closely CAD s/p YARELY x1 earlier this month Hold aspirin Continue Brilinta for now, will obtain Cardiology consult -continue statin -beta-cameron placed on hold due to hypotension on arrival HLD Continue Zetia, statin GERD/gastritis Oral pantoprazole be placed on hold receiving IV ppi Continue sucralfate Tobacco dependence Patient has decreased from half a pack a cigarettes to 1 cigarette per day NRT COPD no acute exacerbation continue home inhalers/breathing treatments DVT prophylaxis-mechanical devices due to GI bleeding Code status-patient wishes to be DNR/DNI Healthcare proxy-daughter Whit Attending-Dr. Dorado Given acute GI bleeding and UTI patient will likely require 2 midnight stay in the hospital Quality Stroke Does the patient have a stroke diagnosis?: No VTE Prior VTE?: No VTE Risk Level:: Medical - moderate - high VTE Device Contraindication: N/A - Device Ordered VTE Drug Contraindication: Treatment Not Indicated
[2022-05-29] MEDS: Acetaminophen 325 MG TABLET 650 MG PO (18:03)
[2022-05-29] MEDS: Lactated Ringers 1,000 ML 80 ML IVCONT (19:00)
[2022-05-29] MEDS: Ticagrelor 90 MG TABLET PO (20:28)
[2022-05-29] MEDS: Gabapentin 300 MG CAPSULE PO (20:28)
[2022-05-29] MEDS: Atorvastatin Calcium 80 MG TABLET PO (20:28)
--- NOTE | 2022-05-29 20:30 | PC.NURSE ---
carolina Carty NOTIFIED ABOUT PATIENTS LOW BLOOD PRESSURE.
--- NOTE | 2022-05-29 21:36 | PC.NURSE ---
Patient's blood pressure 89/42, heart rate 59. Patient in no acute distress, Dr Serna notified.
[2022-05-29] MEDS: 0.9 % Sodium Chloride 1,000 ML 999 ML IV (21:38)
--- NOTE | 2022-05-29 21:42 | PM.EVENT ---
Event Note Date of Service: 05/29/22 Event Note: pt hypotensive, no active bleeding. Attempted LA withdrawal but pt refused. I dont believe is septic and hypotension may be related to volume depletion in setting of GI bleed. will Give IV bolus, will attempt lactic acid in short while again
--- NOTE | 2022-05-29 21:54 | PC.NURSE ---
Pt refused blood draw from phlebotomy. Dr. Serna notified.
[2022-05-30] VITALS (9 sets, daily range): BP systolic 104–150; BP diastolic 49–66; PULSE 60–76; RESP 14–20; TEMP 36.6–37.2; O2SAT 98–99
[2022-05-30] MEDS: Acetaminophen 325 MG TABLET 650 MG PO ×2 (03:41→17:15)
[2022-05-30 05:13] LABS: Hematocrit 27.4 % (37.0-47.0); Hemoglobin 9.1 g/dl (12.0-16.0); Mean Corpuscular HGB Conc 33.2 g/dl (31.0-35.0); Mean Corpuscular Hemoglobin 27.5 pg (27.0-33.0); Mean Corpuscular Volume 82.8 fL (80.0-98.0); Mean Platelet Volume 10.5 fL (9.4-12.3); Platelet Count 251 X10*3/uL (160-400); Red Blood Count 3.31 X10*6/uL (4.20-5.50); Red Cell Distribution Width 15.2 % (11.0-16.0); White Blood Count 15.6 X10*3/uL (4.8-10.8)
[2022-05-30 05:36] LABS: Blood Urea Nitrogen 10 mg/dL (9-16); Glucose Random 83 mg/dL (60-115)
[2022-05-30 05:37] LABS: Anion Gap 10 (12-20); Calcium 7.7 mg/dL (8.4-10.2); Carbon Dioxide 16 mmol/L (22-29); Chloride 114 mmol/L (96-108); Creatinine Clr Calc Pharmacy 49.8; Estimated Glomerular Filt Rate > 60; Potassium 4.1 mmol/L (3.3-5.1); Sodium 136 mmol/L (135-145)
[2022-05-30] MEDS: Pantoprazole Sodium 40 MG/10 ML VIAL IVPUSH ×2 (06:25→17:15)
--- NOTE | 2022-05-30 07:17 | P.CNGI_ITS ---
History of Present Illness Data of Consult Service Date: 05/30/22 Requesting physician: Sri Schmid Primary Care Provider: Danni Mccarthy MD [facility] Reason for consult: GI Bleeding 71 YF with recent NSTEMI status post YARELY x1 on May 22.? She was discharged from [facility] on May 23 on aspirin and Brilinta.? Pt noted black stools and 2 days later she went to the emergency department at [facility] for evaluation.? She was admitted overnight for observation due to concern over GI bleeding.? Notes obtained from [facility] indicate that although she had heme- positive stool, GI was not concerned that she had active GI bleeding and johnson mmended to continue her aspirin and Brilinta as prescribed.? Pt was discharged [facility] [place] May [facility].? Pt has continued to have black stools without BRB since that time.? She denies any abdominal pain, nausea, vomiting.? According to records from [facility] patient's H/H was 12.3/37.5 on May 26.? On arrival to the emergency department today her H/H was 10.1/31.4.? She had repeat CBC drawn 2 hours later which showed further drop to 9.4/28.8.? She was also noted to have leukocytosis with a white count of 19.1.? Her blood pressure was initially low in the 90s systolic.? Pt denied any dizziness, shortness of breath, chest pain at this time.? She received 1500 cc of normal saline.? Urinalysis was consistent with a UTI and she received dose of ertapenem.? Following fluid administration blood pressure has improved to 1 0 7/59, however patient is now noted to have low-grade fever of 100.6. Patient denies abdominal pain and admits to passing black stools for the past 2 weeks. She has 1-2 Bm a day. Pt is on chronic anticoagulation with aspirin and Brilinta due to recent YARELY placement a week ago. Patient denies known family history of colon polyps, colon cancer or other GI malignancies. COVID-19 vaccination status-Moderna x2 IMAGING STUDIES: 05/29/[address] SCAN SHOWED: LIVER, GALLBLADDER, AND BILIARY TREE: Liver is homogeneous, enlarged with the right lobe of the liver in the pelvis, measured approximately 20 cm. The gallbladder is unremarkable with no evidence of radiopaque gallstones, gallbladder wall thickening, or obvious pericholecystic inflammatory changes.? ADRENAL GLANDS: There is right adrenal gland adenoma with attenuation of minus 3HU, measured 1.4 x 1.0 cm. There is mild hypertrophy of the left adrenal gland.? KIDNEYS AND URETERS: The kidneys are normal in size, shape, and attenuation. No hydronephrosis, hydroureter, or calculi seen. No perinephric stranding. ? GASTROINTESTINAL TRACT: The small and large bowel are unremarkable. The appendix is not seen PAST EGD/COLONOSCOPY: 06/11/21 COLONOSCOPY SHOWED: Two diminutive appearing polyps were biopsied Moderate diverticulosis seen in the left colon Moderate hemorrhoids on retroflexed exam. Plan: Repeat Colonoscopy interval based on path results - in 5 years if polyps are adenomatous and 10 years if polyps are hyperplastic. 08/13/21 EGD SHOWED: ESOPHAGUS: Small hiatal hernia STOMACH: Decreased fundal folds suggestive of atrophic gastritis DUODENUM: Normal - biopsied to check for celiac sprue No clear source found for anemia Plan: Consider further evaluation of anemia with a Caspule Endoscopy 09/05/21 CAPSULE ENDOSCOPY SHOWED: Normal esophagus and stomach. Duodenitis with possible small AVM in the 2nd part of duodenum. No active bleeding seen in the small bowel. Cecum reached at 02:00 hours and 30 minutes. Several AVMs including edge of a large AVM noted. [facility] Past Medical History Medical History Abscess of right genital labia Carotid stenosis, bilateral COPD (chronic obstructive pulmonary disease) Gastritis HTN (hypertension) Hyperlipidemia Iron (Fe) deficiency anemia Lichen sclerosus NSTEMI (non-ST elevated myocardial infarction) Perirectal ulcer Pulmonary nodules PVD (peripheral vascular disease) Pyuria Vulvar leukoplakia Functional capacity: independent ambulation Family History Family History Family/Other Breast cancer Mother HTN (hypertension) Asthma Brother CVA (cerebral vascular accident) Asthma Father Asthma Surgical History Surgical History H/O colonoscopy History of bilateral tubal ligation History of brain surgery History of carpal tunnel surgery History of esophagogastroduodenoscopy (EGD) Social History Social History Household Members: None Housing: Apartment Are you a primary companion caregiver to a significant other at home: No Do you presently have visiting nurse or other home services: No Alcohol intake: never Patient Tobacco Use Status: Current everyday Tobacco user Tobacco use type: Cigarette Cigarettes Per Day: 1 Years Smoked: 52 Smoked in Last 30 Days: Yes Use of substances other than those prescribed or required for medical reasons: No Advance Directives: Yes Advance Directives Information Provided: Yes Advance Directives on File: No Advance Directives Date on File: 05/30/22 service: No Current occupational status: unemployed Sexual orientation: Straight/Heterosexual Gender identity: Female Meds Allergies Allergy/AdvReac Type Severity Reaction Status Date / Time levofloxacin [LEVOFLOXACIN] Allergy Intermediate HIVES Verified 06/05/22 12:31 ceftriaxone [From ROCEPHIN] Allergy Mild SWELLING Verified 06/05/22 12:31 cephalexin [From KEFLEX] Allergy Mild ITCHING Verified 06/05/22 12:31 cyanocobalamin (vitamin B12) Allergy Mild Rash Verified 06/05/22 12:31 doxycycline Allergy Mild Rash Verified 06/05/22 12:31 ferrous sulfate Allergy Mild Stomach Verified 06/05/22 12:31 Upset almond Allergy itchy Verified 06/05/22 12:31 throat Active Medications: Current Medications Acetaminophen (Acetaminophen 325 Mg Tablet) 650 mg PO Q6H PRN PRN Reason: Pain, Mild (Pain Scale 1-3) Last Admin: 05/30/22 03:41 Dose: 650 mg Albuterol Sulfate (Albuterol Sulfate (0.083%) 2.5 Mg/3 Ml Vial.Neb) 2.5 mg INHALE QID PRN PRN Reason: Shortness Of Breath Ascorbic Acid (Ascorbic Acid 500 Mg Tablet) 500 mg PO DAILY JUN Atorvastatin Calcium (Atorvastatin Calcium 80 Mg Tablet) 80 mg PO BEDTIME JUN Last Admin: 05/29/22 20:28 Dose: 80 mg Ezetimibe (Ezetimibe 10 Mg Tablet) 10 mg PO DAILY JUN Gabapentin (Gabapentin 300 Mg Capsule) 300 mg PO BEDTIME JUN Last Admin: 05/29/22 20:28 Dose: 300 mg Hydroxyzine HCl (Hydroxyzine Hcl 25 Mg Tablet) 25 mg PO QID PRN PRN Reason: Itching Lactated Ringer's (Lr) 1,000 mls @ 80 mls/hr IVCONT .[id number] [facility] Last Admin: 05/29/22 19:00 Dose: 80 mls/hr Nicotine (Nicotine 14 Mg Patch.Td24) 14 mg TRANSDERMA DAILY [facility] Nicotine Polacrilex (Nicotine Polacrilex 2 Mg Gum) 2 mg BUCCAL Q2H PRN PRN Reason: Nicotine Cravings Non-Formulary Medication (Umeclidinium-Vilanterol [Anoro Ellipta]) 1 each INHALE DAILY [facility] Pantoprazole Sodium (Pantoprazole Sodium 40 Mg/10 Ml Vial) 40 mg IVPUSH BID@0630,1630 [facility] Last Admin: 05/30/22 06:25 Dose: 40 mg Pharmacy Consult (Consult Rx Perform Med Rec) 1 each MISCELLANE ONCE PRN PRN Reason: Consult order Sodium Chloride (0.9 % Sodium Chloride Flush 3 Ml Syringe) 3 ml IVFLUSH QSHIFT [facility] Last Admin: 05/30/22 01:26 Dose: Not Given Sucralfate (Sucralfate Oral Suspension 1 Gm/10 Ml [facility].Susp) [facility] T[facility]relor (Ticagrelor 90 Mg Tablet) 90 mg PO BID [facility] Last Admin: 05/29/22 20:28 Dose: 90 mg Valacyclovir HCl (Valacyclovir Hcl 1,000 Mg Tablet) 1,000 mg PO DAILY [facility] Home Medications Medication Instructions Recorded Confirmed Last Taken Type gabapentin 300 mg capsule 300 mg PO BEDTIME 09/13/20 06/06/22 06/11/21 07:30 History methenamine hippurate 1 gram tablet 1 tab PO BID 12/27/21 06/06/22 Unknown History valacyclovir 1 gram tablet 1 tab PO DAILY 12/27/21 06/06/22 Unknown History docusate sodium 100 mg capsule 100 mg PO BEDTIME 03/13/22 06/06/22 Unknown History (Colace) acetaminophen 500 mg tablet 1,000 mg PO Q6H PRN pain or fever 05/29/22 06/06/22 Unknown History (Tylenol Extra Strength) albuterol sulfate 2.5 mg/0.5 mL 2.5 mg inhalation QID PRN 05/29/22 06/06/22 Unknown History solution for nebulization Shortness Of Breath ascorbic acid (vitamin C) 500 mg 500 mg PO DAILY 05/29/22 06/06/22 Unknown History tablet aspirin 81 mg tablet,delayed 81 mg PO DAILY 05/29/22 06/06/22 Unknown History release cetirizine 10 mg tablet 1 tab PO DAILY 05/29/22 06/06/22 Unknown History cholecalciferol (vitamin D3) 50 1 cap PO DAILY 05/29/22 06/06/22 Unknown History mcg (2,000 unit) capsule clobetasol 0.05 % topical ointment 1 ea topical BID 05/29/22 06/06/22 Unknown History ezetimibe 10 mg tablet 10 mg PO DAILY 05/29/22 06/06/22 Unknown History famotidine 40 mg tablet 1 tab PO BEDTIME 05/29/22 06/06/22 Unknown History hydroxyzine HCl 25 mg tablet 25 mg PO QID PRN Itching 05/29/22 06/06/22 Unknown History pantoprazole 40 mg tablet,delayed 40 mg PO DAILY@0630 05/29/22 06/06/22 Unknown History release rosuvastatin 40 mg tablet 40 mg PO BEDTIME 05/29/22 06/06/22 Unknown History Physical Exam Vital Signs: Vital Signs: Last Vital Signs Temp 97.8 F 05/30/22 04:34 Pulse 68 05/30/22 04:34 Resp 14 05/30/22 04:34 BP 104/50 L 05/30/22 04:34 Pulse Ox 98 05/30/22 04:34 O2 Del Method 05/30/22 04:34 BMI result Body Mass Index 25.9 Const: General: no acute distress Nutritional Appearance: average body habitus Orientation/consciousness: patient oriented x3 Limitations: no limitations HEENT: Head: Yes normal to inspection Ears: hearing grossly normal bilaterally Eyes: Sclerae: sclerae normal Pupils: Equal, round and reactive pupils present Neck: Neck: Yes normal visual inspection Chest: Chest palpation & inspection: normal inspection of the chest Resp: Effort & Inspection: normal respiratory effort Auscultation: clear to auscultation bilaterally Cardio: Palpation: normal PMI Rate: regular rate Rhythm: regular rhythm Heart sounds: S1 normal heart sound present, S2 normal heart sound present and no murmurs GI: Palpation (GI): Soft to palpation, nontender and No hepatosplenomegaly present Auscultation: normal bowel sounds Rectal Exam - Female: deferred Skin: General skin exam: no rashes or lesions noted Neuro: General: patient oriented x3, gait normal and moves all extremities Cranial nerves: Yes Equal, round and reactive pupils present Psych: Appearance: grossly normal Mental Status: mental status grossly normal Results Labs CBC & Chem 7: 06/03/22 05:46 06/03/22 05:46 Labs: Short CBC 05/29/22 05/29/22 05/30/22 Range/Units 14:24 16:33 05:06 WBC 19.1 H 18.4 H 15.6 H (4.8-10.8) X10*3/uL Hgb 10.1 L D 9.4 L 9.1 L (12.0-16.0) g/dl Hct 31.4 L D 28.8 L 27.4 L (37.0-47.0) % Plt Count 298 274 251 (160-400) X10*3/uL BMP 05/29/22 05/30/22 14:24 05:06 Sodium 134 L 136 Potassium 3.9 4.1 Chloride 107 114 H Carbon Dioxide 20 L 16 L BUN 17 H D 10 Creatinine 1.28 0.84 Calcium 7.3 L D 7.7 L Liver Function 05/29/22 Range/Units 14:24 Total Bilirubin 1.0 (0.0-1.0) mg/dL Direct Bilirubin 0.4 (0.0-0.5) mg/dL AST 25 (5-31) U/L ALT 29 (0-31) U/L Alkaline Phosphatase 76 D (39-117) U/L Albumin 3.2 L (3.5-5.0) g/dL Urine 05/29/22 Range/Units 15:14 Urine Color YELLOW Urine Appearance CLOUDY Urine pH 5.5 (5.0-8.0) Ur Specific [place] 1.025 (1.005-1.025) Urine Protein 2+ H (NEG-TRACE) MG/DL Urine Glucose (UA) NEG (NEG) MG/DL Assessment and Plan (1) Anemia: Status: Acute (2) Gastrointestinal bleeding: Status: Acute Plan 71 year old Yoruba speaking female with hypertension, hyperlipidemia, with recent NSTEMI status post YARELY x1 on May 22.? She was discharged from [facility] on May 23 on aspirin and Brilinta and noted black stools Pt has continued to have black stools without BRB since that time.? Pt has a hx of NISHANT and was evaluated with an EGD and colonoscopy a year ago. No clear source found for anemia. A Capsule Endoscopy showed possible small non bleeding AVM in the 2nd part of the duodenum. Several AVMs in the cecum including edge of a large AVM was noted. Patient was treated with IV iron with improvement in anemia Most likely source of black stool is AVMs in the colon caused by anticoagulation therapy after stent placed. Pt is unable to stop/hold anticoagulation due to recent stent placement. RECOMMENDATIONS: 1. Monitor H & H daily after PRBC transfusion. 2. Continue IV PPI BID 3. If bleeding subsides, pt can be discharged home on twice daily PPI. 4. If bleeding persists, source of bleeding can be evaluated with an EGD and Colonoscopy - unfortunately endoscopic ablation therapy cannot be performed while pt is on anticoagulation. Dr Santiago equipment application specialist for GI over the weekend and pt was signed out to him. Procedures Date of Service Date of Service: 05/30/22
[2022-05-30] MEDS: Sucralfate Oral Suspension 1 GM/10 ML ORAL.SUSP PO ×2 (08:13→17:15)
[2022-05-30] MEDS: Lactated Ringers 1,000 ML 80 ML IVCONT ×2 (08:13→19:27)
[2022-05-30] MEDS: Ticagrelor 90 MG TABLET PO ×2 (08:14→20:13)
[2022-05-30] MEDS: Ezetimibe 10 MG TABLET PO (08:14)
[2022-05-30] MEDS: valACYclovir HCL 1,000 MG TABLET 1000 MG PO (08:14)
[2022-05-30] MEDS: Ascorbic Acid 500 MG TABLET PO (08:14)
[2022-05-30] MEDS: Nicotine 14 MG PATCH.TD24 TRANSDERMA (08:14)
--- NOTE | 2022-05-30 10:14 | P.CONCA_ITS ---
History of Present Illness History of Present Illness Date of Service: 05/30/22 Chief complaint: GI bleeding Narrative: This is a cardiology consultation regarding GI bleeding and recent coronary stenting. Based on documentation, she underwent cardiac catheterization for NSTEMI on May 22. At that time, she underwent PCI to mid OM 1. She was put on aspirin and Brilinta. Subsequently, it seems that she got readmitted to [facility] for concern of GI bleeding. She had heme-positive stools but apparently advise does still continue aspirin Brilinta. Then she was discharged. She continued to have black stools and hence she is admitted here. Otherwise, she does not have any specific symptoms like angina or shortness of breath or anything else. Review of Systems Review of Systems: Yes all other systems are reviewed and are negative Constitutional: Constitutional: Reports as per HPI Eyes: Eyes: Reports as per HPI ENT: Reports as per HPI Cardiovascular: Cardiovascular: Reports as per HPI, Denies acrocyanosis, Denies cool extremities, Denies chest pain, Denies leg edema, Denies lightheadedness, Denies palpitations and Denies dyspnea Respiratory: Respiratory: Reports as per HPI, Reports no additional respiratory complaints and Denies dyspnea Gastrointestinal: Gastrointestinal: Reports as per HPI, Reports no additional gastrointestinal complaints and Reports melena Genitourinary: Genitourinary: Reports as per HPI Musculoskeletal: Musculoskeletal: Reports no additional musculoskeletal complaints and Reports as per HPI Integumentary/Breasts: Skin/Breast: Reports system reviewed and no additional complaints, except as docu Neurologic: Reports system reviewed and no additional complaints, except as documented and Reports as per HPI Psychiatric: Psychiatric: Reports no additional psychiatric complaints and Reports as per HPI Endocrine: Endocrine: Reports no additional endocrine complaints, Reports as per HPI and Denies palpitations Hematologic/Lymphatic: Hematologic/Lymphatic: Reports no additional hematologic/lymphatic complaints and Reports as per HPI Allergic/Immunologic: Allergic/Immunologic: Reports no additional allergic/immunologic complaints and Reports as per HPI COUNT INCLUDES THE [facility] Past Medical History Medical History (Updated 05/30/22 @ 10:17 by Leoncio Loya MD) Abscess of right genital labia Carotid stenosis, bilateral COPD (chronic obstructive pulmonary disease) Gastritis HTN (hypertension) Hyperlipidemia Iron (Fe) deficiency anemia Lichen sclerosus NSTEMI (non-ST elevated myocardial infarction) Perirectal ulcer Pulmonary nodules PVD (peripheral vascular disease) Vulvar leukoplakia Functional capacity: independent ambulation Family History Family History Family/Other Breast cancer Mother HTN (hypertension) Asthma Brother CVA (cerebral vascular accident) Asthma Father Asthma Surgical History Surgical History H/O colonoscopy History of bilateral tubal ligation History of brain surgery History of carpal tunnel surgery History of esophagogastroduodenoscopy (EGD) Social History Social History Household Members: None Housing: Apartment Are you a primary personal care aide to a significant other at home: No Do you presently have visiting nurse or other home services: No Alcohol intake: never Patient Tobacco Use Status: Current everyday Tobacco user Years Smoked: 52 Advance Directives: No Advance Directives Information Provided: Yes service: No Current occupational status: unemployed Sexual orientation: Straight/Heterosexual Gender identity: Female Meds Allergies Allergy/AdvReac Type Severity Reaction Status Date / Time levofloxacin [LEVOFLOXACIN] Allergy Intermediate HIVES Verified 05/12/22 12:50 ceftriaxone [From ROCEPHIN] Allergy Mild SWELLING Verified 05/12/22 12:50 cephalexin [From KEFLEX] Allergy Mild ITCHING Verified 05/12/22 12:50 cyanocobalamin (vitamin B12) Allergy Mild Rash Verified 05/12/22 12:50 doxycycline Allergy Mild Rash Verified 05/12/22 12:50 ferrous sulfate Allergy Mild Stomach Verified 05/12/22 12:50 Upset almond Allergy itchy Verified 05/12/22 12:50 throat Active Medications: Current Medications Acetaminophen (Acetaminophen 325 Mg Tablet) 650 mg PO Q6H PRN PRN Reason: Pain, Mild (Pain Scale 1-3) Last Admin: 05/30/22 03:41 Dose: 650 mg Albuterol Sulfate (Albuterol Sulfate (0.083%) 2.5 Mg/3 Ml Vial.Neb) 2.5 mg INHALE QID PRN PRN Reason: Shortness Of Breath Ascorbic Acid (Ascorbic Acid 500 Mg Tablet) 500 mg PO DAILY [facility] Last Admin: 05/30/22 08:14 Dose: 500 mg Aspirin (Aspirin Enteric Coated 81 Mg Tablet.) 81 mg PO DAILY [facility] Atorvastatin Calcium (Atorvastatin Calcium 80 Mg Tablet) 80 mg PO BEDTIME [facility] Last Admin: 05/29/22 20:28 Dose: 80 mg Ezetimibe (Ezetimibe 10 Mg Tablet) 10 mg PO DAILY [facility] Last Admin: 05/30/22 08:14 Dose: 10 mg Gabapentin (Gabapentin 300 Mg Capsule) 300 mg PO BEDTIME [facility] Last Admin: 05/29/22 20:28 Dose: 300 mg Hydroxyzine HCl (Hydroxyzine Hcl 25 Mg Tablet) 25 mg PO QID PRN PRN Reason: Itching Lactated Ringer's (Lr) 1,000 mls @ 80 mls/hr IVCONT .[id number] [facility] Last Admin: 05/30/22 08:13 Dose: 80 mls/hr Nicotine (Nicotine 14 Mg Patch.Td24) 14 mg TRANSDERMA DAILY [facility] Last Admin: 05/30/22 08:14 Dose: 14 mg Nicotine Polacrilex (Nicotine Polacrilex 2 Mg Gum) 2 mg BUCCAL Q2H PRN PRN Reason: Nicotine Cravings Non-Formulary Medication (Umeclidinium-Vilanterol [Anoro Ellipta]) 1 each INHALE DAILY [facility] Pantoprazole Sodium (Pantoprazole Sodium 40 Mg/10 Ml Vial) 40 mg IVPUSH BID@0630,1630 [facility] Last Admin: 05/30/22 06:25 Dose: 40 mg Pharmacy Consult (Consult Rx Perform Med Rec) 1 each MISCELLANE ONCE PRN PRN Reason: Consult order Sodium Chloride (0.9 % Sodium Chloride Flush 3 Ml Syringe) 3 ml IVFLUSH QSHIFT [facility] Last Admin: 05/30/22 08:14 Dose: Not Given Sucralfate (Sucralfate Oral Suspension 1 Gm/10 Ml Oral.Susp) 1 gm PO BIDAC [facility] Last Admin: 05/30/22 08:13 Dose: 1 gm Ticagrelor (Ticagrelor 90 Mg Tablet) 90 mg PO BID [facility] Last Admin: 05/30/22 08:14 Dose: 90 mg Valacyclovir HCl (Valacyclovir Hcl 1,000 Mg Tablet) 1,000 mg PO DAILY [facility] Last Admin: 05/30/22 08:14 Dose: 1,000 mg Home Medications Medication Instructions Recorded Confirmed Last Taken Type gabapentin 300 mg capsule 300 mg PO BEDTIME 09/13/20 05/29/22 06/11/21 07:30 History lisinopril 20 mg tablet 20 mg PO BEDTIME 09/13/20 05/29/22 Unknown History methenamine hippurate 1 gram tablet 1 tab PO BID 12/27/21 05/29/22 Unknown History valacyclovir 1 gram tablet 1 tab PO DAILY 12/27/21 05/29/22 Unknown History docusate sodium 100 mg capsule 100 mg PO BEDTIME 03/13/22 05/29/22 Unknown History (Colace) furosemide 20 mg tablet 20 mg PO DAILY 05/12/22 05/29/22 Unknown History acetaminophen 500 mg tablet 1,000 mg PO Q6H PRN pain or fever 05/29/22 05/29/22 Unknown History (Tylenol Extra Strength) albuterol sulfate 2.5 mg/0.5 mL 2.5 mg inhalation QID PRN 05/29/22 05/29/22 Unknown History solution for nebulization Shortness Of Breath ascorbic acid (vitamin C) 500 mg 500 mg PO DAILY 05/29/22 05/29/22 Unknown History tablet aspirin 81 mg tablet,delayed 81 mg PO DAILY 05/29/22 05/29/22 Unknown History release carvedilol 6.25 mg tablet 6.25 mg PO BID 05/29/22 05/29/22 Unknown History cetirizine 10 mg tablet 1 tab PO DAILY 05/29/22 05/29/22 Unknown History cholecalciferol (vitamin D3) 50 1 cap PO DAILY 05/29/22 05/29/22 Unknown History mcg (2,000 unit) capsule clobetasol 0.05 % topical ointment 1 ea topical BID 05/29/22 05/29/22 Unknown History ezetimibe 10 mg tablet 10 mg PO DAILY 05/29/22 05/29/22 Unknown History famotidine 40 mg tablet 1 tab PO BEDTIME 05/29/22 05/29/22 Unknown History hydroxyzine HCl 25 mg tablet 25 mg PO QID PRN Itching 05/29/22 05/29/22 Unknown History methylcellulose (laxative) 500 mg 1 tab PO DAILY 05/29/22 05/29/22 Unknown History tablet (Fiber Laxative (methylcellulose)) pantoprazole 40 mg tablet,delayed 40 mg PO DAILY@62905/29/22 05/29/22 Unknown History release rosuvastatin 40 mg tablet 40 mg PO BEDTIME 05/29/22 05/29/22 Unknown History sucralfate 100 mg/mL oral 10 ml PO BIDAC 05/29/22 05/29/22 Unknown History suspension ticagrelor 90 mg tablet (Brilinta) 90 mg PO BID 05/29/22 05/29/22 Unknown History Physical Exam Vital Signs: Vital Signs: Last Vital Signs Temp 98.1 F 05/30/22 07:29 Pulse 61 05/30/22 07:29 Resp 15 05/30/22 07:29 BP 118/49 L 05/30/22 07:29 Pulse Ox 99 05/30/22 07:29 O2 Del Method 05/30/22 07:29 BMI result Body Mass Index 25.9 Const: General: comfortable and no acute distress Orientat ion/consciousness: patient oriented x3 HEENT: Other: Unremarkable Head: Yes normal to inspection Neck: Neck: Yes normal visual inspection Chest: Chest palpation & inspection: normal inspection of the chest Resp: Auscultation: clear to auscultation bilaterally Cardio: Palpation: normal PMI Heart sounds: S1 normal heart sound present, S2 normal heart sound present, no gallops, no murmurs and no rubs GI: Palpation (GI): Soft to palpation Back/Spine/Pelvis: Other: unremarkable Skin: General skin exam: no rashes or lesions noted Neuro: General: patient oriented x3 Extrem: General: Yes normal to inspection Psych: Mental Status: mental status grossly normal Objective Labs and Meds Result diagrams: 05/30/22 05:06 05/30/22 05:06 Lab results: Laboratory Results - last 24 hr 05/29/22 05/29/22 05/29/22 14:02 14:05 14:05 WBC RBC Hgb Hct MCV MCH MCHC RDW Plt Count MPV Immature Gran % (Auto) Neut % (Auto) Lymph % (Auto) [place] % (Auto) Eos % (Auto) Baso % (Auto) Lymph # (Auto) [place] # (Auto) Eos # (Auto) Baso # (Auto) Abs Immat Gran (auto) Absolute Neuts (auto) Absolute Nucleated RBC Nucleated RBC % (auto) Smear Tech's Comments PT INR APTT Sodium Potassium Chloride Carbon Dioxide Anion Gap BUN Creatinine Estim Creat Clear Calc Estimated GFR Random Glucose Lactic Acid Calcium Magnesium Total Bilirubin Direct Bilirubin AST ALT Alkaline Phosphatase Troponin I High Sens Total Protein Albumin Lipase Urine Color Urine Appearance Urine pH Ur Specific [place] Urine Protein Urine Glucose (UA) Urine Ketones Urine Blood Urine Nitrite Ur Leukocyte Esterase Urine RBC Urine WBC Ur Squamous Epith Cells Urine Bacteria Stool Occult Blood POSITIVE COVID-19 ([facility]) Negative COVID-19 Clin Com See Note Blood Type O Negative Antibody Screen NEGATIVE Crossmatch See Detail 05/29/22 05/29/22 05/29/22 14:24 14:24 14:24 WBC 19.1 H RBC 3.76 L D Hgb 10.1 L D Hct 31.4 L D MCV 83.5 MCH 26.9 L MCHC 32.2 RDW 15.1 Plt Count 298 MPV 10.0 Immature Gran % (Auto) 3.3 H Neut % (Auto) 65.6 Lymph % (Auto) 17.6 L [place] % (Auto) 10.3 Eos % (Auto) 2.8 Baso % (Auto) 0.4 Lymph # (Auto) 3.4 [place] # (Auto) 2.0 H Eos # (Auto) 0.5 H Baso # (Auto) 0.1 Abs Immat Gran (auto) 0.63 H Absolute Neuts (auto) 12.6 H Absolute Nucleated RBC 0.000 Nucleated RBC % (auto) 0.0 Smear Tech's Comments VERIFIED PT INR APTT Sodium 134 L Potassium 3.9 Chloride 107 Carbon Dioxide 20 L Anion Gap 11 L BUN 17 H D Creatinine 1.28 Estim Creat Clear Calc 32.6 Estimated GFR 41 Random Glucose 84 Lactic Acid 1.3 Calcium 7.3 L D Magnesium 2.0 Total Bilirubin 1.0 Direct Bilirubin 0.4 AST 25 ALT 29 Alkaline Phosphatase 76 D Troponin I High Sens Total Protein 5.7 L D Albumin 3.2 L Lipase 44 Urine Color Urine Appearance Urine pH Ur Specific [place] Urine Protein Urine Glucose (UA) Urine Ketones Urine Blood Urine Nitrite Ur Leukocyte Esterase Urine RBC Urine WBC Ur Squamous Epith Cells Urine Bacteria Stool Occult Blood COVID-19 ([facility]) COVID-19 Clin Com Blood Type Antibody Screen Crossmatch 05/29/22 05/29/22 05/29/22 14:24 14:24 15:14 WBC RBC Hgb Hct MCV MCH MCHC RDW Plt Count MPV Immature Gran % (Auto) Neut % (Auto) Lymph % (Auto) [place] % (Auto) Eos % (Auto) Baso % (Auto) Lymph # (Auto) [place] # (Auto) Eos # (Auto) Baso # (Auto) Abs Immat Gran (auto) Absolute Neuts (auto) Absolute Nucleated RBC Nucleated RBC % (auto) Smear Tech's Comments PT 13.8 H INR 1.2 H APTT 33.9 D Sodium Potassium Chloride Carbon Dioxide Anion Gap BUN Creatinine Estim Creat Clear Calc Estimated GFR Random Glucose Lactic Acid Calcium Magnesium Total Bilirubin Direct Bilirubin AST ALT Alkaline Phosphatase Troponin I High Sens 10.1 D Total Protein Albumin Lipase Urine Color YELLOW Urine Appearance CLOUDY Urine pH 5.5 Ur Specific [place] 1.025 Urine Protein 2+ H Urine Glucose (UA) NEG Urine Ketones NEG Urine Blood 2+ H Urine Nitrite NEG Ur Leukocyte Esterase 2+ H Urine RBC 15-29 H Urine WBC 50-75 H Ur Squamous Epith Cells 2+ Urine Bacteria 2+ Stool Occult Blood COVID-19 ([facility]) COVID-19 Clin Com Blood Type Antibody Screen Crossmatch 05/29/22 05/30/22 05/30/22 16:33 05:06 05:06 WBC 18.4 H 15.6 H RBC 3.45 L 3.31 L Hgb 9.4 L 9.1 L Hct 28.8 L 27.4 L MCV 83.5 82.8 MCH 27.2 27.5 MCHC 32.6 33.2 RDW 15.0 15.2 Plt Count 274 251 MPV 10.5 10.5 Immature Gran % (Auto) Neut % (Auto) Lymph % (Auto) [place] % (Auto) Eos % (Auto) Baso % (Auto) Lymph # (Auto) [place] # (Auto) Eos # (Auto) Baso # (Auto) Abs Immat Gran (auto) Absolute Neuts (auto) Absolute Nucleated RBC 0.000 0.000 Nucleated RBC % (auto) 0.0 0.0 Smear Tech's Comments PT INR APTT Sodium 136 Potassium 4.1 Chloride 114 H Carbon Dioxide 16 L Anion Gap 10 L BUN 10 Creatinine 0.84 Estim Creat Clear Calc 49.8 Estimated GFR > 60 Random Glucose 83 Lactic Acid Calcium 7.7 L Magnesium Total Bilirubin Direct Bilirubin AST ALT Alkaline Phosphatase Troponin I High Sens Total Protein Albumin Lipase Urine Color Urine Appearance Urine pH Ur Specific [place] Urine Protein Urine Glucose (UA) Urine Ketones Urine Blood Urine Nitrite Ur Leukocyte Esterase Urine RBC Urine WBC Ur Squamous Epith Cells Urine Bacteria Stool Occult Blood COVID-19 ([facility]) COVID-19 Clin Com Blood Type Antibody Screen Crossmatch ECG Interpretation: EKG with sinus rhythm at 66/Min; T inversions in the anterior leads and some nonspecific changes elsewhere. Imaging Radiologist's impression: Impressions Chest X-Ray 05/29/22 14:46 IMPRESSION: Coarsened interstitial markings and mild bronchial wall thickening bilaterally related to the previous studies and suggest chronic changes/small airways disease. No focal consolidation. Abdomen/Pelvis CT 05/29/22 15:47 IMPRESSION: Hepatomegaly. Right adrenal gland adenoma Fleischner guidelines were followed. Assessment and Plan (1) Gastrointestinal bleeding: Status: Acute (2) Atherosclerotic cardiovascular disease: Status: Acute (3) Stented coronary artery: Status: Acute Plan Cardiac studies reviewed. In the recent catheterization, noted to have 90% mid OM1 lesion, stented. She also had mid RCA 60% lesion. No obstructive disease in the LAD. Echocardiogram with LVEF 65-70% with no definite wall motion abnormalities. No significant aortic stenosis or regurgitation. There was moderate mitral annular calcification. Currently hemoglobin is at 9.1. About a week ago, it was 12.9. High sensitivity troponin 10.1. Overall, recent coronary artery stenting for NSTEMI and ongoing GI blood loss but not profoundly anemic. I would continue both aspirin and Brilinta at this time due to recent stenting. With regard to the anemia self, transfuse blood at least 1 unit. Also ask GI to see formally. Also will get in touch with the route manager who did the stenting if able. Will follow up with you. Discussed with the patient using ironer machine. Discussed with Sri Schmid. Procedures Date of Service Date of Service: 05/30/22
[2022-05-30 10:41] LABS: Hematocrit 30.1 % (37.0-47.0); Hemoglobin 9.8 g/dl (12.0-16.0); Mean Corpuscular HGB Conc 32.6 g/dl (31.0-35.0); Mean Corpuscular Hemoglobin 27.5 pg (27.0-33.0); Mean Corpuscular Volume 84.6 fL (80.0-98.0); Mean Platelet Volume 9.8 fL (9.4-12.3); Platelet Count 263 X10*3/uL (160-400); Red Blood Count 3.56 X10*6/uL (4.20-5.50); Red Cell Distribution Width 15.4 % (11.0-16.0); White Blood Count 14.7 X10*3/uL (4.8-10.8)
--- NOTE | 2022-05-30 11:15 | HO.PM.IMPN ---
Subjective Subjective Date of Service: 05/30/22 Interval History: Seen and examined this morning Follow-up for GI bleeding BP has been low overnight, but patient is asymptomatic Denies shortness of breath, chest pain Review of Systems Review of Systems: Yes all other systems are reviewed and are negative Constitutional Constitutional: Denies chills and Denies fever(s) Cardiovascular Cardiovascular: Denies chest pain, Denies palpitations and Denies dyspnea Respiratory Respiratory: Denies cough and Denies dyspnea Gastrointestinal Gastrointestinal: Denies abdominal pain, Denies nausea and Denies vomiting Endocrine Endocrine: Denies palpitations Physical Exam Vital Signs: Vital Signs: Last Vital Signs Temp 98.5 F 05/30/22 11:10 Pulse 63 05/30/22 11:10 Resp 20 05/30/22 11:10 BP 106/53 L 05/30/22 11:10 Pulse Ox 99 05/30/22 07:29 O2 Del Method 05/30/22 07:29 BMI result Body Mass Index 25.9 Const: General: cooperative, comfortable, alert and awake Nutritional Appearance: average body habitus Resp: Effort & Inspection: normal respiratory effort and able to speak in complete sentences Auscultation: clear to auscultation bilaterally Cardio: Rate: regular rate Heart sounds: S1 normal heart sound present and S2 normal heart sound present GI: Inspection: No distended Palpation (GI): Soft to palpation and nontender Extrem: Other: Able to move all 4 extremities spontaneously General: Yes no pedal edema Objective Data Active Medications Acetaminophen (Acetaminophen 325 Mg Tablet) 650 mg PO Q6H PRN PRN Reason: Pain, Mild (Pain Scale 1-3) Last Admin: 05/30/22 03:41 Dose: 650 mg Documented By: DIANE Albuterol Sulfate (Albuterol Sulfate (0.083%) 2.5 Mg/3 Ml Vial.Neb) 2.5 mg INHALE QID PRN PRN Reason: Shortness Of Breath Ascorbic Acid (Ascorbic Acid 500 Mg Tablet) 500 mg PO DAILY [facility] Last Admin: 05/30/22 08:14 Dose: 500 mg Documented By: DIANE Aspirin (Aspirin Enteric Coated 81 Mg Tablet.) 81 mg PO DAILY [facility] Atorvastatin Calcium (Atorvastatin Calcium 80 Mg Tablet) 80 mg PO BEDTIME [facility] Last Admin: 05/29/22 20:28 Dose: 80 mg Documented By: DIANE Ezetimibe (Ezetimibe 10 Mg Tablet) 10 mg PO DAILY [facility] Last Admin: 05/30/22 08:14 Dose: 10 mg Documented By: DIANE Gabapentin (Gabapentin 300 Mg Capsule) 300 mg PO BEDTIME [facility] Last Admin: 05/29/22 20:28 Dose: 300 mg Documented By: DIANE Hydroxyzine HCl (Hydroxyzine Hcl 25 Mg Tablet) 25 mg PO QID PRN PRN Reason: Itching Lactated Ringer's (Lr) 1,000 mls @ 80 mls/hr IVCONT .[id number] [facility] Last Admin: 05/30/22 08:13 Dose: 80 mls/hr Documented By: DIANE Nicotine (Nicotine 14 Mg Patch.Td24) 14 mg TRANSDERMA DAILY [facility] Last Admin: 05/30/22 08:14 Dose: 14 mg Documented By: DIANE Nicotine Polacrilex (Nicotine Polacrilex 2 Mg Gum) 2 mg BUCCAL Q2H PRN PRN Reason: Nicotine Cravings Non-Formulary Medication (Umeclidinium-Vilanterol [Anoro Ellipta]) 1 each INHALE DAILY [facility] Pantoprazole Sodium (Pantoprazole Sodium 40 Mg/10 Ml Vial) 40 mg IVPUSH BID@0630,1630 [facility] Last Admin: 05/30/22 06:25 Dose: 40 mg Documented By: DIANE Pharmacy Consult (Consult Rx Perform Med Rec) 1 each MISCELLANE ONCE PRN PRN Reason: Consult order Sodium Chloride (0.9 % Sodium Chloride Flush 3 Ml Syringe) 3 ml IVFLUSH QSHIFT [facility] Last Admin: 05/30/22 08:14 Dose: Not Given Documented By: DIANE Non-Admin Reason: IV Running Sucralfate (Sucralfate Oral Suspension 1 Gm/10 Ml Oral.Susp) 1 gm PO BIDAC [facility] Last Admin: 05/30/22 08:13 Dose: 1 gm Documented By: DIANE Ticagrelor (Ticagrelor 90 Mg Tablet) 90 mg PO BID [facility] Last Admin: 05/30/22 08:14 Dose: 90 mg Documented By: DIANE Valacyclovir HCl (Valacyclovir Hcl 1,000 Mg Tablet) 1,000 mg PO DAILY [facility] Last Admin: 05/30/22 08:14 Dose: 1,000 mg Documented By: DIANE Labs CBC & Chem 7: 05/30/22 10:36 05/30/22 05:06 Labs: Laboratory Results - last 24 hr 05/29/22 05/29/22 05/29/22 14:02 14:05 14:05 MCV MCH MCHC RDW Plt Count MPV Immature Gran % (Auto) Neut % (Auto) Lymph % (Auto) Mesa % (Auto) Eos % (Auto) Baso % (Auto) Lymph # (Auto) [place] # (Auto) Eos # (Auto) Baso # (Auto) Abs Immat Gran (auto) Absolute Neuts (auto) Absolute Nucleated RBC Nucleated RBC % (auto) Smear Tech's Comments PT INR APTT Anion Gap Estim Creat Clear Calc Estimated GFR Random Glucose Lactic Acid Calcium Magnesium Total Bilirubin Direct Bilirubin AST ALT Alkaline Phosphatase Troponin I High Sens Total Protein Albumin Lipase Urine Color Urine Appearance Urine pH Ur Specific [place] Urine Protein Urine Glucose (UA) Urine Ketones Urine Blood Urine Nitrite Ur Leukocyte Esterase Urine RBC Urine WBC Ur Squamous Epith Cells Urine Bacteria Stool Occult Blood POSITIVE COVID-19 ([facility]) Negative COVID-19 Clin Com See Note Blood Type O Negative Antibody Screen NEGATIVE Crossmatch See Detail 05/29/22 05/29/22 05/29/22 14:24 14:24 14:24 MCV 83.5 MCH 26.9 L MCHC 32.2 RDW 15.1 Plt Count 298 MPV 10.0 Immature Gran % (Auto) 3.3 H Neut % (Auto) 65.6 Lymph % (Auto) 17.6 L Mesa % (Auto) 10.3 Eos % (Auto) 2.8 Baso % (Auto) 0.4 Lymph # (Auto) 3.4 Mesa # (Auto) 2.0 H Eos # (Auto) 0.5 H Baso # (Auto) 0.1 Abs Immat Gran (auto) 0.63 H Absolute Neuts (auto) 12.6 H Absolute Nucleated RBC 0.000 Nucleated RBC % (auto) 0.0 Smear Tech's Comments VERIFIED PT INR APTT Anion Gap 11 L Estim Creat Clear Calc 32.6 Estimated GFR 41 Random Glucose 84 Lactic Acid 1.3 Calcium 7.3 L D Magnesium 2.0 Total Bilirubin 1.0 Direct Bilirubin 0.4 AST 25 ALT 29 Alkaline Phosphatase 76 D Troponin I High Sens Total Protein 5.7 L D Albumin 3.2 L Lipase 44 Urine Color Urine Appearance Urine pH Ur Specific [place] Urine Protein Urine Glucose (UA) Urine Ketones Urine Blood Urine Nitrite Ur Leukocyte Esterase Urine RBC Urine WBC Ur Squamous Epith Cells Urine Bacteria Stool Occult Blood COVID-19 ([facility]) COVID-19 [facility] Blood Type Antibody Screen Crossmatch 05/29/22 05/29/22 05/29/22 14:24 14:24 15:14 MCV MCH MCHC RDW Plt Count MPV Immature Gran % (Auto) Neut % (Auto) Lymph % (Auto) Mesa % (Auto) Eos % (Auto) Baso % (Auto) Lymph # (Auto) Mesa # (Auto) Eos # (Auto) Baso # (Auto) Abs Immat Gran (auto) Absolute Neuts (auto) Absolute Nucleated RBC Nucleated RBC % (auto) Smear Tech's Comments PT 13.8 H INR 1.2 H APTT 33.9 D Anion Gap Estim Creat Clear Calc Estimated GFR Random Glucose Lactic Acid Calcium Magnesium Total Bilirubin Direct Bilirubin AST ALT Alkaline Phosphatase Troponin I High Sens 10.1 D Total Protein Albumin Lipase Urine Color YELLOW Urine Appearance CLOUDY Urine pH 5.5 Ur Specific [place] 1.025 Urine Protein 2+ H Urine Glucose (UA) NEG Urine Ketones NEG Urine Blood 2+ H Urine Nitrite NEG Ur Leukocyte Esterase 2+ H Urine RBC 15-29 H Urine WBC 50-75 H Ur Squamous Epith Cells 2+ Urine Bacteria 2+ Stool Occult Blood COVID-19 ([facility]) COVID-19 [facility] Blood Type Antibody Screen Crossmatch 05/29/22 05/30/22 05/30/22 16:33 05:06 05:06 MCV 83.5 82.8 MCH 27.2 27.5 MCHC 32.6 33.2 RDW 15.0 15.2 Plt Count 274 251 MPV 10.5 10.5 Immature Gran % (Auto) Neut % (Auto) Lymph % (Auto) Mesa % (Auto) Eos % (Auto) Baso % (Auto) Lymph # (Auto) Mes[place] # (Auto) Eos # (Auto) Baso # (Auto) Abs Immat Gran (auto) Absolute Neuts (auto) Absolute Nucleated RBC 0.000 0.000 Nucleated RBC % (auto) 0.0 0.0 Smear Tech's Comments PT INR APTT Anion Gap 10 L Estim Creat Clear Calc 49.8 Estimated GFR > 60 Random Glucose 83 Lactic Acid Calcium 7.7 L Magnesium Total Bilirubin Direct Bilirubin AST ALT Alkaline Phosphatase Troponin I High Sens Total Protein Albumin Lipase Urine Color Urine Appearance Urine pH Ur Specific [place] Urine Protein Urine Glucose (UA) Urine Ketones Urine Blood Urine Nitrite Ur Leukocyte Esterase Urine RBC Urine WBC Ur Squamous Epith Cells Urine Bacteria Stool Occult Blood COVID-19 ([facility]) COVID-19 [facility] Blood Type Antibody Screen Crossmatch 05/30/22 10:36 MCV 84.6 MCH 27.5 MCHC 32.6 RDW 15.4 Plt Count 263 MPV 9.8 Immature Gran % (Auto) Neut % (Auto) Lymph % (Auto) Mesa % (Auto) Eos % (Auto) Baso % (Auto) Lymph # (Auto) Mesa # (Auto) Eos # (Auto) Baso # (Auto) Abs Immat Gran (auto) Absolute Neuts (auto) Absolute Nucleated RBC 0.000 Nucleated RBC % (auto) 0.0 Smear Tech's Comments PT INR APTT Anion Gap Estim Creat Clear Calc Estimated GFR Random Glucose Lactic Acid Calcium Magnesium Total Bilirubin Direct Bilirubin AST ALT Alkaline Phosphatase Troponin I High Sens Total Protein Albumin Lipase Urine Color Urine Appearance Urine pH Ur Specific [place] Urine Protein Urine Glucose (UA) Urine Ketones Urine Blood Urine Nitrite Ur Leukocyte Esterase Urine RBC Urine WBC Ur Squamous Epith Cells Urine Bacteria Stool Occult Blood COVID-19 ([facility]) COVID-19 Clin Com Blood Type Antibody Screen Crossmatch Microbiology Microbiology Results: Microbiology 05/29/22 15:22 Urine Culture - Preliminary Urine clean catch - Urine vance top Culture in progress. 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 -continue asa,Brilinta in light of recent drug-eluting stent placement, cardiology following UTI Previous micro indicates E coli sensitive to ceftriaxone and levofloxacin however patient has documented allergies to both Will continue ertapenem for now and obtain ID consult Follow final urine culture results Hypertension Blood pressure in 90s on arrival Likely secondary to GI bleed No sepsis Will hold carvedilol, lisinopril, Lasix Monitor blood pressure closely CAD s/p YARELY x1 earlier this month No chest pain Continue asa, Brilinta for now -continue statin -beta-cameron placed on hold due to hypotension on arrival -cardiology following HLD Continue Zetia, statin GERD/gastritis Oral pantoprazole be placed on hold receiving IV ppi Continue sucralfate Tobacco dependence Patient has decreased from half a pack a cigarettes to 1 cigarette per day NRT COPD no acute exacerbation continue home inhalers/breathing treatments DVT prophylaxis-mechanical devices due to GI bleeding Code status-patient wishes to be DNR/DNI Healthcare proxy-daughter Whit Attending-Dr. Swartz Patient requires ongoing inpatient hospitalization due to GI bleeding, GI evaluation, IV antibiotics for UTI Quality Stroke Does the patient have a stroke diagnosis?: No VTE Prior VTE?: No VTE Risk Level:: Medical - moderate - high VTE Device Contraindication: N/A - Device Ordered VTE Drug Contraindication: Treatment Not Indicated
[2022-05-30] MEDS: Aspirin Enteric Coated 81 MG TABLET.DR PO (11:21)
--- NOTE | 2022-05-30 19:56 | PC.NURSE ---
PATIENT WAS ASSISTED WITH AMBULATION TO THE BATHROOM .
[2022-05-30] MEDS: Gabapentin 300 MG CAPSULE PO (20:13)
[2022-05-30] MEDS: Atorvastatin Calcium 80 MG TABLET PO (20:13)
--- NOTE | 2022-05-30 21:13 | PC.NURSE ---
PATIENT WAS ASSISTED TO THE BATHROOM .
[2022-05-31] VITALS (7 sets, daily range): BP systolic 110–146; BP diastolic 55–66; PULSE 62–74; RESP 16–24; TEMP 36.4–37.8; O2SAT 97–100; BMI 26.9
[2022-05-31] MEDS: Acetaminophen 325 MG TABLET 650 MG PO ×2 (00:02→12:54)
[2022-05-31] MEDS: Pantoprazole Sodium 40 MG/10 ML VIAL IVPUSH ×2 (06:24→15:30)
[2022-05-31 07:12] LABS: Hematocrit 34.1 % (37.0-47.0); Hemoglobin 11.2 g/dl (12.0-16.0); Mean Corpuscular HGB Conc 32.8 g/dl (31.0-35.0); Mean Corpuscular Hemoglobin 27.6 pg (27.0-33.0); Mean Platelet Volume 10.8 fL (9.4-12.3); Platelet Count 281 X10*3/uL (160-400); Red Blood Count 4.06 X10*6/uL (4.20-5.50); Red Cell Distribution Width 15.2 % (11.0-16.0); White Blood Count 11.9 X10*3/uL (4.8-10.8)
[2022-05-31] MEDS: Lactated Ringers 1,000 ML 80 ML IVCONT (08:46)
[2022-05-31] MEDS: Sucralfate Oral Suspension 1 GM/10 ML ORAL.SUSP PO ×2 (08:46→15:30)
[2022-05-31] MEDS: Ticagrelor 90 MG TABLET PO (08:46)
[2022-05-31] MEDS: Ascorbic Acid 500 MG TABLET PO (08:47)
[2022-05-31] MEDS: valACYclovir HCL 1,000 MG TABLET 1000 MG PO (08:47)
[2022-05-31] MEDS: Ezetimibe 10 MG TABLET PO (08:47)
[2022-05-31] MEDS: Aspirin Enteric Coated 81 MG TABLET.DR PO (08:47)
--- NOTE | 2022-05-31 10:26 | PM.PNCARD ---
Subjective Subjective Date of Service: 05/31/22 Interval history: still has black stools. Review of Systems Review of Systems Yes all other systems are reviewed and are negative Constitutional: Reports as per HPI Eyes: Reports as per HPI Reports as per HPI Cardiovascular: Reports as per HPI, Denies acrocyanosis, Denies cool extremities, Denies chest pain, Denies leg edema, Denies lightheadedness, Denies palpitations and Denies dyspnea Respiratory: Reports as per HPI, Reports no additional respiratory complaints and Denies dyspnea Gastrointestinal: Reports as per HPI, Reports no additional gastrointestinal complaints and Reports melena Musculoskeletal: Reports no additional musculoskeletal complaints and Reports as per HPI Skin/Breast: Reports system reviewed and no additional complaints, except as docu Reports system reviewed and no additional complaints, except as documented and Reports as per HPI Psychiatric: Reports no additional psychiatric complaints and Reports as per HPI Endocrine: Reports no additional endocrine complaints, Reports as per HPI and Denies palpitations Hematologic/Lymphatic: Reports no additional hematologic/lymphatic complaints and Reports as per HPI Allergic/Immunologic: Reports no additional allergic/immunologic complaints and Reports as per HPI Physical Exam Vital Signs: Last Vital Signs Temp 97.9 F 05/31/22 07:43 Pulse 67 05/31/22 07:43 Resp 20 05/31/22 07:43 BP 115/56 L 05/31/22 07:43 Pulse Ox 100 05/31/22 07:43 O2 Del Method 05/31/22 07:43 BMI result Body Mass Index 26.9 Const General: comfortable and no acute distress Orientation/consciousness: patient oriented x3 HEENT Other: Unremarkable Head: Yes normal to inspection Neck Neck: Yes normal visual inspection Chest Chest palpation & inspection: normal inspection of the chest Resp Auscultation: clear to auscultation bilaterally Cardio Palpation: normal PMI Heart sounds: S1 normal heart sound present, S2 normal heart sound present, no gallops, no murmurs and no rubs GI Palpation (GI): Soft to palpation Back/Spine/Pelvis Other: unremarkable Skin General skin exam: no rashes or lesions noted Neuro General: patient oriented x3 Extrem General: Yes normal to inspection Psych Mental Status: mental status grossly normal Objective Labs and Meds Result diagrams: 05/31/22 06:39 05/30/22 05:06 Lab results: Laboratory Results - last 24 hr 05/29/22 05/30/22 05/31/22 14:02 10:36 06:39 WBC 14.7 H 11.9 H RBC 3.56 L 4.06 L Hgb 9.8 L 11.2 L Hct 30.1 L 34.1 L MCV 84.6 84.0 MCH 27.5 27.6 MCHC 32.6 32.8 RDW 15.4 15.2 Plt Count 263 281 MPV 9.8 10.8 Absolute Nucleated RBC 0.000 0.000 Nucleated RBC % (auto) 0.0 0.0 Blood Type O Negative Antibody Screen NEGATIVE Crossmatch See Detail Progress Note: A&P Assessment and plan (1) Gastrointestinal bleeding: Status: Acute (2) Atherosclerotic cardiovascular disease: Status: Acute (3) Stented coronary artery: Status: Acute Plan Cardiac studies reviewed. In the recent catheterization, noted to have 90% mid OM1 lesion, stented. She also had mid RCA 60% lesion. No obstructive disease in the LAD. Echocardiogram with LVEF 65-70% with no definite wall motion abnormalities. No significant aortic stenosis or regurgitation. There was moderate mitral annular calcification. Hemoglobin has improved since arrival presumably from the transfusion. However, she still has melena, per patient. Discussed with who performed the PCI last week. According to him, we can switch from Brilinta to Plavix, which might be of help. Hence we can start Plavix 300 mg today and then go to 75 mg daily. GI consultation noted. Protonix as suggested. Discussed with the patient using narrow gauge brakeman. Discussed with Sri Schmid. Time Spent With Patient Time: Total time spent is greater than 50% in coordination of care (as documented) at patient's floor/unit and/or counseling patient: 35min. Progress Note: Quality Stroke Does the patient have a stroke diagnosis?: No Procedures Date of Service Date of Service: 05/31/22
--- NOTE | 2022-05-31 11:13 | MHC.CM.PN ---
Interview conducted w/patient; lives alone, no prior services, no equipment in the home, does not drive- takes public transportation to where she needs to go. D/C plan is home (?) services at time of D/C readiness; patient indicates daughter to provide transport. CM to follow.
--- NOTE | 2022-05-31 11:13 | HO.PM.IMPN ---
Subjective Subjective Date of Service: 05/31/22 Interval History: Seen and examined this morning Follow-up for GI bleeding Continues to have loose black stools Denies bright red blood per rectum, denies abdominal pain, nausea, vomiting No chest pain, shortness of breath Review of Systems Review of Systems: Yes all other systems are reviewed and are negative Constitutional Constitutional: Denies chills and Denies fever(s) Cardiovascular Cardiovascular: Denies chest pain, Denies palpitations and Denies dyspnea Respiratory Respiratory: Denies cough and Denies dyspnea Gastrointestinal Gastrointestinal: Denies abdominal pain, Reports melena, Reports loose stools, Denies nausea and Denies vomiting Endocrine Endocrine: Denies palpitations Physical Exam Vital Signs: Vital Signs: Last Vital Signs Temp 97.9 F 05/31/22 07:43 Pulse 67 05/31/22 07:43 Resp 20 05/31/22 07:43 BP 115/56 L 05/31/22 07:43 Pulse Ox 100 05/31/22 07:43 O2 Del Method 05/31/22 07:43 BMI result Body Mass Index 26.9 Const: General: cooperative, comfortable, alert and awake Nutritional Appearance: average body habitus Resp: Effort & Inspection: normal respiratory effort and able to speak in complete sentences Auscultation: clear to auscultation bilaterally Cardio: Rate: regular rate Heart sounds: S1 normal heart sound present and S2 normal heart sound present GI: Inspection: No distended Palpation (GI): Soft to palpation and nontender Extrem: Other: Able to move all 4 extremities spontaneously General: Yes no pedal edema Objective Data Active Medications Acetaminophen (Acetaminophen 325 Mg Tablet) 650 mg PO Q6H PRN PRN Reason: Pain, Mild (Pain Scale 1-3) Last Admin: 05/31/22 00:02 Dose: 650 mg Documented By: CHAN Albuterol Sulfate (Albuterol Sulfate (0.083%) 2.5 Mg/3 Ml Vial.Neb) 2.5 mg INHALE QID PRN PRN Reason: Shortness Of Breath Ascorbic Acid (Ascorbic Acid 500 Mg Tablet) 500 mg PO DAILY [facility] Last Admin: 05/31/22 08:47 Dose: 500 mg Documented By: VANDANA Aspirin (Aspirin Enteric Coated 81 Mg Tablet.) 81 mg PO DAILY [facility] Last Admin: 05/31/22 08:47 Dose: 81 mg Documented By: VANDANA Atorvastatin Calcium (Atorvastatin Calcium 80 Mg Tablet) 80 mg PO BEDTIME [facility] Last Admin: 05/30/22 20:13 Dose: 80 mg Documented By: FERNANDO Clopidogrel Bisulfate (Clopidogrel Bisulfate 75 Mg Tablet) 75 mg PO DAILY [facility] Ezetimibe (Ezetimibe 10 Mg Tablet) 10 mg PO DAILY [facility] Last Admin: 05/31/22 08:47 Dose: 10 mg Documented By: VANDANA Gabapentin (Gabapentin 300 Mg Capsule) 300 mg PO BEDTIME [facility] Last Admin: 05/30/22 20:13 Dose: 300 mg Documented By: FERNANDO Hydroxyzine HCl (Hydroxyzine Hcl 25 Mg Tablet) 25 mg PO QID PRN PRN Reason: Itching Lactated Ringer's (Lr) 1,000 mls @ 80 mls/hr IVCONT .[id number] [facility] Last Admin: 05/31/22 08:46 Dose: 80 mls/hr Documented By: VANDANA Meropenem 1 gm/ Sodium (Chloride) 100 mls @ 200 mls/hr IV Q12H [facility] Last Infusion: 05/31/22 00:34 Dose: 0 mls/hr Documented By: CHAN Nicotine (Nicotine 14 Mg Patch.Td24) 14 mg TRANSDERMA DAILY [facility] Last Admin: 05/31/22 08:51 Dose: Not Given Documented By: VANDANA Non-Admin Reason: Patient Refused Nicotine Polacrilex (Nicotine Polacrilex 2 Mg Gum) 2 mg BUCCAL Q2H PRN PRN Reason: Nicotine Cravings Non-Formulary Medication (Umeclidinium-Vilanterol [Anoro Ellipta]) 1 each INHALE DAILY [facility] Pantoprazole Sodium (Pantoprazole Sodium 40 Mg/10 Ml Vial) 40 mg IVPUSH BID@0630,1630 [facility] Last Admin: 05/31/22 06:24 Dose: 40 mg Documented By: BROOK Pharmacy Consult (Consult Rx Perform Med Rec) 1 each MISCELLANE ONCE PRN PRN Reason: Consult order Sodium Bicarbonate (Sodium Bicarbonate 650 Mg Tablet) 650 mg PO BID [facility] Sodium Chloride (0.9 % Sodium Chloride Flush 3 Ml Syringe) 3 ml IVFLUSH QSHIFT [facility] Last Admin: 05/31/22 08:50 Dose: Not Given Documented By: VANDANA Non-Admin Reason: IV Running Sucralfate (Sucralfate Oral Suspension 1 Gm/10 Ml Oral.Susp) 1 gm PO BIDAC [facility] Last Admin: 05/31/22 08:46 Dose: 1 gm Documented By: VANDANA Valacyclovir HCl (Valacyclovir Hcl 1,000 Mg Tablet) 1,000 mg PO DAILY [facility] Last Admin: 05/31/22 08:47 Dose: 1,000 mg Documented By: VANDANA Labs CBC & Chem 7: 05/31/22 06:39 05/30/22 05:06 Labs: Laboratory Results - last 24 hr 05/29/22 05/31/22 14:02 06:39 MCV 84.0 MCH 27.6 MCHC 32.8 RDW 15.2 Plt Count 281 MPV 10.8 Absolute Nucleated RBC 0.000 Nucleated RBC % (auto) 0.0 Blood Type O Negative Antibody Screen NEGATIVE Crossmatch See Detail Microbiology Microbiology Results: Microbiology 05/29/22 15:22 Urine Culture - Final Urine clean catch - Urine vance top 05/29/22 16:54 Blood Culture - Preliminary Blood - Venous No growth after 24 hours. 05/29/22 16:33 Blood Culture - Preliminary Blood - Venous No growth after 24 hours. Assessment and Plan (1) Stented coronary artery: Status: Acute (2) Gastrointestinal bleeding: Status: Acute Plan This is a 71-year-old female with past medical history of recent NSTEMI status post YARELY x1 at [facility] 1 week ago, COPD, hypertension, hyperlipidemia, gastritis, recurrent UTI who presents the emergency department with black stools found to have GI bleeding GI bleed admitted with black stools, heme +; dark stools persist h/o colon AVMs Recently started on aspirin and Brilinta due to stent placement transfused 1U 05/30 given CAD, appropriate rise in H/H. Goal to keep hemoglobin at 10 or above -continue clears -continue IV PPI -follow H/H -discussed with GI, will hold off on scope at this time. -will continue aspirin, Brilinta will be changed to Plavix per Cardiology recommendation UTI Previous micro indicates E coli sensitive to ceftriaxone and levofloxacin however patient has documented allergies to both Will continue meropenem for now final urine culture indicative of contamination. will discuss with ID Hypertension Blood pressure in 90s on arrival Likely secondary to GI bleed No sepsis Will hold carvedilol, lisinopril, Lasix Monitor blood pressure closely CAD s/p YARELY x1 earlier this month No chest pain Continue asa, Brilinta for now -continue statin -beta-cameron placed on hold due to hypotension on arrival -cardiology following HLD Continue Zetia, statin GERD/gastritis Oral pantoprazole be placed on hold receiving IV ppi Continue sucralfate Tobacco dependence Patient has decreased from half a pack a cigarettes to 1 cigarette per day NRT COPD no acute exacerbation continue home inhalers/breathing treatments DVT prophylaxis-mechanical devices due to GI bleeding Code status-patient wishes to be DNR/DNI Healthcare proxy-daughter Whit Attending-Dr. Swartz Patient requires ongoing inpatient hospitalization due to GI bleeding, GI evaluation, IV antibiotics for UTI Quality Stroke Does the patient have a stroke diagnosis?: No VTE Prior VTE?: No VTE Risk Level:: Medical - moderate - high VTE Device Contraindication: N/A - Device Ordered VTE Drug Contraindication: Treatment Not Indicated
[2022-05-31] MEDS: Sodium Bicarbonate 650 MG TABLET PO ×2 (12:53→22:11)
[2022-05-31] MEDS: Clopidogrel Bisulfate 300 MG TABLET PO (12:53)
[2022-05-31] MEDS: Amoxicillin/Potassium Clav 500 MG TABLET PO (15:30)
[2022-05-31] MEDS: 0.9 % Sodium Chloride Flush 3 ML SYRINGE IVFLUSH (15:30)
[2022-05-31 17:59] LABS: CDiff Gene PCR NEGATIVE (Negative)
--- NOTE | 2022-05-31 18:02 | PC.NURSE ---
ALert and oriented. VSS, afebrile, no acute resp. distress noted. C/O left sided facial discomfort, prn tylenol given with good effect. Still having black liquid stool, sample colected to check for c-diff, results pending. Brilinta stop, start plavix. Daughter visited, updated of plan of care. Will continue to monitor and treat per plan of care.
[2022-05-31] MEDS: Atorvastatin Calcium 80 MG TABLET PO (22:12)
[2022-05-31] MEDS: Loperamide HCl 2 MG CAPSULE PO (22:12)
[2022-05-31] MEDS: Gabapentin 300 MG CAPSULE PO (22:12)
--- NOTE | 2022-05-31 22:53 | W.PM.IDCN ---
History of Present Illness Data of Consult Service Date: 05/31/22 Requesting physician: Sri Schmid Primary Care Provider: Danni Mccarthy MD HPI Reason for consult: bacteriuria,hypotension She presents with weakness and ongoing GI bleed. She has hypotnesion. She has no dysuria or hematuria. She was released from [facility] with [place] last two weeks. Review of Systems Review of Systems: Yes all other systems are reviewed and are negative [facility] Past Medical History Medical History (Updated 05/31/22 @ 23:01 by Nadja Finnegan MD) Abscess of right genital labia Carotid stenosis, bilateral COPD (chronic obstructive pulmonary disease) Gastritis HTN (hypertension) Hyperlipidemia Iron (Fe) deficiency anemia Lichen sclerosus NSTEMI (non-ST elevated myocardial infarction) Perirectal ulcer Pulmonary nodules PVD (peripheral vascular disease) Pyuria Vulvar leukoplakia Functional capacity: independent ambulation Family History Family History Family/Other Breast cancer Mother HTN (hypertension) Asthma Brother CVA (cerebral vascular accident) Asthma Father Asthma Family history: reviewed and not pertinent Surgical History Surgical History H/O colonoscopy History of bilateral tubal ligation History of brain surgery History of carpal tunnel surgery History of esophagogastroduodenoscopy (EGD) Social History Social History Household Members: None Housing: Apartment Are you a primary janitor caretaker to a significant other at home: No Do you presently have visiting nurse or other home services: No Alcohol intake: former Patient Tobacco Use Status: Current everyday Tobacco user Tobacco use type: Cigarette Cigarettes Per Day: 1 Years Smoked: 52 Advance Directives Date on File: 05/30/22 service: No Current occupational status: unemployed Sexual orientation: Straight/Heterosexual Gender identity: Female Meds Allergies Allergy/AdvReac Type Severity Reaction Status Date / Time levofloxacin [LEVOFLOXACIN] Allergy Intermediate HIVES Verified 05/12/22 12:50 ceftriaxone [From ROCEPHIN] Allergy Mild SWELLING Verified 05/12/22 12:50 cephalexin [From KEFLEX] Allergy Mild ITCHING Verified 05/12/22 12:50 cyanocobalamin (vitamin B12) Allergy Mild Rash Verified 05/12/22 12:50 doxycycline Allergy Mild Rash Verified 05/12/22 12:50 ferrous sulfate Allergy Mild Stomach Verified 05/12/22 12:50 Upset almond Allergy itchy Verified 05/12/22 12:50 throat Active Medications: Current Medications Acetaminophen (Acetaminophen 325 Mg Tablet) 650 mg PO Q6H PRN PRN Reason: Pain, Mild (Pain Scale 1-3) Last Admin: 05/31/22 12:54 Dose: 650 mg Albuterol Sulfate (Albuterol Sulfate (0.083%) 2.5 Mg/3 Ml Vial.Neb) 2.5 mg INHALE QID PRN PRN Reason: Shortness Of Breath Amoxicillin/Clavulanate Potassium (Amoxicillin/Potassium Clav 500 Mg Tablet) 500 mg PO Q12H [facility] Stop: 06/05/22 11:59 Last Admin: 05/31/22 15:30 Dose: 500 mg Ascorbic Acid (Ascorbic Acid 500 Mg Tablet) 500 mg PO DAILY [facility] Last Admin: 05/31/22 08:47 Dose: 500 mg Aspirin (Aspirin Enteric Coated 81 Mg Tablet.Dr) 81 mg PO DAILY [facility] Last Admin: 05/31/22 08:47 Dose: 81 mg Atorvastatin Calcium (Atorvastatin Calcium 80 Mg Tablet) 80 mg PO BEDTIME [facility] Last Admin: 05/31/22 22:12 Dose: 80 mg Clopidogrel Bisulfate (Clopidogrel Bisulfate 75 Mg Tablet) 75 mg PO DAILY [facility] Ezetimibe (Ezetimibe 10 Mg Tablet) 10 mg PO DAILY [facility] Last Admin: 05/31/22 08:47 Dose: 10 mg Gabapentin (Gabapentin 300 Mg Capsule) 300 mg PO BEDTIME [facility] Last Admin: 05/31/22 22:12 Dose: 300 mg Hydroxyzine HCl (Hydroxyzine Hcl 25 Mg Tablet) 25 mg PO QID PRN PRN Reason: Itching Loperamide HCl (Loperamide Hcl 2 Mg Capsule) 2 mg PO Q4H PRN PRN Reason: Diarrhea Last Admin: 05/31/22 22:12 Dose: 2 mg Nicotine (Nicotine 14 Mg Patch.Td24) 14 mg TRANSDERMA DAILY [facility] Last Admin: 05/31/22 08:51 Dose: Not Given Nicotine Polacrilex (Nicotine Polacrilex 2 Mg Gum) 2 mg BUCCAL Q2H PRN PRN Reason: Nicotine Cravings Non-Formulary Medication (Umeclidinium-Vilanterol [Anoro Ellipta]) 1 each INHALE DAILY [facility] Pantoprazole Sodium (Pantoprazole Sodium 40 Mg/10 Ml Vial) 40 mg IVPUSH BID@0630,1630 [facility] Last Admin: 05/31/22 15:30 Dose: 40 mg Pharmacy Consult (Consult Rx Perform Med Rec) 1 each MISCELLANE ONCE PRN PRN Reason: Consult order Sodium Bicarbonate (Sodium Bicarbonate 650 Mg Tablet) 650 mg PO BID [facility] Last Admin: 05/31/22 22:11 Dose: 650 mg Sodium Chloride (0.9 % Sodium Chloride Flush 3 Ml Syringe) 3 ml IVFLUSH QSHIFT [facility] Last Admin: 05/31/22 15:30 Dose: 3 ml Sucralfate (Sucralfate Oral Suspension 1 Gm/10 Ml Oral.Susp) 1 gm PO BIDAC [facility] Last Admin: 05/31/22 15:30 Dose: 1 gm Valacyclovir HCl (Valacyclovir Hcl 1,000 Mg Tablet) 1,000 mg PO DAILY [facility] Last Admin: 05/31/22 08:47 Dose: 1,000 mg Home Medications Medication Instructions Recorded Confirmed Last Taken Type gabapentin 300 mg capsule 300 mg PO BEDTIME 09/13/20 05/29/22 06/11/21 07:30 History lisinopril 20 mg tablet 20 mg PO BEDTIME 09/13/20 05/29/22 Unknown History methenamine hippurate 1 gram tablet 1 tab PO BID 12/27/21 05/29/22 Unknown History valacyclovir 1 gram tablet 1 tab PO DAILY 12/27/21 05/29/22 Unknown History docusate sodium 100 mg capsule 100 mg PO BEDTIME 03/13/22 05/29/22 Unknown History (Colace) furosemide 20 mg tablet 20 mg PO DAILY 05/12/22 05/29/22 Unknown History acetaminophen 500 mg tablet 1,000 mg PO Q6H PRN pain or fever 05/29/22 05/29/22 Unknown History (Tylenol Extra Strength) albuterol sulfate 2.5 mg/0.5 mL 2.5 mg inhalation QID PRN 05/29/22 05/29/22 Unknown History solution for nebulization Shortness Of Breath ascorbic acid (vitamin C) 500 mg 500 mg PO DAILY 05/29/22 05/29/22 Unknown History tablet aspirin 81 mg tablet,delayed 81 mg PO DAILY 05/29/22 05/29/22 Unknown History release carvedilol 6.25 mg tablet 6.25 mg PO BID 05/29/22 05/29/22 Unknown History cetirizine 10 mg tablet 1 tab PO DAILY 05/29/22 05/29/22 Unknown History cholecalciferol (vitamin D3) 50 1 cap PO DAILY 05/29/22 05/29/22 Unknown History mcg (2,000 unit) capsule clobetasol 0.05 % topical ointment 1 ea topical BID 05/29/22 05/29/22 Unknown History ezetimibe 10 mg tablet 10 mg PO DAILY 05/29/22 05/29/22 Unknown History famotidine 40 mg tablet 1 tab PO BEDTIME 05/29/22 05/29/22 Unknown History hydroxyzine HCl 25 mg tablet 25 mg PO QID PRN Itching 05/29/22 05/29/22 Unknown History methylcellulose (laxative) 500 mg 1 tab PO DAILY 05/29/22 05/29/22 Unknown History tablet (Fiber Laxative (methylcellulose)) pantoprazole 40 mg tablet,delayed 40 mg PO DAILY@0630 05/29/22 05/29/22 Unknown History release rosuvastatin 40 mg tablet 40 mg PO BEDTIME 05/29/22 05/29/22 Unknown History sucralfate 100 mg/mL oral 10 ml PO BIDAC 05/29/22 05/29/22 Unknown History suspension ticagrelor 90 mg tablet (Brilinta) 90 mg PO BID 05/29/22 05/29/22 Unknown History Physical Exam Vital Signs: Vital Signs: Last Vital Signs Temp 98.5 F 05/31/22 19:51 Pulse 62 05/31/22 19:51 Resp 18 05/31/22 19:51 BP 146/62 H 05/31/22 19:51 Pulse Ox 100 05/31/22 19:51 O2 Del Method 05/31/22 19:51 BMI result Body Mass Index 26.9 Const: General: cooperative HEENT: Head: Yes normal to inspection Face and sinus: Yes normal facial exam Mouth: Normal oral and palatal mucosa present Teeth and gingiva: dentition normal Eyes: General: appearance normal, both eyes and all related structures Pupils: Equal, round and reactive pupils present Resp: Effort & Inspection: normal respiratory effort Cardio: Rate: regular rate Rhythm: regular rhythm GI: Palpation (GI): Soft to palpation and nontender : General: Yes no CVA tenderness Back/Spine/Pelvis: Back: no CVA tenderness Skin: General skin exam: no rashes or lesions noted Neuro: General: moves all extremities Cranial nerves: Yes Equal, round and reactive pupils present Extrem: General: Yes normal to inspection Psych: Appearance: grossly normal Results Labs CBC & Chem 7: 05/31/22 06:39 05/30/22 05:06 Labs: Short CBC 05/31/22 Range/Units 06:39 WBC 11.9 H (4.8-10.8) X10*3/uL Hgb 11.2 L (12.0-16.0) g/dl Hct 34.1 L (37.0-47.0) % Plt Count 281 (160-400) X10*3/uL Microbiology Microbiology Results: Microbiology 05/29/22 16:54 Blood - Venous Blood Culture - Preliminary No growth after 48 hours. 05/29/22 16:33 Blood - Venous Blood Culture - Preliminary No growth after 48 hours. 05/29/22 15:22 Urine clean catch - Urine vance top Urine Culture - Final Assessment and Plan (1) Melena: Status: Acute (2) Weakness: Status: Acute (3) Pyuria: Status: Acute There are no symptoms of urinary infection She has no temperature or leukocytosis of significance. Plan Would not give antibiotics due to no symptoms of UTI May be colonized.
[2022-06-01] VITALS (11 sets, daily range): BP systolic 89–145; BP diastolic 50–89; PULSE 51–89; RESP 18–20; TEMP 36.1–37.6; O2SAT 97–100
[2022-06-01] MEDS: Pantoprazole Sodium 40 MG/10 ML VIAL IVPUSH ×2 (06:10→16:41)
[2022-06-01] MEDS: Sucralfate Oral Suspension 1 GM/10 ML ORAL.SUSP PO ×5 (06:10→21:46)
[2022-06-01] MEDS: Acetaminophen 325 MG TABLET 650 MG PO ×2 (06:15→12:29)
[2022-06-01 07:10] LABS: Hematocrit 30.2 % (37.0-47.0); Hemoglobin 10.1 g/dl (12.0-16.0); Mean Corpuscular HGB Conc 33.4 g/dl (31.0-35.0); Mean Corpuscular Hemoglobin 27.4 pg (27.0-33.0); Mean Corpuscular Volume 81.8 fL (80.0-98.0); Mean Platelet Volume 10.7 fL (9.4-12.3); Platelet Count 301 X10*3/uL (160-400); Red Blood Count 3.69 X10*6/uL (4.20-5.50); Red Cell Distribution Width 14.9 % (11.0-16.0); White Blood Count 11.9 X10*3/uL (4.8-10.8)
[2022-06-01] MEDS: 0.9 % Sodium Chloride 500 ML IV (07:55)
[2022-06-01] MEDS: 0.9 % Sodium Chloride Flush 3 ML SYRINGE IVFLUSH ×3 (07:56→21:50)
[2022-06-01] MEDS: Aspirin Enteric Coated 81 MG TABLET.DR PO (07:57)
[2022-06-01] MEDS: valACYclovir HCL 1,000 MG TABLET 1000 MG PO (07:58)
[2022-06-01] MEDS: Ezetimibe 10 MG TABLET PO (07:58)
[2022-06-01] MEDS: Sodium Bicarbonate 650 MG TABLET PO ×3 (07:58→21:46)
[2022-06-01] MEDS: Ascorbic Acid 500 MG TABLET PO (07:58)
[2022-06-01] MEDS: Clopidogrel Bisulfate 75 MG TABLET PO (07:58)
[2022-06-01] MEDS: Lactated Ringers 1,000 ML 100 ML IVCONT ×3 (08:23→21:46)
[2022-06-01 08:49] LABS: Anion Gap 12 (12-20); Blood Urea Nitrogen 6 mg/dL (9-16); Calcium 8.5 mg/dL (8.4-10.2); Carbon Dioxide 20 mmol/L (22-29); Chloride 108 mmol/L (96-108); Creatinine Clr Calc Pharmacy 42.5; Estimated Glomerular Filt Rate 55; Glucose Random 83 mg/dL (60-115); Potassium 3.6 mmol/L (3.3-5.1); Sodium 136 mmol/L (135-145)
--- NOTE | 2022-06-01 10:34 | HO.PM.IMPN ---
Subjective Subjective Date of Service: 06/01/22 Interval History: Seen and examined this morning Follow-up for GI bleeding BP low this morning, patient reports some dizziness No chest pain, no shortness of breath Review of Systems Review of Systems: Yes all other systems are reviewed and are negative Constitutional Constitutional: Denies chills, Denies fever(s) and Reports lethargy ENT Ears, Nose, Mouth, and Throat: Reports dizziness Cardiovascular Cardiovascular: Denies chest pain, Denies palpitations and Denies dyspnea Respiratory Respiratory: Denies cough and Denies dyspnea Gastrointestinal Gastrointestinal: Denies abdominal pain, Reports melena, Denies nausea and Denies vomiting Neurologic Neurologic: Reports dizziness Endocrine Endocrine: Denies palpitations Physical Exam Vital Signs: Vital Signs: Last Vital Signs Temp 97.0 F 06/01/22 10:18 Pulse 51 06/01/22 10:18 Resp 18 06/01/22 10:18 BP 98/50 L 06/01/22 10:18 Pulse Ox 98 06/01/22 08:00 O2 Del Method 06/01/22 07:25 BMI result Body Mass Index 26.9 Const: General: cooperative, comfortable, alert and awake Nutritional Appearance: average body habitus Resp: Other: Coarse breath sound spinal Effort & Inspection: normal respiratory effort and able to speak in complete sentences Auscultation: clear to auscultation bilaterally Cardio: Rate: regular rate Heart sounds: S1 normal heart sound present and S2 normal heart sound present GI: Inspection: No distended Palpation (GI): Soft to palpation and nontender Extrem: Other: Able to move all 4 extremities spontaneously General: Yes no pedal edema Objective Data Active Medications Acetaminophen (Acetaminophen 325 Mg Tablet) 650 mg PO Q6H PRN PRN Reason: Pain, Mild (Pain Scale 1-3) Last Admin: 06/01/22 06:15 Dose: 650 mg Documented By: BROOK Albuterol Sulfate (Albuterol Sulfate (0.083%) 2.5 Mg/3 Ml Vial.Neb) 2.5 mg INHALE QID PRN PRN Reason: Shortness Of Breath Ascorbic Acid (Ascorbic Acid 500 Mg Tablet) 500 mg PO DAILY [facility] Last Admin: 06/01/22 07:58 Dose: 500 mg Documented By: VANDANA Aspirin (Aspirin Enteric Coated 81 Mg Tablet.) 81 mg PO DAILY [facility] Last Admin: 06/01/22 07:57 Dose: 81 mg Documented By: VANDANA Atorvastatin Calcium (Atorvastatin Calcium 80 Mg Tablet) 80 mg PO BEDTIME [facility] Last Admin: 05/31/22 22:12 Dose: 80 mg Documented By: BROOK Clopidogrel Bisulfate (Clopidogrel Bisulfate 75 Mg Tablet) 75 mg PO DAILY [facility] Last Admin: 06/01/22 07:58 Dose: 75 mg Documented By: VANDANA Ezetimibe (Ezetimibe 10 Mg Tablet) 10 mg PO DAILY [facility] Last Admin: 06/01/22 07:58 Dose: 10 mg Documented By: VANDANA Gabapentin (Gabapentin 300 Mg Capsule) 300 mg PO BEDTIME [facility] Last Admin: 05/31/22 22:12 Dose: 300 mg Documented By: BROOK Hydroxyzine HCl (Hydroxyzine Hcl 25 Mg Tablet) 25 mg PO QID PRN PRN Reason: Itching Lactated Ringer's (Lr) 1,000 mls @ 100 mls/hr IVCONT .Q10H [facility] Loperamide HCl (Loperamide Hcl 2 Mg Capsule) 2 mg PO Q4H PRN PRN Reason: Diarrhea Last Admin: 05/31/22 22:12 Dose: 2 mg Documented By: BROOK Nicotine (Nicotine 14 Mg Patch.Td24) 14 mg TRANSDERMA DAILY [facility] Last Admin: 06/01/22 07:58 Dose: Not Given Documented By: VANDANA Non-Admin Reason: Patient Refused Nicotine Polacrilex (Nicotine Polacrilex 2 Mg Gum) 2 mg BUCCAL Q2H PRN PRN Reason: Nicotine Cravings Non-Formulary Medication (Umeclidinium-Vilanterol [Anoro Ellipta]) 1 each INHALE DAILY [facility] Pantoprazole Sodium (Pantoprazole Sodium 40 Mg/10 Ml Vial) 40 mg IVPUSH BID@0630,1630 [facility] Last Admin: 06/01/22 06:10 Dose: 40 mg Documented By: BROOK Pharmacy Consult (Consult Rx Perform Med Rec) 1 each MISCELLANE ONCE PRN PRN Reason: Consult order Sodium Bicarbonate (Sodium Bicarbonate 650 Mg Tablet) 650 mg PO TID [facility] Sodium Chloride (0.9 % Sodium Chloride Flush 3 Ml Syringe) 3 ml IVFLUSH QSHIFT [facility] Last Admin: 06/01/22 07:56 Dose: 3 ml Documented By: VANDANA Sucralfate (Sucralfate Oral Suspension 1 Gm/10 Ml Oral.Susp) 1 gm PO QID [facility] Last Admin: 06/01/22 09:17 Dose: 1 gm Documented By: VANDANA Valacyclovir HCl (Valacyclovir Hcl 1,000 Mg Tablet) 1,000 mg PO DAILY [facility] Last Admin: 06/01/22 07:58 Dose: 1,000 mg Documented By: VANDANA Labs CBC & Chem 7: 06/01/22 06:33 06/01/22 06:33 Labs: Laboratory Results - last 24 hr 05/29/22 05/31/22 06/01/22 14:02 15:50 06:33 MCV 81.8 MCH 27.4 MCHC 33.4 RDW 14.9 Plt Count 301 MPV 10.7 Absolute Nucleated RBC 0.000 Nucleated RBC % (auto) 0.0 Anion Gap Estim Creat Clear Calc Estimated GFR Random Glucose Calcium C. difficile Tox B Gene NEGATIVE Blood Type O Negative Antibody Screen NEGATIVE Crossmatch See Detail 06/01/22 06:33 MCV MCH MCHC RDW Plt Count MPV Absolute Nucleated RBC Nucleated RBC % (auto) Anion Gap 12 Estim Creat Clear Calc 42.5 Estimated GFR 55 Random Glucose 83 Calcium 8.5 D C. difficile Tox B Gene Blood Type Antibody Screen Crossmatch Microbiology Microbiology Results: Microbiology 05/29/22 16:54 Blood Culture - Preliminary Blood - Venous No growth after 48 hours. 05/29/22 16:33 Blood Culture - Preliminary Blood - Venous No growth after 48 hours. 05/29/22 15:22 Urine Culture - Final Urine clean catch - Urine vance top Assessment and Plan (1) Pyuria: Status: Acute (2) Gastrointestinal bleeding: Status: Acute (3) Atherosclerotic cardiovascular disease: Status: Acute (4) Stented coronary artery: Status: Acute Plan This is a 71-year-old female with past medical history of recent NSTEMI status post YARELY x1 at [facility] 1 week ago, COPD, hypertension, hyperlipidemia, gastritis, recurrent UTI who presents the emergency department with black stools found to have GI bleeding GI bleed admitted with black stools, heme +; dark stools persist h/o colon AVMs - likely source of bleeding Recently started on aspirin and Brilinta due to stent placement at [facility] transfused 1U 05/30 given CAD, appropriate rise in H/H but H/H trending down again this morning, will transfuse addition unit of blood Goal to keep hemoglobin at 10 or above due to CAD -continue clear liquid diet -continue IV PPI -will increase dose of sucralfate -follow H/H -discussed with GI, will hold off on scope at this time as no intervention can be done while on DAPT. No indication for transfer to [facility] at this time. -will continue aspirin, Brilinta will be changed to Plavix per Cardiology recommendation CAD s/p YARELY x1 earlier this month at [facility] No chest pain -Continue asa -brilinta changed to plavix, initially received 300 loading, now on maintenance 75 daily -continue statin -beta-cameron placed on hold due to hypotension on arrival -cardiology following Hypertension Blood pressure in 90s on arrival. BP on low size again today. Will transfuse and start maintenance IV fluid Likely secondary to GI bleed No sepsis Will hold carvedilol, lisinopril, Lasix Monitor blood pressure closely UTI final urine culture indicative of contamination no abx indicated HLD Continue Zetia, statin GERD/gastritis Oral pantoprazole be placed on hold receiving IV ppi Continue sucralfate Tobacco dependence Patient has decreased from half a pack a cigarettes to 1 cigarette per day NRT COPD no acute exacerbation continue home inhalers/breathing treatments on valacyclovir - patient doesn't know reason will continue DVT prophylaxis-mechanical devices due to GI bleeding Code status-patient wishes to be DNR/DNI Healthcare proxy-daughter Whit Attending-Dr. Dorado Patient requires ongoing inpatient hospitalization due to GI bleeding Quality Stroke Does the patient have a stroke diagnosis?: No VTE Prior VTE?: No VTE Risk Level:: Medical - moderate - high VTE Device Contraindication: N/A - Device Ordered VTE Drug Contraindication: Treatment Not Indicated
--- NOTE | 2022-06-01 11:00 | P.PNCA_ITS ---
Subjective Subjective Date of Service: 06/01/22 Interval history: She is having diarrhea/black stool but no cardiac symptoms like angina. Review of Systems Review of Systems Yes all other systems are reviewed and are negative Constitutional: Reports as per HPI Eyes: Reports as per HPI Reports as per HPI Cardiovascular: Reports as per HPI, Denies acrocyanosis, Denies cool extremities, Denies chest pain, Denies leg edema, Denies lightheadedness, Denies palpitations and Denies dyspnea Respiratory: Reports as per HPI, Reports no additional respiratory complaints and Denies dyspnea Gastrointestinal: Reports as per HPI, Reports no additional gastrointestinal complaints and Reports melena Musculoskeletal: Reports no additional musculoskeletal complaints and Reports as per HPI Skin/Breast: Reports system reviewed and no additional complaints, except as d ocu Reports system reviewed and no additional complaints, except as documented and Reports as per HPI Psychiatric: Reports no additional psychiatric complaints and Reports as per HPI Endocrine: Reports no additional endocrine complaints, Reports as per HPI and Denies palpitations Hematologic/Lymphatic: Reports no additional hematologic/lymphatic complaints and Reports as per HPI Allergic/Immunologic: Reports no additional allergic/immunologic complaints and Reports as per HPI Physical Exam Vital Signs: Last Vital Signs Temp 97.0 F 06/01/22 10:18 Pulse 51 06/01/22 10:18 Resp 18 06/01/22 10:18 BP 98/50 L 06/01/22 10:18 Pulse Ox 98 06/01/22 08:00 O2 Del Method 06/01/22 07:25 BMI result Body Mass Index 26.9 Const General: comfortable and no acute distress Orientation/consciousness: patient oriented x3 HEENT Other: Unremarkable Head: Yes normal to inspection Neck Neck: Yes normal visual inspection Chest Chest palpation & inspection: normal inspection of the chest Resp Auscultation: rhonchi Cardio Palpation: normal PMI Heart sounds: S1 normal heart sound present, S2 normal heart sound present, no gallops, no murmurs and no rubs GI Palpation (GI): Soft to palpation Back/Spine/Pelvis Other: unremarkable Skin General skin exam: no rashes or lesions noted Neuro General: patient oriented x3 Extrem General: Yes normal to inspection Psych Mental Status: mental status grossly normal Objective Labs and Meds Result diagrams: 06/01/22 06:33 06/01/22 06:33 Lab results: Laboratory Results - last 24 hr 05/29/22 05/31/2222 14:02 15:50 06:33 WBC 11.9 H RBC 3.69 L Hgb 10.1 L Hct 30.2 L MCV 81.8 MCH 27.4 MCHC 33.4 RDW 14.9 Plt Count 301 MPV 10.7 Absolute Nucleated RBC 0.000 Nucleated RBC % (auto) 0.0 Sodium Potassium Chloride Carbon Dioxide Anion Gap BUN Creatinine Estim Creat Clear Calc Estimated GFR Random Glucose Calcium C. difficile Tox B Gene NEGATIVE Blood Type O Negative Antibody Screen NEGATIVE Crossmatch See Detail 06/01/22 06:33 WBC RBC Hgb Hct MCV MCH MCHC RDW Plt Count MPV Absolute Nucleated RBC Nucleated RBC % (auto) Sodium 136 Potassium 3.6 Chloride 108 Carbon Dioxide 20 L Anion Gap 12 BUN 6 L Creatinine 1.00 Estim Creat Clear Calc 42.5 Estimated GFR 55 Random Glucose 83 Calcium 8.5 D C. difficile Tox B Gene Blood Type Antibody Screen Crossmatch Progress Note: A&P Assessment and plan (1) Gastrointestinal bleeding: Status: Acute (2) Atherosclerotic cardiovascular disease: Status: Acute (3) Stented coronary artery: Status: Acute Plan In the recent catheterization, noted to have 90% mid OM1 lesion, stented. She also had mid RCA 60% lesion. No obstructive disease in the LAD. Echocardiogram with LVEF 65-70% with no definite wall motion abnormalities. No significant aortic stenosis or regurgitation. There was moderate mitral annular calcification. Based on symptoms of melena, probably is some oozing but does not seem to be profound. She is otherwise looking okay and also ambulating in the room without difficulty. Blood pressure seems to be on the lower side but again etiology is not clear and she is clearly not in any form of shock based on evaluation- repeat trasnfusion +/- IVF. Upon discussion with who perform the intervention, Brilinta was switched to Plavix. Hopefully this can help minimize bleeding. Protonix per GI. Discussed with the patient using motor vehicle parts interpreter. Also discussed with her daughter over the phone. Discussed with Sri Schmid, hospitalist. Time Spent With Patient Time: Total time spent is greater than 50% in coordination of care (as documented) at patient's floor/unit and/or counseling patient: 35min. Progress Note: Quality Stroke Does the patient have a stroke diagnosis?: No Procedures Date of Service Date of Service: 06/01/22
[2022-06-01] MEDS: Albuterol Sulfate (0.083%) 2.5 MG/3 ML VIAL.NEB INHALE (12:36)
--- NOTE | 2022-06-01 15:55 | PM.EVENT ---
Event Note Date of Service: 06/01/22 Event Note: GI-Course noted and D/W JIMMIE Ayers earlier this morning. Patient still having melena with a drop in Hgb. She remains on her aspirin and Plavix, and IV PPI. Her BUN has remained normal. Diff dx: UGI source of bleed vs. lower GI source with possible duodenal and cecal AVM's, respectively, as described on her SB capsule study in 2020. The normal BUN would tend to favor a lower GI source. However, her use of aspirin could certainly account for a new UGI source not present during last year's EGD and capsule study. Rec: Transfuse 1 u PRBC today, add Carafate, change to clear liqs, and F/U labs re: Hgb, PT/INR, and BUN in AM 7/4. If bleeding continues an EGD and/or colonoscopy can be done on her blood thinners, although endoscopic therapy would be limited to clipping and Hemospray(topical) of any bleeding lesions. Will reassess 7/4 AM. Please call me if problems before that. Thanks
[2022-06-01] MEDS: Atorvastatin Calcium 80 MG TABLET PO (21:46)
[2022-06-01] MEDS: Gabapentin 300 MG CAPSULE PO (21:46)
[2022-06-01] MEDS: hydrOXYzine HCL 25 MG TABLET PO (21:50)
[2022-06-02 04:07] VITALS: BP 117/86; PULSE 67; RESP 18; TEMP 36.6; O2SAT 98
[2022-06-02] MEDS: Pantoprazole Sodium 40 MG/10 ML VIAL IVPUSH ×2 (05:59→16:20)
[2022-06-02] MEDS: Lactated Ringers 1,000 ML 100 ML IVCONT ×2 (06:00→16:21)
[2022-06-02 07:23] LABS: Hematocrit 32.5 % (37.0-47.0); Hemoglobin 10.9 g/dl (12.0-16.0); Mean Corpuscular HGB Conc 33.5 g/dl (31.0-35.0); Mean Corpuscular Hemoglobin 27.6 pg (27.0-33.0); Mean Corpuscular Volume 82.3 fL (80.0-98.0); Mean Platelet Volume 10.3 fL (9.4-12.3); Platelet Count 261 X10*3/uL (160-400); Red Blood Count 3.95 X10*6/uL (4.20-5.50); Red Cell Distribution Width 14.8 % (11.0-16.0); White Blood Count 9.6 X10*3/uL (4.8-10.8)
[2022-06-02 07:35] LABS: Anion Gap 12 (12-20); Blood Urea Nitrogen 4 mg/dL (9-16); Calcium 8.1 mg/dL (8.4-10.2); Carbon Dioxide 22 mmol/L (22-29); Chloride 107 mmol/L (96-108); Creatinine Clr Calc Pharmacy 53.2; Estimated Glomerular Filt Rate > 60; Glucose Fasting 74 mg/dL (60-99); Potassium 3.4 mmol/L (3.3-5.1); Sodium 138 mmol/L (135-145)
[2022-06-02 08:00] VITALS: BP 98/59; PULSE 68; RESP 18; TEMP 36.5; O2SAT 97
[2022-06-02] MEDS: Sucralfate Oral Suspension 1 GM/10 ML ORAL.SUSP PO ×4 (10:01→20:55)
[2022-06-02] MEDS: 0.9 % Sodium Chloride Flush 3 ML SYRINGE IVFLUSH ×3 (10:01→20:55)
[2022-06-02] MEDS: Aspirin Enteric Coated 81 MG TABLET.DR PO (10:03)
[2022-06-02] MEDS: Clopidogrel Bisulfate 75 MG TABLET PO (10:04)
[2022-06-02] MEDS: Ascorbic Acid 500 MG TABLET PO (10:04)
[2022-06-02] MEDS: Ezetimibe 10 MG TABLET PO (10:04)
[2022-06-02] MEDS: Acetaminophen 325 MG TABLET 650 MG PO (10:04)
[2022-06-02] MEDS: valACYclovir HCL 1,000 MG TABLET 1000 MG PO (10:04)
[2022-06-02] MEDS: Sodium Bicarbonate 650 MG TABLET PO ×3 (10:04→20:55)
[2022-06-02 10:30] LABS: INTERNATIONAL NORM RATIO 1.2 (0.9-1.1); Prothrombin Time 13.8 SEC (10.0-13.1)
[2022-06-02 11:29] VITALS: BP 93/52; PULSE 65; RESP 19; TEMP 36.7; O2SAT 97
--- NOTE | 2022-06-02 11:30 | P.PNCA_ITS ---
Subjective Subjective Date of Service: 06/02/22 Interval history: Patient states she feels okay. No cardiac symptoms. She has some discomfort in the left side of upper neck. Still has black stools. No dizziness syncopal episodes or anything else cardiac at all. Daughter is also at the bedside. Review of Systems Review of Systems Yes all other systems are reviewed and are negative Constitutional: Reports as per HPI Eyes: Reports as per HPI Reports as per HPI Cardiovascular: Reports as per HPI, Denies acrocyanosis, Denies cool extremities, Denies chest pain, Denies leg edema, Denies lightheadedness, Denies palpitations and Denies dyspnea Respiratory: Reports as per HPI, Reports no additional respiratory complaints and Denies dyspnea Gastrointestinal: Reports as per HPI, Reports no additional gastrointestinal complaints and Reports melena Musculoskeletal: Reports no additional musculoskeletal complaints and Reports as per HPI Skin/Breast: Reports system reviewed and no additional complaints, except as docu Reports system reviewed and no additional complaints, except as documented and Reports as per HPI Psychiatric: Reports no additional psychiatric complaints and Reports as per HPI Endocrine: Reports no additional endocrine complaints, Reports as per HPI and Denies palpitations Hematologic/Lymphatic: Reports no additional hematologic/lymphatic complaints and Reports as per HPI Allergic/Immunologic: Reports no additional allergic/immunologic complaints and Reports as per HPI Physical Exam Vital Signs: Last Vital Signs Temp 98.0 F 06/02/22 11:29 Pulse 65 06/02/22 11:29 Resp 19 06/02/22 11:29 BP 93/52 L 06/02/22 11:29 Pulse Ox 97 06/02/22 11:29 O2 Del Method 06/02/22 11:29 BMI result Body Mass Index 26.9 Const General: comfortable and no acute distress Orientation/consciousness: patient oriented x3 HEENT Other: Unremarkable Head: Yes normal to inspection Neck Neck: Yes normal visual inspection Chest Chest palpation & inspection: normal inspection of the chest Resp Auscultation: rhonchi and wheezes Cardio Palpation: normal PMI Heart sounds: S1 normal heart sound present, S2 normal heart sound present, no gallops, no murmurs and no rubs GI Palpation (GI): Soft to palpation Back/Spine/Pelvis Other: unremarkable Skin General skin exam: no rashes or lesions noted Neuro General: patient oriented x3 Extrem General: Yes normal to inspection Psych Mental Status: mental status grossly normal Objective Labs and Meds Result diagrams: 07/04/22 06:48 06/02/22 06:48 Lab results: Laboratory Results - last 24 hr 05/29/22 06/02/22 06/02/22 14:02 06:48 06:48 WBC 9.6 RBC 3.95 L Hgb 10.9 L Hct 32.5 L MCV 82.3 MCH 27.6 MCHC 33.5 RDW 14.8 Plt Count 261 MPV 10.3 Absolute Nucleated RBC 0.000 Nucleated RBC % (auto) 0.0 PT 13.8 H INR 1.2 H Sodium Potassium Chloride Carbon Dioxide Anion Gap BUN Creatinine Estim Creat Clear Calc Estimated GFR Fasting Glucose Calcium Crossmatch See Detail 06/02/22 06:48 WBC RBC Hgb Hct MCV MCH MCHC RDW Plt Count MPV Absolute Nucleated RBC Nucleated RBC % (auto) PT INR Sodium 138 Potassium 3.4 Chloride 107 Carbon Dioxide 22 Anion Gap 12 BUN 4 L Creatinine 0.80 Estim Creat Clear Calc 53.2 Estimated GFR > 60 Fasting Glucose 74 Calcium 8.1 L Crossmatch Progress Note: A&P Assessment and plan (1) Gastrointestinal bleeding: Status: Acute (2) Atherosclerotic cardiovascular disease: Status: Acute (3) Stented coronary artery: Status: Acute (4) Hypotension (arterial): Status: Acute Plan In the recent catheterization, noted to have 90% mid OM1 lesion, stented. She also had mid RCA 60% lesion. No obstructive disease in the LAD. Echocardiogram with LVEF 65-70% with no definite wall motion abnormalities. No significant aortic stenosis or regurgitation. There was moderate mitral annular calcification. Daughter is at the bedside and we discussed clinical care in detail. Hospitalist Reba Pleitez was also present in the room. Due to recent stenting which is only few days old, unable to stop dual antiplatelet therapy. However, he had changed Brilinta to Plavix to see if that will help minimize bleeding. She still has some melena but that could be old blood. Hemoglobin seems to be stable. At this time, plan to still be to continue aspirin and Plavix unless there is profound bleeding or some form of hemorrhagic shock, but this does not seem to be the case. She will need follow-up hemoglobins as an outpatient in a few days time to ensure that is stable. She states that she has an appointment coming up with the full time this when stay. Otherwise, already on Protonix as well. She also stated that she might be traveling to [place] and in that case she will need a new full time and we discussed about this as well. With regard to low blood pressure, could be because of not eating as she is only on clears. Hence changing diet might help. Blood pressure medications are on hold. With regard to neck pain, she does have some tenderness on palpation the mandible area and per hospitalist Service, plans for imaging noted. Upon discharge, follow-up with her own full time. If any recurrent GI bl eeding issues, will need to return to the ER. Daughter is aware of this. Time Spent With Patient Time: Total time spent is greater than 50% in coordination of care (as documented) at patient's floor/unit and/or counseling patient: 40min. Progress Note: Quality Stroke Does the patient have a stroke diagnosis?: No Procedures Date of Service Date of Service: 06/02/22
[2022-06-02 15:56] VITALS: BP 110/55; PULSE 54; RESP 18; TEMP 36.7; O2SAT 100
--- NOTE | 2022-06-02 16:21 | HO.PM.IMPN ---
Subjective Subjective Date of Service: 06/03/22 Review of Systems Follow up GI Bleed feeling better no bleeding no chest pain or sob Physical Exam Vital Signs: Vital Signs: Last Vital Signs Temp 98.0 F 06/02/22 15:56 Pulse 54 06/02/22 15:56 Resp 18 06/02/22 15:56 BP 110/55 L 06/02/22 15:56 Pulse Ox 100 06/02/22 15:56 O2 Del Method 06/02/22 15:56 BMI result Body Mass Index 26.9 Appearing in no acute distress lung sounds are clear to auscultation heart regular rate rhythm, clear S1, S2 positive bowel sounds, abdomen is soft, nontender neuro patient is alert x3, no focal deficits Objective Data Active Medications Acetaminophen (Acetaminophen 325 Mg Tablet) 650 mg PO Q6H PRN PRN Reason: Pain, Mild (Pain Scale 1-3) Last Admin: 06/02/22 10:04 Dose: 650 mg Documented By: CAROLYN Albuterol Sulfate (Albuterol Sulfate (0.083%) 2.5 Mg/3 Ml Vial.Maulik) 2.5 mg INHALE QID PRN PRN Reason: Shortness Of Breath Last Admin: 06/01/22 12:36 Dose: 2.5 mg Documented By: AZUCENA Ascorbic Acid (Ascorbic Acid 500 Mg Tablet) 500 mg PO DAILY [facility] Last Admin: 06/02/22 10:04 Dose: 500 mg Documented By: CAROLYN Aspirin (Aspirin Enteric Coated 81 Mg Tablet.) 81 mg PO DAILY [facility] Last Admin: 06/02/22 10:03 Dose: 81 mg Documented By: CAROLYN Atorvastatin Calcium (Atorvastatin Calcium 80 Mg Tablet) 80 mg PO BEDTIME [facility] Last Admin: 06/01/22 21:46 Dose: 80 mg Documented By: VALDEMAR Clopidogrel Bisulfate (Clopidogrel Bisulfate 75 Mg Tablet) 75 mg PO DAILY [facility] Last Admin: 06/02/22 10:04 Dose: 75 mg Documented By: CAROLYN Ezetimibe (Ezetimibe 10 Mg Tablet) 10 mg PO DAILY [facility] Last Admin: 06/02/22 10:04 Dose: 10 mg Documented By: CAROLYN Fluticasone/Vilanterol (Fluticasone/Vilanterol 100/25 Blst.W.Dev) 1 puff INHALE RDAILY [facility] Gabapentin (Gabapentin 300 Mg Capsule) 300 mg PO BEDTIME [facility] Last Admin: 06/01/22 21:46 Dose: 300 mg Documented By: VALDEMAR Hydroxyzine HCl (Hydroxyzine Hcl 25 Mg Tablet) 25 mg PO QID PRN PRN Reason: Itching Last Admin: 06/01/22 21:50 Dose: 25 mg Documented By: VALDEMAR Lactated Ringer's (Lr) 1,000 mls @ 100 mls/hr IVCONT .Q10H [facility] Last Admin: 06/02/22 16:21 Dose: 100 mls/hr Documented By: CAROLYN Loperamide HCl (Loperamide Hcl 2 Mg Capsule) 2 mg PO Q4H PRN PRN Reason: Diarrhea Last Admin: 05/31/22 22:12 Dose: 2 mg Documented By: BROOK Nicotine (Nicotine 14 Mg Patch.Td24) 14 mg TRANSDERMA DAILY [facility] Last Admin: 06/02/22 10:03 Dose: Not Given Documented By: CAROLYN Non-Admin Reason: Patient Refused Nicotine Polacrilex (Nicotine Polacrilex 2 Mg Gum) 2 mg BUCCAL Q2H PRN PRN Reason: Nicotine Cravings Pantoprazole Sodium (Pantoprazole Sodium 40 Mg/10 Ml Vial) 40 mg IVPUSH BID@0630,1630 [facility] Last Admin: 06/02/22 16:20 Dose: 40 mg Documented By: CAROLYN Pharmacy Consult (Consult Rx Perform Med Rec) 1 each MISCELLANE ONCE PRN PRN Reason: Consult order Sodium Bicarbonate (Sodium Bicarbonate 650 Mg Tablet) 650 mg PO TID [facility] Last Admin: 06/02/22 14:50 Dose: 650 mg Documented By: CAROLYN Sodium Chloride (0.9 % Sodium Chloride Flush 3 Ml Syringe) 3 ml IVFLUSH QSHIFT [facility] Last Admin: 06/02/22 16:20 Dose: 3 ml Documented By: CAROLYN Sucralfate (Sucralfate Oral Suspension 1 Gm/10 Ml Oral.Susp) 1 gm PO QID [facility] Last Admin: 06/02/22 16:20 Dose: 1 gm Documented By: CAROLYN Valacyclovir HCl (Valacyclovir Hcl 1,000 Mg Tablet) 1,000 mg PO DAILY [facility] Last Admin: 06/02/22 10:04 Dose: 1,000 mg Documented By: CAROLYN Labs CBC & Chem 7: 06/03/22 05:46 06/03/22 05:46 Labs: Laboratory Results - last 24 hr 06/02/22 06/02/22 06/02/22 06:48 06:48 06:48 MCV 82.3 MCH 27.6 MCHC 33.5 RDW 14.8 Plt Count 261 MPV 10.3 Absolute Nucleated RBC 0.000 Nucleated RBC % (auto) 0.0 PT 13.8 H INR 1.2 H Anion Gap 12 Estim Creat Clear Calc 53.2 Estimated GFR > 60 Fasting Glucose 74 Calcium 8.1 L Assessment and Plan (1) Pyuria: Status: Acute (2) Gastrointestinal bleeding: Status: Acute (3) Atherosclerotic cardiovascular disease: Status: Acute (4) Stented coronary artery: Status: Acute Plan This is a 71-year-old female with past medical history of recent NSTEMI status post YARELY x1 at [facility] [place] 1 week ago, COPD, hypertension, hyperlipidemia, gastritis, recurrent UTI who presents the emergency department with black stools found to have GI bleeding GI bleed admitted with black stools, heme + h/o colon AVMs - likely source of bleeding Recently started on aspirin and Brilinta due to stent placement at [facility] transfused 2 units, Goal to keep hemoglobin at 10 or above due to CAD advance diet continue IV PPI sucralfate follow H/H discussed with GI, will hold off on scope at this time as no intervention can be done while on DAPT. Continue aspirin and Plavix s/p YARELY x1 earlier this month at [facility] [place] No chest pain Continue asa, brilinta changed to plavix, initially received 300 loading, now on maintenance 75 daily statin continue to hold beta-cameron due to low blood pressures cardiology following Hypertension with hypotension Blood pressure in 90s on arrival. BP on low size again today. Will transfuse and start maintenance IV fluid Likely secondary to GI bleed and poor food intake No sepsis continue to hold carvedilol, lisinopril, Lasix Monitor blood pressure closely UTI final urine culture indicative of contamination no abx indicated HLD Continue Zetia, statin GERD/gastritis IV PPI Continue sucralfate Tobacco dependence Patient has decreased from half a pack a cigarettes to 1 cigarette per day NRT COPD no acute exacerbation continue home inhalers/breathing treatments on valacyclovir - patient doesn't know reason will continue DVT prophylaxis-mechanical devices due to GI bleeding Code status-patient wishes to be DNR/DNI Attending-Dr. Pablo Patient requires ongoing inpatient hospitalization due to GI bleeding Quality Stroke Does the patient have a stroke diagnosis?: No VTE Prior VTE?: No VTE Risk Level:: Medical - moderate - high VTE Device Contraindication: N/A - Device Ordered VTE Drug Contraindication: Treatment Not Indicated
[2022-06-02 20:00] VITALS: BP 115/50; PULSE 64; RESP 16; TEMP 37.1; O2SAT 100
[2022-06-02] MEDS: Atorvastatin Calcium 80 MG TABLET PO (20:54)
[2022-06-02] MEDS: Gabapentin 300 MG CAPSULE PO (20:54)
[2022-06-02 23:07] VITALS: BP 130/58; PULSE 60; RESP 18; TEMP 36.9; O2SAT 99
[2022-06-03] MEDS: Lactated Ringers 1,000 ML 100 ML IVCONT (00:40)
[2022-06-03 03:45] VITALS: BP 129/62; PULSE 63; RESP 19; TEMP 36.2; O2SAT 96
[2022-06-03] MEDS: Acetaminophen 325 MG TABLET 650 MG PO (04:56)
[2022-06-03] MEDS: Pantoprazole Sodium 40 MG/10 ML VIAL IVPUSH (04:57)
[2022-06-03 06:00] LABS: MANUAL DIFF FLAG NO
[2022-06-03 06:03] LABS: Basophils Absolute Auto 0.1 X10*3/uL (0.0-0.2); Basophils Percent Auto 0.8 % (0-2); Eosinophils Absolute Auto 0.4 X10*3/uL (0.0-0.4); Eosinophils Percent Auto 4.5 % (0-4); Hematocrit 29.1 % (37.0-47.0); Hemoglobin 9.8 g/dl (12.0-16.0); Imm Gran Abs Auto 0.02 X10*3/uL (0.00-0.03); Imm Gran Pct Auto 0.2 % (0.0-0.4); Lymphocytes Absolute Auto 2.5 X10*3/uL (1.2-4.9); Lymphocytes Percent Auto 29.9 % (20-40); Mean Corpuscular HGB Conc 33.7 g/dl (31.0-35.0); Mean Corpuscular Hemoglobin 27.6 pg (27.0-33.0); Monocytes Percent Auto 11.3 % (2-11); Neutrophils Absolute Auto 4.5 x10*3/uL (2.0-8.3); Neutrophils Percent Auto 53.3 % (45-73); Platelet Count 245 X10*3/uL (160-400); Red Blood Count 3.55 X10*6/uL (4.20-5.50); Red Cell Distribution Width 14.7 % (11.0-16.0); White Blood Count 8.4 X10*3/uL (4.8-10.8)
[2022-06-03 06:23] LABS: Anion Gap 9 (12-20); Blood Urea Nitrogen 2 mg/dL (9-16); Calcium 7.8 mg/dL (8.4-10.2); Carbon Dioxide 22 mmol/L (22-29); Chloride 108 mmol/L (96-108); Creatinine Clr Calc Pharmacy 55.9; Estimated Glomerular Filt Rate > 60; Glucose Random 82 mg/dL (60-115); Potassium 2.9 mmol/L (3.3-5.1); Sodium 136 mmol/L (135-145)
[2022-06-03 08:00] VITALS: BP 109/52; PULSE 57; RESP 18; TEMP 37.4; O2SAT 97
--- NOTE | 2022-06-03 08:11 | PM.DS ---
DS: Providers Provider Date of Service: 06/03/22 Date of admission: 05/29/22 17:45 Primary care physician: Danni Mccarthy MD Consults: 05/29/22 17:45 Consult to Cardiology Routine Consulting Provider: Leoncio Loya Reason for consultation: Recent stent @ [facility] on brilinta/ASA; GI bleeding Has provider been notified: No Consult to Gastroenterology Routine Consulting Provider: Ella Christine Reason for consultation: GI bleeding Has provider been notified: No 05/30/22 11:30 Consult to Infectious Diseases Routine Consulting Provider: Nadja Finnegan Reason for consultation: UTI; h/o resistent bug; multiple allergies Has provider been notified: No Attending physician on discharge: Uriel Encarnacion Discharging clinician: Reba Pleitez DS: Diagnosis Discharge Diagnosis (1) Pyuria: Status: Acute (2) Gastrointestinal bleeding: Status: Acute (3) Atherosclerotic cardiovascular disease: Status: Acute (4) Stented coronary artery: Status: Acute DS: Summary Hospital Course Hospital Course: HP as per admitting provider This is a 71-year-old female with recent NSTEMI status post YARELY x1 on May 22.? She was discharged from [facility] on May 23.? She was started on aspirin and Brilinta.? She began having black stools and 2 days later she went to the emergency department at [facility] for evaluation.? She was admitted overnight for observation due to concern over GI bleeding.? Notes obtained from [facility] indicate that although she had heme-positive stool GI was not concerned that she had active GI bleeding and recommended to continue her aspirin and Brilinta as prescribed.? She was discharged from the hospital on May 26.? She has continued to have black stools since that time.? She has had no bright red blood.? She denies any abdominal pain, nausea, vomiting.? According to records from [facility] patient's H/H was 12.3/37.5 on May 26.? On arrival to the emergency department today her H/H was 10.1/31.4.? She had repeat CBC drawn 2 hours later which showed further drop to 9.4/28.8.? She was also noted to have leukocytosis with a white count of 19.1.? Her blood pressure was initially low in the 90s systolic.? She denies any dizziness, shortness of breath, chest pain at this time.? She received 1500 cc of normal saline.? Urinalysis was consistent with UTI and she received dose of ertapenem.? Following fluid administration blood pressure has improved to 1 0 59, however patient is now noted to have low-grade fever of 100.6. COVID-19 vaccination status-Moderna x2 . GI bleed admitted with black stools, heme + h/o colon AVMs -? likely source of bleeding Recently started on aspirin and Brilinta due to [place] placement [place] [facility] [place] transf[place] 2 units, Goal to keep hemoglobin at 10 or above due to CAD advanced diet with no issue IV PPI>po sucralfate discussed with GI, will hold off on scope at this time as no intervention can be done while on DAPT. Continue aspirin and Plavix as per cardiology may have episodes of bleeding and will require transfusion but will need to be on asa and plavix for at least 6 months as per cardiology s/p [place]ARELY x1 earlier this month [place] [facility] No chest pain Continue asa, brilinta changed to plavix, initially received 300 loading, now on maintenance 75 daily statin continue to hold beta-cameron due to low blood pressures cardiology follow up as o/p Hypertension? with hypotension Blood pressure in 90s on arrival. BP on low side again today. transfused PRBC and maintenance IV fluid Likely secondary to GI bleed and poor food intake No sepsis continue to hold carvedilol, lisinopril, Lasix, follow up with cardiology as outpatient re med mamagement for BP UTI final urine culture indicative of contamination no abx indicated HLD Continue Zetia, statin GERD/gastritis IV PPI initially continue oral Continue sucralfate Tobacco dependence Patient has decreased from half a pack a cigarettes to 1 cigarette per day NRT COPD no acute exacerbation continue home inhalers/breathing treatments Time Spent with Patient Time attestation: Total time spent providing and/or coordinating discharge services: Discharge coordination time: Greater than 30 minutes Quality: Safe Use of Opioids Does Pt have an Active Cancer Diagnosis on the Problem List?: No Quality: Stroke Does the patient have a stroke diagnosis?: No Physical Exam Vital Signs: Vital Signs: Last Vital Signs Temp 97.1 F 06/03/22 03:45 Pulse 63 06/03/22 03:45 Resp 19 06/03/22 03:45 BP 129/62 06/03/22 03:45 Pulse Ox 96 06/03/22 03:45 O2 Del Method 06/03/22 03:45 BMI result Body Mass Index 26.9 Appearing in no acute distress head is normocephalic atraumatic eyes pupils are PERRLA sclera is anicteric mouth throat mucous membranes are intact and moist neck is supple no lymphadenopathy, no JVD noted lung sounds are clear to auscultation heart regular rate rhythm, clear S1, S2 positive bowel sounds, abdomen is soft, nontender neuro patient is alert x3, no focal deficits DS: Data Data Completed and Pending Labs on day of discharge: Laboratory Results - last 24 hr 06/02/22 06/03/22 06/03/22 06:48 05:46 05:46 WBC 8.4 RBC 3.55 L Hgb 9.8 L Hct 29.1 L MCV 82.0 MCH 27.6 MCHC 33.7 RDW 14.7 Plt Count 245 MPV 10.0 Immature Gran % (Auto) 0.2 Neut % (Auto) 53.3 Lymph % (Auto) 29.9 Campbell % (Auto) 11.3 H Eos % (Auto) 4.5 H Baso % (Auto) 0.8 Lymph # (Auto) 2.5 Campbell # (Auto) 1.0 Eos # (Auto) 0.4 Baso # (Auto) 0.1 Abs Immat Gran (auto) 0.02 Absolute Neuts (auto) 4.5 Absolute Nucleated RBC 0.000 Nucleated RBC % (auto) 0.0 PT 13.8 H INR 1.2 H Sodium 136 Potassium 2.9 L Chloride 108 Carbon Dioxide 22 Anion Gap 9 L BUN 2 L Creatinine 0.76 Estim Creat Clear Calc 55.9 Estimated GFR > 60 Random Glucose 82 Calcium 7.8 L Preliminary micro results at discharge 05/29/22 16:54 Blood Culture - Preliminary Blood - Venous No growth after 48 hours. 05/29/22 16:33 Blood Culture - Preliminary Blood - Venous No growth after 48 hours. Discharge Plan Discharge Anticipated Discharge Date/Time: 06/03/22 08:17 Patient Disposition: Home, Self-Care Discharge Diagnosis: GI bleed Hypotension Referrals: Danni Mccarthy MD [Primary Care Provider] - 1 Week Discharge Medications: New sucralfate 100 mg/mL Suspension 1 g PO QID Qty: 400 0RF clopidogrel 75 mg Tablet 75 mg PO DAILY Qty: 30 0RF potassium chloride [Klor-Con M20] 20 mEq tablet,ER particles/crystals 40 meq PO DAILY Qty: 4 0RF Rx Instructions: Take for 2 days then check your potassium level Continued Anoro Ellipta 62.5-25 mcg/actuation blister with device 1 ea inhalation DAILY Qty: 60 2RF valacyclovir 1 gram tablet 1 tab PO DAILY methenamine hippurate 1 gram tablet 1 tab PO BID docusate sodium [Colace] 100 mg capsule 100 mg PO BEDTIME cetirizine 10 mg tablet 1 tab PO DAILY ascorbic acid (vitamin C) 500 mg Tablet 500 mg PO DAILY hydroxyzine HCl 25 mg Tablet 25 mg PO QID PRN (Reason: Itching) ezetimibe 10 mg Tablet 10 mg PO DAILY rosuvastatin 40 mg Tablet 40 mg PO BEDTIME acetaminophen [Tylenol Extra Strength] 500 mg tablet 1,000 mg PO Q6H PRN (Reason: pain or fever) pantoprazole 40 mg tablet,delayed release (DR/EC) 40 mg PO DAILY@0630 Rx Instructions: take one tablet half an hour before breakfast albuterol sulfate 2.5 mg/0.5 mL solution for nebulization 2.5 mg inhalation QID PRN (Reason: Shortness Of Breath) clobetasol 0.05 % ointment 1 ea topical BID cholecalciferol (vitamin D3) 50 mcg (2,000 unit) capsule 1 cap PO DAILY aspirin 81 mg Tablet,Delayed Release (Dr/Ec) 81 mg PO DAILY famotidine 40 mg tablet 1 tab PO BEDTIME Fiber Laxative (methylcellulo) 500 mg tablet 1 tab PO DAILY gabapentin 300 mg capsule 300 mg PO BEDTIME Discontinued carvedilol 6.25 mg Tablet 6.25 mg PO BID Rx Instructions: must administer with a meal/food sucralfate 100 mg/mL suspension 10 ml PO BIDAC Brilinta 90 mg Tablet 90 mg PO BID lisinopril 20 mg tablet 20 mg PO BEDTIME furosemide 20 mg tablet 20 mg PO DAILY Discharge Orders: Discharge Order (Routine); Ordered 06/03/22 Ordered By: Reba Pleitez Diet: Advance to usual diet Activity on Discharge: As tolerated Stand Alone Forms: Patient Portal Discharge page Other Ambulatory Orders: Basic Metabolic Panel (Routine) Timeframe: 2 Days Facility: [facility] - Location: Laboratory Ordered By: Reba Pleitez Complete Blood Count no Diff (Routine) Timeframe: 2 Days Facility: [facility] - Location: Laboratory Ordered By: Reba Pleitez Care Plan Goals: No further episodes of Bleeding Check BMP in 2 days secondary to hypokalemia (low potassium) Check hemoglobin and hematocrit in 2 days secondary to anemia (low blood count) Health Concerns: GI bleed Hypotension Plan of Treatment: Take all medications prescribed and follow up with your primary care provider for medication management Follow-up with your clinical trials manager or primary care provider regarding your blood pressure medication, they are currently hold due to low blood pressure If you experience further bleeding with dizziness or fainting return to the emergency department Assessment: See discharge summary Discharge Date/Time: 06/03/22 12:30
--- NOTE | 2022-06-03 08:35 | MHC.CM.PN ---
Patient has been medically cleared for dc to home today, self care. Second IMM addressed with Patient and her Daughter at bedside and original has been given to them and a copy has been placed on the chart.
[2022-06-03] MEDS: Clopidogrel Bisulfate 75 MG TABLET PO (09:11)
[2022-06-03] MEDS: Aspirin Enteric Coated 81 MG TABLET.DR PO (09:11)
[2022-06-03] MEDS: Ezetimibe 10 MG TABLET PO (09:12)
[2022-06-03] MEDS: Ascorbic Acid 500 MG TABLET PO (09:12)
[2022-06-03] MEDS: Sodium Bicarbonate 650 MG TABLET PO (09:12)
[2022-06-03] MEDS: Sucralfate Oral Suspension 1 GM/10 ML ORAL.SUSP PO (09:12)
[2022-06-03] MEDS: 0.9 % Sodium Chloride Flush 3 ML SYRINGE IVFLUSH (09:12)
[2022-06-03] MEDS: valACYclovir HCL 1,000 MG TABLET 1000 MG PO (09:12)
[2022-06-03] MEDS: Fluticasone/Vilanterol 100/25 BLST.W.DEV 1 PUFF INHALE (09:43)
[2022-06-03 09:44] VITALS: PULSE 63; RESP 18; O2SAT 21
[2022-06-03] MEDS: Potassium Chloride ER 20 MEQ TAB.ER.PRT 40 MEQ PO (11:18)
== END 2022-06-03 12:30 | disposition home or self-care (01) | DRG 377 ==
LOC: HO.ED 16:30 → HO.EDOVER 17:57 → HO.IMC 05-31 02:52
PROVIDERS: Emergency Medicine; Internal Medicine; Admitting Provider Physician Assistant Medical; Emergency Provider Emergency Medicine; PCP Internal Medicine; Visit Provider Nurse Practitioner Acute Care
DX: K55.21 Angiodysplasia of colon with hemorrhage (principal); I21.4 Non-ST elevation (NSTEMI) myocardial infarction; F17.210 Nicotine dependence, cigarettes, uncomplicated; J44.9 Chronic obstructive pulmonary disease, unspecified; I25.10 Atherosclerotic heart disease of native coronary artery without angina pectoris; I95.9 Hypotension, unspecified; Z66 Do not resuscitate; E86.9 Volume depletion, unspecified; E78.5 Hyperlipidemia, unspecified; Z71.6 Tobacco abuse counseling; Z20.822 Contact with and (suspected) exposure to COVID-19; Z88.1 Allergy status to other antibiotic agents; Z88.8 Allergy status to other drugs, medicaments and biological substances; Z79.02 Long term (current) use of antithrombotics/antiplatelets; Z79.82 Long term (current) use of aspirin; Z79.899 Other long term (current) drug therapy
CPT/HCPCS: 36415; 70490; 71045; 74176; 80048; 80076; 81001; 82272; 83605; 83690; 83735; 84484; 85025; 85027; 85610; 85730; 86850; 86900; 86901; 86923; 87040; 87086; 87493; 87635; 93005; 94640; 94664; 96361; 96374; 96375; 99285; J1335; J2185; P9016

== ENCOUNTER 2022-06-05 12:23 | Emergency (ER) | payer OTHER, SELFPAY ==
[2022-06-05 12:33] VITALS: PULSE 67; RESP 18; TEMP 36.2; O2SAT 99; BMI 25.4
[2022-06-05 12:50] LABS: Hematocrit 30.2 % (37.0-47.0); Hemoglobin 10.1 g/dl (12.0-16.0); Mean Corpuscular HGB Conc 33.4 g/dl (31.0-35.0); Mean Corpuscular Hemoglobin 27.9 pg (27.0-33.0); Mean Corpuscular Volume 83.4 fL (80.0-98.0); Platelet Count 319 X10*3/uL (160-400); Red Blood Count 3.62 X10*6/uL (4.20-5.50); Red Cell Distribution Width 14.5 % (11.0-16.0); White Blood Count 8.8 X10*3/uL (4.8-10.8)
[2022-06-05 13:07] LABS: Anion Gap 9 (12-20); Blood Urea Nitrogen 3 mg/dL (9-16); Calcium 8.3 mg/dL (8.4-10.2); Carbon Dioxide 24 mmol/L (22-29); Chloride 103 mmol/L (96-108); Creatinine Clr Calc Pharmacy 40.4; Estimated Glomerular Filt Rate 54; Glucose Random 105 mg/dL (60-115); Potassium 3.1 mmol/L (3.3-5.1); Sodium 133 mmol/L (135-145)
== END 2022-06-05 15:06 | disposition left against medical advice (07) ==
PROVIDERS: Emergency Provider Emergency Medicine; PCP Internal Medicine
DX: R03.1 Nonspecific low blood-pressure reading (principal); M54.2 Cervicalgia; Z79.899 Other long term (current) drug therapy
CPT/HCPCS: 36415; 80048; 85027; 99281; 99282

== ENCOUNTER 2022-06-06 12:18 | Observation (INO) | payer OTHER, SELFPAY ==
--- NOTE | ~2022-06-06 | XR_ITS ---
EXAMINATION: XR CHEST CLINICAL INFORMATION: Fevers. COMPARISON: 05/29/2022 chest radiograph. TECHNIQUE: Frontal view of the chest was obtained. FINDINGS: No significant abnormality is noted involving the heart, lungs, mediastinum, bony thorax or soft tissues. XR/XR chest 1V IMPRESSION: No acute cardiopulmonary process.
[2022-06-06 12:30] VITALS: BP 100/46; PULSE 66; RESP 18; TEMP 37.6; O2SAT 98; BMI 25.0
--- NOTE | 2022-06-06 14:23 | ECG_ITS ---
Test Reason : weakness Blood Pressure : / mmHG Vent. Rate : 060 BPM Atrial Rate : 060 BPM P-R Int : 128 ms QRS Dur : 078 ms QT Int : 546 ms P-R-T Axes : 043 007 050 degrees QTc Int : 546 ms Normal sinus rhythm Cannot rule out Inferior infarct , age undetermined Possible Anterior infarct , age undetermined Prolonged QT Abnormal ECG When compared to the previous EKG of T wave inversions in I and aVL have improved. Referred By: Nayely Cox Electronically Signed By:Irwin Rosales
--- NOTE | 2022-06-06 14:23 | ED.GIBLEED ---
HPI - GI Bleed General Chief complaint: GI Bleed Stated complaint: GI bleed Time Seen by Provider: 06/06/22 14:19 Source: patient and old records reviewed Mode of arrival: ambulatory Limitations: no limitations History of Present Illness HPI Narrative: 72 yo female with hx of anemia, CAD s/p YARELY 05/22 on plavix and aspirin, GIB on pantoprazole/sucralfate with recent admission requiring 2 UPRBCs, no EGD as the patient on dual antiplatelet therapy. Also had fever at that time 100.6 presumed UTI but Cx negative and ID recommended no antibiotics. Patient with low BPs and all HTN meds held. Patient also with fever but no source found. Went to PCP today as BP upon waking at home high 70s. Has felt fevers, chills, malaise complaint: melena Onset (ago): week(s) Severity: mild Relieving factors: none Exacerbating factors: none Context: history of GI bleed Associated symptoms: chills, malaise and weakness Related Data Home Medications Medication Instructions Recorded Confirmed gabapentin 300 mg capsule 300 mg PO BEDTIME 09/13/20 05/29/22 methenamine hippurate 1 gram tablet 1 tab PO BID 12/27/21 05/29/22 valacyclovir 1 gram tablet 1 tab PO DAILY 12/27/21 05/29/22 docusate sodium 100 mg capsule 100 mg PO BEDTIME 03/13/22 05/29/22 (Colace) acetaminophen 500 mg tablet 1,000 mg PO Q6H PRN pain or fever 05/29/22 05/29/22 (Tylenol Extra Strength) albuterol sulfate 2.5 mg/0.5 mL 2.5 mg inhalation QID PRN 05/29/22 05/29/22 solution for nebulization Shortness Of Breath ascorbic acid (vitamin C) 500 mg 500 mg PO DAILY 05/29/22 05/29/22 tablet aspirin 81 mg tablet,delayed 81 mg PO DAILY 05/29/22 05/29/22 release cetirizine 10 mg tablet 1 tab PO DAILY 05/29/22 05/29/22 cholecalciferol (vitamin D3) 50 1 cap PO DAILY 05/29/22 05/29/22 mcg (2,000 unit) capsule clobetasol 0.05 % topical ointment 1 ea topical BID 05/29/22 05/29/22 ezetimibe 10 mg tablet 10 mg PO DAILY 05/29/22 05/29/22 famotidine 40 mg tablet 1 tab PO BEDTIME 05/29/22 05/29/22 hydroxyzine HCl 25 mg tablet 25 mg PO QID PRN Itching 05/29/22 05/29/22 methylcellulose (laxative) 500 mg 1 tab PO DAILY 05/29/22 05/29/22 tablet (Fiber Laxative (methylcellulose)) pantoprazole 40 mg tablet,delayed 40 mg PO DAILY@30 05/29/22 05/29/22 release rosuvastatin 40 mg tablet 40 mg PO BEDTIME 05/29/22 05/29/22 Previous Rx's Medication Instructions Recorded umeclidinium 62.5 mcg-vilanterol 1 ea inhalation DAILY #60 caps 10/21/21 25 mcg/actuation powdr for inhalation (Anoro Ellipta) clopidogrel 75 mg tablet 75 mg PO DAILY #30 tabs 06/03/22 potassium chloride 20 mEq 40 meq PO DAILY #4 tabs 06/03/22 tablet,extended release(part/cryst) (Klor-Con M) sucralfate 100 mg/mL oral 1 g (10 mL) PO QID #400 mL 06/03/22 suspension Allergies Allergy/AdvReac Type Severity Reaction Status Date / Time levofloxacin [LEVOFLOXACIN] Allergy Intermediate HIVES Verified 06/05/22 12:31 ceftriaxone [From ROCEPHIN] Allergy Mild SWELLING Verified 06/05/22 12:31 cephalexin [From KEFLEX] Allergy Mild ITCHING Verified 06/05/22 12:31 cyanocobalamin (vitamin B12) Allergy Mild Rash Verified 06/05/22 12:31 doxycycline Allergy Mild Rash Verified 06/05/22 12:31 ferrous sulfate Allergy Mild Stomach Verified 06/05/22 12:31 Upset almond Allergy itchy Verified 06/05/22 12:31 throat Review of Systems Review of Systems: Constitutional : No Weight loss, pos Fever, pos Chills, pos Fatigue, pos Malaise ENT/Mouth : No sore throat, No Rhinorrhea Eyes: No Eye Pain, No Swelling, No Redness Cardiovascular : No Chest Pain, No SOB, No Dyspnea on Exertion, No Orthopnea, No Edema, No Palpitations Respiratory : No Cough, No Sputum, No Wheezing Gastrointestinal : pos Nausea, No Vomiting, No Diarrhea, No Constipation, No abdominal Pain, No Hematochezia, pos Melena Genitourinary : No Dysuria, No Urinary Frequency, No Hematuria, Musculoskeletal : No joint pain, No Myalgias, No Joint Swelling Skin : No Skin Lesions, No rash Neuro : pos Weakness, No Numbness, No Dizziness, No Headache Psych : No Anxiety/Panic, No Depression Heme/Lymph: No Bruising, No Bleeding,No Lymphadenopathy Endocrine : No Polyuria, No Polydipsia All other systems reviewed and are negative [facility] Past Medical History Attestation statement: The following information was validated with the patient. Medical History Abscess of right genital labia Carotid stenosis, bilateral COPD (chronic obstructive pulmonary disease) Gastritis HTN (hypertension) Hyperlipidemia Iron (Fe) deficiency anemia Lichen sclerosus NSTEMI (non-ST elevated myocardial infarction) Perirectal ulcer Pulmonary nodules PVD (peripheral vascular disease) Pyuria Vulvar leukoplakia Surgical History H/O colonoscopy History of bilateral tubal ligation History of brain surgery History of carpal tunnel surgery History of esophagogastroduodenoscopy (EGD) Family History Family History Family/Other Breast cancer Mother HTN (hypertension) Asthma Brother CVA (cerebral vascular accident) Asthma Father Asthma Social History Social History Household Members: None Housing: Apartment Are you a primary medicare contact specialist to a significant other at home: No Do you presently have visiting nurse or other home services: No Alcohol intake: former Patient Tobacco Use Status: Current everyday Tobacco user Tobacco use type: Cigarette Cigarettes Per Day: 1 Years Smoked: 52 Smoked in Last 30 Days: Yes Use of substances other than those prescribed or required for medical reasons: No Advance Directives: Yes Advance Directives Information Provided: Yes Advance Directives on File: No Advance Directives Date on File: 05/30/22 service: No Current occupational status: unemployed Sexual orientation: Straight/Heterosexual Gender identity: Female Physical Exam Vital Signs: Vital Signs: Last Vital Signs Temp 99.1 F 06/06/22 16:42 Pulse 52 07/08/22 16:42 Resp 18 06/06/22 16:42 BP 125/58 L 06/06/22 16:42 Pulse Ox 98 06/06/22 16:42 O2 Del Method 06/06/22 16:42 BMI result Body Mass Index 25.0 Appearance: Alert. Oriented X3. No acute distress. Eyes: Pupils equal, round and reactive to light. Pale sclera ENT: Pharynx normal. Neck: Normal inspection. Neck supple. CVS: Normal heart rate and rhythm. Pulses normal. Respiratory: No respiratory distress. Breath sounds normal. Abdomen: Soft and nontender. Skin: Skin warm and dry. pale skin color. Normal skin turgor. Extremities: No lower extremity edema. No calf ttp Neuro: Oriented X 3. No motor deficit. No sensory deficit. Course Course Course Narrative: hemoglobin stable IVF ordered possible infection, repeat lactic acid pending IV ceftriaxone pending 428pm c/o pain inside mouth but I do not appreicate mass or fluctuance magic mouthwash ordered given fevers at home, lactic acidosis will admit overnight for observation MDM - GI Bleed MDM Narrative Medical decision making narrative: 72 yo female with hx of anemia, CAD s/p YARELY 05/22 on plavix and aspirin, GIB on pantoprazole/sucralfate with recent admission requiring 2 UPRBCs back again with low BPs despite not taking BP medications - tested positive at [facility] for guiac stools but as I discussed with patient she may likely continue to bleed as she is on plavix and aspirin she may need repeat transfusions. At this time labs, UA, CXR, CBC ordered. Patient notes feeling chills and weak at home. Her BP was 70s at waking up. Her mouth has been sore. She is not taking her BP medications at home. She was sent in by her PCP today. Had fever on last admission as well but cultures negative at that time Lab Data Result diagrams: 06/06/22 14:58 06/06/22 14:58 Labs: Lab Results 06/06/22 06/06/22 06/06/22 Range/Units 14:52 14:58 14:58 WBC 8.9 (4.8-10.8) X10*3/uL RBC 3.66 L (4.20-5.50) X10*6/uL Hgb 10.1 L (12.0-16.0) g/dl Hct 30.4 L (37.0-47.0) % MCV 83.1 (80.0-98.0) fL MCH 27.6 (27.0-33.0) pg MCHC 33.2 (31.0-35.0) g/dl RDW 14.3 (11.0-16.0) % Plt Count 338 (160-400) X10*3/uL MPV 9.8 (9.4-12.3) fL Immature Gran % (Auto) 0.6 H (0.0-0.4) % Neut % (Auto) 51.2 (45-73) % Lymph % (Auto) 31.5 (20-40) % [place] % (Auto) 7.6 (2-11) % Eos % (Auto) 8.5 H (0-4) % Baso % (Auto) 0.6 (0-2) % Lymph # (Auto) 2.8 (1.2-4.9) X10*3/uL [place] # (Auto) 0.7 (0.1-1.2) X10*3/uL Eos # (Auto) 0.8 H (0.0-0.4) X10*3/uL Baso # (Auto) 0.1 (0.0-0.2) X10*3/uL Abs Immat Gran (auto) 0.05 H (0.00-0.03) X10*3/uL Absolute Neuts (auto) 4.6 (2.0-8.3) x10*3/uL Absolute Nucleated RBC 0.000 (0.0-0.012) X10*3/uL Nucleated RBC % (auto) 0.0 (0.0-0.2) /100WBC PT 14.4 H (10.0-13.1) SEC INR 1.2 H (0.9-1.1) Sodium (135-145) mmol/L Potassium (3.3-5.1) mmol/L Chloride (96-108) mmol/L Carbon Dioxide (22-29) mmol/L Anion Gap (12-20) BUN (9-16) mg/dL Creatinine (0.5-1.4) mg/dL Estim Creat Clear Calc Estimated GFR Random Glucose (60-115) mg/dL Lactic Acid (0.5-2.0) mmol/L Calcium (8.4-10.2) mg/dL Magnesium (1.6-2.6) mg/dL Total Bilirubin (0.0-1.0) mg/dL Direct Bilirubin (0.0-0.5) mg/dL AST (5-31) U/L ALT (0-31) U/L Alkaline Phosphatase (39-117) U/L Troponin I High Sens (<3.5-17.0) ng/L Total Protein (6.5-8.0) g/dL Albumin (3.5-5.0) g/dL Lipase (8-78) U/L Urine Color Urine Appearance Urine pH (5.0-8.0) Ur Specific [place] (1.005-1.025) Urine Protein (NEG-TRACE) MG/DL Urine Glucose (UA) (NEG) MG/DL Urine Ketones (NEG) MG/DL Urine Blood (NEG) Urine Nitrite (NEG) Ur Leukocyte Esterase (NEG) Urine RBC (0) /HPF Urine WBC (0-4) /HPF Ur Squamous Epith Cells /LPF Calcium Oxalate Crystal /LPF Amorphous Sediment /LPF Urine Bacteria /LPF Granular Casts /LPF Urine Mucus /LPF COVID-19 (SOHA) Negative (Negative) COVID-19 Clin Com See Note 06/06/22 06/06/22 06/06/22 Range/Units 14:58 14:58 14:58 WBC (4.8-10.8) X10*3/uL RBC (4.20-5.50) X10*6/uL Hgb (12.0-16.0) g/dl Hct (37.0-47.0) % MCV (80.0-98.0) fL MCH (27.0-33.0) pg MCHC (31.0-35.0) g/dl RDW (11.0-16.0) % Plt Count (160-400) X10*3/uL MPV (9.4-12.3) fL Immature Gran % (Auto) (0.0-0.4) % Neut % (Auto) (45-73) % Lymph % (Auto) (20-40) % [place] % (Auto) (2-11) % Eos % (Auto) (0-4) % Baso % (Auto) (0-2) % Lymph # (Auto) (1.2-4.9) X10*3/uL [place] # (Auto) (0.1-1.2) X10*3/uL Eos # (Auto) (0.0-0.4) X10*3/uL Baso # (Auto) (0.0-0.2) X10*3/uL Abs Immat Gran (auto) (0.00-0.03) X10*3/uL Absolute Neuts (auto) (2.0-8.3) x10*3/uL Absolute Nucleated RBC (0.0-0.012) X10*3/uL Nucleated RBC % (auto) (0.0-0.2) /100WBC PT (10.0-13.1) SEC INR (0.9-1.1) Sodium 134 L (135-145) mmol/L Potassium 3.6 (3.3-5.1) mmol/L Chloride 101 (96-108) mmol/L Carbon Dioxide 24 (22-29) mmol/L Anion Gap 13 (12-20) BUN 5 L D (9-16) mg/dL Creatinine 0.90 (0.5-1.4) mg/dL Estim Creat Clear Calc 45.1 Estimated GFR > 60 Random Glucose 95 (60-115) mg/dL Lactic Acid 3.7 H* (0.5-2.0) mmol/L Calcium 8.6 (8.4-10.2) mg/dL Magnesium 1.7 (1.6-2.6) mg/dL Total Bilirubin 0.6 (0.0-1.0) mg/dL Direct Bilirubin 0.3 (0.0-0.5) mg/dL AST 28 (5-31) U/L ALT 20 (0-31) U/L Alkaline Phosphatase 107 D (39-117) U/L Troponin I High Sens 7.2 (<3.5-17.0) ng/L Total Protein 6.5 (6.5-8.0) g/dL Albumin 3.4 L (3.5-5.0) g/dL Lipase 25 (8-78) U/L Urine Color Urine Appearance Urine pH (5.0-8.0) Ur Specific [place] (1.005-1.025) Urine Protein (NEG-TRACE) MG/DL Urine Glucose (UA) (NEG) MG/DL Urine Ketones (NEG) MG/DL Urine Blood (NEG) Urine Nitrite (NEG) Ur Leukocyte Esterase (NEG) Urine RBC (0) /HPF Urine WBC (0-4) /HPF Ur Squamous Epith Cells /LPF Calcium Oxalate Crystal /LPF Amorphous Sediment /LPF Urine Bacteria /LPF Granular Casts /LPF Urine Mucus /LPF COVID-19 (SOHA) (Negative) COVID-19 Clin Com 06/06/22 Range/Units 15:38 WBC (4.8-10.8) X10*3/uL RBC (4.20-5.50) X10*6/uL Hgb (12.0-16.0) g/dl Hct (37.0-47.0) % MCV (80.0-98.0) fL MCH (27.0-33.0) pg MCHC (31.0-35.0) g/dl RDW (11.0-16.0) % Plt Count (160-400) X10*3/uL MPV (9.4-12.3) fL Immature Gran % (Auto) (0.0-0.4) % Neut % (Auto) (45-73) % Lymph % (Auto) (20-40) % [place]linger % (Auto) (2-11) % Eos % (Auto) (0-4) % Baso % (Auto) (0-2) % Lymph # (Auto) (1.2-4.9) X10*3/uL [place] # (Auto) (0.1-1.2) X10*3/uL Eos # (Auto) (0.0-0.4) X10*3/uL Baso # (Auto) (0.0-0.2) X10*3/uL Abs Immat Gran (auto) (0.00-0.03) X10*3/uL Absolute Neuts (auto) (2.0-8.3) x10*3/uL Absolute Nucleated RBC (0.0-0.012) X10*3/uL Nucleated RBC % (auto) (0.0-0.2) /100WBC PT (10.0-13.1) SEC INR (0.9-1.1) Sodium (135-145) mmol/L Potassium (3.3-5.1) mmol/L Chloride (96-108) mmol/L Carbon Dioxide (22-29) mmol/L Anion Gap (12-20) BUN (9-16) mg/dL Creatinine (0.5-1.4) mg/dL Estim Creat Clear Calc Estimated GFR Random Glucose (60-115) mg/dL Lactic Acid (0.5-2.0) mmol/L Calcium (8.4-10.2) mg/dL Magnesium (1.6-2.6) mg/dL Total Bilirubin (0.0-1.0) mg/dL Direct Bilirubin (0.0-0.5) mg/dL AST (5-31) U/L ALT (0-31) U/L Alkaline Phosphatase (39-117) U/L Troponin I High Sens (<3.5-17.0) ng/L Total Protein (6.5-8.0) g/dL Albumin (3.5-5.0) g/dL Lipase (8-78) U/L Urine Color DK YELLOW Urine Appearance CLOUDY Urine pH 5.5 (5.0-8.0) Ur Specific [place] 1.020 (1.005-1.025) Urine Protein 1+ H (NEG-TRACE) MG/DL Urine Glucose (UA) NEG (NEG) MG/DL Urine Ketones 5 (NEG) MG/DL Urine Blood 2+ H (NEG) Urine Nitrite NEG (NEG) Ur Leukocyte Esterase 1+ H (NEG) Urine RBC 5-9 H (0) /HPF Urine WBC 10-14 H (0-4) /HPF Ur Squamous Epith Cells 1+ /LPF Calcium Oxalate Crystal 2+ /LPF Amorphous Sediment 1+ /LPF Urine Bacteria TRACE /LPF Granular Casts 1-4 /LPF Urine Mucus 2+ /LPF COVID-19 (SOHA) (Negative) COVID-19 Clin Com ECG Data Attestation: I personally reviewed and interpreted this ECG as follows: ECG interpretation date: 06/06/22 ECG interpretation time: 14:39 Interpretation: Rate: 60 Rhythm: NSR [place]: normal Normal P waves. Normal MELISSA. Normal QRS complex. ST T wave : nonspecific no NOLVIA qTC: prolonged prior studies: no acute ischemia The study has been interpreted contemporaneously by me. . Discharge Plan Discharge Clinical Impression: Acidosis, lactic, Chronic gastrointestinal bleeding Patient Disposition: Admitted As Inpatient
[2022-06-06 14:39] VITALS: BP 102/49; PULSE 61; RESP 16; TEMP 37.5; O2SAT 96
[2022-06-06 15:03] LABS: MANUAL DIFF FLAG NO
[2022-06-06 15:13] LABS: Basophils Absolute Auto 0.1 X10*3/uL (0.0-0.2); Basophils Percent Auto 0.6 % (0-2); Eosinophils Absolute Auto 0.8 X10*3/uL (0.0-0.4); Eosinophils Percent Auto 8.5 % (0-4); Hematocrit 30.4 % (37.0-47.0); Hemoglobin 10.1 g/dl (12.0-16.0); Imm Gran Abs Auto 0.05 X10*3/uL (0.00-0.03); Imm Gran Pct Auto 0.6 % (0.0-0.4); Lymphocytes Absolute Auto 2.8 X10*3/uL (1.2-4.9); Lymphocytes Percent Auto 31.5 % (20-40); Mean Corpuscular HGB Conc 33.2 g/dl (31.0-35.0); Mean Corpuscular Hemoglobin 27.6 pg (27.0-33.0); Mean Corpuscular Volume 83.1 fL (80.0-98.0); Mean Platelet Volume 9.8 fL (9.4-12.3); Monocytes Absolute Auto 0.7 X10*3/uL (0.1-1.2); Monocytes Percent Auto 7.6 % (2-11); Neutrophils Absolute Auto 4.6 x10*3/uL (2.0-8.3); Neutrophils Percent Auto 51.2 % (45-73); Platelet Count 338 X10*3/uL (160-400); Red Blood Count 3.66 X10*6/uL (4.20-5.50); Red Cell Distribution Width 14.3 % (11.0-16.0); White Blood Count 8.9 X10*3/uL (4.8-10.8)
[2022-06-06 15:18] LABS: Lactic Acid 3.7 mmol/L (0.5-2.0)
[2022-06-06 15:19] LABS: INTERNATIONAL NORM RATIO 1.2 (0.9-1.1); Prothrombin Time 14.4 SEC (10.0-13.1)
[2022-06-06 15:20] LABS: COVID-19 Test Negative (Negative); IDNOW Serial# 9DB6401D
[2022-06-06 15:24] LABS: Alanine Aminotransferase 20 U/L (0-31); Albumin Level 3.4 g/dL (3.5-5.0); Alkaline Phosphatase 107 U/L (39-117); Anion Gap 13 (12-20); Aspartate Amino Transferase 28 U/L (5-31); Bilirubin Direct 0.3 mg/dL (0.0-0.5); Bilirubin Total 0.6 mg/dL (0.0-1.0); Blood Urea Nitrogen 5 mg/dL (9-16); Calcium 8.6 mg/dL (8.4-10.2); Carbon Dioxide 24 mmol/L (22-29); Chloride 101 mmol/L (96-108); Creatinine Clr Calc Pharmacy 45.1; Estimated Glomerular Filt Rate > 60; Glucose Random 95 mg/dL (60-115); Lipase 25 U/L (8-78); Magnesium 1.7 mg/dL (1.6-2.6); Potassium 3.6 mmol/L (3.3-5.1); Sodium 134 mmol/L (135-145); Total Protein 6.5 g/dL (6.5-8.0)
[2022-06-06 15:25] LABS: Troponin-I High Sensitivity 7.2 ng/L (<3.5-17.0)
[2022-06-06] MEDS: 0.9 % Sodium Chloride 1,000 ML 999 ML IVCONT (15:37)
[2022-06-06 15:50] LABS: Appearance Urine CLOUDY; Color Urine DK YELLOW; Glucose Urine UA NEG (NEG); Leukocyte Esterase Urine 1+ (NEG); Nitrite Urine NEG (NEG); PH 5.5 (5.0-8.0); UACC Culture Trigger YES; Urine Blood 2+ (NEG); Urine Ketones 5 MG/DL (NEG); Urine Protein 1+ MG/DL (NEG-TRACE)
[2022-06-06 16:10] LABS: Amorphous Sediment Urine 1+ /LPF; Bacteria Urine TRACE /LPF; Calcium Oxalate Crystals Urine 2+ /LPF; Mucus Urine 2+ /LPF; Squamous Epithelial Cell Urine 1+ /LPF
[2022-06-06 16:42] VITALS: BP 125/58; PULSE 52; RESP 18; TEMP 37.3; O2SAT 98
[2022-06-06] MEDS: Mag&Al/Sim/Diphenhyd/Lidocaine 10 ML ORAL.SUSP PO (16:49)
[2022-06-06] MEDS: Ertapenem Sodium 1 GM in 0.9 % Sodium Chloride 50 ML IV (16:53)
[2022-06-06 17:01] LABS: Reflex Lactate? Lactic Acid Added
--- NOTE | 2022-06-06 17:22 | PHA.MEDREC ---
Pharmacy Consult ? Medication Reconciliation Pharmacy has completed the medication reconciliation. Patient just discharged from [facility] 06/03/22. Med rec done by RICHARD bailey on 05/29 prior to admission. Med rec completed by discharge summary. lEicia Skelton, [employer]
[2022-06-06 18:58] LABS: ~Lactic Acid-LAB USE ONLY 0.7 mmol/L (0.5-2.0)
--- NOTE | 2022-06-06 19:12 | PM.IMHP ---
History of Present Illness Date of Service: 06/06/22 Chief Complaint: Low blood pressure 72-year-old female with a past medical history of hypertension, hyperlipidemia, CAD-recent YARELY stent in April 2022; on aspirin Plavix currently; recent admission to the hospital for question UTI/GI bleed requiring 2 units of blood transfusion/hypotension->. Antihypertensive; presented to the hospital today with a chief complaint of low blood pressure. Patient reports that she noted her blood pressure to be on the lower side today with systolic in 80s; hence presented to the ER for further evaluation. Patient denies any lightheadedness or dizziness. Patient reports that she has pain in her throat and has not been eating good for the past 3-4 days. Complains of pain on swallowing. Denies any nausea vomiting or diarrhea. Denies any cough or sputum production. Denies any chest pain or palpitations. Mentioned that she has not been taking her home antihypertensives given day was started in the last admission. Denies being on any antibiotics. Denies any numbness tingling or focal weakness. Denies any falls. Patient denies any further episodes of GI bleed. Review of all other systems is negative except mentioned above ER course: Per ER team patient blood pressure on presentation noted to be in the soft side with systolic in 0s; given IV fluids with improvement in blood pressure. Admitted to the hospital for observation. [facility] Medical History Abscess of right genital labia Atherosclerotic cardiovascular disease Carotid stenosis, bilateral COPD (chronic obstructive pulmonary disease) Gastritis HTN (hypertension) Hyperlipidemia Iron (Fe) deficiency anemia Lichen sclerosus NSTEMI (non-ST elevated myocardial infarction) Perirectal ulcer Pulmonary nodules PVD (peripheral vascular disease) Pyuria Vulvar leukoplakia Family History Family/Other Breast cancer Mother HTN (hypertension) Asthma Brother CVA (cerebral vascular accident) Asthma Father Asthma Surgical History H/O colonoscopy History of bilateral tubal ligation History of brain surgery History of carpal tunnel surgery History of esophagogastroduodenoscopy (EGD) Stented coronary artery Social History Household Members: None Housing: Apartment Are you a primary rn managed care to a significant other at home: No Do you presently have visiting nurse or other home services: No Alcohol intake: never Patient Tobacco Use Status: Current everyday Tobacco user Tobacco use type: Cigarette Cigarettes Per Day: 1 Years Smoked: 52 Advance Directives Date on File: 05/30/22 service: No Current occupational status: unemployed Sexual orientation: Straight/Heterosexual Gender identity: Female Meds Allergies Allergy/AdvReac Type Severity Reaction Status Date / Time levofloxacin [LEVOFLOXACIN] Allergy Intermediate HIVES Verified 06/25/22 09:12 ceftriaxone [From ROCEPHIN] Allergy Mild SWELLING Verified 06/25/22 09:12 cephalexin [From KEFLEX] Allergy Mild ITCHING Verified 06/25/22 09:12 cyanocobalamin (vitamin B12) Allergy Mild Rash Verified 06/25/22 09:12 doxycycline Allergy Mild Rash Verified 06/25/22 09:12 ferrous sulfate Allergy Mild Stomach Verified 06/25/22 09:12 Upset almond Allergy itchy Verified 06/25/22 09:12 throat Active Medications: Current Medications Acetaminophen (Acetaminophen 325 Mg Tablet) 650 mg PO Q6H PRN PRN Reason: Pain, Mild (Pain Scale 1-3) Hydromorphone HCl (Hydromorphone Hcl 0.5 Mg/0.5 Ml Syringe) 0.5 mg IVPUSH Q4H PRN; Protocol PRN Reason: Pain, Severe (Pain Scale 7-10) Sodium Chloride (Ns) 1,000 mls @ 100 mls/hr IVCONT .Q10H [facility] Melatonin (Melatonin 3 Mg Tablet) 6 mg PO BEDTIME PRN PRN Reason: Insomnia Pharmacy Consult (Consult Rx Perform Med Rec) 1 each MISCELLANE ONCE PRN PRN Reason: Consult order Senna (Sennosides 8.6 Mg Tablet) 17.2 mg PO BEDTIME PRN PRN Reason: Constipation Sodium Chloride (0.9 % Sodium Chloride Flush 3 Ml Syringe) 3 ml IVFLUSH QSHIFT [facility] Home Medications Medication Instructions Recorded Confirmed Last Taken Type gabapentin 300 mg capsule 300 mg PO BEDTIME 09/13/20 06/06/22 06/11/21 07:30 History methenamine hippurate 1 gram tablet 1 tab PO BID 12/27/21 06/06/22 Unknown History valacyclovir 1 gram tablet 1 tab PO DAILY 12/27/21 06/06/22 Unknown History docusate sodium 100 mg capsule 100 mg PO BEDTIME 03/13/22 06/06/22 Unknown History (Colace) acetaminophen 500 mg tablet 1,000 mg PO Q6H PRN pain or fever 05/29/22 06/06/22 Unknown History (Tylenol Extra Strength) albuterol sulfate 2.5 mg/0.5 mL 2.5 mg inhalation QID PRN 05/29/22 06/06/22 Unknown History solution for nebulization Shortness Of Breath ascorbic acid (vitamin C) 500 mg 500 mg PO DAILY 05/29/22 06/06/22 Unknown History tablet aspirin 81 mg tablet,delayed 81 mg PO DAILY 05/29/22 06/06/22 Unknown History release cetirizine 10 mg tablet 1 tab PO DAILY 05/29/22 06/06/22 Unknown History cholecalciferol (vitamin D3) 50 1 cap PO DAILY 05/29/22 06/06/22 Unknown History mcg (2,000 unit) capsule clobetasol 0.05 % topical ointment 1 ea topical BID 05/29/22 06/06/22 Unknown History ezetimibe 10 mg tablet 10 mg PO DAILY 05/29/22 06/06/22 Unknown History hydroxyzine HCl 25 mg tablet 25 mg PO QID PRN Itching 05/29/22 06/06/22 Unknown History rosuvastatin 40 mg tablet 40 mg PO BEDTIME 05/29/22 06/06/22 Unknown History Physical Exam Vital Signs and Narrative: Vital Signs: Last Vital Signs Temp 99.1 F 06/06/22 16:42 Pulse 52 06/06/22 16:42 Resp 18 06/06/22 16:42 BP 125/58 L 06/06/22 16:42 Pulse Ox 98 06/06/22 16:42 O2 Del Method 06/06/22 16:42 BMI result Body Mass Index 25.0 Gen: Appears be in no acute distress HEENT: NCAT, Moist mucosa. Noted to have erythematous patches on the tonsil are and anterior pharyngeal wall, also noted on the tonsillar pillars. No exudate or whitish plaques. Throat swab sent Pulmonary: Vesicular breath sounds, fair air entry CVS: Normal S1-S2 Abdomen: BS+, Soft, Nontender Extremities: Warm well perfused Neuro: Alert and awake. Grossly nonfocal Results Labs CBC and Chem 7: 06/07/22 15:34 06/07/22 06:59 Labs: Laboratory Results - last 24 hr 06/06/22 06/06/22 06/06/22 14:52 14:58 14:58 MCV 83.1 MCH 27.6 MCHC 33.2 RDW 14.3 Plt Count 338 MPV 9.8 Immature Gran % (Auto) 0.6 H Neut % (Auto) 51.2 Lymph % (Auto) 31.5 [place] % (Auto) 7.6 Eos % (Auto) 8.5 H Baso % (Auto) 0.6 Lymph # (Auto) 2.8 [place] # (Auto) 0.7 Eos # (Auto) 0.8 H Baso # (Auto) 0.1 Abs Immat Gran (auto) 0.05 H Absolute Neuts (auto) 4.6 Absolute Nucleated RBC 0.000 Nucleated RBC % (auto) 0.0 PT 14.4 H INR 1.2 H Anion Gap Estim Creat Clear Calc Estimated GFR Random Glucose Lactic Acid Lactic Acid F/U @ 2Hr Calcium Magnesium Total Bilirubin Direct Bilirubin AST ALT Alkaline Phosphatase Troponin I High Sens Total Protein Albumin Lipase Urine Color Urine Appearance Urine pH Ur Specific [place] Urine Protein Urine Glucose (UA) Urine Ketones Urine Blood Urine Nitrite Ur Leukocyte Esterase Urine RBC Urine WBC Ur Squamous Epith Cells Calcium Oxalate Crystal Amorphous Sediment Urine Bacteria Granular Casts Urine Mucus COVID-19 ([facility]) Negative COVID-19 Clin Com See Note Blood Type Antibody Screen 06/06/22 06/06/22 06/06/22 14:58 14:58 14:58 MCV MCH MCHC RDW Plt Count MPV Immature Gran % (Auto) Neut % (Auto) Lymph % (Auto) [place] % (Auto) Eos % (Auto) Baso % (Auto) Lymph # (Auto) [place] # (Auto) Eos # (Auto) Baso # (Auto) Abs Immat Gran (auto) Absolute Neuts (auto) Absolute Nucleated RBC Nucleated RBC % (auto) PT INR Anion Gap 13 Estim Creat Clear Calc 45.1 Estimated GFR > 60 Random Glucose 95 Lactic Acid 3.7 H* Lactic Acid F/U @ 2Hr Calcium 8.6 Magnesium 1.7 Total Bilirubin 0.6 Direct Bilirubin 0.3 AST 28 ALT 20 Alkaline Phosphatase 107 D Troponin I High Sens 7.2 Total Protein 6.5 Albumin 3.4 L Lipase 25 Urine Color Urine Appearance Urine pH Ur Specific [place] Urine Protein Urine Glucose (UA) Urine Ketones Urine Blood Urine Nitrite Ur Leukocyte Esterase Urine RBC Urine WBC Ur Squamous Epith Cells Calcium Oxalate Crystal Amorphous Sediment Urine Bacteria Granular Casts Urine Mucus COVID-19 ([facility]) COVID-19 Clin Com Blood Type Antibody Screen 06/06/22 06/06/22 06/06/22 15:38 16:01 18:39 MCV MCH MCHC RDW Plt Count MPV Immature Gran % (Auto) Neut % (Auto) Lymph % (Auto) [place] % (Auto) Eos % (Auto) Baso % (Auto) Lymph # (Auto) [place] # (Auto) Eos # (Auto) Baso # (Auto) Abs Immat Gran (auto) Absolute Neuts (auto) Absolute Nucleated RBC Nucleated RBC % (auto) PT INR Anion Gap Estim Creat Clear Calc Estimated GFR Random Glucose Lactic Acid Lactic Acid F/U @ 2Hr 0.7 Calcium Magnesium Total Bilirubin Direct Bilirubin AST ALT Alkaline Phosphatase Troponin I High Sens Total Protein Albumin Lipase Urine Color DK YELLOW Urine Appearance CLOUDY Urine pH 5.5 Ur Specific [place] 1.020 Urine Protein 1+ H Urine Glucose (UA) NEG Urine Ketones 5 Urine Blood 2+ H Urine Nitrite NEG Ur Leukocyte Esterase 1+ H Urine RBC 5-9 H Urine WBC 10-14 H Ur Squamous Epith Cells 1+ Calcium Oxalate Crystal 2+ Amorphous Sediment 1+ Urine Bacteria TRACE Granular Casts 1-4 Urine Mucus 2+ COVID-19 ([facility]) COVID-19 Clin Com Blood Type O Negative Antibody Screen NEGATIVE Imaging Radiologist's Impressions: Impressions Chest X-Ray 06/06/22 14:28 IMPRESSION: No acute cardiopulmonary process. Assessment and Plan (1) Strep pharyngitis: Status: Acute Plan 72-year-old female with a past medical history of hypertension, hyperlipidemia, CAD-recent YARELY stent in April 2022; on aspirin Plavix currently; recent admission to the hospital for question UTI/GI bleed requiring 2 units of blood transfusion/hypotension->. Antihypertensive; presented to the hospital today with a chief complaint of low blood pressure. Noted to have following conditions Hypotension: Likely in the setting of poor oral intake as described with the patient. Improving gentle IV fluids. Continue maintenance IV fluids. Tonsillitis/pharyngitis: Will keep the patient on Clindamycin (patient admitted to cephalosporins and penicillins). Will also obtain CT of the neck. Odynophagia: Likely in the setting of tonsillitis. Aspiration precautions. Gastroenterology follow-up. CAD: Patient had recent YARELY stent placed in April 2022 at [facility]. Continue home aspirin, Plavix, metoprolol, statin History of GI bleed: Hemoglobin currently stable at baseline. Patient had recent admission requiring blood transfusion. Planned for outpatient endoscopy. Continue home pantoprazole, famotidine, sucralfate. DVT prophylaxis: Subcu heparin Code status: DNR/DNI Quality Stroke Does the patient have a stroke diagnosis?: No VTE Prior VTE?: No VTE Risk Level:: Medical - moderate - high VTE Device Contraindication: Treatment Not Indicated VTE Drug Contraindication: N/A - Med Ordered
[2022-06-06 19:50] VITALS: BP 112/48; PULSE 57; RESP 21; TEMP 36.9; O2SAT 96
[2022-06-06 20:44] LABS: Strep A Nucleic Acid Negative (Negative)
[2022-06-06] MEDS: Famotidine 20 MG TABLET 40 MG PO (21:05)
[2022-06-06] MEDS: Gabapentin 300 MG CAPSULE PO (21:05)
[2022-06-06] MEDS: Docusate Sodium 100 MG CAPSULE PO (21:05)
[2022-06-06] MEDS: Sucralfate Oral Suspension 1 GM/10 ML ORAL.SUSP PO (21:05)
[2022-06-06] MEDS: Atorvastatin Calcium 80 MG TABLET PO (21:05)
[2022-06-06] MEDS: Heparin Sodium,Porcine 5,000 UNIT/ML VIAL 5000 UNIT SUBCUT (22:02)
[2022-06-06] MEDS: Clindamycin Phosphate/D5W 600 MG/50 ML PIGGYBACK 100 MG IV (22:02)
[2022-06-06 22:18] VITALS: BP 124/42; PULSE 57; RESP 14; TEMP 37
--- NOTE | 2022-06-06 22:31 | PM.EVENT ---
Event Note Date of Service: 06/06/22 Event Note: GI consult received, patient will be seen 06/07. DVT prophylaxis with heparin is contraindicated in this patient with recent GI bleed who requires dual antiplatelet therapy for YARELY stent. Heparin has been discontinued. Please consider other methods of DVT prophylaxis if needed.
[2022-06-07] VITALS (8 sets, daily range): BP systolic 106–140; BP diastolic 46–68; PULSE 51–62; RESP 14–18; TEMP 36.7–37.1; O2SAT 96–100
[2022-06-07] MEDS: HYDROmorphone HCl 0.5 MG/0.5 ML SYRINGE IVPUSH (04:26)
[2022-06-07] MEDS: 0.9 % Sodium Chloride 1,000 ML 100 ML IVCONT ×3 (04:27→15:23)
[2022-06-07] MEDS: Omeprazole 20 MG CAPSULE.DR PO (05:02)
[2022-06-07] MEDS: Clindamycin Phosphate/D5W 600 MG/50 ML PIGGYBACK 100 MG IV ×2 (05:02→15:24)
[2022-06-07 07:17] LABS: MANUAL DIFF FLAG NO
[2022-06-07 07:32] LABS: Basophils Percent Auto 0.8 % (0-2); Eosinophils Percent Auto 9.1 % (0-4); Hematocrit 28.1 % (37.0-47.0); Hemoglobin 9.4 g/dl (12.0-16.0); Imm Gran Pct Auto 0.3 % (0.0-0.4); Lymphocytes Percent Auto 38.5 % (20-40); Mean Corpuscular HGB Conc 33.5 g/dl (31.0-35.0); Mean Corpuscular Hemoglobin 27.7 pg (27.0-33.0); Mean Corpuscular Volume 82.9 fL (80.0-98.0); Mean Platelet Volume 9.9 fL (9.4-12.3); Monocytes Percent Auto 9.6 % (2-11); Neutrophils Absolute Auto 2.7 x10*3/uL (2.0-8.3); Neutrophils Percent Auto 41.7 % (45-73); Platelet Count 332 X10*3/uL (160-400); Red Blood Count 3.39 X10*6/uL (4.20-5.50); Red Cell Distribution Width 14.6 % (11.0-16.0); White Blood Count 6.5 X10*3/uL (4.8-10.8)
[2022-06-07 07:33] LABS: Basophils Absolute Auto 0.1 X10*3/uL (0.0-0.2); Eosinophils Absolute Auto 0.6 X10*3/uL (0.0-0.4); Imm Gran Abs Auto 0.02 X10*3/uL (0.00-0.03); Lymphocytes Absolute Auto 2.5 X10*3/uL (1.2-4.9); Monocytes Absolute Auto 0.6 X10*3/uL (0.1-1.2)
--- NOTE | 2022-06-07 07:52 | PC.NURSE ---
PATIENT ALERT A/O X4 . PEARRLA. LUNGS CLEAR . HEART BEAT REGULAR AT 55 BEATS . SKIN PINK WARMAND DRY , MILD TENTING NOTED ON HANDS . PATIENTS REPORTS PAIN LEVEL 2 IN HER MOUTH . SMALL WHITE PATCHES NOTED BY THIS RN ON BOTH SIDES OF CHEEKS AND BACK OF THROAT .ABDOMEN SOFT . NON -DISTENDED AND NON TENDER . POSITIVE BOWEL SOUNDS IN ALL FOUR QUADRANTS . NO C/O OF NAUSEA OR VOMITING AT THIS TIME . PATIENT AWARE OF PLAN OF CARE FOR ADMISSION .
[2022-06-07 07:53] LABS: Anion Gap 10 (12-20); Blood Urea Nitrogen 3 mg/dL (9-16); Carbon Dioxide 24 mmol/L (22-29); Chloride 104 mmol/L (96-108); Creatinine Clr Calc Pharmacy 54.1; Estimated Glomerular Filt Rate > 60; Glucose Random 77 mg/dL (60-115); Potassium 3.4 mmol/L (3.3-5.1); Sodium 135 mmol/L (135-145)
[2022-06-07] MEDS: 0.9 % Sodium Chloride Flush 3 ML SYRINGE IVFLUSH (07:57)
--- NOTE | 2022-06-07 09:24 | PC.NURSE ---
DAUGHTER GIVEN UPDATE ON PLAN OF CARE FOR MOTHER ADMISSION .
--- NOTE | 2022-06-07 09:59 | MHC.CM.PN ---
Attempted to meet with patient in regards to discharge planning. Patient currently sleeping. No family present. Will attempt to meet again. Continue to monitor for d/c needs.
[2022-06-07] MEDS: Ezetimibe 10 MG TABLET PO (10:51)
[2022-06-07] MEDS: Cholecalciferol (Vitamin D3) 25 MCG TABLET 50 MCG PO (10:51)
[2022-06-07] MEDS: valACYclovir HCL 1,000 MG TABLET 1000 MG PO (10:51)
[2022-06-07] MEDS: Ascorbic Acid 500 MG TABLET PO (10:52)
[2022-06-07] MEDS: Loratadine 10 MG TABLET PO (10:52)
[2022-06-07] MEDS: Sucralfate Oral Suspension 1 GM/10 ML ORAL.SUSP PO ×2 (10:52→14:13)
[2022-06-07] MEDS: Aspirin Enteric Coated 81 MG TABLET.DR PO (10:55)
[2022-06-07] MEDS: Clopidogrel Bisulfate 75 MG TABLET PO (10:56)
--- NOTE | 2022-06-07 11:01 | PC.NURSE ---
DR HUYNH AT BEDSIDE FOR GI CONSULT . PROVIDER SAYS TO CONTINUE WITH ASPIRIN AND PLAVIX R/T PATIENTS STENT HX . PT HAS NO S/SX OF BLEEDING AT THIS TIME . PATIENT AWARE OF PLAN OF CARE .
--- NOTE | 2022-06-07 11:52 | CONS_ITS ---
DATE OF SERVICE: 06/07/2022 REFERRING PHYSICIAN: Shan Colon MD REASON FOR CONSULTATION: Odynophagia. HISTORY OF PRESENT ILLNESS: The patient is a pleasant 72-year-old woman, who was admitted to the hospital yesterday because of low blood pressure. She was recently hospitalized with upper GI bleeding while on aspirin and Plavix, but did not undergo upper endoscopy as the bleeding responded to medical treatment. She has a history of coronary artery disease and had recent drug-eluting stent placement in April 2022, so her dual anti-platelet therapy could not be stopped. She also complains about 1 week of sore throat and was diagnosed with pharyngitis. She has some pain with swallowing, but no esophageal symptoms. PAST MEDICAL HISTORY: 1. Coronary artery disease with history of NSTEMI and stent placement. 2. COPD. 3. Carotid artery stenosis. 4. Hypertension. 5. Hyperlipidemia. 6. Pulmonary nodules. CURRENT MEDICATIONS: Current medication list is reviewed in the chart. ALLERGIES: MULTIPLE MEDICATION ALLERGIES REVIEWED. FAMILY HISTORY: This is reviewed with the patient and is noncontributory. SOCIAL HISTORY: There is no substance abuse. REVIEW OF SYSTEMS: SKIN: No pruritus. HEENT: Negative. CARDIOPULMONARY: No shortness of breath or chest pain. GASTROINTESTINAL: As above. GENITOURINARY: Negative. NEUROPSYCHIATRIC: Negative. PHYSICAL EXAMINATION: GENERAL: Shows a pleasant female, lying comfortably in bed. VITAL SIGNS: Stable. Systolic blood pressure is around 120. SKIN: Anicteric. HEENT: Shows no scleral icterus. Oropharynx is slightly erythematous. NECK: Without lymphadenopathy. LUNGS: Clear. HEART: Shows regular rate and rhythm. S1, S2. No murmur. ABDOMEN: Soft without focal masses or tenderness. Bowel sounds are present. No organomegaly is noted. EXTREMITIES: Without edema. LABORATORY DATA: Shows a hematocrit of 28.1 this morning, down slightly from 30.4 yesterday. IMPRESSION: Pharyngitis with odynophagia. She does not appear to have any esophageal symptoms at this time. I would recommend continuing her proton pump inhibitor because of her history of bleeding and continuing her dual anti-platelet therapy as above. Thanks for asking me to see her. I will follow her in the hospital with you. MD JOSEPH Hannon/ISHMAEL / [phone]
--- NOTE | 2022-06-07 11:57 | PC.NURSE ---
DIMITRI SUNG AT BEDSIDE PLAN OF CARE IS TO GIVE PATIENT A UNIT OF BLOOD , MONITOR AND D/C FOR FOLLOW UP WITH PROVIDERS AND RETURN TO ED . PATIENT AWARE OF PLAN OF CARE .
--- NOTE | 2022-06-07 12:48 | PC.NURSE ---
patient tolerating blood transfusion no signor symptoms of transfusion reaction . patient aware of plan of care .
--- NOTE | 2022-06-07 14:02 | MHC.CM.PN ---
spoke with pts pebbles who is visitng from [place] she going back today,another dgter will be coming to stay with mom on , pt had no previous services dgtrer will [place] home pt will be dcd today
--- NOTE | 2022-06-07 14:14 | PC.NURSE ---
PATIENT TOLERATING BLOOD TRANSFUSION , LUNGS REMAIN CLEAR . NO SIGNS OR SYMPTOMS OF DISCOMFORT OR DISTRESS NOTED . VITAL SIGNS REMAIN STABLE . PATIENT AWARE OF PLAN OF CARE .
--- NOTE | 2022-06-07 15:10 | P.DS_ITS ---
DS: Providers Provider Date of Service: 06/07/22 Date of admission: 06/06/22 19:03 Primary care physician: Danni Mccarthy MD Consults: 06/06/22 21:04 Consult to Gastroenterology Routine Consulting Provider: Calvin Gonzalez Reason for consultation: odynophagia Consult to Infectious Diseases Routine Consulting Provider: Nadja Finnegan Reason for consultation: tonsillitis [facility] Discharging clinician: Reba Pleitez DS: Summary Hospital Course Hospital Course: 72-year-old female with a past medical history of hypertension, hyperlipidemia, CAD-recent YARELY stent in April 2022; on aspirin Plavix currently; recent admission to the hospital for question UTI/GI bleed requiring 2 units of blood transfusion/hypotension->.? Antihypertensive; presented to the hospital today with a chief complaint of low blood pressure.?Patient reports that she noted her blood pressure to be on the lower side today with systolic in 80s; hence presented to the ER for further evaluation.? Patient denies any lightheadedness or dizziness.?Patient reports that she has pain in her throat and has not been eating good for the past 3-4 days.?Complains of pain on swallowing.?Denies any nausea vomiting or diarrhea.? Denies any cough or sputum production.?Denies any chest pain or palpitations.?Mentioned that she has not been taking her home antihypertensives given day was started in the last admission.?Denies being on any antibiotics.?Denies any numbness tingling or focal weakness.? Denies any falls.?Patient denies any further episodes of GI bleed.Review of all other systems is negative except mentioned above ER course: Per ER team patient blood pressure on presentation noted to be in the soft side with systolic in 0s; given IV fluids with improvement in blood pressure.? Admitted to the hospital for obse rvation. Hypotension:? Likely in the setting of poor oral intake as described with the patient.?Improving gentle IV fluids.? Continue maintenance IV fluids. Tonsillitis/pharyngitis:? Will keep the patient on Clindamycin (patient admitted to cephalosporins and penicillins).? Will also obtain CT of the neck.?Odynophagia:? Likely in the setting of tonsillitis.? Aspiration precautions.? Gastroenterology follow-up.?CAD:? Patient had recent YARELY stent placed in April 2022 at [facility].? Continue home aspirin, Plavix, metoprolol, statin History of GI bleed:? Hemoglobin currently stable at baseline.? Patient had recent admission requiring blood transfusion.? Planned for outpatient endoscopy.? Continue home pantoprazole, famotidine, sucralfate . Hypotension Likely in the setting of poor oral intake as described with the patient.? Treated with IV fluids.? Anemia In light of CAD and recent intervention, transfused one unit of PRBC for HH of 9.4/28.1, try to keep hemoglobin >10 Tonsillitis/pharyngitis with odynophagia Initially treated with clindamycin neg strep test supportive care at home, tylenol, heat packs CAD Patient had recent YARELY stent placed in April 2022 at [facility].? Continue home aspirin, Plavix, metoprolol, statin History of GI bleed Patient had recent admission requiring blood transfusion.? Planned for outpatient endoscopy.? Continue home pantoprazole, famotidine, sucralfate. Time Spent with Patient Time attestation: Total time spent providing and/or coordinating discharge services: Discharge coordination time: Greater than 30 minutes Quality: Safe Use of Opioids Does Pt have an Active Cancer Diagnosis on the Problem List?: No Quality: Stroke Does the patient have a stroke diagnosis?: No Physical Exam Vital Signs: Vital Signs: Last Vital Signs Temp 98.3 F 06/07/22 14:11 Pulse 51 06/07/22 14:11 Resp 16 06/07/22 14:11 BP 106/68 06/07/22 14:11 Pulse Ox 100 06/07/22 14:11 O2 Del Method 06/07/22 14:11 BMI result Body Mass Index 25.0 Appearing in no acute distress head is normocephalic atraumatic eyes pupils are PERRLA sclera is anicteric mouth throat mucous membranes are intact and moist neck is supple no lymphadenopathy, no JVD noted lung sounds are clear to auscultation heart regular rate rhythm, clear S1, S2 positive bowel sounds, abdomen is soft, nontender neuro patient is alert x3, no focal deficits DS: Data Data Completed and Pending Labs on day of discharge: Laboratory Results - last 24 hr 06/06/22 06/06/22 06/06/22 14:52 14:58 14:58 WBC 8.9 RBC 3.66 L Hgb 10.1 L Hct 30.4 L MCV 83.1 MCH 27.6 MCHC 33.2 RDW 14.3 Plt Count 338 MPV 9.8 Immature Gran % (Auto) 0.6 H Neut % (Auto) 51.2 Lymph % (Auto) 31.5 [place] % (Auto) 7.6 Eos % (Auto) 8.5 H Baso % (Auto) 0.6 Lymph # (Auto) 2.8 [place] # (Auto) 0.7 Eos # (Auto) 0.8 H Baso # (Auto) 0.1 Abs Immat Gran (auto) 0.05 H Absolute Neuts (auto) 4.6 Absolute Nucleated RBC 0.000 Nucleated RBC % (auto) 0.0 PT 14.4 H INR 1.2 H Sodium Potassium Chloride Carbon Dioxide Anion Gap BUN Creatinine Estim Creat Clear Calc Estimated GFR Random Glucose Lactic Acid Lactic Acid F/U @ 2Hr Calcium Magnesium Total Bilirubin Direct Bilirubin AST ALT Alkaline Phosphatase Troponin I High Sens Total Protein Albumin Lipase Urine Color Urine Appearance Urine pH Ur Specific [place] Urine Protein Urine Glucose (UA) Urine Ketones Urine Blood Urine Nitrite Ur Leukocyte Esterase Urine RBC Urine WBC Ur Squamous Epith Cells Calcium Oxalate Crystal Amorphous Sediment Urine Bacteria Granular Casts Urine Mucus COVID-19 ([facility]) Negative COVID-19 Clin Com See Note S. pyogenes GrpA ERASMO Blood Type Antibody Screen Crossmatch 06/06/22 06/06/22 06/06/22 14:58 14:58 14:58 WBC RBC Hgb Hct MCV MCH MCHC RDW Plt Count MPV Immature Gran % (Auto) Neut % (Auto) Lymph % (Auto) [place] % (Auto) Eos % (Auto) Baso % (Auto) Lymph # (Auto) [place] # (Auto) Eos # (Auto) Baso # (Auto) Abs Immat Gran (auto) Absolute Neuts (auto) Absolute Nucleated RBC Nucleated RBC % (auto) PT INR Sodium 134 L Potassium 3.6 Chloride 101 Carbon Dioxide 24 Anion Gap 13 BUN 5 L D Creatinine 0.90 Estim Creat Clear Calc 45.1 Estimated GFR > 60 Random Glucose 95 Lactic Acid 3.7 H* Lactic Acid F/U @ 2Hr Calcium 8.6 Magnesium 1.7 Total Bilirubin 0.6 Direct Bilirubin 0.3 AST 28 ALT 20 Alkaline Phosphatase 107 D Troponin I High Sens 7.2 Total Protein 6.5 Albumin 3.4 L Lipase 25 Urine Color Urine Appearance Urine pH Ur Specific [place] Urine Protein Urine Glucose (UA) Urine Ketones Urine Blood Urine Nitrite Ur Leukocyte Esterase Urine RBC Urine WBC Ur Squamous Epith Cells Calcium Oxalate Crystal Amorphous Sediment Urine Bacteria Granular Casts Urine Mucus COVID-19 ([facility]) COVID-19 Clin Com S. pyogenes GrpA ERASMO Blood Type Antibody Screen Crossmatch 06/06/22 06/06/22 06/06/22 15:38 16:01 18:39 WBC RBC Hgb Hct MCV MCH MCHC RDW Plt Count MPV Immature Gran % (Auto) Neut % (Auto) Lymph % (Auto) [place] % (Auto) Eos % (Auto) Baso % (Auto) Lymph # (Auto) [place] # (Auto) Eos # (Auto) Baso # (Auto) Abs Immat Gran (auto) Absolute Neuts (auto) Absolute Nucleated RBC Nucleated RBC % (auto) PT INR Sodium Potassium Chloride Carbon Dioxide Anion Gap BUN Creatinine Estim Creat Clear Calc Estimated GFR Random Glucose Lactic Acid Lactic Acid F/U @ 2Hr 0.7 Calcium Magnesium Total Bilirubin Direct Bilirubin AST ALT Alkaline Phosphatase Troponin I High Sens Total Protein Albumin Lipase Urine Color DK YELLOW Urine Appearance CLOUDY Urine pH 5.5 Ur Specific [place] 1.020 Urine Protein 1+ H Urine Glucose (UA) NEG Urine Ketones 5 Urine Blood 2+ H Urine Nitrite NEG Ur Leukocyte Esterase 1+ H Urine RBC 5-9 H Urine WBC 10-14 H Ur Squamous Epith Cells 1+ Calcium Oxalate Crystal 2+ Amorphous Sediment 1+ Urine Bacteria TRACE Granular Casts 1-4 Urine Mucus 2+ COVID-19 ([facility]) COVID-19 Clin Com S. pyogenes GrpA ERASMO Blood Type O Negative Antibody Screen NEGATIVE Crossmatch See Detail 06/06/22 06/07/22 06/07/22 20:20 06:59 06:59 WBC 6.5 RBC 3.39 L Hgb 9.4 L Hct 28.1 L MCV 82.9 MCH 27.7 MCHC 33.5 RDW 14.6 Plt Count 332 MPV 9.9 Immature Gran % (Auto) 0.3 Neut % (Auto) 41.7 L Lymph % (Auto) 38.5 [place] % (Auto) 9.6 Eos % (Auto) 9.1 H Baso % (Auto) 0.8 Lymph # (Auto) 2.5 [place] # (Auto) 0.6 Eos # (Auto) 0.6 H Baso # (Auto) 0.1 Abs Immat Gran (auto) 0.02 Absolute Neuts (auto) 2.7 Absolute Nucleated RBC 0.000 Nucleated RBC % (auto) 0.0 PT INR Sodium 135 Potassium 3.4 Chloride 104 Carbon Dioxide 24 Anion Gap 10 L BUN 3 L Creatinine 0.75 Estim Creat Clear Calc 54.1 Estimated GFR > 60 Random Glucose 77 Lactic Acid Lactic Acid F/U @ 2Hr Calcium 8.0 L D Magnesium Total Bilirubin Direct Bilirubin AST ALT Alkaline Phosphatase Troponin I High Sens Total Protein Albumin Lipase Urine Color Urine Appearance Urine pH Ur Specific [place] Urine Protein Urine Glucose (UA) Urine Ketones Urine Blood Urine Nitrite Ur Leukocyte Esterase Urine RBC Urine WBC Ur Squamous Epith Cells Calcium Oxalate Crystal Amorphous Sediment Urine Bacteria Granular Casts Urine Mucus COVID-19 ([facility]) COVID-19 Clin Com S. pyogenes GrpA ERASMO Negative Blood Type Antibody Screen Crossmatch Preliminary micro results at discharge 06/06/22 15:38 Urine Culture - Preliminary Urine clean catch - Urine vance top Gram negative simona Discharge Plan Discharge Anticipated Discharge Date/Time: 06/07/22 16:15 Patient Disposition: Home, Self-Care Discharge Diagnosis: Anemia Hypotension Pharyngitis Referrals: Danni Mccarthy MD [Primary Care Provider] - 1 Week Discharge Medications: Continued Anoro Ellipta 62.5-25 mcg/actuation blister with device 1 ea inhalation DAILY Qty: 60 2RF Fiber Laxative (methylcellulo) 500 mg tablet 500 mg PO DAILY 30 Days Qty: 30 1RF valacyclovir 1 gram tablet 1 tab PO DAILY methenamine hippurate 1 gram tablet 1 tab PO BID docusate sodium [Colace] 100 mg capsule 100 mg PO BEDTIME cetirizine 10 mg tablet 1 tab PO DAILY ascorbic acid (vitamin C) 500 mg Tablet 500 mg PO DAILY hydroxyzine HCl 25 mg Tablet 25 mg PO QID PRN (Reason: Itching) ezetimibe 10 mg Tablet 10 mg PO DAILY rosuvastatin 40 mg Tablet 40 mg PO BEDTIME acetaminophen [Tylenol Extra Strength] 500 mg tablet 1,000 mg PO Q6H PRN (Reason: pain or fever) pantoprazole 40 mg tablet,delayed release (DR/EC) 40 mg PO DAILY@0630 Rx Instructions: take one tablet half an hour before breakfast albuterol sulfate 2.5 mg/0.5 mL solution for nebulization 2.5 mg inhalation QID PRN (Reason: Shortness Of Breath) clobetasol 0.05 % ointment 1 ea topical BID cholecalciferol (vitamin D3) 50 mcg (2,000 unit) capsule 1 cap PO DAILY aspirin 81 mg Tablet,Delayed Release (Dr/Ec) 81 mg PO DAILY famotidine 40 mg tablet 1 tab PO BEDTIME sucralfate 100 mg/mL Suspension 1 g PO QID Qty: 400 0RF clopidogrel 75 mg Tablet 75 mg PO DAILY Qty: 30 0RF potassium chloride [Klor-Con M20] 20 mEq tablet,ER particles/crystals 40 meq PO DAILY Qty: 4 0RF Rx Instructions: Take for 2 days then check your potassium level gabapentin 300 mg capsule 300 mg PO BEDTIME Discharge Orders: Discharge Order (Routine); Ordered 06/07/22 Ordered By: Reba Pleitez Diet: Advance to usual diet Activity on Discharge: As tolerated Stand Alone Forms: Patient Portal Discharge page Care Plan Goals: Complete resolution of symptoms Health Concerns: Anemia Hypotension Pharyngitis Plan of Treatment: Follow-up with primary care provider as needed Monitor your blood pressure and call your primary care provider if you have symptoms including dizziness or loss of consciousness Take all medications as prescribed Assessment: See discharge summary
[2022-06-07 15:43] LABS: Mean Corpuscular HGB Conc 33.3 g/dl (31.0-35.0); Mean Corpuscular Hemoglobin 28.4 pg (27.0-33.0); Mean Corpuscular Volume 85.3 fL (80.0-98.0); Mean Platelet Volume 9.5 fL (9.4-12.3); Platelet Count 344 X10*3/uL (160-400); Red Blood Count 3.87 X10*6/uL (4.20-5.50); Red Cell Distribution Width 15.7 % (11.0-16.0); White Blood Count 7.3 X10*3/uL (4.8-10.8)
--- NOTE | 2022-06-07 16:02 | MHC.CM.PN ---
imformed chevy cortez that i have as yet been unable to find a vna for pt and that family /pt will need rto follow up with pts pcp
== END 2022-06-07 17:11 | disposition home or self-care (01) ==
LOC: HO.ED 16:48 → HO.EDOVER 06-07 07:40
PROVIDERS: Admitting Provider Hospitalist; Emergency Provider Emergency Medicine; PCP Internal Medicine; Visit Provider Nurse Practitioner Acute Care
DX: D64.9 Anemia, unspecified (principal); I95.9 Hypotension, unspecified; J02.9 Acute pharyngitis, unspecified; E87.2 Acidosis; R50.9 Fever, unspecified; K13.79 Other lesions of oral mucosa; R53.81 Other malaise; R53.1 Weakness; I10 Essential (primary) hypertension; E78.5 Hyperlipidemia, unspecified; F17.200 Nicotine dependence, unspecified, uncomplicated; Z20.822 Contact with and (suspected) exposure to COVID-19; Z95.5 Presence of coronary angioplasty implant and graft; Z79.01 Long term (current) use of anticoagulants; Z79.82 Long term (current) use of aspirin; Z79.899 Other long term (current) drug therapy; Z79.02 Long term (current) use of antithrombotics/antiplatelets
CPT/HCPCS: 36415; 71045; 80048; 80076; 81001; 83605; 83690; 83735; 84484; 85025; 85027; 85610; 86850; 86900; 86901; 86923; 87040; 87086; 87088; 87186; 87635; 87651; 93005; 96361; 96365; 96367; 96375; 99219; 99285; J1170; J1335; P9016

== ENCOUNTER 2022-06-10 | Outpatient (REF) | payer OTHER, SELFPAY | END 2022-06-10 00:01 | disposition home or self-care (01) | LOC: CF | PROVIDERS: Visit Provider Surgery Vascular Surgery | DX: I73.9 Peripheral vascular disease, unspecified (principal); F17.210 Nicotine dependence, cigarettes, uncomplicated | CPT/HCPCS: 99212 ==

== ENCOUNTER 2022-06-10 14:21 | Emergency (ER) | payer OTHER, SELFPAY | END 2022-06-10 17:25 | disposition left against medical advice (07) | PROVIDERS: Emergency Provider Emergency Medicine; PCP Internal Medicine | DX: Z04.9 Encounter for examination and observation for unspecified reason (principal) | CPT/HCPCS: 99212 ==

== ENCOUNTER 2022-06-25 09:46 | Outpatient (REF) | payer OTHER, SELFPAY ==
[2022-06-25 10:40] LABS: Hematocrit 31.9 % (37.0-47.0); Hemoglobin 10.1 g/dl (12.0-16.0); Mean Corpuscular HGB Conc 31.7 g/dl (31.0-35.0); Mean Corpuscular Hemoglobin 27.4 pg (27.0-33.0); Mean Corpuscular Volume 86.7 fL (80.0-98.0); Mean Platelet Volume 9.5 fL (9.4-12.3); Platelet Count 431 X10*3/uL (160-400); Red Blood Count 3.68 X10*6/uL (4.20-5.50); Red Cell Distribution Width 15.5 % (11.0-16.0); White Blood Count 9.7 X10*3/uL (4.8-10.8)
[2022-06-25 11:20] LABS: Anion Gap 12 (12-20); Blood Urea Nitrogen 6 mg/dL (9-16); Calcium 9.6 mg/dL (8.4-10.2); Carbon Dioxide 25 mmol/L (22-29); Chloride 105 mmol/L (96-108); Estimated Glomerular Filt Rate 43; Glucose Random 83 mg/dL (60-115); Potassium 4.5 mmol/L (3.3-5.1); Sodium 137 mmol/L (135-145)
== END 2022-06-25 09:47 | disposition home or self-care (01) ==
LOC: HO.LAB 09:46
PROVIDERS: Nurse Practitioner Acute Care; PCP Internal Medicine; Visit Provider Nurse Practitioner Family
DX: D64.9 Anemia, unspecified (principal); E87.1 Hypo-osmolality and hyponatremia
CPT/HCPCS: 36415; 80048; 85027; 99212

== ENCOUNTER → 2022-07-11 11:34 | Outpatient (BNVA) | payer OTHER, SELFPAY | PROVIDERS: PCP Internal Medicine; Visit Provider Nurse Practitioner Family | DX: K31.84 Gastroparesis (principal); R11.0 Nausea; K21.9 Gastro-esophageal reflux disease without esophagitis | CPT/HCPCS: 99212 ==

== ENCOUNTER 2022-07-15 01:40 | Emergency (ER) | payer OTHER, SELFPAY ==
--- NOTE | ~2022-07-15 | XR_ITS ---
EXAMINATION: XR CHEST CLINICAL INFORMATION: Chest pain COMPARISON: 06/06/2022 TECHNIQUE: Frontal view of the chest was obtained. FINDINGS: Cardiac leads overlie the chest. The lungs are well expanded. There is no focal consolidation, edema, or effusion. No pneumothorax. The cardiomediastinal silhouette is within normal limits. No acute osseous abnormality. XR/XR chest 1V IMPRESSION: No acute pulmonary finding.
[2022-07-15 01:47] VITALS: BP 176/94; PULSE 74; O2SAT 95
[2022-07-15 01:48] VITALS: BMI 23.4
[2022-07-15 02:10] VITALS: BP 161/72; PULSE 67; RESP 16; TEMP 36.9; O2SAT 100
--- NOTE | 2022-07-15 02:20 | PC.NURSE ---
Addendum entered by Sergio Jaimes 07/15/22 02:54: EKG completed at 0205 on 07/15 Original Note: EKG completed on patient by this nurse, but not saved successfully in order to transmit into the EMR. Hard copy placed in pt chart, EKG was shown to ED provider Dr. Javier.
--- NOTE | 2022-07-15 02:22 | ECG_ITS ---
Test Reason : cp Blood Pressure : / mmHG Vent. Rate : 064 BPM Atrial Rate : 064 BPM P-R Int : 148 ms QRS Dur : 080 ms QT Int : 458 ms P-R-T Axes : 051 019 054 degrees QTc Int : 472 ms Normal sinus rhythm Cannot rule out Anterior infarct (cited on or before 22-MAY-2022) Abnormal ECG When compared with ECG of 06-JUN-2022 14:37, QT has shortened Referred By: Dre Javier Electronically Signed By:LÓPEZ RECIO
--- NOTE | 2022-07-15 02:25 | ED.CHESTPAIN ---
HPI - Chest Pain General Chief Complaint: Chest Pain Stated Complaint: Abd Pain,Cp,Headache for 3days Time Seen by Provider: 07/15/22 02:22 Source: patient Limitations: no limitations History of Present Illness HPI narrative: This is a 72-year-old female with history of coronary artery disease, status post stenting a few months ago, who complains of pain around her left breast area, for 2 days. The patient says it is not so much of pain as a sticking feeling. She said it is worse when she is lying down. She denies any exertional symptoms. She does feel little short of breath. She denies any nausea or sweats. She does also note some upper abdominal pain. Related Data Home Medications Medication Instructions Recorded Confirmed gabapentin 300 mg capsule 300 mg PO BEDTIME 09/13/20 06/06/22 methenamine hippurate 1 gram tablet 1 tab PO BID 12/27/21 06/06/22 valacyclovir 1 gram tablet 1 tab PO DAILY 12/27/21 06/06/22 docusate sodium 100 mg capsule 100 mg PO BEDTIME 03/13/22 06/06/22 (Colace) acetaminophen 500 mg tablet 1,000 mg PO Q6H PRN pain or fever 05/29/22 06/06/22 (Tylenol Extra Strength) albuterol sulfate 2.5 mg/0.5 mL 2.5 mg inhalation QID PRN 05/29/22 06/06/22 solution for nebulization Shortness Of Breath ascorbic acid (vitamin C) 500 mg 500 mg PO DAILY 05/29/22 06/06/22 tablet aspirin 81 mg tablet,delayed 81 mg PO DAILY 05/29/22 06/06/22 release cetirizine 10 mg tablet 1 tab PO DAILY 05/29/22 06/06/22 cholecalciferol (vitamin D3) 50 1 cap PO DAILY 05/29/22 06/06/22 mcg (2,000 unit) capsule clobetasol 0.05 % topical ointment 1 ea topical BID 05/29/22 06/06/22 ezetimibe 10 mg tablet 10 mg PO DAILY 05/29/22 06/06/22 hydroxyzine HCl 25 mg tablet 25 mg PO QID PRN Itching 05/29/22 06/06/22 rosuvastatin 40 mg tablet 40 mg PO BEDTIME 05/29/22 06/06/22 Previous Rx's Medication Instructions Recorded umeclidinium 62.5 mcg-vilanterol 1 ea inhalation DAILY #60 caps 10/21/21 25 mcg/actuation powdr for inhalation (Anoro Ellipta) clopidogrel 75 mg tablet 75 mg PO DAILY #30 tabs 06/03/22 potassium chloride 20 mEq 40 meq PO DAILY #4 tabs 06/03/22 tablet,extended release(part/cryst) (Klor-Con M) clindamycin HCl 300 mg capsule 300 mg PO TID 10 days #30 caps 06/07/22 pantoprazole 40 mg tablet,delayed 40 mg PO DAILY@0630 #90 tabs 06/25/22 release sucralfate 100 mg/mL oral 1 g (10 mL) PO BID #400 mL 06/25/22 suspension methylcellulose (laxative) 500 mg 500 mg PO DAILY 30 days #30 tabs 07/11/22 tablet (Fiber Laxative (methylcellulose)) metoclopramide HCl 5 mg tablet 5 mg PO QIDACHS #120 tabs 07/11/22 (Reglan) Allergies Allergy/AdvReac Type Severity Reaction Status Date / Time levofloxacin [LEVOFLOXACIN] Allergy Intermediate HIVES Verified 07/11/22 11:48 ceftriaxone [From ROCEPHIN] Allergy Mild SWELLING Verified 07/11/22 11:48 cephalexin [From KEFLEX] Allergy Mild ITCHING Verified 07/11/22 11:48 cyanocobalamin (vitamin B12) Allergy Mild Rash Verified 07/11/22 11:48 doxycycline Allergy Mild Rash Verified 07/11/22 11:48 ferrous sulfate Allergy Mild Stomach Verified 07/11/22 11:48 Upset almond Allergy itchy Verified 07/11/22 11:48 throat Review of Systems Review of Systems: Yes all other systems are reviewed and are negative Constitutional: Constitutional: Reports as per HPI and Denies fever(s) Eyes: Eyes: Reports as per HPI and Reports no additional eye complaints ENT: Reports system reviewed and no additional complaints, except as documented, Reports as per HPI, Denies nasal congestion, Denies nasal discharge and Denies sore throat Cardiovascular: Cardiovascular: Reports as per HPI, Reports chest pain (Localized left breast area) and Reports dyspnea Respiratory: Respiratory: Reports as per HPI, Denies cough and Reports dyspnea Gastrointestinal: Gastrointestinal: Reports as per HPI, Reports abdominal pain, Denies diarrhea and Denies vomiting Genitourinary: Genitourinary: Reports as per HPI, Denies hematuria, Denies urinary frequency and Denies dysuria Musculoskeletal: Musculoskeletal: Reports no additional musculoskeletal complaints and Denies numbness Integumentary/Breasts: Skin/Breast: Reports as per HPI and Denies rash Neurologic: Reports as per HPI, Denies focal weakness and Denies numbness Psychiatric: Psychiatric: Reports no additional psychiatric complaints and Reports as per HPI Endocrine: Endocrine: Reports no additional endocrine complaints and Reports as per HPI Hematologic/Lymphatic: Hematologic/Lymphatic: Reports no additional hematologic/lymphatic complaints, Reports as per HPI and Reports other (No peripheral edema) [facility] Past Medical History Medical History Abscess of right genital labia Atherosclerotic cardiovascular disease Carotid stenosis, bilateral COPD (chronic obstructive pulmonary disease) Gastritis HTN (hypertension) Hyperlipidemia Iron (Fe) deficiency anemia Lichen sclerosus NSTEMI (non-ST elevated myocardial infarction) Perirectal ulcer Pulmonary nodules PVD (peripheral vascular disease) Pyuria Vulvar leukoplakia Surgical History H/O colonoscopy History of bilateral tubal ligation History of brain surgery History of carpal tunnel surgery History of esophagogastroduodenoscopy (EGD) Stented coronary artery Family History Family History Family/Other Breast cancer Mother HTN (hypertension) Asthma Brother CVA (cerebral vascular accident) Asthma Father Asthma Social History Social History Household Members: None Housing: Apartment Are you a primary vp care management to a significant other at home: No Do you presently have visiting nurse or other home services: No Alcohol intake: unknown Patient Tobacco Use Status: Current someday Tobacco user Tobacco use type: Cigarette Cigarettes Per Day: 1 Years Smoked: 52 Use of substances other than those prescribed or required for medical reasons: No Advance Directives: No Advance Directives Date on File: 05/30/22 service: No Current occupational status: unemployed Sexual orientation: Straight/Heterosexual Gender identity: Female Physical Exam Vital Signs: Vital Signs: Last Vital Signs Temp 98.4 F 07/15/22 02:10 Pulse 79 07/15/22 04:56 Resp 18 07/15/22 04:56 BP 146/82 H 07/15/22 04:56 Pulse Ox 99 07/15/22 04:56 O2 Del Method 07/15/22 04:56 BMI result Body Mass Index 23.4 Const: Other: PERRLA Conj [place] Mucous membranes moist Throat clear Neck supple Lungs CTA Heart RRR no murmurs rubs or gallops Reproducible pain upon palpation of the left breast area Abd soft, non tender, non distended Extremities no pitting edema Neuro alert and oriented x 3, non focal MDM - Chest Pain MDM Narrative Medical decision making narrative: Patient with a complaint of pain around her left breast, reproducible on exam. Patient did have coronary artery stenting done 3 months ago. EKG shows no concerning findings. Troponin is negative in the setting of pain for a few days. No concerning abdominal tenderness. Chest x-ray negative. Patient also had expressed concern about her blood pressure, however her blood pressure was not at a concerning level, repeat was 146/82. Patient can continue her current medication Lab Data Attestation: I reviewed the patient's lab results. Result diagrams: 07/15/22 03:49 07/15/22 03:49 Labs: Lab Results 07/15/22 07/15/22 07/15/22 Range/Units 03:49 03:49 03:49 WBC 6.5 (4.8-10.8) X10*3/uL RBC 3.82 L (4.20-5.50) X10*6/uL Hgb 10.4 L (12.0-16.0) g/dl Hct 33.4 L (37.0-47.0) % MCV 87.4 (80.0-98.0) fL MCH 27.2 (27.0-33.0) pg MCHC 31.1 (31.0-35.0) g/dl RDW 15.0 (11.0-16.0) % Plt Count 227 D (160-400) X10*3/uL MPV 10.1 (9.4-12.3) fL Immature Gran % (Auto) 0.2 (0.0-0.4) % Neut % (Auto) 39.6 L (45-73) % Lymph % (Auto) 38.2 (20-40) % [place] % (Auto) 7.1 (2-11) % Eos % (Auto) 13.5 H (0-4) % Baso % (Auto) 1.4 (0-2) % Lymph # (Auto) 2.5 (1.2-4.9) X10*3/uL [place] # (Auto) 0.5 (0.1-1.2) X10*3/uL Eos # (Auto) 0.9 H (0.0-0.4) X10*3/uL Baso # (Auto) 0.1 (0.0-0.2) X10*3/uL Abs Immat Gran (auto) 0.01 (0.00-0.03) X10*3/uL Absolute Neuts (auto) 2.6 (2.0-8.3) x10*3/uL Absolute Nucleated RBC 0.000 (0.0-0.012) X10*3/uL Nucleated RBC % (auto) 0.0 (0.0-0.2) /100WBC Sodium 140 (135-145) mmol/L Potassium 3.8 (3.3-5.1) mmol/L Chloride 107 (96-108) mmol/L Carbon Dioxide 21 L (22-29) mmol/L Anion Gap 16 (12-20) BUN 4 L (9-16) mg/dL Creatinine 0.71 (0.5-1.4) mg/dL Estim Creat Clear Calc 51.4 Estimated GFR > 60 Random Glucose 87 (60-115) mg/dL Calcium 9.0 D (8.4-10.2) mg/dL Troponin I High Sens 7.2 (<3.5-17.0) ng/L Imaging Data Chest x-ray: Radiologist's impression: IMPRESSION: No acute pulmonary finding. ECG Data ECG #1: ECG interpretation date: 07/15/22 ECG interpretation time: 02:28 Interpretation: Sinus rhythm with a rate is 64. Loss of R-wave amplitude in lead V3, but no aaliyah Q-waves. No ST elevation or depression. Discharge Plan Discharge Clinical Impression: Chest wall pain, Atypical chest pain Patient Disposition: Home, Self-Care Instructions: Chest Pain (ED), Chest Wall Pain (ED) Additional Instructions: Follow-up with her primary care physician. Use acetaminophen for pain. Return for any new or worsened symptoms. Continue current medications. Prescriptions: No Action Anoro Ellipta 62.5-25 mcg/actuation blister with device 1 ea inhalation DAILY Qty: 60 2RF Fiber Laxative (methylcellulo) 500 mg tablet 500 mg PO DAILY 30 Days Qty: 30 1RF valacyclovir 1 gram tablet 1 tab PO DAILY methenamine hippurate 1 gram tablet 1 tab PO BID docusate sodium [Colace] 100 mg capsule 100 mg PO BEDTIME cetirizine 10 mg tablet 1 tab PO DAILY ascorbic acid (vitamin C) 500 mg Tablet 500 mg PO DAILY hydroxyzine HCl 25 mg Tablet 25 mg PO QID PRN (Reason: Itching) ezetimibe 10 mg Tablet 10 mg PO DAILY rosuvastatin 40 mg Tablet 40 mg PO BEDTIME acetaminophen [Tylenol Extra Strength] 500 mg tablet 1,000 mg PO Q6H PRN (Reason: pain or fever) albuterol sulfate 2.5 mg/0.5 mL solution for nebulization 2.5 mg inhalation QID PRN (Reason: Shortness Of Breath) clobetasol 0.05 % ointment 1 ea topical BID cholecalciferol (vitamin D3) 50 mcg (2,000 unit) capsule 1 cap PO DAILY aspirin 81 mg Tablet,Delayed Release (Dr/Ec) 81 mg PO DAILY clopidogrel 75 mg Tablet 75 mg PO DAILY Qty: 30 0RF potassium chloride [Klor-Con M20] 20 mEq tablet,ER particles/crystals 40 meq PO DAILY Qty: 4 0RF Rx Instructions: Take for 2 days then check your potassium level clindamycin HCl 300 mg capsule 300 mg PO TID 10 Days Qty: 30 0RF gabapentin 300 mg capsule 300 mg PO BEDTIME sucralfate 100 mg/mL suspension 1 g PO BID Qty: 400 3RF pantoprazole 40 mg tablet,delayed release (DR/EC) 40 mg PO DAILY@0630 Qty: 90 2RF Rx Instructions: take one tablet half an hour before breakfast metoclopramide HCl [Reglan] 5 mg tablet 5 mg PO QIDACHS Qty: 120 0RF Rx Instructions: thomas un comprimido 30 minutos antes de las comidas Interventions: ED Discharge Assessment Last Done: 07/15/22 04:57
--- NOTE | 2022-07-15 03:37 | PC.NURSE ---
phlebotomy unsuccessful in initial attempt to draw blood, Zac from phleb states he is going to attempt again so long as patient is agreeable
[2022-07-15 03:53] LABS: Basophils Absolute Auto 0.1 X10*3/uL (0.0-0.2); Basophils Percent Auto 1.4 % (0-2); Eosinophils Absolute Auto 0.9 X10*3/uL (0.0-0.4); Eosinophils Percent Auto 13.5 % (0-4); Hematocrit 33.4 % (37.0-47.0); Hemoglobin 10.4 g/dl (12.0-16.0); Imm Gran Abs Auto 0.01 X10*3/uL (0.00-0.03); Imm Gran Pct Auto 0.2 % (0.0-0.4); Lymphocytes Absolute Auto 2.5 X10*3/uL (1.2-4.9); Lymphocytes Percent Auto 38.2 % (20-40); MANUAL DIFF FLAG NO; Mean Corpuscular HGB Conc 31.1 g/dl (31.0-35.0); Mean Corpuscular Hemoglobin 27.2 pg (27.0-33.0); Mean Corpuscular Volume 87.4 fL (80.0-98.0); Mean Platelet Volume 10.1 fL (9.4-12.3); Monocytes Absolute Auto 0.5 X10*3/uL (0.1-1.2); Monocytes Percent Auto 7.1 % (2-11); Neutrophils Absolute Auto 2.6 x10*3/uL (2.0-8.3); Neutrophils Percent Auto 39.6 % (45-73); Platelet Count 227 X10*3/uL (160-400); Red Blood Count 3.82 X10*6/uL (4.20-5.50); White Blood Count 6.5 X10*3/uL (4.8-10.8)
[2022-07-15 04:12] LABS: Anion Gap 16 (12-20); Blood Urea Nitrogen 4 mg/dL (9-16); Carbon Dioxide 21 mmol/L (22-29); Chloride 107 mmol/L (96-108); Creatinine Clr Calc Pharmacy 51.4; Estimated Glomerular Filt Rate > 60; Glucose Random 87 mg/dL (60-115); Potassium 3.8 mmol/L (3.3-5.1); Sodium 140 mmol/L (135-145)
[2022-07-15 04:16] LABS: Troponin-I High Sensitivity 7.2 ng/L (<3.5-17.0)
[2022-07-15 04:56] VITALS: BP 146/82; PULSE 79; RESP 18; O2SAT 99
== END 2022-07-15 06:34 | disposition home or self-care (01) ==
PROVIDERS: Emergency Provider Emergency Medicine; PCP Internal Medicine
DX: R07.89 Other chest pain (principal); R51.9 Headache, unspecified; R06.02 Shortness of breath; R10.9 Unspecified abdominal pain; Z79.899 Other long term (current) drug therapy
CPT/HCPCS: 36415; 71045; 80048; 84484; 85025; 93005; 99284; 99285

== ENCOUNTER → 2022-07-18 07:44 | Outpatient (REF) | payer OTHER, SELFPAY ==
--- NOTE | ~2022-07-18 | NM_ITS ---
EXAMINATION: RADIONUCLIDE SOLID FOOD GASTRIC EMPTYING 4-HOUR STUDY CLINICAL INFORMATION: Gastritis, unspecified without bleeding. Nausea. COMPARISON: No previous gastric emptying study is available for comparison. TECHNIQUE: A standard meal consisting of 4 oz of Egg Beaters brand tagged with 180 microcuries Tc-99m Sulfur Colloid, 8 oz water and 2 slices of toast with jelly was administered orally to the patient. Images were obtained using a dual head gamma camera in the anterior and posterior projections over of the stomach immediately post ingestion and at hourly intervals up to 3 hours post ingestion. Images were not obtained at 4 hours due to the minimal retention at 3 hours. The anterior and posterior counts at each time interval were averaged using the geometric mean and expressed as percentage of the immediate post ingestion counts. FINDINGS: There is good visualization of activity in the stomach immediately post ingestion. As the study progresses, there is good clearance of activity from the stomach and visualization of progressively increasing small bowel activity. By the end of the study, there is almost no retention noted in the stomach. Retention in the stomach at each time interval was: 1 hour 67% (normal 37%-90%) 2 hours 14% (normal 30%-60%) 3 hours 2% 4 hours (Not Obtained) (normal 0%-10%) NM/NM gastric emptying study IMPRESSION: Normal solid food gastric emptying study.
== END ==
LOC: HO.NUCMED 07:44
PROVIDERS: PCP Internal Medicine; Visit Provider Nurse Practitioner Family
DX: K29.70 Gastritis, unspecified, without bleeding (principal); R11.0 Nausea
CPT/HCPCS: 78264; A9541

== ENCOUNTER 2022-07-29 10:23 | Outpatient (REF) | payer OTHER, SELFPAY ==
[2022-07-29 12:29] LABS: Anion Gap 12 (12-20); Blood Urea Nitrogen 5 mg/dL (9-16); Calcium 9.6 mg/dL (8.4-10.2); Carbon Dioxide 27 mmol/L (22-29); Chloride 103 mmol/L (96-108); Estimated Glomerular Filt Rate > 60; Glucose Random 76 mg/dL (60-115); Potassium 4.1 mmol/L (3.3-5.1); Sodium 138 mmol/L (135-145)
== END 2022-07-29 10:24 | disposition home or self-care (01) ==
LOC: HO.LAB 10:23
PROVIDERS: PCP Internal Medicine; Referring Provider Internal Medicine; Visit Provider Family Medicine
DX: I25.10 Atherosclerotic heart disease of native coronary artery without angina pectoris (principal); R07.89 Other chest pain
CPT/HCPCS: 36415; 80048